=== PATIENT | female | born 1965 | race Caucasian/White ===

== ENCOUNTER 2020-04-03 22:55 | Emergency (ER) | payer MEDICAID, SELFPAY ==
[2020-04-03 23:05] VITALS: BP 130/83; PULSE 67; RESP 18; TEMP 36.4; O2SAT 96; BMI 37.0
--- NOTE | 2020-04-03 23:19 | ECG_ITS ---
Test Reason : ETOH Blood Pressure : / mmHG Vent. Rate : 060 BPM Atrial Rate : 060 BPM P-R Int : 192 ms QRS Dur : 098 ms QT Int : 408 ms P-R-T Axes : 054 036 014 degrees QTc Int : 408 ms Normal sinus rhythm Possible Left atrial enlargement Nonspecific T wave abnormality Anterior leads Abnormal ECG When compared with ECG of 30-JAN-2019 15:43, Nonspecific T wave abnormality now evident in Anterior leads Referred By: Venecia Carmen Electronically Signed By:MITUL BELCHER MD
--- NOTE | 2020-04-03 23:49 | ED_ITS ---
HPI - Alcohol General Chief Complaint: ETOH/Substance Use Stated Complaint: etoh Time Seen by Provider: 04/03/20 23:19 Source: patient and digital campaign specialist Mode of arrival: EMS Limitations: no limitations History of Present Illness HPI narrative: this is a 54-year-old female who is brought in by EMS after being found on the steps of her apartment significantly intoxicated and patient reports she has had a lot to drink . She otherwise complains some burning within her chest ( she has had multiple episodes of nausea and vomiting since her arrival in the emergency department). Otherwise, she denies any fevers, chi lls, chest pain /palpitations, abdominal pain /diarrhea, urinary pain /burning / frequency. Related Data Allergies Allergy/AdvReac Type Severity Reaction Status Date / Time No Known Allergies Allergy Unverified 02/19/20 17:48 [No Known Allergies*] Review of Systems Review of Systems: Pertinent positives and negatives as stated in the HPI and 10 point review of systems is otherwise negative. [facility] Past Medical History Source: nursing notes reviewed Medical History (Updated 04/04/20 @ 02:08 by Venecia Carmen MD) No known health problems Social History Social History Alcohol intake: never Smoked in Last 30 Days: No Use of substances other than those prescribed or required for medical reasons: No Advance Directives: No Advance Directives Information Provided: Yes Physical Exam Vital Signs: Vital Signs: Vital Signs Temp Pulse Resp BP Pulse Ox 04/04/20 06:04 66 16 105/60 98 04/04/20 04:00 94 16 151/72 H 97 04/04/20 02:48 88 16 117/87 98 04/04/20 01:40 ED T 66 16 101/55 L 100 04/03/20 23:05 97.6 F 67 18 130/83 96 Body Mass Index 37.0 VITAL SIGNS: Reviewed. GENERAL: Well developed, well nourished, in no acute distress. HEAD: Normocephalic/atraumatic, EYES: PERRLA, EOMI intact without pain, no nystagmus/pallor/icterus noted EARS: Ext canals without abnormality, TMs non-bulging and non-erythematous NOSE: Nares patent bilateral OROPHARYNX: no oral lesions noted, posterior pharynx clear and non-erythematous without noted tonsillar enlargement/erythema/exudates NECK: Supple, no adenopathy LUNGS: Normal breath sounds. No adventitious sounds or accessory muscle use. SpO2<96> CARDIOVASCULAR: Regular rate and rhythm without noted murmurs, no JVD or lower extremity edema. ABDOMEN: Soft, non-tender, non-distended with bowel sounds. No rigidity. No guarding. No palpable masses or hernias noted MUSCULOSKELETAL: No tenderness, deformities, or effusions noted on gross inspection. EXTREMITIES: No cyanosis, clubbing or edema. SKIN: Inspection of the skin reveals no rashes, ulcerations, jaundice, pallor, or petechiae. NEUROLOGIC: Alert and oriented x 4. Strength and sensation to light touch were grossly intact x 4. Course Course Course Narrative: This is a 54-year-old female with history and clinical presentation consistent with significant alcohol intoxication will obtain basic lab work and imaging to include urinalysis to ensure patient is otherwise medically cleared for discharge to her family for continued self detoxification. Review of all investigations is negative for any acute findings other than elevated BAL of 247. Patient will be observed until her gait is steady and then discharged home to family members. MDM - Alcohol Lab Data Result diagrams: 04/03/20 23:53 04/03/20 23:52 Labs: Lab Results 04/03/20 04/03/20 04/03/20 Range/Units 23:52 23:52 23:52 WBC (4.8-10.8) X10*3/uL RBC (4.20-5.50) X10*6/uL Hgb (12.0-16.0) g/dl Hct (37-47) % MCV (80-98) fL MCH (27.0-33.0) pg MCHC (31.0-35.0) g/dl RDW (11.0-16.0) % Plt Count (160-400) X10*3/uL MPV (9.4-12.3) fL Immature Gran % (Auto) (0.0-0.4) % Neut % (Auto) (45-73) % Lymph % (Auto) (20-40) % [place] % (Auto) (2-11) % Eos % (Auto) (0-4) % Baso % (Auto) (0-2) % Lymph # (Auto) (1.2-4.9) X10*3/uL [place] # (Auto) (0.1-1.2) X10*3/uL Eos # (Auto) (0.0-0.4) X10*3/uL Baso # (Auto) (0.0-0.2) X10*3/uL Abs Immat Gran (auto) (0.00-0.03) X10*3/uL Absolute Neuts (auto) (2.0-8.3) X10*3/uL Absolute Nucleated RBC (0.0-0.012) X10*3/uL Nucleated RBC % (auto) (0.0-0.2) /100WBC Sodium 141 (135-145) mmol/L Potassium 3.7 (3.3-5.1) mmol/l Chloride 106 (96-108) mmol/L Carbon Dioxide 23 (22-29) mmol/L Anion Gap 16 (12-20) BUN 8 L (9-16) mg/dL Creatinine 0.75 (0.5-1.4) mg/dL Estim Creat Clear Calc 81.5 Estimated GFR > 60 Random Glucose 127 H (60-115) mg/dL Calcium 8.0 L (8.4-10.2) mg/dL Magnesium 2.2 (1.6-2.6) mg/dL Total Bilirubin 0.2 (0.0-1.0) mg/dL AST 31 (5-31) U/L ALT 34 H (0-31) U/L Alkaline Phosphatase 85 (39-117) U/L Total Protein 7.2 (6.5-8.0) g/dL Albumin 4.1 (3.5-5.0) g/dL Lipase 19 (8-78) U/L Urine Color Urine Appearance Urine pH (5.0-8.0) Ur Specific [place] (1.005-1.025) Urine Protein (NEG-TRACE) MG/DL Urine Glucose (UA) (NEG) MG/DL Urine Ketones (NEG) MG/DL Urine Blood (NEG) Urine Nitrite (NEG) Ur Leukocyte Esterase (NEG) Urine Opiates Screen (Not Detect) Ur Barbiturates Screen (Not Detect) Ur Phencyclidine Scrn (Not Detect) Ur Amphetamines Screen (Not Detect) U Benzodiazepines Scrn (Not Detect) Urine Cocaine Screen (Not Detect) U Marijuana (THC) Screen (Not Detect) Ethyl Alcohol 247 mg/dL 10/31/20 11/01/20 11/01/20 Range/Units 23:53 01:53 EST 01:53 EST WBC 7.3 (4.8-10.8) X10*3/uL RBC 4.32 (4.20-5.50) X10*6/uL Hgb 12.8 (12.0-16.0) g/dl Hct 36.5 L (37-47) % MCV 84.5 (80-98) fL MCH 29.6 (27.0-33.0) pg MCHC 35.1 H (31.0-35.0) g/dl RDW 13.2 (11.0-16.0) % Plt Count 196 (160-400) X10*3/uL MPV 10.1 (9.4-12.3) fL Immature Gran % (Auto) 0.4 (0.0-0.4) % Neut % (Auto) 49.2 (45-73) % Lymph % (Auto) 44.3 H (20-40) % [place] % (Auto) 4.5 (2-11) % Eos % (Auto) 1.2 (0-4) % Baso % (Auto) 0.4 (0-2) % Lymph # (Auto) 3.2 (1.2-4.9) X10*3/uL [place] # (Auto) 0.3 (0.1-1.2) X10*3/uL Eos # (Auto) 0.1 (0.0-0.4) X10*3/uL Baso # (Auto) 0.0 (0.0-0.2) X10*3/uL Abs Immat Gran (auto) 0.03 (0.00-0.03) X10*3/uL Absolute Neuts (auto) 3.6 (2.0-8.3) X10*3/uL Absolute Nucleated RBC 0.000 (0.0-0.012) X10*3/uL Nucleated RBC % (auto) 0.0 (0.0-0.2) /100WBC Sodium (135-145) mmol/L Potassium (3.3-5.1) mmol/l Chloride (96-108) mmol/L Carbon Dioxide (22-29) mmol/L Anion Gap (12-20) BUN (9-16) mg/dL Creatinine (0.5-1.4) mg/dL Estim Creat Clear Calc Estimated GFR Random Glucose (60-115) mg/dL Calcium (8.4-10.2) mg/dL Magnesium (1.6-2.6) mg/dL Total Bilirubin (0.0-1.0) mg/dL AST (5-31) U/L ALT (0-31) U/L Alkaline Phosphatase (39-117) U/L Total Protein (6.5-8.0) g/dL Albumin (3.5-5.0) g/dL Lipase (8-78) U/L Urine Color YELLOW Urine Appearance CLEAR Urine pH 5.5 (5.0-8.0) Ur Specific [place] 1.020 (1.005-1.025) Urine Protein NEG (NEG-TRACE) MG/DL Urine Glucose (UA) NEG (NEG) MG/DL Urine Ketones NEG (NEG) MG/DL Urine Blood NEG (NEG) Urine Nitrite NEG (NEG) Ur Leukocyte Esterase NEG (NEG) Urine Opiates Screen Not Detected (Not Detect) Ur Barbiturates Screen Not Detected (Not Detect) Ur Phencyclidine Scrn Not Detected (Not Detect) Ur Amphetamines Screen Not Detected (Not Detect) U Benzodiazepines Scrn Not Detected (Not Detect) Urine Cocaine Screen Not Detected (Not Detect) U Marijuana (THC) Screen Not Detected (Not Detect) Ethyl Alcohol mg/dL ECG Data Attestation: I personally reviewed and interpreted this ECG as follows: Prior ECG tracings: available for review ( 01/30/2019 without active acute changes) Interpretation: normal sinus rhythm, HR -60, no evidence of acute ischemia,OK/QRS/ QTC are within normal limits Discharge Plan Discharge Clinical Impression: Alcoholic intoxication Qualifiers: Complication of substance-induced condition: uncomplicated Qualified Code(s): F10.920 - Alcohol use, unspecified with intoxication, uncomplicated Patient Disposition: Home, Self-Care Instructions: Alcohol Intoxication (ED) Additional Instructions: The patient and/or family acknowledge understanding of results (as applicable), diagnosis, treatment plan, need for follow up, and symptoms that should prompt a return to the emergency room. Referrals: Physician,Unknown [Primary Care Provider] - 2 days
[2020-04-03 23:59] LABS: Basophils Percent Auto 0.4 % (0-2); Eosinophils Absolute Auto 0.1 X10*3/uL (0.0-0.4); Eosinophils Percent Auto 1.2 % (0-4); Hematocrit 36.5 % (37-47); Hemoglobin 12.8 g/dl (12.0-16.0); Imm Gran Abs Auto 0.03 X10*3/uL (0.00-0.03); Imm Gran Pct Auto 0.4 % (0.0-0.4); Lymphocytes Absolute Auto 3.2 X10*3/uL (1.2-4.9); Lymphocytes Percent Auto 44.3 % (20-40); MANUAL DIFF FLAG NO; Mean Corpuscular HGB Conc 35.1 g/dl (31.0-35.0); Mean Corpuscular Hemoglobin 29.6 pg (27.0-33.0); Mean Corpuscular Volume 84.5 fL (80-98); Mean Platelet Volume 10.1 fL (9.4-12.3); Monocytes Absolute Auto 0.3 X10*3/uL (0.1-1.2); Monocytes Percent Auto 4.5 % (2-11); Neutrophils Absolute Auto 3.6 X10*3/uL (2.0-8.3); Neutrophils Percent Auto 49.2 % (45-73); Platelet Count 196 X10*3/uL (160-400); Red Blood Count 4.32 X10*6/uL (4.20-5.50); Red Cell Distribution Width 13.2 % (11.0-16.0); White Blood Count 7.3 X10*3/uL (4.8-10.8)
[2020-04-03] MEDS: 0.9 % Sodium Chloride 1,000 ML 1000 ML IV (23:59)
[2020-04-03] MEDS: ondansetron HCL 4 MG/2 ML VIAL IVPUSH (23:59)
[2020-04-04 00:21] LABS: Ethanol 247 mg/dL
[2020-04-04 00:30] LABS: Alanine Aminotransferase 34 U/L (0-31); Albumin Level 4.1 g/dL (3.5-5.0); Alkaline Phosphatase 85 U/L (39-117); Anion Gap 16 (12-20); Aspartate Amino Transferase 31 U/L (5-31); Bilirubin Total 0.2 mg/dL (0.0-1.0); Blood Urea Nitrogen 8 mg/dL (9-16); Carbon Dioxide 23 mmol/L (22-29); Chloride 106 mmol/L (96-108); Creatinine Clr Calc Pharmacy 81.5; Estimated Glomerular Filt Rate > 60; Glucose Random 127 mg/dL (60-115); Lipase 19 U/L (8-78); Magnesium 2.2 mg/dL (1.6-2.6); Potassium 3.7 mmol/l (3.3-5.1); Sodium 141 mmol/L (135-145); Total Protein 7.2 g/dL (6.5-8.0)
[2020-04-04 01:29] LABS: Glucose Urine UA NEG (NEG); Leukocyte Esterase Urine NEG (NEG); Nitrite Urine NEG (NEG); PH 5.5 (5.0-8.0); Urine Blood NEG (NEG); Urine Ketones NEG (NEG); Urine Protein NEG (NEG-TRACE)
[2020-04-04 01:35] LABS: Appearance Urine CLEAR; Color Urine YELLOW
[2020-04-04 01:40] VITALS: BP 101/55; PULSE 66; RESP 16; O2SAT 100
--- NOTE | 2020-04-04 01:54 | PC.NURSE ---
Attempted to ambulate pt, pt became lightheaded, unsteady, assisted back into bed. also incont of urine, changed into clean hospital attire.
[2020-04-04 01:59] LABS: Amphetamine Screen Urine Not Detected (Not Detect); Barbiturates, Urine Not Detected (Not Detect); Benzodiazepines Screen Urine Not Detected (Not Detect); Cannabinoid Screen Urine Not Detected (Not Detect); Cocaine Screen Urine Not Detected (Not Detect); Opiate Screen Urine Not Detected (Not Detect); Phencyclidine Screen Urine Not Detected (Not Detect)
[2020-04-04 02:48] VITALS: BP 117/87; PULSE 88; RESP 16; O2SAT 98
--- NOTE | 2020-04-04 02:50 | PC.NURSE ---
pt ambulating w/ steady gait, denies dizziness. Pt son, Stefan, called at [phone] for ride home/assistance to pay for taxi and no answer- will call back. pt unable to find another sober ride.
[2020-04-04 04:00] VITALS: BP 151/72; PULSE 94; RESP 16; O2SAT 97
[2020-04-04 06:04] VITALS: BP 105/60; PULSE 66; RESP 16; O2SAT 98
== END 2020-04-04 06:34 | disposition home or self-care (01) ==
PROVIDERS: Emergency Provider Student in an Organized Health Care Education/Training Program
DX: F10.129 Alcohol abuse with intoxication, unspecified (principal); Y90.8 Blood alcohol level of 240 mg/100 ml or more
CPT/HCPCS: 36415; 80053; 80307; 80320; 81003; 83690; 83735; 85025; 93005; 96361; 96374; 99284; 99285; J2405

== ENCOUNTER 2020-04-06 08:31 | Outpatient (REF) | payer MEDICAID, SELFPAY ==
--- NOTE | 2020-04-06 09:00 | ECG_ITS ---
Test Reason : Z01.810 Blood Pressure : / mmHG Vent. Rate : 052 BPM Atrial Rate : 052 BPM P-R Int : 172 ms QRS Dur : 086 ms QT Int : 416 ms P-R-T Axes : 056 027 005 degrees QTc Int : 386 ms Sinus bradycardia Possible Left atrial enlargement Nonspecific T wave abnormality Inferior leads Abnormal ECG When compared with ECG of 03-APR-2020 22:39, No significant change was found Referred By: Shruthi Martinez Electronically Signed By:MITUL BELCHER MD
[2020-04-06 09:35] LABS: Basophils Percent Auto 0.5 % (0-2); Eosinophils Absolute Auto 0.1 X10*3/uL (0.0-0.4); Eosinophils Percent Auto 1.9 % (0-4); Hematocrit 37.5 % (37-47); Hemoglobin 12.7 g/dl (12.0-16.0); Imm Gran Abs Auto 0.02 X10*3/uL (0.00-0.03); Imm Gran Pct Auto 0.3 % (0.0-0.4); Lymphocytes Absolute Auto 2.3 X10*3/uL (1.2-4.9); Lymphocytes Percent Auto 36.8 % (20-40); MANUAL DIFF FLAG NO; Mean Corpuscular HGB Conc 33.9 g/dl (31.0-35.0); Mean Corpuscular Volume 85.6 fL (80-98); Mean Platelet Volume 9.9 fL (9.4-12.3); Monocytes Absolute Auto 0.4 X10*3/uL (0.1-1.2); Monocytes Percent Auto 5.7 % (2-11); Neutrophils Absolute Auto 3.4 X10*3/uL (2.0-8.3); Neutrophils Percent Auto 54.8 % (45-73); Platelet Count 199 X10*3/uL (160-400); Red Blood Count 4.38 X10*6/uL (4.20-5.50); Red Cell Distribution Width 13.2 % (11.0-16.0); White Blood Count 6.3 X10*3/uL (4.8-10.8)
[2020-04-06 10:03] LABS: Anion Gap 12 (12-20); Blood Urea Nitrogen 7 mg/dL (9-16); Calcium 8.5 mg/dL (8.4-10.2); Carbon Dioxide 29 mmol/L (22-29); Chloride 104 mmol/L (96-108); Estimated Glomerular Filt Rate > 60; Glucose Random 98 mg/dL (60-115); Potassium 4.1 mmol/l (3.3-5.1); Sodium 141 mmol/L (135-145)
== END 2020-04-06 08:32 | disposition home or self-care (01) ==
LOC: HO.LAB 08:31
PROVIDERS: PCP Nurse Practitioner Family
DX: Z01.810 Encounter for preprocedural cardiovascular examination (principal); S83.242A Other tear of medial meniscus, current injury, left knee, initial encounter
CPT/HCPCS: 36415; 80048; 85025; 93005

== ENCOUNTER 2020-07-07 10:08 | Emergency (ER) | payer MEDICAID, SELFPAY ==
--- NOTE | 2020-07-07 10:14 | ECG_ITS ---
Test Reason : CP Blood Pressure : / mmHG Vent. Rate : 074 BPM Atrial Rate : 074 BPM P-R Int : 156 ms QRS Dur : 086 ms QT Int : 402 ms P-R-T Axes : 052 034 024 degrees QTc Int : 446 ms Normal sinus rhythm Biatrial enlargement Abnormal ECG When compared with ECG of 06-APR-2020 10:16, QT has lengthened Referred By: Generic ED Physician Electronically Signed By:JUAN MANUEL GRIER MD
[2020-07-07 11:43] VITALS: BP 146/81; PULSE 67; RESP 16; TEMP 36.8; O2SAT 98; BMI 29.2
--- NOTE | 2020-07-07 11:45 | ED_ITS ---
HPI - Chest Pain General Chief Complaint: Chest Pain Stated Complaint: chest pressure Time Seen by Provider: 07/07/20 11:45 Source: patient Mode of arrival: ambulatory Limitations: no limitations History of Present Illness HPI narrative: chest pain for 2 hours, patient states that she is depressed she lives alone and the virus is upsetting her. complaint: chest pain Onset (ago): hour(s) Timing of current episode: episodic Prior episodes: Yes Onset: during rest Pain location: substernal Severity: moderate Quality: tightness Relieving factors: nothing Exacerbating factors: nothing Related Data Allergies Allergy/AdvReac Type Severity Reaction Status Date / Time No Known Allergies Allergy Unverified 02/19/20 17:48 [No Known Allergies*] Review of Systems Constitutional: Constitutional: Reports no additional constitutional complaints Eyes: Eyes: Reports no additional eye complaints ENT: Denies dizziness Cardiovascular: Cardiovascular: Reports no additional cardiovascular complaints Respiratory: Respiratory: Reports as per HPI Gastrointestinal: Gastrointestinal: Reports no additional gastrointestinal co mplaints Genitourinary: Genitourinary: Reports no additional female genitourinary complaints Musculoskeletal: Musculoskeletal: Reports no additional musculoskeletal complaints Integumentary/Breasts: Skin/Breast: Denies rash Neurologic: Reports system reviewed and no additional complaints, except as documented, Denies dizziness and Denies Sensory deficit (Neuro) Psychiatric: Psychiatric: Reports anxiety and Reports depression [facility] Past Medical History Medical History High cholesterol Hypothyroid No known health problems Social History Social History Alcohol intake: never Smoking Status: Never smoker Use of substances other than those prescribed or required for medical reasons: No Advance Directives: No Advance Directives Information Provided: Yes Physical Exam Vital Signs: Vital Signs: Last Vital Signs Temp 98.3 F 07/07/20 11:48 Pulse 59 07/07/20 12:35 Resp 16 07/07/20 12:35 BP 126/70 07/07/20 12:35 Pulse Ox 98 07/07/20 12:35 Body Mass Index 29.2 Const: General: healthy appearing Nutritional Appearance: average body habitus Orientation/consciousness: oriented to person and patient oriented x3 Limitations: no limitations HENMT: Head: Yes normal to inspection Ears: external ears normal General nose exam: Normal external nose present Mouth: Normal oral and palatal mucosa present and oropharynx normal Throat: Yes posterior oropharynx normal Eyes: General: appearance normal, both eyes and all related structures Neck: Other: supple Neck: Yes normal visual inspection Chest: Chest palpation & inspection: normal inspection of the chest Resp: Auscultation: clear to auscultation bilaterally Cardio: Jugular venous distension: no JVD Rate: regular rate Rhythm: regular rhythm Heart sounds: S1 normal heart sound present and S2 normal heart sound present GI: Inspection: Yes normal to inspection Palpation (GI): Soft to palpation, nontender and No hepatosplenomegaly present Auscultation: normal bowel sounds : General: Yes no CVA tenderness Back/Spine/Pelvis: Back: no CVA tenderness Skin: General skin exam: no rashes or lesions noted Neuro: General: oriented to person and patient oriented x3 Cranial nerves: Yes CN's II-XII intact bilaterally Motor exam (neuro): 5/5 motor strength present throughout Sensory Exam: No Sensory deficit (Neuro) Extrem: General: Yes normal to inspection Psych: Appearance: grossly normal Course Course Course Narrative: patient resting comfortably, troponin negative will dc home MDM - Chest Pain MDM Narrative Medical decision making narrative: patients history sounds more like anxiety, negative EKG and troponin will dc home Differential Diagnosis Differential diagnosis: Likely atypical chest pain, st elevation myocardial infarction and chest pain Differential diagnosis: anxiety Lab Data Result diagrams: 07/07/20 12:41 07/07/20 12:41 Labs: Lab Results 07/07/20 07/07/20 07/07/20 Range/Units 12:41 12:41 12:41 WBC 8.3 (4.8-10.8) X10*3/uL RBC 4.52 (4.20-5.50) X10*6/uL Hgb 12.9 (12.0-16.0) g/dl Hct 37.2 (37-47) % MCV 82.3 (80-98) fL MCH 28.5 (27.0-33.0) pg MCHC 34.7 (31.0-35.0) g/dl RDW 13.8 (11.0-16.0) % Plt Count 206 (160-400) X10*3/uL MPV 10.0 (9.4-12.3) fL Immature Gran % (Auto) 0.2 (0.0-0.4) % Neut % (Auto) 64.5 (45-73) % Lymph % (Auto) 28.5 (20-40) % [place] % (Auto) 5.5 (2-11) % Eos % (Auto) 0.7 (0-4) % Baso % (Auto) 0.6 (0-2) % Lymph # (Auto) 2.4 (1.2-4.9) X10*3/uL [place] # (Auto) 0.5 (0.1-1.2) X10*3/uL Eos # (Auto) 0.1 (0.0-0.4) X10*3/uL Baso # (Auto) 0.1 (0.0-0.2) X10*3/uL Abs Immat Gran (auto) 0.02 (0.00-0.03) X10*3/uL Absolute Neuts (auto) 5.3 (2.0-8.3) X10*3/uL Absolute Nucleated RBC 0.000 (0.0-0.012) X10*3/uL Nucleated RBC % (auto) 0.0 (0.0-0.2) /100WBC Sodium 141 (135-145) mmol/L Potassium 4.7 (3.3-5.1) mmol/L Chloride 103 (96-108) mmol/L Carbon Dioxide 28 (22-29) mmol/L Anion Gap 15 (12-20) BUN 9 (9-16) mg/dL Creatinine 0.75 (0.5-1.4) mg/dL Estim Creat Clear Calc 72.1 Estimated GFR > 60 Random Glucose 93 (60-115) mg/dL Calcium 9.2 D (8.4-10.2) mg/dL Troponin I High Sens 14.7 (<3.5-17.0) ng/L ECG Data ECG #1: Attestation: I personally reviewed and interpreted this ECG as follows: Interpretation: normal sinus rate of 74, no st or twave changes Discharge Plan Discharge Clinical Impression: Anxiety Chest pain Qualifiers: Chest pain type: precordial pain Qualified Code(s): R07.2 - Precordial pain Patient Disposition: Home, Self-Care Instructions: Anxiety (ED), Chest Pain (ED) Referrals: [place],[facility] [Primary Care Provider] - 2 days
[2020-07-07 11:48] VITALS: BP 146/81; PULSE 67; RESP 16; TEMP 36.8; O2SAT 98
[2020-07-07 12:35] VITALS: BP 126/70; PULSE 59; RESP 16; O2SAT 98
[2020-07-07 12:44] LABS: MANUAL DIFF FLAG NO
[2020-07-07 12:49] LABS: Basophils Absolute Auto 0.1 X10*3/uL (0.0-0.2); Basophils Percent Auto 0.6 % (0-2); Eosinophils Absolute Auto 0.1 X10*3/uL (0.0-0.4); Eosinophils Percent Auto 0.7 % (0-4); Hematocrit 37.2 % (37-47); Hemoglobin 12.9 g/dl (12.0-16.0); Imm Gran Abs Auto 0.02 X10*3/uL (0.00-0.03); Imm Gran Pct Auto 0.2 % (0.0-0.4); Lymphocytes Absolute Auto 2.4 X10*3/uL (1.2-4.9); Lymphocytes Percent Auto 28.5 % (20-40); Mean Corpuscular HGB Conc 34.7 g/dl (31.0-35.0); Mean Corpuscular Hemoglobin 28.5 pg (27.0-33.0); Mean Corpuscular Volume 82.3 fL (80-98); Monocytes Absolute Auto 0.5 X10*3/uL (0.1-1.2); Monocytes Percent Auto 5.5 % (2-11); Neutrophils Absolute Auto 5.3 X10*3/uL (2.0-8.3); Neutrophils Percent Auto 64.5 % (45-73); Platelet Count 206 X10*3/uL (160-400); Red Blood Count 4.52 X10*6/uL (4.20-5.50); Red Cell Distribution Width 13.8 % (11.0-16.0); White Blood Count 8.3 X10*3/uL (4.8-10.8)
[2020-07-07 13:20] LABS: Anion Gap 15 (12-20); Blood Urea Nitrogen 9 mg/dL (9-16); Calcium 9.2 mg/dL (8.4-10.2); Carbon Dioxide 28 mmol/L (22-29); Chloride 103 mmol/L (96-108); Creatinine Clr Calc Pharmacy 72.1; Estimated Glomerular Filt Rate > 60; Glucose Random 93 mg/dL (60-115); Potassium 4.7 mmol/L (3.3-5.1); Sodium 141 mmol/L (135-145)
[2020-07-07 13:45] LABS: Troponin-I High Sensitivity 14.7 ng/L (<3.5-17.0)
[2020-07-07 14:06] VITALS: BP 126/70; PULSE 59; RESP 16; O2SAT 98
== END 2020-07-07 14:08 | disposition home or self-care (01) ==
PROVIDERS: Emergency Provider Emergency Medicine
DX: R07.2 Precordial pain (principal); F41.9 Anxiety disorder, unspecified
CPT/HCPCS: 36415; 80048; 84484; 85025; 93005; 99283; 99284

== ENCOUNTER → 2020-08-24 13:07 | Outpatient (BNVA) | payer MEDICAID, SELFPAY | PROVIDERS: Visit Provider Orthopaedic Surgery | DX: S83.232D Complex tear of medial meniscus, current injury, left knee, subsequent encounter (principal) | CPT/HCPCS: 99212 ==

== ENCOUNTER 2020-09-09 09:20 | Outpatient (REF) | payer MEDICAID, SELFPAY ==
--- NOTE | ~2020-09-09 | MM_ITS ---
EXAMINATION: MM SCREENING DIGITAL BREAST TOMOSYNTHESIS, BILATERAL CLINICAL INFORMATION: Screening. Asymptomatic. The lifetime risk of breast cancer based on the Tyrer-Cuzick Model is 4%. COMPARISON: Mammography: 05/30/2019, 05/24/2018, 05/07/2017 TECHNIQUE: Digital breast tomosynthesis is performed in both the craniocaudal and mediolateral oblique views along with computer-aided detection (CAD). Synthesized 2D images are generated from the tomosynthesis. FINDINGS: There are scattered areas of fibroglandular density (ACR BI-RADS breast composition Category b). There are no significant masses, abnormal calcifications, or other abnormalities. Parenchymal pattern is similar to prior studies. The axilla and skin contours are unremarkable. MM/MM tomosynthesis screening BI IMPRESSION: No mammographic evidence of malignancy. ASSESSMENT: BI-RADS 1: Negative RECOMMENDATION: Routine annual mammography screening. This patient's information was entered into a reminder system with a target due date for their next mammogram.
== END 2020-09-09 09:21 | disposition home or self-care (01) ==
LOC: HO.MAMMO 09:20
PROVIDERS: Visit Provider Nurse Practitioner Family
DX: Z12.31 Encounter for screening mammogram for malignant neoplasm of breast (principal)
CPT/HCPCS: 77063; 77067

== ENCOUNTER → 2020-10-05 09:22 | Outpatient (BNVA) | payer MEDICAID, SELFPAY | PROVIDERS: Visit Provider Orthopaedic Surgery | DX: S83.232D Complex tear of medial meniscus, current injury, left knee, subsequent encounter (principal) | CPT/HCPCS: 99212 ==

== ENCOUNTER 2020-10-14 05:59 | Day surgery (SDC) | payer MEDICAID, SELFPAY ==
[2020-10-14] VITALS (7 sets, daily range): BP systolic 114–151; BP diastolic 43–90; PULSE 53–72; RESP 16–20; TEMP 36.5–36.7; O2SAT 95–98; BMI 35.2
[2020-10-14] MEDS: Lactated Ringers 1,000 ML 20 ML IVCONT (07:25)
--- NOTE | 2020-10-14 07:35 | P.CONAN_ITS ---
PMFSH Active Problems Active Problems: All Active Problems (Updated 10/05/20 @ 09:28 by MILTON Ritter) Adhesive bursitis of right shoulder (Acute) Tear of medial meniscus of left knee (Acute) Past Medical History Medical History High cholesterol Hypothyroid Surgical History Surgical History Hx of colonoscopy Social History Social History Alcohol intake: never Smoking Status: Former smoker Smoking Quit Date: 2018 Use of substances other than those prescribed or required for medical reasons: No Are you DNR?: No Advance Directives: No Advance Directives Information Provided: Yes Current occupational status: unemployed Meds Allergies Allergy/AdvReac Type Severity Reaction Status Date / Time No Known Allergies Allergy Verified 10/14/20 07:02 [No Known Allergies*] Active Medications: Current Medications Generic Name Dose Route Start Last Admin Trade Name Angela PRN Reason Stop Dose Admin Lactated Ringer's 1,000 mls @ 20 mls/hr 10/14/20 07:45 Lr IVCONT .Q24H LENORA Home Medications Medication Instructions Recorded Confirmed Last Taken Type cholecalciferol (vitamin D3) 10 10 mcg PO DAILY 08/24/20 Unknown History mcg (400 unit) capsule levothyroxine 13 mcg capsule 13 mcg PO DAILY 08/24/20 Unknown History simvastatin 5 mg tablet 5 mg PO BEDTIME 08/24/20 Unknown History Exam Exam Date and Time: October 14, 2020 0735 Height,Weight and Vital Signs: Height 5 ft Weight 81.647 kg Last Vital Signs Temp 97.7 F 10/14/20 07:19 Pulse 53 10/14/20 07:19 Resp 16 10/14/20 07:19 BP 127/67 10/14/20 07:19 Pulse Ox 98 10/14/20 07:19 Airway Mallampati Class: III TM Dist: >3cm Neck ROM: Full Loose/Missing/Broken Teeth: Upper Heart: RRR Lungs: cTA
[2020-10-14] MEDS: Ketorolac Tromethamine 15 MG/ML VIAL IVPUSH (09:53)
[2020-10-14] MEDS: Acetaminophen 325 MG TABLET 650 MG PO (09:53)
[2020-10-14] MEDS: oxyCODONE HCl Immed Release 5 MG TABLET PO (09:54)
--- NOTE | 2020-10-14 12:43 | P.OP_ITS ---
Operative Note Operative Note Date of Service: 10/14/20 Narrative: ARTHROSCOPIC SURGERY NOTE SURGEON: Dr Malagon (Carline) [employer]: Lakeisha Peter PAC PREOP DIAGNOSIS: Medial meniscal tear left knee POSTOP DIAGNOSIS: Same OPERATIVE PROCEDURE: Arthroscopic partial medial meniscectomy left knee CLINICAL NOTE: This very pleasant lady has had ongoing problems with pain discomfort involving medial side of her knee. She has failed non operative management. Therefore after explaining the risks, benefits, and alternatives of the surgery, it was mutually agreed upon to carry the following procedure MOTION: Full range of motion STABILITY: Cruciate and collateral ligaments intact OPERATIVE DETAILS PREPARATION: GA, STANDARD TECHNIQUE, tourniquet E to 300 mm of mercury for 16 minutes SURGICAL TIME-OUT: Patient identified; procedure confirmed; site confirmed. Medical and allergy history reviewed. No preoperative antibiotics. No DVT prophylaxis. All other items discussed and agreed upon. INCISIONS: Superolateral, inferolateral, inferomedial stab incisions SYNOVIUM: Normal SYNOVIAL FLUID: Clear MEDIAL COMPARTMENT: There was a radial tear with a flap tucked underneath the peripheral portion of the meniscus in the junction of the posterior middle horn region. This was resected using a combination of handheld cutters and power Manuel to stable meniscus. The tibial and femoral articular surfaces were intact. INTERCONDYLAR NOTCH: ACL visualized palpated and intact. PCL palpated and intact. LATERAL COMPARTMENT: The lateral meniscus, tibial and femoral articular surfaces, and popliteus tendon Were all stable and intact. ANTERIOR COMPARTMENT: Medial and lateral gutters clear. Suprapatellar pouch clear. Patella and femoral sulcus articular surfaces are intact. CLOSURE: 30 cc of 0.25% Marcaine with epinephrine injected in the knee. Steri- Strips and sterile dressing then applied. RECOMMENDATIONS: 1)Restore motion strength 2)Resume activities as tolerated 3)Discharge today with prescription for analgesic 4)Follow up in the office in 10-14 days
== END 2020-10-14 11:37 | disposition home or self-care (01) ==
PROVIDERS: PCP Nurse Practitioner Family; Visit Provider Orthopaedic Surgery
PROC: (CPT 29870; principal; 2020-10-14 08:30)
DX: S83.232A Complex tear of medial meniscus, current injury, left knee, initial encounter (principal); X58.XXXA Exposure to other specified factors, initial encounter; Y93.9 Activity, unspecified; Y92.9 Unspecified place or not applicable; Y99.8 Other external cause status; Z87.891 Personal history of nicotine dependence
CPT/HCPCS: 29881; J0171; J1885; J2250; J3010

== ENCOUNTER → 2020-10-26 09:25 | Outpatient (BNVA) | payer MEDICAID, SELFPAY | PROVIDERS: PCP Nurse Practitioner Family; Visit Provider Physician Assistant | DX: S83.232D Complex tear of medial meniscus, current injury, left knee, subsequent encounter (principal) | CPT/HCPCS: 99212 ==

== ENCOUNTER 2020-11-10 09:24 | Emergency (ER) | payer MEDICAID, SELFPAY ==
--- NOTE | ~2020-11-10 | US_ITS ---
EXAMINATION: US VENOUS ULTRASOUND WITH DOPPLER LOWER EXTREMITY, LEFT CLINICAL INFORMATION: Pain left lower extremity. Assess for occult DVT. COMPARISON: MRI left knee 02/10/2020 TECHNIQUE: Ultrasound of the deep veins is performed from the hip to the calf with compression sonography and color and pulse Doppler assessment. Spectral analysis with color-flow imaging is performed. FINDINGS: There is normal venous compression and respiratory variation and augmented flow. The visualized common femoral vein, superficial femoral vein, profunda femoral vein, popliteal vein, and the trifurcation region shows no evidence of deep venous thrombosis. There is a knee effusion with suprapatellar bursa distended to 1.2 cm in thickness. No gross popliteal fossa cyst demonstrated. US/US venous duplex LE LT IMPRESSION: 1. No DVT demonstrated in the left lower extremity. 2. Left knee effusion.
[2020-11-10 09:37] VITALS: BP 137/78; PULSE 61; RESP 16; TEMP 36.6; O2SAT 97; BMI 35.2
--- NOTE | 2020-11-10 09:52 | ED_ITS ---
HPI - Extremity Injury (Lower) General Chief Complaint: Extremity Injury, Lower Stated Complaint: lt knee pain Time Seen by Provider: 11/10/20 09:50 Source: patient Mode of arrival: ambulatory History of Present Illness HPI Narrative: 55-year-old female of hyperlipidemia, hypothyroid, uterine CA, s/p left knee arthroscopy with partial medial meniscectomy on 10/14/[address] Zacarias, presenting to the ED complaining of increased pain and swelling to left knee/LLE since procedure. Admits to calf pain. Ambulating at baseline with walker. Denies known injury or trauma/falls, recent travel, history of blood clots, cigarette smoking, CP/SOB, numbness, tingling, weakness Related Data Home Medications Medication Instructions Recorded Confirmed cholecalciferol (vitamin D3) 10 10 mcg PO DAILY 08/24/20 mcg (400 unit) capsule levothyroxine 13 mcg capsule 13 mcg PO DAILY 08/24/20 simvastatin 5 mg tablet 5 mg PO BEDTIME 08/24/20 Previous Rx's Medication Instructions Recorded acetaminophen-codeine 1 tab PO Q6H PRN 7 Days #20 tab 10/14/20 Allergies Allergy/AdvReac Type Severity Reaction Status Date / Time No Known Allergies Allergy Verified 10/26/20 10:02 [No Known Allergies*] Review of Systems Review of Systems: Constitutional: No Fever, No Chills ENT/Mouth: No Ear Pain, No sore throat, No Rhinorrhea Cardiovascular: No Chest Pain, No SOB, +LLE edema Respiratory: No Cough Gastrointestinal: No Nausea, No Vomiting, No Abdominal pain Musculoskeletal: + joint pain, No Myalgias, + Joint Swelling Skin: No Skin Lesions, No rash Neuro: No Weakness, No Numbness, No Paresthesias Yes all other systems are reviewed and are negative [facility] Past Medical History Attestation statement: The following information was validated with the patient. Medical History (Updated 11/10/20 @ 12:46 by JANA Worthy) High cholesterol Hypothyroid Uterine cancer Surgical History Hx of colonoscopy Social History Social History Alcohol intake: never Advance Directives: No Advance Directives Information Provided: No Patient : No Current occupational status: unemployed Physical Exam Vital Signs: Vital Signs: Last Vital Signs Temp 97.9 F 11/10/20 12:21 Pulse 56 11/10/20 12:21 Resp 16 11/10/20 12:21 BP 126/70 11/10/20 12:21 Pulse Ox 98 11/10/20 12:21 Body Mass Index 35.2 Const: General: cooperative, healthy appearing and no acute distress Orientation/consciousness: patient oriented x3 Limitations: no limitations HENMT: Head: Yes normal to inspection Ears: hearing grossly normal bilaterally General nose exam: Normal external nose present Face and sinus: Yes normal facial exam Eyes: General: appearance normal, both eyes and all related structures EOM: EOMs intact bilaterally Neck: Neck: Yes normal visual inspection and Yes no meningeal signs Resp: Effort & Inspection: normal respiratory effort Cardio: Rate: regular rate Peripheral pulses: dorsalis pedis present GI: Inspection: Yes normal to inspection Skin: Rashes: no rashes Wounds: no wounds Neuro: General: patient oriented x3 and no meningeal signs Gait exam (Neuro): Normal gait present (at baseline) Extrem: Other: Left knee with notable swelling/effusion, incision sites healing appropriately without signs of infection, no drainage. No erythema or ecchymosis. +LLE pitting edema. NV intact. Limited flexion secondary to pain/stiffness. Calf is tender to palpation Course Course Course Narrative: US venous duplex LE LT IMPRESSION: 1. No DVT demonstrated in the left lower extremity. 2. Left knee effusion. >> case discussed with orthopedic JANA Lane, will place patient in Guillermo wrap, ice, elevate, will follow-up with orthopedics as scheduled MDM - Extremity Injury (Lower) MDM Narrative Medical decision making narrative: 55-year-old female of hyperlipidemia, hypothyroid, uterine CA, s/p left knee arthroscopy with partial medial meniscectomy on 10/14/[address] Zacarias, presenting to the ED complaining of increased pain and swelling to right knee/RLE since procedure. On exam vital signs stable, NAD, nontoxic appearing, physical exam as above. Concern for effusion/fluid buildup s/p procedure vs DVT. Low concern for septic joint/arthritis or cellulitis Plan: Venous duplex ultrasound Discharge Plan Discharge Clinical Impression: Effusion of knee joint, left Patient Disposition: Home, Self-Care Instructions: Swollen Knee Joint (ED) Additional Instructions: Your ultrasound does not show a blood clot, does show any effusion. Wear Guillermo wrap at home at all times, you may take off to shower and sleep You need to ice and elevate your leg Take Tylenol and Motrin for pain and swelling You need to follow-up with orthopedics as scheduled If swelling or pain persists or worsens, like becomes discolored, red, or pain becomes unbearable please return to the ED Paredes ecograf?a no muestra un co?gulo de capri, muestra jeny?n derrame. Use la envoltura Guillermo en casa en todo momento, puede quitarse la ducha y dormir Necesitas hielo y elevar tu pierna. [place] Tylenol y Motrin para el dolor y la hinchaz?n. Debe realizar un seguimiento con ortopedia seg?n lo programado Si la hinchaz?n o el dolor persiste o empeora, se decolora, se enrojece o el dolor se vuelve insoportable, regrese al servicio de urgencias. Prescriptions: No Action acetaminophen-codeine 300-30 mg tablet 1 tab PO Q6H PRN (Reason: pain) 7 Days Qty: 20 RF: 0 levothyroxine 13 mcg capsule 13 mcg PO DAILY RF: 0 simvastatin 5 mg tablet 5 mg PO BEDTIME RF: 0 cholecalciferol (vitamin D3) 10 mcg (400 unit) capsule 10 mcg PO DAILY RF: 0 Referrals: Manas Zacarias MD [Physician] - 10 days Print Language: Mongolian
[2020-11-10 12:21] VITALS: BP 126/70; PULSE 56; RESP 16; TEMP 36.6; O2SAT 98
== END 2020-11-10 13:15 | disposition home or self-care (01) ==
PROVIDERS: Emergency Provider Emergency Medicine; PCP Nurse Practitioner Family
DX: M25.562 Pain in left knee (principal); M25.462 Effusion, left knee; E78.5 Hyperlipidemia, unspecified; Z85.42 Personal history of malignant neoplasm of other parts of uterus; Z96.652 Presence of left artificial knee joint; Z79.02 Long term (current) use of antithrombotics/antiplatelets; Z79.899 Other long term (current) drug therapy
CPT/HCPCS: 93971; 99284

== ENCOUNTER → 2020-11-12 09:21 | Outpatient (BNVA) | payer MEDICAID, SELFPAY | PROVIDERS: Visit Provider Physician Assistant | DX: S83.232D Complex tear of medial meniscus, current injury, left knee, subsequent encounter (principal); M25.462 Effusion, left knee; Z98.890 Other specified postprocedural states | CPT/HCPCS: 99212 ==

== ENCOUNTER → 2020-12-14 08:33 | Outpatient (BNVA) | payer MEDICAID, SELFPAY | PROVIDERS: Visit Provider Physician Assistant | DX: Z98.890 Other specified postprocedural states (principal) | CPT/HCPCS: 99212 ==

== ENCOUNTER 2020-12-28 11:00 | Outpatient (RCR) | payer MEDICAID, SELFPAY ==
--- NOTE | 2020-11-15 16:08 | MHC.PT.EP ---
[facility] [place] Office [place] Office [place] Office [address] Emperatriz Dial [address] [phone] F: [phone] F: [phone] F: [phone] F: [phone] Physical Therapy Plan of Care Date of Evaluation: Date of Surgery: 10/14/2020 Diagnosis: Complex Tear of medial meniscus of L knee Assessment: 55 y.o female referred to PT s/p arthroscopic partial medial meniscectomy left knee 4.5 weeks ago. She presents with increased swelling, B decreased hip strength, B decreased knee strength, decreased R knee ROM, postural abnormalities, and gait deviations. She would benefit from skilled PT to address the aforementioned impairments so as to improve her tolerance for ADLs such as cooking, cleaning, and ambulation. Patient needs reinforcement to participate in PT and exercise. Frequency and Duration: The patient will be seen 2x week for 5 weeks Short Term Goals: 1. In 2 weeks patient will present with decreased swelling to improve her ability to dress herself and self care 2. In 3 weeks patient will present with improved R knee ROM to help her ability to cook and clean. 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 In 5 weeks patient will ambulate 200' with use of single point cane. 2. In 6 weeks patient will improve LE MMT by 1 grade to improve ability for walking and grocery shopping. Treatment Plan: Modalities to reduce pain, spasms and effusion. Manual therapy to restore motion and function. Therapeutic exercise to improve strength and flexibility. Neuromuscular re-education for posture and balance. Therapeutic activities to return to functional activities of daily living. Electronically signed by: Britt Trent PT DPT Please sign and return to therapist. Thank you for your referral.
--- NOTE | 2021-01-26 15:35 | MHC.PT.DC ---
[facility] [place] Office [place] Office [place] Office [address] Emperatriz Dial [address] [phone] F: [phone] F: [phone] F: [phone] F: [phone] Physical Therapy Discharge Report Diagnosis: Complex Tear of medial meniscus of L knee Date of Surgery: 10/14/2020 Date of Evaluation: 11/15/20 Date of Discharge: 01/12/21 Treatments to Date: 11 Cancellations to Date: 1 No Shows to Date: 0 Discharge Status: Improved Function Independent with HEP Discharge Summary: Pt continues to perform therex with good tolerance and no increase in pain. Her strength and ROM is improving as noted throughout LE therex. Continued amb with SPC and pt demonstrated good safety and sequencing up to 200'. Pt ambulated without AD short distances and was safe and steady. Continue to progress as pt tolerates. Electronically signed by: Britt Trent PT DPT Please sign and return to therapist. Thank you for your referral.
== END 2021-01-26 15:37 | disposition home or self-care (01) ==
LOC: HO.PT 11:00
PROVIDERS: PCP Nurse Practitioner Family; Visit Provider Physician Assistant
DX: S83.232D Complex tear of medial meniscus, current injury, left knee, subsequent encounter (principal)
CPT/HCPCS: 97110; 97112; 97116; 97140; 97150; 97161; 97530

== ENCOUNTER 2021-01-25 09:26 | Emergency (ER) | payer MEDICAID, SELFPAY ==
--- NOTE | ~2021-01-25 | XR_ITS ---
EXAMINATION: XR CHEST CLINICAL INFORMATION: Chest tightness. COMPARISON: None TECHNIQUE: 2 views of the chest were obtained. FINDINGS: No significant abnormality is noted involving the heart, lungs, mediastinum, bony thorax or soft tissues. XR/XR chest 2V IMPRESSION: No acute cardiopulmonary process.
--- NOTE | 2021-01-25 12:00 | ED.SOB ---
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 Mode of arrival: ambulatory Limitations: no limitations History of Present Illness HPI Narrative: 55 yo female with hx of no sig PMH here with upper back tightness and pain denies trauma at this time Onset (ago): week(s) (2) Context: other (patien denies trauma states her upper back is sore and painful) Timing: constant Severity: mild Exacerbating factors: other (palpation and movement) Relieving factors: nothing Associated symptoms: other (upper back pain) Treatment prior to arrival: none Related Data Home Medications Medication Instructions Recorded Confirmed cholecalciferol (vitamin D3) 10 10 mcg PO DAILY 08/24/20 mcg (400 unit) capsule levothyroxine 13 mcg capsule 13 mcg PO DAILY 08/24/20 simvastatin 5 mg tablet 5 mg PO BEDTIME 08/24/20 Previous Rx's Medication Instructions Recorded acetaminophen 300 mg-codeine 30 mg 1 tab PO Q6H PRN 7 Days #20 tab 10/14/20 tablet diclofenac sodium 75 mg 75 mg PO BID PRN 30 Days #60 tab 11/12/20 tablet,delayed release cyclobenzaprine 10 mg tablet 10 mg PO TID PRN #14 tab 01/25/21 Allergies Allergy/AdvReac Type Severity Reaction Status Date / Time No Known Allergies Allergy Verified 12/14/20 08:47 [No Known Allergies*] Review of Systems Review of Systems: Constitutional : No Weight loss, No Fever, No Chills, ENT/Mouth : No Hearing loss, No Ear Pain, No Nasal Congestion, No Sinus Pain, No Hoarseness, No sore throat, No Rhinorrhea, No Swallowing Difficulty Cardiovascular : No Chest Pain, No SOB Respiratory : No Cough, No Dyspnea Gastrointestinal : No Nausea, No Vomiting, No Diarrhea, No abdominal Pain, No Hematochezia, No Melena Genitourinary : No Dysuria, No Urinary Frequency, No Hematuria, No Urinary Incontinence, Musculoskeletal : positive back pain Skin : No Skin Lesions, No rash Neuro : No Weakness, No Numbness, No Paresthesias, no loss of bowel or bladder incontinence, no saddle anesthesia all other systems reviewed and are negative [facility] Past Medical History Attestation statement: The following information was validated with the patient. 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 Oriented X3. No acute distress. Eyes: Pupils equal, round and reactive to light. ENT: Pharynx normal. Neck: Normal inspection. Neck supple. CVS: Normal heart rate and rhythm. Pulses normal. Respiratory: No respiratory distress. Breath sounds normal. Abdomen: Soft and nontender. Back: upper paraspinal ttp no mass felt Skin: Skin warm and dry. Normal skin color. Normal skin turgor. Extremities: No lower extremity edema. No calf ttp Neuro: Oriented X 3. No motor deficit. No sensory deficit. MDM - SOB/Dyspnea MDM Narrative Medical decision making narrative: 55 yo female 2 weeks of upper back pain at this time atraumatic in nature reproduceable denies chest pain it is not pleuritic, she states that she has no problems breathing and her upper back hurts (this is reproduceable in nature) - at this time EKG and CXR ordered. ECG Data Attestation: I personally reviewed and interpreted this ECG as follows: ECG interpretation date: 01/25/21 ECG interpretation time: 12:35 Interpretation: Rate: 55 Rhythm: sinus bradycardia Garrett: normal Normal P waves. Normal DENTON. Normal QRS complex. ST T wave : normal no XOCHILT qTC: normal prior studies: no acute ischemia The study has been interpreted contemporaneously by me. . Discharge Plan Discharge Clinical Impression: Acute upper back pain Patient Disposition: Home, Self-Care Instructions: Back Pain (ED) Additional Instructions: return to ED for any worsening symptoms or concerns Prescriptions: New cyclobenzaprine 10 mg tablet 10 mg PO TID PRN (Reason: muscle spasm) Qty: 14 RF: 0 No Action acetaminophen-codeine 300-30 mg tablet 1 tab PO Q6H PRN (Reason: pain) 7 Days Qty: 20 RF: 0 diclofenac sodium 75 mg tablet,delayed release (DR/EC) 75 mg PO BID PRN (Reason: pain) 30 Days Qty: 60 RF: 0 levothyroxine 13 mcg capsule 13 mcg PO DAILY RF: 0 simvastatin 5 mg tablet 5 mg PO BEDTIME RF: 0 cholecalciferol (vitamin D3) 10 mcg (400 unit) capsule 10 mcg PO DAILY RF: 0 Referrals: Physician,Unknown [Primary Care Provider] - 2 days (if not better) Interventions: ED Discharge Assessment Last Done: 01/25/21 13:13 Discharge Date/Time: 01/25/21 13:13 Print Language: Kinyarwanda
[2021-01-25 12:02] VITALS: BMI 35.2
--- NOTE | 2021-01-25 12:04 | ECG_ITS ---
Test Reason : CHEST PAIN Blood Pressure : / mmHG Vent. Rate : 055 BPM Atrial Rate : 055 BPM P-R Int : 178 ms QRS Dur : 086 ms QT Int : 432 ms P-R-T Axes : 046 012 001 degrees QTc Int : 413 ms Sinus bradycardia Possible Left atrial enlargement Borderline ECG When compared with ECG of 07-JUL-2020 10:16, No significant change was found Referred By: Yadi Borden Electronically Signed By:ANTIONE MINER
[2021-01-25 12:09] VITALS: BP 138/78; PULSE 55; RESP 16; O2SAT 98
[2021-01-25] MEDS: Cyclobenzaprine HCl 10 MG TABLET PO (12:14)
== END 2021-01-25 13:13 | disposition home or self-care (01) ==
PROVIDERS: Emergency Provider Emergency Medicine
DX: M54.6 Pain in thoracic spine (principal); Z79.02 Long term (current) use of antithrombotics/antiplatelets; Z79.899 Other long term (current) drug therapy
CPT/HCPCS: 71046; 93005; 99283; 99284

== ENCOUNTER → 2021-06-07 09:48 | Outpatient (BNVA) | payer MEDICAID, SELFPAY | PROVIDERS: Visit Provider Obstetrics & Gynecology ==

== ENCOUNTER 2021-06-08 08:55 | Emergency (ER) | payer MEDICAID, SELFPAY ==
--- NOTE | ~2021-06-08 | XR_ITS ---
EXAMINATION: XR KNEE, LEFT CLINICAL INFORMATION: Fall. COMPARISON: None TECHNIQUE: Four views of the left knee. FINDINGS: There is mild loss of medial and patellofemoral compartment joint space. No visible acute fracture, dislocation or subluxation seen. There is mild suprapatellar joint effusion seen. Joint effusion XR/XR knee LT 4V IMPRESSION: Mild degenerative changes medial and patellofemoral compartments. No visible acute fracture or dislocation seen. Mild suprapatellar joint effusion.
[2021-06-08 09:08] VITALS: BP 130/70; PULSE 76; O2SAT 99
[2021-06-08 09:26] VITALS: BP 110/65; PULSE 71; RESP 18; TEMP 36.8; O2SAT 98; BMI 36.2
--- NOTE | 2021-06-08 13:06 | ED.FALL ---
HPI - Fall General Chief Complaint: Fall Stated Complaint: FALL ON ICE,L KNEE PAIN Time Seen by Provider: 06/08/21 12:57 Source: patient and EMS Mode of arrival: EMS Limitations: language barrier (Bulgarian Speaking ) History of Present Illness HPI Narrative: 55-year-old female presenting to the ED with complaints of left knee pain after she had a mechanical fall where she slipped on black ice outside of prior to arrival. She denies head injury loss of consciousness or neck injury or being on any blood thinners or any other injuries complaints or concerns at this time. 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) Fall from: standing Fall witnessed: no Place fall occurred: street (Outside of [facility]) Loss of consciousness: none Prolonged down time: no Symptoms prior to fall: none Context: tripped/slipped Location of injury - extremities: left: knee Severity: severe Severity scale (1-10): >10 Quality: sharp, aching and throbbing Associated symptoms (after fall): denies Related Data Home Medications Medication Instructions Recorded Confirmed cholecalciferol (vitamin D3) 10 10 mcg PO DAILY 08/24/20 mcg (400 unit) capsule levothyroxine 13 mcg capsule 13 mcg PO DAILY 08/24/20 simvastatin 5 mg tablet 5 mg PO BEDTIME 08/24/20 Previous Rx's Medication Instructions Recorded acetaminophen 300 mg-codeine 30 mg 1 tab PO Q6H PRN 7 Days #20 tab 10/14/20 tablet diclofenac sodium 75 mg 75 mg PO BID PRN 30 Days #60 tab 11/12/20 tablet,delayed release cyclobenzaprine 10 mg tablet 10 mg PO TID PRN #14 tab 01/25/21 hydrocodone 5 mg-acetaminophen 325 1 tab PO Q8H PRN #7 tab 06/08/21 mg tablet ibuprofen 800 mg tablet 800 mg PO Q8H PRN #14 tab 06/08/21 Allergies Allergy/AdvReac Type Severity Reaction Status Date / Time No Known Allergies Allergy Verified 06/08/21 09:26 [No Known Allergies*] Review of Systems Review of Systems: Constitutional : No Weight loss, No Fever, No Chills, No Night Sweats, No Fatigue, No Malaise ENT/Mouth : No Hearing loss, No Ear Pain, No Nasal Congestion, No Sinus Pain, No Hoarseness, No sore throat, No Rhinorrhea, No Swallowing Difficulty Eyes: No Eye Pain, No Swelling, No Redness, No Foreign Body, No Discharge, No Vision Changes Cardiovascular : No Chest Pain, No SOB, No Dyspnea on Exertion, No Orthopnea, No Edema, No Palpitations Respiratory : No Cough, No Sputum, No Wheezing, No Smoke Exposure, No Dyspnea Gastrointestinal : No Nausea, No Vomiting, No Diarrhea, No Constipation, No abdominal Pain, No Hematochezia, No Melena Genitourinary : no irregular bleeding, No Dysuria, No Urinary Frequency, No Hematuria, No Urinary Incontinence, No Urgency, No Flank Pain, No Urinary Flow Changes, No Hesitancy Musculoskeletal : + joint pain to left knee, No Myalgias, No Joint Swelling Skin : No Skin Lesions, No rash Neuro : No Weakness, No Numbness, No Paresthesias, No Loss of Consciousness, No Dizziness, No Headache Psych : No Anxiety/Panic, No Depression, No SI/HI/AH/VH, No Social Issues, Heme/Lymph: No Bruising, No Bleeding,No Lymphadenopathy Endocrine : No Polyuria, No Polydipsia, No Temperature Intolerance Yes all other systems are reviewed and are negative [facility] Past Medical History Attestation statement: The following information was validated with the patient. 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 Blood pressure normal. Heart rate normal. Respiration rate normal. Temperature normal. Oxygen saturation normal. Appearance: Alert. Oriented X3. No acute distress. Head: Normal external exam. Normocephalic. Atraumatic. Eyes: PERRLA. EOMI. Conjunctiva and sclera normal. Eyelids normal. ENT: No septal hematoma noted. No hemotympanum noted. Pharynx normal. Uvula midline. Moist mucous membranes. No trismus noted. No drooling noted. No muffled voice noted. Neck: Normal inspection. Neck supple. FROM. No adenopathy. Thyroid Normal. No meningeal signs. No neck mass noted. Nontender. CVS: Normal heart rate and rhythm. Heart sound normal. Pulses normal throughout. No murmurs/rales/gallops. Respiratory: No respiratory distress. Painless inspiration. Breath sounds normal. No wheezes/rales/rhonchi noted. Chest nontender. No accessory muscle usage noted or decreased air movement noted. Abdomen: Soft and nontender. Bowel sounds normal in all 4 quadrants. No distention noted. No organomegaly noted. No visible injury noted. Back: No CVA tenderness. Full range of motion noted. No rashes/lesion/induration/fluctuance or signs of infection noted. Nontender. Skin: Skin warm and dry. Normal skin color. Normal skin turgor. No rashes/lesions/lacerations noted. Extremities: Patient with tenderness palpation to the left knee at the patellar aspect with a superficial abrasion and soft tissue swelling. No obvious deformities or obvious ligamentous or tendon injury. Otherwise all other Extremities exhibit normal range of motion and nontender. Neuro: Oriented X 3. No motor deficit. No sensory deficit. Reflexes normal. Normal steady gait. No focal neuro deficits noted. Vascular: + radial pulses/+ 2 distal pedal pulses/+2 dorsalis pedis b/l. Normal cap refill. No cyanosis noted to upper extremity nails and lower extremity toes nails. Course Course Course Narrative: 55-year-old female presenting to the ED after she had a mechanical fall outside of [facility] where she slipped and fell on black ice injuring her right knee. Denies head injury loss of consciousness or neck injury or any other injuries complaints or concerns at this time. On exam she has mild tenderness and soft tissue swelling to the left patella otherwise no obvious deformities or obvious ligamentous or tendon injury. She has a normal steady gait. Therefore at this time x-ray revealed chronic changes no acute processes will place an Guillermo wrap and treat symptomatic Kelly instructed follow-up with PCP and to return if any new or worsening symptoms. Patient understands agrees with this plan. Procedures Orthopedic Splinting/Casting Injury #1: Side: left Lower Extremity Injury Location: knee Lower Extremity Immobilizer: Guillermo wrap Discharge Plan Discharge Clinical Impression: Fall, Effusion of knee joint, left, Left knee sprain, Abrasion of knee, left Patient Disposition: Home, Self-Care Instructions: Knee Sprain (ED), How to Use an Elastic Bandage (ED), Swollen Knee Joint (ED) Prescriptions: New ibuprofen 800 mg tablet 800 mg PO Q8H PRN (Reason: pain) Qty: 14 RF: 0 hydrocodone-acetaminophen 5-325 mg tablet 1 tab PO Q8H PRN (Reason: pain) Qty: 7 RF: 0 No Action acetaminophen-codeine 300-30 mg tablet 1 tab PO Q6H PRN (Reason: pain) 7 Days Qty: 20 RF: 0 cyclobenzaprine 10 mg tablet 10 mg PO TID PRN (Reason: muscle spasm) Qty: 14 RF: 0 diclofenac sodium 75 mg tablet,delayed release (DR/EC) 75 mg PO BID PRN (Reason: pain) 30 Days Qty: 60 RF: 0 levothyroxine 13 mcg capsule 13 mcg PO DAILY RF: 0 simvastatin 5 mg tablet 5 mg PO BEDTIME RF: 0 cholecalciferol (vitamin D3) 10 mcg (400 unit) capsule 10 mcg PO DAILY RF: 0 Referrals: Ion Dalton MD [Physician] - 2 weeks (Call to make a follow-up appointment in 2-3 weeks if symptoms persist for longer than 2-3 week) Print Language: Bulgarian
[2021-06-08] MEDS: oxyCODONE HCl Immed Release 5 MG TABLET PO (14:07)
[2021-06-08] MEDS: Ibuprofen 800 MG TABLET PO (14:07)
== END 2021-06-08 14:10 | disposition home or self-care (01) ==
LOC: HO.ED 13:23
PROVIDERS: Emergency Provider Emergency Medicine
DX: S83.92XA Sprain of unspecified site of left knee, initial encounter (principal); S80.212A Abrasion, left knee, initial encounter; M25.462 Effusion, left knee; W00.0XXA Fall on same level due to ice and snow, initial encounter; Y93.9 Activity, unspecified; Y92.238 Other place in hospital as the place of occurrence of the external cause; Y99.9 Unspecified external cause status
CPT/HCPCS: 73564; 99283

== ENCOUNTER 2021-07-16 23:44 | Inpatient (IN) | payer MEDICAID, SELFPAY ==
--- NOTE | ~2021-07-16 | FL_ITS ---
EXAMINATION: FL SMALL BOWEL SERIES CLINICAL INFORMATION: Small bowel obstruction. COMPARISON: Prior abdomen radiograph 07/20/2021, 07/18/2021, 07/17/2021 TECHNIQUE: Following a clinical systems educator image of the abdomen, contrast was administered orally, and interval abdominal radiographs were performed to assess for contrast progression through the small bowel. No spot fluoroscopic images performed for the study. FINDINGS: AP view of abdomen obtained immediately after administration of oral contrast, 30 minutes, 1 hour, 1 hour 30 minutes and 5 hours 30 minutes. Initial view obtained immediately after administration of oral contrast shows contrast in the stomach and dilated proximal small bowel loops. Subsequent images show slow progression of contrast through dilated small bowel loops. The small bowel loops are dilated through to the distal small bowel and terminal ileum. Contrast reaches nondilated large bowel on the 5 hour 30 minute radiograph. FL/FL small bowel follow through IMPRESSION: No evidence of a complete small bowel obstruction. Contrast flow is delayed reaching the large bowel till 5 hours and 30 minutes with dilatation of the small bowel through the terminal ileum.
--- NOTE | ~2021-07-16 | XR_ITS ---
EXAMINATION: XR ABDOMEN KUB CLINICAL INDICATION: Bowel obstruction COMPARISON: CT abdomen 07/17/2021 TECHNIQUE: 2 views of the abdomen. FINDINGS: There are dilated small bowel loops is seen, measuring up to approximately 4 cm. Findings correlate with the small bowel obstruction finding seen on the recent CT scan of 07/17/2021. There is some air in the large colon. There is contrast in the right collecting system and the urinary bladder. Surgical clips in the lower abdomen and pelvis. No gross free air is seen. XR/XR KUB IMPRESSION: Dilated small bowel loops from a small bowel obstruction correlating with the CT findings from earlier today.
--- NOTE | ~2021-07-16 | CT_ITS ---
EXAMINATION: CT ABDOMEN AND PELVIS WITH CONTRAST CLINICAL INFORMATION: Right upper and lower quadrant pain and tenderness COMPARISON: 06/24/2018 TECHNIQUE: Multidetector volumetric images were obtained from the superior aspect of the liver through the pubic symphysis following administration 85 mL of Omnipaque 350 intravenous contrast. Sagittal and coronal reformatted images were obtained on the technologist's workstation. Oral contrast: No This CT examination was performed using dose optimization techniques as appropriate, variously including the following: *Automated exposure control *Adjustment of mA and/or kV according to patient size (this includes techniques or standardized protocols for targeted exams where dose is matched to indication/reason for exam; i.e. extremities or head) *Use of iterative reconstruction technique DLP: 871 mGy-cm FINDINGS: LUNG BASES: The visualized lung bases are unremarkable. LIVER, GALLBLADDER, AND BILIARY TREE: The liver demonstrates mild hypoattenuation which could reflect steatosis. No intrahepatic biliary ductal dilatation. The gallbladder is unremarkable with no evidence of radiopaque gallstones, gallbladder wall thickening, or obvious pericholecystic inflammatory changes. PANCREAS: Unremarkable. SPLEEN: Unremarkable. ADRENAL GLANDS: Unremarkable. KIDNEYS AND URETERS: Bilateral nephrograms are symmetric. No hydronephrosis or obstructing calculus identified. BLADDER: Unremarkable. GASTROINTESTINAL TRACT: There are several fluid-filled, mildly dilated small bowel loops leading to a segment of fecalization the right lower quadrant. Short segment of transition from fecalized to nondilated bowel is identified in the anterior lower abdomen as seen on coronal image 20, in keeping with sequelae of bowel obstruction. Some of the small bowel loops in the region of transition have a somewhat thick-walled appearance. Mesenteric stranding and trace fluid noted in the right lower quadrant. Sigmoid colon diverticula are present. Large bowel otherwise appears unremarkable. Appendix is not identified. No free air is seen. ABDOMINAL WALL: No significant hernia is appreciated. LYMPH NODES: Normal. VASCULAR: Unremarkable. PELVIC VISCERA: Patient is status post hysterectomy. Multiple clips are noted in the pelvis, right greater than left. OSSEOUS STRUCTURES: There is degenerative disc disease at L5-S1. CT/CT abdomen pelvis w con IMPRESSION: Small bowel obstruction with transition site in the anterior lower abdomen. Somewhat thick-walled appearance of small bowel in this region may indicate enteritis. Fleischner guidelines were followed.
--- NOTE | ~2021-07-16 | XR_ITS ---
EXAMINATION: XR ABDOMEN KUB CLINICAL INDICATION: Follow-up small bowel obstruction COMPARISON: Previous x-rays most recent from yesterday TECHNIQUE: AP view of the abdomen. FINDINGS: There is a nasogastric tube in the stomach. There is still oral contrast seen in the stomach and small bowel. Small bowel loops still appear dilated suggestive of small bowel obstruction. There is a small amount of air seen in the colon. This appears unchanged. There is no evidence of free air. There are surgical clips in the lower abdomen and pelvis. There are degenerative changes at the hip joints and lower lumbar spine. XR/XR KUB IMPRESSION: Nasogastric tube in the stomach. Small bowel dilatation similar to previous exams.
--- NOTE | ~2021-07-16 | XR_ITS ---
EXAMINATION: XR ABDOMEN KUB CLINICAL INDICATION: Small bowel protocol COMPARISON: X-ray and CT scan earlier the same day TECHNIQUE: AP view of the abdomen. FINDINGS: Again seen are multiple dilated loops of small bowel consistent with a small bowel obstruction. There is oral contrast in the stomach. Surgical clips in the right pelvis. XR/XR KUB IMPRESSION: Persistent findings of a small bowel obstruction.
--- NOTE | ~2021-07-16 | XR_ITS ---
EXAMINATION: XR ABDOMEN KUB CLINICAL INDICATION: Follow up. Nothing by mouth. Small bowel dilatation. COMPARISON: July 18, [address] study of July 17, 2021 TECHNIQUE: AP view of the abdomen. FINDINGS: There are again noted to be numerous loops of small bowel which are gaseous filled and dilated up to 4.5 cm in diameter. No wall thickening is appreciated. No secondary signs of free air appreciated. Patient status post previous lower abdominal and pelvic surgery. Psoas margins are intact. The bowel distention appears similar to previous studies. XR/XR KUB IMPRESSION: No significant change of distended loops of small bowel consistent with small bowel obstruction.
--- NOTE | ~2021-07-16 | XR_ITS ---
EXAMINATION: XR CHEST CLINICAL INFORMATION: NG tube placement COMPARISON: Multiple priors, most recent KUB from 07/17/2021 TECHNIQUE: Frontal view of the chest was obtained. FINDINGS: Enteric tube tip lies in the region of the gastric fundus. Persistent contrast material in the stomach, some of which is now in the distal gastric body. Partially visualized gas filled bowel loops in the included upper abdomen. The lungs are hypoinflated. No focal consolidation is seen. No evidence of pneumothorax, pleural effusion, or pulmonary edema. Cardiac silhouette is prominent though likely accentuated by low lung volumes. No acute osseous findings are seen. XR/XR chest 1V IMPRESSION: Enteric tube tip in the fundus of the stomach.
--- NOTE | ~2021-07-16 | XR_ITS ---
EXAMINATION: XR ABDOMEN KUB CLINICAL INDICATION: Follow-up for small bowel obstruction COMPARISON: July 20, 2021 and studies dating back to CT scan of July 17, 2021 TECHNIQUE: AP view of the abdomen. FINDINGS: Patient status post surgery within the lower abdomen and pelvis with what appears be small amount of contrast within the region of the rectosigmoid but lack of gas and stool about the pelvis. The colon has faint contrast within it as well about its ascending and transverse portions and is decompressed. There again are noted to be multiple loops of small bowel which are gaseous distended with diameter measuring up to approximately 4 cm in diameter. XR/XR KUB IMPRESSION: Continued findings of distended loops of small bowel again seen consistent with small bowel obstruction.
[2021-07-17] VITALS (9 sets, daily range): BP systolic 112–161; BP diastolic 58–77; PULSE 64–82; RESP 14–24; TEMP 36.3–37.3; O2SAT 95–98; BMI 37.5
[2021-07-17 01:55] LABS: MANUAL DIFF FLAG NO
[2021-07-17 01:56] LABS: Basophils Percent Auto 0.3 % (0-2); Eosinophils Absolute Auto 0.1 X10*3/uL (0.0-0.4); Eosinophils Percent Auto 0.7 % (0-4); Hematocrit 39.1 % (37.0-47.0); Hemoglobin 13.5 g/dl (12.0-16.0); Imm Gran Abs Auto 0.06 X10*3/uL (0.00-0.03); Imm Gran Pct Auto 0.4 % (0.0-0.4); Lymphocytes Absolute Auto 3.2 X10*3/uL (1.2-4.9); Lymphocytes Percent Auto 20.9 % (20-40); Mean Corpuscular HGB Conc 34.5 g/dl (31.0-35.0); Mean Corpuscular Hemoglobin 27.4 pg (27.0-33.0); Mean Corpuscular Volume 79.5 fL (80.0-98.0); Mean Platelet Volume 10.3 fL (9.4-12.3); Monocytes Absolute Auto 0.5 X10*3/uL (0.1-1.2); Monocytes Percent Auto 3.6 % (2-11); Neutrophils Absolute Auto 11.3 x10*3/uL (2.0-8.3); Neutrophils Percent Auto 74.1 % (45-73); Platelet Count 261 X10*3/uL (160-400); Red Blood Count 4.92 X10*6/uL (4.20-5.50); Red Cell Distribution Width 14.2 % (11.0-16.0); White Blood Count 15.2 X10*3/uL (4.8-10.8)
[2021-07-17 02:11] LABS: Alanine Aminotransferase 20 U/L (0-31); Albumin Level 4.3 g/dL (3.5-5.0); Alkaline Phosphatase 105 U/L (39-117); Anion Gap 14 (12-20); Aspartate Amino Transferase 19 U/L (5-31); Bilirubin Total 0.4 mg/dL (0.0-1.0); Blood Urea Nitrogen 12 mg/dL (9-16); Calcium 9.8 mg/dL (8.4-10.2); Carbon Dioxide 27 mmol/L (22-29); Chloride 102 mmol/L (96-108); Creatinine Clr Calc Pharmacy 69.1; Estimated Glomerular Filt Rate > 60; Glucose Random 117 mg/dL (60-115); Lipase 18 U/L (8-78); Potassium 5.1 mmol/L (3.3-5.1); Sodium 138 mmol/L (135-145); Total Protein 7.6 g/dL (6.5-8.0)
[2021-07-17 02:24] LABS: Appearance Urine CLEAR; Color Urine YELLOW; Glucose Urine UA NEG (NEG); Leukocyte Esterase Urine NEG (NEG); Nitrite Urine NEG (NEG); PH 5.5 (5.0-8.0); Specific Gravity - Urine >= 1.030 (1.005-1.025); Urine Blood NEG (NEG); Urine Ketones NEG (NEG); Urine Protein NEG (NEG-TRACE)
--- NOTE | 2021-07-17 02:36 | ED_ITS ---
HPI - Abdominal Pain General Chief Complaint: Abdominal Pain Stated Complaint: stomach pain Time Seen by Provider: 07/17/21 02:13 Source: patient Mode of arrival: ambulatory Limitations: language barrier (Romanian speaking only, standard machine stitcher used) History of Present Illness HPI narrative: 55-year-old female who presents emergency department for evaluation of right- sided abdominal pain. Patient states the pain came on gradually at around 22:30 hours while she was sitting. She states that she ate dinner at around 16:30 hours. She ate spaghetti into slices a pepperoni pizza. The patient describes the pain as a constant, twisting pain, she points to her right upper quadrant right lower quadrant when asked to localize the pain. The pain does radiate to her back. The pain is 10/10. She has had associated nausea with no vomiting. This is the 1st episode of pain. She did not take any medications prior to coming to the emergency department. She denied fever but she did feel chills. She denied rhinorrhea, sore throat, cough, chest pain, shortness of breath, frequency, urgency or dysuria. She has had no change in bowel movements. The patient states that she has had 3 Moderna COVID-19 vaccinations. MD elicited complaint: abdominal pain Onset (ago): hour(s) (4) Pain Consistency: constant Location: RUQ and RLQ Severity: severe Pain scale (0-10): 10 Quality: other (Squeezing) Radiation: back Migration to: no migration Exacerbating factors: nothing Relieving factors: nothing Associated symptoms: nausea Related Data Home Medications Medication Instructions Recorded Confirmed cholecalciferol (vitamin D3) 10 10 mcg PO DAILY 08/24/20 mcg (400 unit) capsule levothyroxine 13 mcg capsule 13 mcg PO DAILY 08/24/20 simvastatin 5 mg tablet 5 mg PO BEDTIME 08/24/20 Previous Rx's Medication Instructions Recorded acetaminophen 300 mg-codeine 30 mg 1 tab PO Q6H PRN 7 Days #20 tab 10/14/20 tablet diclofenac sodium 75 mg 75 mg PO BID PRN 30 Days #60 tab 11/12/20 tablet,delayed release cyclobenzaprine 10 mg tablet 10 mg PO TID PRN #14 tab 01/25/21 hydrocodone 5 mg-acetaminophen 325 1 tab PO Q8H PRN #7 tab 06/08/21 mg tablet ibuprofen 800 mg tablet 800 mg PO Q8H PRN #14 tab 06/08/21 Allergies Allergy/AdvReac Type Severity Reaction Status Date / Time No Known Allergies Allergy Verified 07/17/21 00:13 [No Known Allergies*] Review of Systems Review of Systems Yes all other systems are reviewed and are negative Physical Exam Vital Signs: Vital Signs: Last Vital Signs Temp 97.7 F 07/17/21 02:12 Pulse 82 07/17/21 04:21 Resp 18 07/17/21 04:34 BP 161/77 H 07/17/21 04:21 Pulse Ox 98 07/17/21 04:21 BMI result Body Mass Index 37.5 Const: General: cooperative and no acute distress Anthony entation/consciousness: oriented to person and oriented to place Limitations: no limitations HENMT: Head: Yes normal to inspection, Yes normocephalic and Yes atraumatic Ears: external ears normal General nose exam: Normal external nose present Face and sinus: Yes normal facial exam Mouth: Normal oral and palatal mucosa present Throat: Yes posterior oropharynx normal Eyes: General: appearance normal, both eyes and all related structures Pupils: Equal, round and reactive pupils present Neck: Neck: Yes normal visual inspection, Yes no lymphadenopathy, Yes trachea midline and Yes supple Chest: Chest palpation & inspection: normal inspection of the chest and normal palpation of entire chest wall Resp: Effort & Inspection: normal respiratory effort and able to speak in complete sentences Auscultation: clear to auscultation bilaterally Cardio: Rate: regular rate Rhythm: regular rhythm Heart sounds: S1 normal heart sound present, S2 normal heart sound present and no murmurs GI: Inspection: Yes normal to inspection Palpation (GI): Soft to palpation, Tenderness to palpation present (GI) in the RLQ (Moderate) and in the RUQ (Moderate) and no guarding Auscultation: normal bowel sounds : General: Yes no CVA tenderness Back/Spine/Pelvis: Back: no CVA tenderness Skin: General skin exam: no rashes or lesions noted Neuro: General: oriented to person and oriented to place Cranial nerves: Yes CN's II-XII intact bilaterally and Yes Equal, round and reactive pupils present Cognition (Neuro): normal cognition Motor exam (neuro): 5/5 motor strength present throughout Extrem: General: Yes normal to inspection Psych: Appearance: grossly normal Speech and movement: Normal speech and movement present Affect: normal affect Attitude: cooperative Thought process: Normal thought process present Thought content: Normal thought content present Course Course Course Narrative: 55-year-old female who presents emergency department for evaluation of right u pper and right lower quadrant pain which came on gradually at around 23:30 hours, the pain is been constant for the past 4 hours and is 10/10 radiates to her back. She has had associated nausea and chills with no other symptoms. This is the 1st episode of this type pain. Examination did reveal right upper quadrant and right lower quadrant tenderness. Laboratory evaluation was ordered. Patient was also ordered to get Toradol 15 mg IV, Zofran 4 mg IV and normal saline x1 L. 0242: Laboratory evaluation: [place] [address] otherwise unremarkable. The differential diagnosis includes but is not limited to cholecystitis, appendicitis, gastritis, gastric ulcer. CT scan of the patient's abdomen pelvis with IV contrast will be obtained to further evaluate her abd ominal pain. 0352: CT scan of the abdomen pelvis with IV contrast was interpreted as follows by the radiologist: ?Small bowel obstruction with transition site in the anterior lower abdomen. Somewhat thick-walled appearance of small bowel in this region may indicate enteritis . I will treat the patient with Zosyn 4.5 g IV and discuss the patient's presentation with the covering surgeon. 0425: I did discuss the patient's presentation with the covering hospitalist, . She was not convinced based on the patient's presentation that this is a small-bowel obstruction and felt that it was more consistent with an enteritis. She recommended that the patient be treated with bowel rest, pain medications and IV fluids. She did not want an NG tube at this time. She requested that the patient be admitted to the hospital service with surgical consult. I will discuss the patient with the covering hospitalist. 0515: I did discuss the patient's presentation with the covering hospitalist, Dr. Carrillo and the patient will be admitted to the hospital service. MDM - Abdominal Pain Lab Data Result diagrams: 07/17/21 01:47 07/17/21 01:47 Labs: Lab Results 07/17/21 07/17/21 07/17/21 Range/Units 01:47 01:47 02:18 WBC 15.2 H (4.8-10.8) X10*3/uL RBC 4.92 (4.20-5.50) X10*6/uL Hgb 13.5 (12.0-16.0) g/dl Hct 39.1 (37.0-47.0) % MCV 79.5 L (80.0-98.0) fL MCH 27.4 (27.0-33.0) pg MCHC 34.5 (31.0-35.0) g/dl RDW 14.2 (11.0-16.0) % Plt Count 261 (160-400) X10*3/uL MPV 10.3 (9.4-12.3) fL Immature Gran % (Auto) 0.4 (0.0-0.4) % Neut % (Auto) 74.1 H (45-73) % Lymph % (Auto) 20.9 (20-40) % [place] % (Auto) 3.6 (2-11) % Eos % (Auto) 0.7 (0-4) % Baso % (Auto) 0.3 (0-2) % Lymph # (Auto) 3.2 (1.2-4.9) X10*3/uL [place] # (Auto) 0.5 (0.1-1.2) X10*3/uL Eos # (Auto) 0.1 (0.0-0.4) X10*3/uL Baso # (Auto) 0.0 (0.0-0.2) X10*3/uL Abs Immat Gran (auto) 0.06 H (0.00-0.03) X10*3/uL Absolute Neuts (auto) 11.3 H (2.0-8.3) x10*3/uL Absolute Nucleated RBC 0.000 (0.0-0.012) X10*3/uL Nucleated RBC % (auto) 0.0 (0.0-0.2) /100WBC Sodium 138 (135-145) mmol/L Potassium 5.1 (3.3-5.1) mmol/L Chloride 102 (96-108) mmol/L Carbon Dioxide 27 (22-29) mmol/L Anion Gap 14 (12-20) BUN 12 (9-16) mg/dL Creatinine 0.88 (0.5-1.4) mg/dL Estim Creat Clear Calc 69.1 Estimated GFR > 60 Random Glucose 117 H (60-115) mg/dL Calcium 9.8 D (8.4-10.2) mg/dL Total Bilirubin 0.4 (0.0-1.0) mg/dL AST 19 (5-31) U/L ALT 20 (0-31) U/L Alkaline Phosphatase 105 D (39-117) U/L Total Protein 7.6 (6.5-8.0) g/dL Albumin 4.3 (3.5-5.0) g/dL Lipase 18 (8-78) U/L Urine Color YELLOW Urine Appearance CLEAR Urine pH 5.5 (5.0-8.0) Ur Specific [place] >= 1.030 H (1.005-1.025) Urine Protein NEG (NEG-TRACE) MG/DL Urine Glucose (UA) NEG (NEG) MG/DL Urine Ketones NEG (NEG) MG/DL Urine Blood NEG (NEG) Urine Nitrite NEG (NEG) Ur Leukocyte Esterase NEG (NEG) COVID-19 (NUPUR) (Negative) COVID-19 Clin Com 07/17/21 Range/Units 04:18 WBC (4.8-10.8) X10*3/uL RBC (4.20-5.50) X10*6/uL Hgb (12.0-16.0) g/dl Hct (37.0-47.0) % MCV (80.0-98.0) fL MCH (27.0-33.0) pg MCHC (31.0-35.0) g/dl RDW (11.0-16.0) % Plt Count (160-400) X10*3/uL MPV (9.4-12.3) fL Immature Gran % (Auto) (0.0-0.4) % Neut % (Auto) (45-73) % Lymph % (Auto) (20-40) % [place] % (Auto) (2-11) % Eos % (Auto) (0-4) % Baso % (Auto) (0-2) % Lymph # (Auto) (1.2-4.9) X10*3/uL [place] # (Auto) (0.1-1.2) X10*3/uL Eos # (Auto) (0.0-0.4) X10*3/uL Baso # (Auto) (0.0-0.2) X10*3/uL Abs Immat Gran (auto) (0.00-0.03) X10*3/uL Absolute Neuts (auto) (2.0-8.3) x10*3/uL Absolute Nucleated RBC (0.0-0.012) X10*3/uL Nucleated RBC % (auto) (0.0-0.2) /100WBC Sodium (135-145) mmol/L Potassium (3.3-5.1) mmol/L Chloride (96-108) mmol/L Carbon Dioxide (22-29) mmol/L Anion Gap (12-20) BUN (9-16) mg/dL Creatinine (0.5-1.4) mg/dL Estim Creat Clear Calc Estimated GFR Random Glucose (60-115) mg/dL Calcium (8.4-10.2) mg/dL Total Bilirubin (0.0-1.0) mg/dL AST (5-31) U/L ALT (0-31) U/L Alkaline Phosphatase (39-117) U/L Total Protein (6.5-8.0) g/dL Albumin (3.5-5.0) g/dL Lipase (8-78) U/L Urine Color Urine Appearance Urine pH (5.0-8.0) Ur Specific [place] (1.005-1.025) Urine Protein (NEG-TRACE) MG/DL Urine Glucose (UA) (NEG) MG/DL Urine Ketones (NEG) MG/DL Urine Blood (NEG) Urine Nitrite (NEG) Ur Leukocyte Esterase (NEG) COVID-19 (NUPUR) Negative (Negative) COVID-19 Clin Com See Note Discharge Plan Discharge Clinical Impression: SBO (small bowel obstruction), Abdominal pain, Enteritis [facility] Past Medical History [facility] Narrative: Past medical history: High cholesterol, hypothyroidism, uterine cancer. Past surgical history: Abdominal hysterectomy, bilateral tubal ligation which was then reversed. Social history: She denies tobacco use. She drinks 5 beers per day, she denies drug use. 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
[2021-07-17] MEDS: 0.9 % Sodium Chloride 1,000 ML 999 ML IV (02:50)
[2021-07-17] MEDS: ondansetron HCL 4 MG/2 ML VIAL IVPUSH (02:53)
[2021-07-17] MEDS: Ketorolac Tromethamine 15 MG/ML VIAL IVPUSH (02:53)
[2021-07-17] MEDS: iohexoL 350 MG/ML 100 ML INFUS..BTL 85 ML IV (03:15)
[2021-07-17] MEDS: Piperacillin Sodium/Tazobactam 4.5 GM in 0.9 % Sodium Chloride 100 ML IV (04:34)
[2021-07-17] MEDS: Morphine Sulfate 4 MG/ML CARTRIDGE IVPUSH ×2 (04:34→09:58)
[2021-07-17 04:42] LABS: COVID-19 Test Negative (Negative)
--- NOTE | 2021-07-17 10:09 | P.HPHOSP_ITS ---
History of Present Illness Date of Service: 07/17/21 Chief Complaint: Abdominal pain 55 female with history of hypothyroidism, HLD, history of uterine cancer s/p hysterectomy, s/p tubal ligation with reveral in the past. She presents to ED right-sided abdominal pain of gradual onset around 22:30 hours while resting, her last meal was around 16:30 hours with spaghetti and a pepperoni pizza.? She has a constant, twisting pain, she points to her right upper quadrant right lower quadrant when asked to localize the pain and radiate to her back.? The pain is 10/10 and got no relief with Ibuprofen. Presently her pain is down to 8/10. CT of abdomen shows small bowel obstruction with transition point and pos sible enteritis, a KUB also shows a dilated small bowel loop coresponding to the CT finding. She has no fever, no nausea but no vomitting. She is covid vaccinated with moderna vaccine x 2 and a booster Review of Systems Review of Systems: Gen: no fever Resp: no sob, no cough CV: no chest, no LAGUNAS, no leg edema GI: Nausea, no vomitting, abdominal as deteailed above Neuro: No confusion [facility] Medical History High cholesterol Hypothyroid Uterine cancer Family History Sister Uterine cancer Surgical History H/O abdominal hysterectomy History of reversal of tubal ligation Hx of colonoscopy Tubal ligation status Social History Household Members: None Housing: Apartment Do you presently have visiting nurse or other home services: No Alcohol intake: never Patient Tobacco Use Status: Former Tobacco user Current occupational status: unemployed 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 Meds Allergies Allergy/AdvReac Type Severity Reaction Status Date / Time No Known Allergies Allergy Verified 07/17/21 00:13 [No Known Allergies*] Home Medications Medication Instructions Recorded Confirmed Last Taken Type cholecalciferol (vitamin D3) 50 1 tab PO DAILY 07/17/21 07/17/21 07/15/21 History mcg (2,000 unit) tablet levothyroxine 100 mcg tablet 1 tab PO MOTUWETHFR@06 07/17/21 07/17/21 07/15/21 History simvastatin 40 mg tablet 1 tab PO QPM 07/17/21 07/17/21 07/15/21 History Physical Exam Vital Signs and Narrative: Vital Signs: Last Vital Signs Temp 97.7 F 07/17/21 02:12 Pulse 67 07/17/21 06:19 Resp 14 07/17/21 09:58 BP 112/58 L 07/17/21 06:19 Pulse Ox 98 07/17/21 06:19 BMI result Body Mass Index 37.5 Const: Other: Constitutional: Alert, in no distress, overweight Mental Status: Oriented to person, place and time. Eyes: Pupils are equal, round and reactive to light. Ear, Nose and Throat: Oropharynx clear, mucous membranes moist. Ears and nose without eformities. Trachea midline. Respiratory: Clear to auscultation. No wheezing, rales or rhonchi. Cardiovascular: S1 S2 regular. No murmurs, rubs or gallops. Gastrointestinal:mild to mod distention, some lower abdominal tenderness, no bowel sounds.? Neurologic: Cranial nerves II-XII grossly intact. No focal neurological deficits. Moves all extremities spontaneously.? Skin: No rashes or lesions.? Musculoskeletal: No cyanosis or clubbing. Psychiatric: Normal mood and affect? Results Labs CBC and Chem 7: 07/18/21 05:32 07/18/21 05:32 Labs: Laboratory Results - last 24 hr 07/17/21 07/17/21 07/17/21 01:47 01:47 02:18 MCV 79.5 L MCH 27.4 MCHC 34.5 RDW 14.2 Plt Count 261 MPV 10.3 Immature Gran % (Auto) 0.4 Neut % (Auto) 74.1 H Lymph % (Auto) 20.9 [place] % (Auto) 3.6 Eos % (Auto) 0.7 Baso % (Auto) 0.3 Lymph # (Auto) 3.2 [place] # (Auto) 0.5 Eos # (Auto) 0.1 Baso # (Auto) 0.0 Abs Immat Gran (auto) 0.06 H Absolute Neuts (auto) 11.3 H Absolute Nucleated RBC 0.000 Nucleated RBC % (auto) 0.0 Anion Gap 14 Estim Creat Clear Calc 69.1 Estimated GFR > 60 Random Glucose 117 H Calcium 9.8 D Total Bilirubin 0.4 AST 19 ALT 20 Alkaline Phosphatase 105 D Total Protein 7.6 Albumin 4.3 Lipase 18 Urine Color YELLOW Urine Appearance CLEAR Urine pH 5.5 Ur Specific [place] >= 1.030 H Urine Protein NEG Urine Glucose (UA) NEG Urine Ketones NEG Urine Blood NEG Urine Nitrite NEG Ur Leukocyte Esterase NEG COVID-19 ([facility]) COVID-19 Clin Com 07/17/21 04:18 MCV MCH MCHC RDW Plt Count MPV Immature Gran % (Auto) Neut % (Auto) Lymph % (Auto) [place] % (Auto) Eos % (Auto) Baso % (Auto) Lymph # (Auto) [place] # (Auto) Eos # (Auto) Baso # (Auto) Abs Immat Gran (auto) Absolute Neuts (auto) Absolute Nucleated RBC Nucleated RBC % (auto) Anion Gap Estim Creat Clear Calc Estimated GFR Random Glucose Calcium Total Bilirubin AST ALT Alkaline Phosphatase Total Protein Albumin Lipase Urine Color Urine Appearance Urine pH Ur Specific [place] Urine Protein Urine Glucose (UA) Urine Ketones Urine Blood Urine Nitrite Ur Leukocyte Esterase COVID-19 ([facility]PUR) Negative COVID-19 Clin Com See Note Imaging Radiologist's Impressions: Impressions Abdomen/Pelvis CT 07/17/21 03:10 IMPRESSION: Small bowel obstruction with transition site in the anterior lower abdomen. Somewhat thick-walled appearance of small bowel in this region may indicate enteritis. Fleischner guidelines were followed. KUB X-Ray 07/17/21 08:01 IMPRESSION: Dilated small bowel loops from a small bowel obstruction correlating with the CT findings from earlier today. Assessment and Plan (1) Abdominal pain: Status: Acute (2) SBO (small bowel obstruction): Status: Acute (3) Enteritis: Status: Acute (4) High cholesterol: Status: Acute (5) Hypothyroid: Status: Acute Plan 55 female with history of hypothyroidism, HLD, history of uterine cancer s/p hysterectomy, s/p tubal ligation with reversal in the past. She presents to ED right-sided abdominal pain and found to have Small bowel obstruction on CT and xray, and possible enteritis.. 1/ Small bowel obstruction as evident on CT,-NPO, NGT if vomitting, pain c ontrol, Surgery consutl. 2/ Enteritis, increase WBC--Empiric Antibiotics 4/ HLD--Statin 5/Hypothyroidism--LT4 6/ Heparin for DVT prophylaxis Plan discuss with patient via handy man Quality Stroke Does the patient have a stroke diagnosis?: No VTE Prior VTE?: No VTE Risk Level:: Medical - moderate - high VTE Device Contraindication: N/A - Device Ordered VTE Drug Contraindication: N/A - Med Ordered
--- NOTE | 2021-07-17 10:16 | PHA.MEDREC ---
Addendum entered by Corin Sanders [facility] 07/17/21 10:16: ONLY TAKES LEVOTHYROXINE SUNDAY-SUNDAY Original Note: Pharmacy Consult ? Medication Reconciliation Pharmacy has completed the medication reconciliation. SPOKE WITH PT THROUGH AN SENIOR ANALYSIS SPECIALIST
[2021-07-17] MEDS: Dextrose 5 % and 0.9 % NaCl 1,000 ML 100 ML IVCONT ×3 (11:36→22:46)
[2021-07-17 11:47] LABS: Hematocrit 37.9 % (37.0-47.0); Hemoglobin 13.1 g/dl (12.0-16.0); Mean Corpuscular HGB Conc 34.6 g/dl (31.0-35.0); Mean Corpuscular Hemoglobin 27.6 pg (27.0-33.0); Platelet Count 222 X10*3/uL (160-400); Red Blood Count 4.74 X10*6/uL (4.20-5.50); Red Cell Distribution Width 14.4 % (11.0-16.0); White Blood Count 10.6 X10*3/uL (4.8-10.8)
[2021-07-17] MEDS: cefTRIAXone sodium 1 GM in 0.9 % Sodium Chloride 50 ML IV (11:56)
--- NOTE | 2021-07-17 11:58 | PC.NURSE ---
patient a&ox3, ivf started per order, pt medicated per order, vss, currently denying pain, call [place] within reach, pt npo, will continue to monitor.
[2021-07-17] MEDS: metroNIDAZOLE/NS 500 MG/100 ML PIGGYBACK 100 MG IV ×2 (12:50→21:00)
--- NOTE | 2021-07-17 12:53 | PM.CNGS ---
History of Present Illness Consult details Consult date: 07/17/21 Narrative: 55 year old female /sp DARREL 2003 in [place] -? uterine cancer and has done well since. yesterday was fine and ate dinner then at 11:00 pm had worsening abdo pain and nausea - no emesis and came to the ER- no fever or chills no disrrhea or constipation Here wbc was mildly elevated and ct scan showing mild small bowel loop dialatation with a transition srea of fecalized small bowel and some enteritis - thickend small bowel. Review of Systems Review of Systems: Yes all other systems are reviewed and are negative [facility] Past Medical History Medical History High cholesterol Hypothyroid Uterine cancer Family History Family History Sister Uterine cancer Surgical History Surgical History H/O abdominal hysterectomy History of reversal of tubal ligation Hx of colonoscopy Tubal ligation status Social History Social History Alcohol intake: never Patient Tobacco Use Status: Former Tobacco user Use of substances other than those prescribed or required for medical reasons: No Advance Directives: No Patient : No Current occupational status: unemployed 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 Meds Allergies Allergy/AdvReac Type Severity Reaction Status Date / Time No Known Allergies Allergy Verified 07/17/21 00:13 [No Known Allergies*] Active Medications: Current Medications Acetaminophen (Acetaminophen 325 Mg Tablet) 650 mg PO Q6H PRN PRN Reason: Pain, Mild (Pain Scale 1-3) Diatrizoate Meglum/Diatrizoate Sod (Diatrizoate Meglumine, Sodium 120 Ml Solution) 100 ml PO ONCE ONE Stop: 07/17/21 12:53 Dextrose/Sodium Chloride (D5ns) 1,000 mls @ 100 mls/hr IVCONT .Q10H [facility] Last Admin: 07/17/21 11:36 Dose: 100 mls/hr Documented by: Metronidazole (Flagyl) 500 mg in 100 mls @ 100 mls/hr IV Q8H [facility] Ceftriaxone Sodium 1 gm/ (Sodium Chloride) 50 mls @ 100 mls/hr IV Q24H [facility] Last Infusion: 07/17/21 12:30 Dose: Infused Documented by: Levothyroxine Sodium (Levothyroxine Sodium 100 Mcg Tablet) 100 mcg PO MOTUWETHFR@06 [facility] Sodium Chloride (0.9 % Sodium Chloride Flush 3 Ml Syringe) 3 ml IVFLUSH QSHIFT [facility] Home Medications Medication Instructions Recorded Confirmed Last Taken Type cholecalciferol (vitamin D3) 50 1 tab PO DAILY 07/17/21 07/17/21 07/15/21 History mcg (2,000 unit) tablet levothyroxine 100 mcg tablet 1 tab PO MOTUWETHFR@06 07/17/21 07/17/21 07/15/21 History simvastatin 40 mg tablet 1 tab PO QPM 07/17/21 07/17/21 07/15/21 History Physical Exam Vital Signs: Vital Signs: Last Vital Signs Temp 97.7 F 07/17/21 02:12 Pulse 64 07/17/21 11:34 Resp 16 07/17/21 11:34 BP 134/61 07/17/21 11:34 Pulse Ox 97 07/17/21 11:34 BMI result Body Mass Index 37.5 Const: General: cooperative, healthy appearing, comfortable and no acute distress Orientation/consciousness: oriented to person, oriented to place and oriented to time Resp: Effort & Inspection: normal respiratory effort Auscultation: clear to auscultation bilaterally Cardio: Rate: regular rate Rhythm: regular rhythm GI: Other: soft tender right lower quadrant with some guarding no peritoneal signs active bowel sounds Inspection: Yes normal to inspection Skin: General skin exam: no rashes or lesions noted Neuro: General: oriented to person, oriented to place and oriented to time Cranial nerves: Yes CN's II-XII intact bilaterally Extrem: General: Yes normal to inspection and Yes full ROM Psych: Appearance: grossly normal and well kempt Results Labs Result diagrams: 07/17/21 11:42 07/17/21 01:47 Labs: Abnormal lab results 07/17/21 07/17/21 07/17/21 Range/Units 01:47 01:47 02:18 WBC 15.2 H (4.8-10.8) X10*3/uL MCV 79.5 L (80.0-98.0) fL Neut % (Auto) 74.1 H (45-73) % Abs Immat Gran (auto) 0.06 H (0.00-0.03) X10*3/uL Absolute Neuts (auto) 11.3 H (2.0-8.3) x10*3/uL Random Glucose 117 H (60-115) mg/dL Ur Specific [place] >= 1.030 H (1.005-1.025) Short CBC 07/17/21 07/17/21 Range/Units 01:47 11:42 WBC 15.2 H 10.6 (4.8-10.8) X10*3/uL Hgb 13.5 13.1 (12.0-16.0) g/dl Hct 39.1 37.9 (37.0-47.0) % Plt Count 261 222 (160-400) X10*3/uL BMP 07/17/21 01:47 Sodium 138 Potassium 5.1 Chloride 102 Carbon Dioxide 27 BUN 12 Creatinine 0.88 Calcium 9.8 D Liver Function 07/17/21 Range/Units 01:47 Total Bilirubin 0.4 (0.0-1.0) mg/dL AST 19 (5-31) U/L ALT 20 (0-31) U/L Alkaline Phosphatase 105 D (39-117) U/L Albumin 4.3 (3.5-5.0) g/dL Urine 07/17/21 Range/Units 02:18 Urine Color YELLOW Urine Appearance CLEAR Urine pH 5.5 (5.0-8.0) Ur Specific [place] >= 1.030 H (1.005-1.025) Urine Protein NEG (NEG-TRACE) MG/DL Urine Glucose (UA) NEG (NEG) MG/DL All other labs normal. Imaging Abdominal x-ray: report reviewed and image reviewed Abdomen CT scan report/results: report reviewed and image reviewed CT scan - pelvis: report reviewed and image reviewed Assessment and Plan (1) SBO (small bowel obstruction): Status: Acute (2) Enteritis: Status: Acute Plan 55 year old female with abdo pain and nausea started acutely last night - ct scan showing some enteritis of small bowel and proximal mild dialtation - kub also showing this am dilated small bowel -? obstruction - pt wbc to normal today had a dose of zosyn and iv hydration and bowel rest feels better small bowel obstruction is a clinical diagnosis not purely radiological - i think she has some enteritis and the inflammation is causing a partial obstruction - clinical exam goes with that plan to do gastrograffin small bowel study and cont with christian antibx and see how she does - she drank the contrast slightly diluted and now plan for kub at 11:00 pm and then tomorrow am discussed with lobster man at bedside and pt understands and agrees with plan discussed with med team Procedures Date of Service Date of Service: 07/17/21
--- NOTE | 2021-07-17 15:00 | PC.NURSE ---
pt c/o 01/11 abd pain, jade texted Dr. Wilkinson to obtain IVP pain medications as the patient is npo and only has tylenol ordered.
--- NOTE | 2021-07-17 15:13 | PC.NURSE ---
pt c/o pain in right IV, IV infiltrated, removed right IV. waiting for pain meds.
[2021-07-17] MEDS: Morphine Sulfate 2 MG/ML CARTRIDGE IVPUSH (15:15)
--- NOTE | 2021-07-17 15:18 | PC.NURSE ---
patient medicated for pain per order
--- NOTE | 2021-07-17 16:23 | PC.NURSE ---
pt IV pump replaced, previous pump not working [id number] restarted
--- NOTE | 2021-07-17 20:42 | PC.NURSE ---
patient a&o, pt c/o abd pain, pt medicated for pain, vss, family at bedside, will continue to monitor.
--- NOTE | 2021-07-17 20:49 | PC.NURSE ---
floor to call back to get report
--- NOTE | 2021-07-17 21:15 | PC.NURSE ---
report given to floor, pt to be transported by tech
[2021-07-17] MEDS: Metoclopramide HCl 10 MG/2 ML VIAL IVPUSH (23:19)
[2021-07-18] VITALS (8 sets, daily range): BP systolic 128–168; BP diastolic 65–90; PULSE 66–80; RESP 15–18; TEMP 36.3–36.9; O2SAT 93–98
[2021-07-18] MEDS: Morphine Sulfate 4 MG/ML CARTRIDGE IVPUSH (00:17)
[2021-07-18] MEDS: metroNIDAZOLE/NS 500 MG/100 ML PIGGYBACK 100 MG IV ×3 (03:45→20:06)
[2021-07-18 05:41] LABS: MANUAL DIFF FLAG NO
[2021-07-18] MEDS: Levothyroxine Sodium 100 MCG TABLET PO (05:42)
[2021-07-18 05:46] LABS: Basophils Percent Auto 0.2 % (0-2); Eosinophils Percent Auto 0.4 % (0-4); Hematocrit 40.6 % (37.0-47.0); Hemoglobin 13.9 g/dl (12.0-16.0); Imm Gran Abs Auto 0.02 X10*3/uL (0.00-0.03); Imm Gran Pct Auto 0.2 % (0.0-0.4); Lymphocytes Absolute Auto 1.5 X10*3/uL (1.2-4.9); Lymphocytes Percent Auto 14.2 % (20-40); Mean Corpuscular HGB Conc 34.2 g/dl (31.0-35.0); Mean Corpuscular Hemoglobin 27.6 pg (27.0-33.0); Mean Corpuscular Volume 80.7 fL (80.0-98.0); Mean Platelet Volume 10.3 fL (9.4-12.3); Monocytes Absolute Auto 0.5 X10*3/uL (0.1-1.2); Monocytes Percent Auto 4.2 % (2-11); Neutrophils Absolute Auto 8.8 x10*3/uL (2.0-8.3); Neutrophils Percent Auto 80.8 % (45-73); Platelet Count 251 X10*3/uL (160-400); Red Blood Count 5.03 X10*6/uL (4.20-5.50); Red Cell Distribution Width 14.5 % (11.0-16.0); White Blood Count 10.9 X10*3/uL (4.8-10.8)
[2021-07-18 06:01] LABS: Lactic Acid 1.2 mmol/L (0.5-2.0)
[2021-07-18 06:07] LABS: Anion Gap 11 (12-20); Blood Urea Nitrogen 8 mg/dL (9-16); Calcium 8.8 mg/dL (8.4-10.2); Carbon Dioxide 26 mmol/L (22-29); Chloride 108 mmol/L (96-108); Creatinine Clr Calc Pharmacy 82.2; Estimated Glomerular Filt Rate > 60; Glucose Random 143 mg/dL (60-115); Potassium 4.4 mmol/L (3.3-5.1); Sodium 141 mmol/L (135-145)
--- NOTE | 2021-07-18 07:57 | P.PNGS_ITS ---
Subjective Subjective Date of Service: 07/18/21 Interval history: says she has some mild abdl pain denies flatus states NGT is bothering her Physical Exam Vital Signs: Vital Signs: Last Vital Signs Temp 98.2 F 07/18/21 04:00 Pulse 76 07/18/21 04:00 Resp 16 07/18/21 04:00 BP 140/65 H 07/18/21 04:00 Pulse Ox 95 07/18/21 04:00 BMI result Body Mass Index 37.5 Const: General: comfortable, no acute distress and awake Resp: Effort & Inspection: normal respiratory effort Cardio: Rate: regular rate GI: Inspection: Yes distended Palpation (GI): Soft to palpation, not firm and no guarding Objective Data Active Medications Acetaminophen (Acetaminophen 325 Mg Tablet) 650 mg PO Q6H PRN PRN Reason: Pain, Mild (Pain Scale 1-3) Dextrose/Sodium Chloride (D5ns) 1,000 mls @ 100 mls/hr IVCONT .Q10H [facility] Last Admin: 07/17/21 22:46 Dose: 100 mls/hr Documented by: LISBET Metronidazole (Flagyl) 500 mg in 100 mls @ 100 mls/hr IV Q8H [facility] Last Infusion: 07/18/21 05:24 Dose: 100 mls/hr Documented by: LISBET Ceftriaxone Sodium 1 gm/ (Sodium Chloride) 50 mls @ 100 mls/hr IV Q24H [facility] Last Infusion: 07/17/21 12:30 Dose: 0 mls/hr Documented by: VITALY Ketorolac Tromethamine (Ketorolac Tromethamine 15 Mg/Ml Vial) 15 mg IVPUSH Q6H [facility] Last Admin: 07/18/21 03:04 Dose: Not Given Documented by: LISBET Non-Admin Reason: pt sleeping Levothyroxine Sodium (Levothyroxine Sodium 100 Mcg Tablet) 100 mcg PO MOTUWETHFR@06 [facility] Last Admin: 07/18/21 05:42 Dose: 100 mcg Documented by: LISBET Morphine Sulfate (Morphine Sulfate 2 Mg/Ml Cartridge) 2 mg IVPUSH Q6H PRN; Pr otocol PRN Reason: Pain, Severe (Pain Scale 7-10) Last Admin: 07/17/21 15:15 Dose: 2 mg Documented by: VITALY Sodium Chloride (0.9 % Sodium Chloride Flush 3 Ml Syringe) 3 ml IVFLUSH QSHIFT [facility] Last Admin: 07/18/21 00:24 Dose: Not Given Documented by: LISBET Non-Admin Reason: IV Running Labs CBC & Chem 7: 07/18/21 05:32 07/18/21 05:32 Labs: Laboratory Results - last 24 hr 07/17/21 07/18/21 07/18/21 11:42 05:32 05:32 MCV 80.0 80.7 MCH 27.6 27.6 MCHC 34.6 34.2 RDW 14.4 14.5 Plt Count 222 251 MPV 10.0 10.3 Immature Gran % (Auto) 0.2 Neut % (Auto) 80.8 H Lymph % (Auto) 14.2 L [place] % (Auto) 4.2 Eos % (Auto) 0.4 Baso % (Auto) 0.2 Lymph # (Auto) 1.5 [place] # (Auto) 0.5 Eos # (Auto) 0.0 Baso # (Auto) 0.0 Abs Immat Gran (auto) 0.02 Absolute Neuts (auto) 8.8 H Absolute Nucleated RBC 0.000 0.000 Nucleated RBC % (auto) 0.0 0.0 Anion Gap 11 L Estim Creat Clear Calc 82.2 Estimated GFR > 60 Random Glucose 143 H Lactic Acid Calcium 8.8 D 07/18/21 05:32 MCV MCH MCHC RDW Plt Count MPV Immature Gran % (Auto) Neut % (Auto) Lymph % (Auto) [place] % (Auto) Eos % (Auto) Baso % (Auto) Lymph # (Auto) [place] # (Auto) Eos # (Auto) Baso # (Auto) Abs Immat Gran (auto) Absolute Neuts (auto) Absolute Nucleated RBC Nucleated RBC % (auto) Anion Gap Estim Creat Clear Calc Estimated GFR Random Glucose Lactic Acid 1.2 Calcium Microbiology Microbiology Results: Microbiology 07/17/21 04:18 Blood Culture - Preliminary Blood - Venous No growth after 24 hours. 07/17/21 04:18 Blood Culture - Preliminary Blood - Venous No growth after 24 hours. Procedures Date of Service Date of Service: 07/18/21 Progress Note: A&P Assessment and plan (1) SBO (small bowel obstruction): Status: Acute Assessment and Plan: CT reviewed - has air distally including colon likely enteritis with partial SBO still looks distended although exam benign abdl xray ordered continue IVF, NGT for now Fall Risk Details Current Medications: Current Medications Acetaminophen (Acetaminophen 325 Mg Tablet) 650 mg PO Q6H PRN PRN Reason: Pain, Mild (Pain Scale 1-3) Dextrose/Sodium Chloride (D5ns) 1,000 mls @ 100 mls/hr IVCONT .Q10H [facility] Last Admin: 07/17/21 22:46 Dose: 100 mls/hr Documented by: Metronidazole (Flagyl) 500 mg in 100 mls @ 100 mls/hr IV Q8H [facility] Last Infusion: 07/18/21 05:24 Dose: Infused Documented by: Ceftriaxone Sodium 1 gm/ (Sodium Chloride) 50 mls @ 100 mls/hr IV Q24H [facility] Last Infusion: 07/17/21 12:30 Dose: Infused Documented by: Ketorolac Tromethamine (Ketorolac Tromethamine 15 Mg/Ml Vial) 15 mg IVPUSH Q6H [facility] Last Admin: 07/18/21 03:04 Dose: Not Given Documented by: Levothyroxine Sodium (Levothyroxine Sodium 100 Mcg Tablet) 100 mcg PO MOTUWETHFR@06 [facility] Last Admin: 07/18/21 05:42 Dose: 100 mcg Documented by: Morphine Sulfate (Morphine Sulfate 2 Mg/Ml Cartridge) 2 mg IVPUSH Q6H PRN; Protocol PRN Reason: Pain, Severe (Pain Scale 7-10) Last Admin: 07/17/21 15:15 Dose: 2 mg Documented by: Sodium Chloride (0.9 % Sodium Chloride Flush 3 Ml Syringe) 3 ml IVFLUSH QSHIFT [facility] Last Admin: 07/18/21 00:24 Dose: Not Given Documented by: Time Spent With Patient Time: Total time spent is greater than 50% in coordination of care (as documented) at patient's floor/unit and/or counseling patient: Time with patient: 15 - 24 minutes Quality Stroke Does the patient have a stroke diagnosis?: No VTE Prior VTE?: No VTE Risk Level:: Medical - moderate - high VTE Device Contraindication: N/A - Device Ordered VTE Drug Contraindication: Treatment Not Indicated
--- NOTE | 2021-07-18 08:08 | P.PNIM_ITS ---
Subjective Subjective Date of Service: 07/18/21 Interval History: F/u on small bowel obstruction, persistent distention, nausea, NGT draining bilious fluid.. No BM, no flatus Review of Systems abd pain, nause, ditention, no fever Physical Exam Vital Signs: Vital Signs: Last Vital Signs Temp 98.2 F 07/18/21 08:00 Pulse 80 07/18/21 08:00 Resp 18 07/18/21 08:00 BP 168/90 H 07/18/21 08:00 Pulse Ox 93 07/18/21 08:00 BMI result Body Mass Index 37.5 Const: Other: General: AO X 3, no acute distress Resp: CTA bilateral CVS: S1,S2,RRR GI: -BS, mild tenderness, + distention Skin: No rash Neuro: motor grossly intact Psych: appropriate affect Objective Data Active Medications Acetaminophen (Acetaminophen 325 Mg Tablet) 650 mg PO Q6H PRN PRN Reason: Pain, Mild (Pain Scale 1-3) Dextrose/Sodium Chloride (D5ns) 1,000 mls @ 100 mls/hr IVCONT .Q10H [facility] Last Admin: 07/17/21 22:46 Dose: 100 mls/hr Documented by: LISBET Metronidazole (Flagyl) 500 mg in 100 mls @ 100 mls/hr IV Q8H [facility] Last Infusion: 07/18/21 05:24 Dose: 100 mls/hr Documented by: LISBET Ceftriaxone Sodium 1 gm/ (Sodium Chloride) 50 mls @ 100 mls/hr IV Q24H [facility] Last Infusion: 07/17/21 12:30 Dose: 0 mls/hr Documented by: VITALY Ketorolac Tromethamine (Ketorolac Tromethamine 15 Mg/Ml Vial) 15 mg IVPUSH Q6H [facility] Last Admin: 07/18/21 03:04 Dose: Not Given Documented by: LISBET Non-Admin Reason: pt sleeping Levothyroxine Sodium (Levothyroxine Sodium 100 Mcg Tablet) 100 mcg PO MOTUWETHFR@06 [facility] Last Admin: 07/18/21 05:42 Dose: 100 mcg Documented by: LISBET Morphine Sulfate (Morphine Sulfate 2 Mg/Ml Cartridge) 2 mg IVPUSH Q6H PRN; Protocol PRN Reason: Pain, Severe (Pain Scale 7-10) Last Admin: 07/17/21 15:15 Dose: 2 mg Documented by: VITALY Sodium Chloride (0.9 % Sodium Chloride Flush 3 Ml Syringe) 3 ml IVFLUSH [facility] Last Admin: 07/18/21 00:24 Dose: Not Given Documented by: LISBET Non-Admin Reason: IV Running Labs CBC & Chem 7: 07/18/21 05:32 07/18/21 05:32 Labs: Laboratory Results - last 24 hr 07/17/21 07/18/21 07/18/21 11:42 05:32 05:32 MCV 80.0 80.7 MCH 27.6 27.6 MCHC 34.6 34.2 RDW 14.4 14.5 Plt Count 222 251 MPV 10.0 10.3 Immature Gran % (Auto) 0.2 Neut % (Auto) 80.8 H Lymph % (Auto) 14.2 L [place] % (Auto) 4.2 Eos % (Auto) 0.4 Baso % (Auto) 0.2 Lymph # (Auto) 1.5 [place] # (Auto) 0.5 Eos # (Auto) 0.0 Baso # (Auto) 0.0 Abs Immat Gran (auto) 0.02 Absolute Neuts (auto) 8.8 H Absolute Nucleated RBC 0.000 0.000 Nucleated RBC % (auto) 0.0 0.0 Anion Gap 11 L Estim Creat Clear Calc 82.2 Estimated GFR > 60 Random Glucose 143 H Lactic Acid Calcium 8.8 D 07/18/21 05:32 MCV MCH MCHC RDW Plt Count MPV Immature Gran % (Auto) Neut % (Auto) Lymph % (Auto) [place] % (Auto) Eos % (Auto) Baso % (Auto) Lymph # (Auto) [place] # (Auto) Eos # (Auto) Baso # (Auto) Abs Immat Gran (auto) Absolute Neuts (auto) Absolute Nucleated RBC Nucleated RBC % (auto) Anion Gap Estim Creat Clear Calc Estimated GFR Random Glucose Lactic Acid 1.2 Calcium Microbiology Microbiology Results: Microbiology 07/17/21 04:18 Blood Culture - Preliminary Blood - Venous No growth after 24 hours. 07/17/21 04:18 Blood Culture - Preliminary Blood - Venous No growth after 24 hours. Assessment and Plan (1) SBO (small bowel obstruction): Status: Acute (2) Hypothyroid: Status: Acute (3) High cholesterol: Status: Acute (4) Enteritis: Status: Acute Plan 55 female with history of hypothyroidism, HLD, history of uterine cancer s/p hysterectomy, s/p tubal ligation with reversal in the past. She presents to ED right-sided abdominal pain and found to have Small bowel obstruction on CT and xray, and possible enteritis.. 1/ Small bowel obstruction as evident on CT,- Persistent obstruction. -contnie NPO, NGT in,, pain control with morphine, Surgery consutl. 2/? Enteritis, increase WBC--Empiric Antibiotics 4/ HLD--Statin 5/Hypothyroidism--LT4 6/ Heparin for DVT prophylaxis Plan discuss with patient via environmental services lead Will transfer care to surgery as primary issue remains surgical, discussed with Dr. Elena Quality Stroke Does the patient have a stroke diagnosis?: No VTE Prior VTE?: No VTE Risk Level:: Medical - moderate - high VTE Device Contraindication: N/A - Device Ordered VTE Drug Contraindication: N/A - Med Ordered
[2021-07-18] MEDS: Ketorolac Tromethamine 15 MG/ML VIAL IVPUSH ×3 (08:23→18:26)
[2021-07-18] MEDS: Dextrose 5 % and 0.9 % NaCl 1,000 ML 100 ML IVCONT ×2 (08:25→16:31)
[2021-07-18] MEDS: 0.9 % Sodium Chloride Flush 3 ML SYRINGE IVFLUSH (08:27)
--- NOTE | 2021-07-18 09:00 | MHC.CM.PN ---
THIS CM ATTEMPTED TO MEET W/PT VIA GROUP THERAPY COUNSELOR HOWEVER PT OFF UNIT, CM WILL REVISIT LATER TODAY. PT REMAINS ON IV FLUIDS, IV ABX AND NG TUBE IN PLACE, AWAITING SURGICAL INPUT FOR POSSIBLE SURGICAL INTERVENTION.
[2021-07-18] MEDS: cefTRIAXone sodium 1 GM in 0.9 % Sodium Chloride 50 ML IV (10:32)
[2021-07-18] MEDS: Morphine Sulfate 2 MG/ML CARTRIDGE IVPUSH (11:48)
--- NOTE | 2021-07-18 14:45 | PM.EVENT ---
Event Note Date of Service: 07/18/21 Event Note: Patient seen this afternoon Says she is passing flatus and had a bowel movement She says she does not have any abdominal pain Asking for the NG tube to be DCed KUB this morning seems to be unchanged from yesterday Will keep on NG tube night If she continues do well, possibly remove the NG tube tomorrow
[2021-07-19] MEDS: Ketorolac Tromethamine 15 MG/ML VIAL IVPUSH ×3 (02:22→18:23)
[2021-07-19] MEDS: Dextrose 5 % and 0.9 % NaCl 1,000 ML 100 ML IVCONT ×2 (02:24→16:56)
[2021-07-19] MEDS: metroNIDAZOLE/NS 500 MG/100 ML PIGGYBACK 100 MG IV ×3 (03:58→19:26)
[2021-07-19 04:00] VITALS: RESP 18
[2021-07-19] MEDS: Levothyroxine Sodium 100 MCG TABLET PO (06:07)
[2021-07-19 07:24] VITALS: BP 160/82; PULSE 66; RESP 18; TEMP 36.5; O2SAT 94
--- NOTE | 2021-07-19 09:53 | HO.PM.IMPN ---
Subjective Subjective Date of Service: 07/19/21 Interval History: F/u on small bowel obstruction, persistent distention, nausea, NGT clamped, reports bm and flatus yesterday Review of Systems abd pain, nause, ditention, no fever Physical Exam Vital Signs: Vital Signs: Last Vital Signs Temp 97.7 F 07/19/21 07:24 Pulse 66 07/19/21 07:24 Resp 18 07/19/21 07:24 BP 160/82 H 07/19/21 07:24 Pulse Ox 94 07/19/21 07:24 BMI result Body Mass Index 37.5 Const: Other: General: AO X 3, no acute distress Resp: CTA bilateral CVS: S1,S2,RRR GI: faint BS, mild tenderness, persistent distention Skin: No rash Neuro: motor grossly intact Psych: appropriate affect Objective Data Active Medications Acetaminophen (Acetaminophen 325 Mg Tablet) 650 mg PO Q6H PRN PRN Reason: Pain, Mild (Pain Scale 1-3) Dextrose/Sodium Chloride (D5ns) 1,000 mls @ 100 mls/hr IVCONT .Q10H [facility] Last Admin: 07/19/21 02:24 Dose: 100 mls/hr Documented by: LISBET Metronidazole (Flagyl) 500 mg in 100 mls @ 100 mls/hr IV Q8H [facility] Last Infusion: 07/19/21 05:06 Dose: 100 mls/hr Documented by: LISBET Ceftriaxone Sodium 1 gm/ (Sodium Chloride) 50 mls @ 100 mls/hr IV Q24H [facility] Last Infusion: 07/18/21 11:02 Dose: 0 mls/hr Documented by: AFSANEH Ketorolac Tromethamine (Ketorolac Tromethamine 15 Mg/Ml Vial) 15 mg IVPUSH Q6H [facility] Last Admin: 07/19/21 06:16 Dose: Not Given Documented by: LISBET Non-Admin Reason: HAS NO PAIN Levothyroxine Sodium (Levothyroxine Sodium 100 Mcg Tablet) 100 mcg PO MOTUWETHFR@06 [facility] Last Admin: 07/19/21 06:07 Dose: 100 mcg Documented by: LISBET Morphine Sulfate (Morphine Sulfate 2 Mg/Ml Cartridge) 2 mg IVPUSH Q6H PRN; Protocol PRN Reason: Pain, Severe (Pain Scale 7-10) Last Admin: 07/18/21 11:48 Dose: 2 mg Documented by: AFSANEH Sodium Chloride (0.9 % Sodium Chloride Flush 3 Ml Syringe) 3 ml IVFLUSH QSHIFT [facility] Last Admin: 07/19/21 01:24 Dose: Not Given Documented by: LISBET Non-Admin Reason: IV Running Labs CBC & Chem 7: 07/18/21 05:32 07/18/21 05:32 Microbiology Microbiology Results: Microbiology 07/17/21 04:18 Blood Culture - Preliminary Blood - Venous No growth after 48 hours. 07/17/21 04:18 Blood Culture - Preliminary Blood - Venous No growth after 48 hours. Assessment and Plan (1) SBO (small bowel obstruction): Status: Acute (2) Hypothyroid: Status: Acute (3) High cholesterol: Status: Acute (4) Enteritis: Status: Acute Plan 55 female with history of hypothyroidism, HLD, history of uterine cancer s/p hysterectomy, s/p tubal ligation with reversal in the past. She presents to ED right-sided abdominal pain and found to have Small bowel obstruction on CT and xray, and possible enteritis.. 1/ Small bowel obstruction as evident on CT, xray,- Persistent distentionn but report flatus and bm - NGT clamped,, pain control with morphine, Surgery following, NPO for now continue IVF 2/? Enteritis, increase WBC--Empiric Antibiotics--Ceftriaxone and Flagyl 4/ HLD--Statin 5/Hypothyroidism--LT4 6/ Heparin for DVT prophylaxis Plan discuss with patient via bilingual sales representative Will transfer care to surgery as primary issue remains surgical, discussed with Dr. Elena Quality Stroke Does the patient have a stroke diagnosis?: No VTE Prior VTE?: No VTE Risk Level:: Medical - moderate - high VTE Device Contraindication: N/A - Device Ordered VTE Drug Contraindication: N/A - Med Ordered
--- NOTE | 2021-07-19 10:34 | PM.PNGS ---
Subjective Subjective Date of Service: 07/19/21 Interval history: feels well denies abdl pain passing flatus has had BMs Physical Exam Vital Signs: Vital Signs: Last Vital Signs Temp 97.7 F 07/19/21 07:24 Pulse 66 07/19/21 07:24 Resp 18 07/19/21 07:24 BP 160/82 H 07/19/21 07:24 Pulse Ox 94 07/19/21 07:24 BMI result Body Mass Index 37.5 Const: General: comfortable and no acute distress Resp: Effort & Inspection: normal respiratory effort Cardio: Rate: regular rate GI: Palpation (GI): Soft to palpation, not firm, nontender and no guarding Objective Data Active Medications Acetaminophen (Acetaminophen 325 Mg Tablet) 650 mg PO Q6H PRN PRN Reason: Pain, Mild (Pain Scale 1-3) Dextrose/Sodium Chloride (D5ns) 1,000 mls @ 100 mls/hr IVCONT .Q10H [facility] Last Admin: 07/19/21 02:24 Dose: 100 mls/hr Documented by: LISBET Metronidazole (Flagyl) 500 mg in 100 mls @ 100 mls/hr IV Q8H [facility] Last Infusion: 07/19/21 05:06 Dose: 100 mls/hr Documented by: LISBET Ceftriaxone Sodium 1 gm/ (Sodium Chloride) 50 mls @ 100 mls/hr IV Q24H [facility] Last Infusion: 07/18/21 11:02 Dose: 0 mls/hr Documented by: AFSANEH Ketorolac Tromethamine (Ketorolac Tromethamine 15 Mg/Ml Vial) 15 mg IVPUSH Q6H [facility] Last Admin: 07/19/21 06:16 Dose: Not Given Documented by: LISBET Non-Admin Reason: HAS NO PAIN Levothyroxine Sodium (Levothyroxine Sodium 100 Mcg Tablet) 100 mcg PO MOTUWETHFR@06 [facility] Last Admin: 07/19/21 06:07 Dose: 100 mcg Documented by: LISBET Morphine Sulfate (Morphine Sulfate 2 Mg/Ml Cartridge) 2 mg IVPUSH Q6H PRN; Protocol PRN Reason: Pain, Severe (Pain Scale 7-10) Last Admin: 07/18/21 11:48 Dose: 2 mg Documented by: AFSANEH Sodium Chloride (0.9 % Sodium Chloride Flush 3 Ml Syringe) 3 ml IVFLUSH QSHIFT [facility] Last Admin: 07/19/21 10:08 Dose: Not Given Documented by: ARPITA Non-Admin Reason: IV Running Labs CBC & Chem 7: 07/18/21 05:32 07/18/21 05:32 Microbiology Microbiology Results: Microbiology 07/17/21 04:18 Blood Culture - Preliminary Blood - Venous No growth after 48 hours. 07/17/21 04:18 Blood Culture - Preliminary Blood - Venous No growth after 48 hours. Procedures Date of Service Date of Service: 07/19/21 Progress Note: A&P Assessment and plan (1) SBO (small bowel obstruction): Status: Acute Assessment and Plan: symptoms have resolved some thin NGT output still passing good flatus and has had BMs so will dc NGT keep on ice chips for today if she continues to do well advance diet slowly plan explained to her she understands Fall Risk Details Current Medications: Current Medications Acetaminophen (Acetaminophen 325 Mg Tablet) 650 mg PO Q6H PRN PRN Reason: Pain, Mild (Pain Scale 1-3) Dextrose/Sodium Chloride (D5ns) 1,000 mls @ 100 mls/hr IVCONT .Q10H [facility] Last Admin: 07/19/21 02:24 Dose: 100 mls/hr Documented by: Metronidazole (Flagyl) 500 mg in 100 mls @ 100 mls/hr IV Q8H [facility] Last Infusion: 07/19/21 05:06 Dose: Infused Documented by: Ceftriaxone Sodium 1 gm/ (Sodium Chloride) 50 mls @ 100 mls/hr IV Q24H [facility] Last Infusion: 07/18/21 11:02 Dose: Infused Documented by: Ketorolac Tromethamine (Ketorolac Tromethamine 15 Mg/Ml Vial) 15 mg IVPUSH Q6H [facility] Last Admin: 07/19/21 06:16 Dose: Not Given Documented by: Levothyroxine Sodium (Levothyroxine Sodium 100 Mcg Tablet) 100 mcg PO MOTUWETHFR@06 [facility] Last Admin: 07/19/21 06:07 Dose: 100 mcg Documented by: Morphine Sulfate (Morphine Sulfate 2 Mg/Ml Cartridge) 2 mg IVPUSH Q6H PRN; Protocol PRN Reason: Pain, Severe (Pain Scale 7-10) Last Admin: 07/18/21 11:48 Dose: 2 mg Documented by: Sodium Chloride (0.9 % Sodium Chloride Flush 3 Ml Syringe) 3 ml IVFLUSH QSHIFT [facility] Last Admin: 07/19/21 10:08 Dose: Not Given Documented by: Time Spent With Patient Time: Total time spent is greater than 50% in coordination of care (as documented) at patient's floor/unit and/or counseling patient: Time with patient: 15 - 24 minutes Quality Stroke Does the patient have a stroke diagnosis?: No VTE Prior VTE?: No VTE Risk Level:: Medical - moderate - high VTE Device Contraindication: N/A - Device Ordered VTE Drug Contraindication: N/A - Med Ordered
[2021-07-19 11:27] VITALS: BP 140/87; PULSE 72; RESP 18; TEMP 36.8; O2SAT 97
[2021-07-19] MEDS: cefTRIAXone sodium 1 GM in 0.9 % Sodium Chloride 50 ML IV (12:26)
--- NOTE | 2021-07-19 14:27 | MHC.CM.PN ---
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 DENIES USE OF DME AND NO HOME SERVICES, PT OPEN TO [facility] IF NEEDING SURGERY HOWEVER PER SURGICAL NOTE PT IMPROVING, JEREMÍAS RETURN OF BOWEL FX AND DIET WILL START TO BE ADVANCED. PT REPORTS HER PCP IS AT [facility] BUT IS UNSURE OF NAME, PT DENIES HAVING HCP, PT PROVIDED W/EDUCATIONAL INFORMATION AND PT COMPLETED HCP NAMING HER SON EBONI PENA [phone] HER [facility] AND HER SON RHIANNA HERNANDEZ [phone] HER ALTERNATE. COPY UPLOADED TO [employer] AND PLACED IN CHART, PT RECEIVED ORIGINAL AND 2 COPIES. D/C PLAN: HOME NO SERVICES, SON EBONI FOR TRANSPORT PT REPORTS [employer] X[employer] AND [employer]ER IN MAY 2021
--- NOTE | 2021-07-19 14:47 | PM.EVENT ---
Event Note Date of Service: 07/19/21 Event Note: Seen on afternoon rounds Says she is comfortable No nausea or vomiting Abdominal pain Abdomen soft, nontender Says she has been passing flatus Trial of clear liquids tonight
[2021-07-19 15:57] VITALS: BP 136/75; PULSE 68; RESP 16; TEMP 36.9; O2SAT 98
--- NOTE | 2021-07-19 19:13 | PC.NURSE ---
Nursing notification order put in by Dr. Talley to give pt 100 cc of gastrograffin drink. Called radiology and spoke with the supervisor cigar making hand, I was told that they are unable to bring me the gastrograffin drink unless there is an order for an x-ray. I told Dr. Talley this and she tiger texted me that she was not ordering an x-ray. I told Dr. Talley again that I was unable to get the gastrograffin via tiger text. Report given to MIREYA Dey.
[2021-07-19 19:16] VITALS: BP 150/73; PULSE 70; RESP 16; TEMP 37.1; O2SAT 96
[2021-07-19] MEDS: 0.9 % Sodium Chloride Flush 3 ML SYRINGE IVFLUSH (19:26)
--- NOTE | 2021-07-19 19:29 | P.PNGS_ITS ---
Subjective Subjective Date of Service: 07/19/21 Physical Exam Vital Signs: Vital Signs: Last Vital Signs Temp 98.7 F 07/19/21 19:16 Pulse 70 07/19/21 19:16 Resp 16 07/19/21 19:16 BP 150/73 H 07/19/21 19:16 Pulse Ox 96 07/19/21 19:16 BMI result Body Mass Index 37.5 Objective Data Active Medications Acetaminophen (Acetaminophen 325 Mg Tablet) 650 mg PO Q6H PRN PRN Reason: Pain, Mild (Pain Scale 1-3) Dextrose/Sodium Chloride (D5ns) 1,000 mls @ 100 mls/hr IVCONT .Q10H [facility] Last Admin: 07/19/21 16:56 Dose: 100 mls/hr Documented by: LONG Metronidazole (Flagyl) 500 mg in 100 mls @ 100 mls/hr IV Q8H [facility] Last Admin: 07/19/21 19:26 Dose: 100 mls/hr Documented by: GUY Ceftriaxone Sodium 1 gm/ (Sodium Chloride) 50 mls @ 100 mls/hr IV Q24H [facility] Last Infusion: 07/19/21 13:08 Dose: 0 mls/hr Documented by: ARPITA Ketorolac Tromethamine (Ketorolac Tromethamine 15 Mg/Ml Vial) 15 mg IVPUSH Q6H [facility] Last Admin: 07/19/21 18:23 Dose: 15 mg Documented by: LONG Levothyroxine Sodium (Levothyroxine Sodium 100 Mcg Tablet) 100 mcg PO MOTUWETHFR@06 [facility] Last Admin: 07/19/21 06:07 Dose: 100 mcg Documented by: LISBET Morphine Sulfate (Morphine Sulfate 2 Mg/Ml Cartridge) 2 mg IVPUSH Q6H PRN; Protocol PRN Reason: Pain, Severe (Pain Scale 7-10) Last Admin: 07/18/21 11:48 Dose: 2 mg Documented by: AFSANEH Sodium Chloride (0.9 % Sodium Chloride Flush 3 Ml Syringe) 3 ml IVFLUSH QSHIFT [facility] Last Admin: 07/19/21 19:26 Dose: 3 ml Documented by: GUY Labs CBC & Chem 7: 07/18/21 05:32 07/18/21 05:32 Microbiology Microbiology Results: Microbiology 07/17/21 04:18 Blood Culture - Preliminary Blood - Venous No growth after 48 hours. 07/17/21 04:18 Blood Culture - Preliminary Blood - Venous No growth after 48 hours. Procedures Date of Service Date of Service: 07/19/21 Progress Note: A&P Assessment and plan (1) Enteritis: Status: Acute Assessment and Plan: ? Shawna Ch ??Female : 1965? MedRec# [id number] 07/19/21 19:13 - Nurse Note by Astrid Hendricks RN Acct Num: [id number] : 1965? Patient Age: 55 Nursing notification order put in by Dr. Talley to give pt 100 cc of gastrograffin drink. Called radiology and spoke with the apple picking supervisor, I was told that they are unable to bring me the gastrograffin drink unless there is an order for an x-ray. I told Dr. Talley this and she tiger texted me that she was not ordering an x-ray. I told Dr. Talley again that I was unab le to get the gastrograffin via tiger text. Report given to MIREYA Dey. Initialized on 07/19/21 19:13 - END OF NOTE I received a text from above nurse to put in order for Gastrograffin drink this evening - Note the original order was placed 55 hrs ago!!!! on 07/17!!! The above nurse did not properly check the order and when told she was 48 hrs too late to fill this order entered the above. I personally on 07/17 discussed with ER nurse the plan, I personally discussed with medical technician assistant the plan and received the 120 cc of gastrograffin from them which i personally mixed with apple juice and personally gave to the patient and then personally entered and then reviewed the two subsequent kub xrays. Unsure why nurse Hendricks is entering this commentary at this time when the patients small bowel obstruction has resolved and the patient is not in need of a gastrograffin small bowel protocol, one which was already administered 55 hrs ago. (2) SBO (small bowel obstruction): Status: Acute Fall Risk Details Current Medications: Current Medications Acetaminophen (Acetaminophen 325 Mg Tablet) 650 mg PO Q6H PRN PRN Reason: Pain, Mild (Pain Scale 1-3) Dextrose/Sodium Chloride (D5ns) 1,000 mls @ 100 mls/hr IVCONT .Q10H [facility] Last Admin: 07/19/21 16:56 Dose: 100 mls/hr Documented by: Metronidazole (Flagyl) 500 mg in 100 mls @ 100 mls/hr IV Q8H [facility] Last Admin: 07/19/21 19:26 Dose: 100 mls/hr Documented by: Ceftriaxone Sodium 1 gm/ (Sodium Chloride) 50 mls @ 100 mls/hr IV Q24H [facility] Last Infusion: 07/19/21 13:08 Dose: Infused Documented by: Ketorolac Tromethamine (Ketorolac Tromethamine 15 Mg/Ml Vial) 15 mg IVPUSH Q6H [facility] Last Admin: 07/19/21 18:23 Dose: 15 mg Documented by: Levothyroxine Sodium (Levothyroxine Sodium 100 Mcg Tablet) 100 mcg PO MOTUWETHFR@06 [facility] Last Admin: 07/19/21 06:07 Dose: 100 mcg Documented by: Morphine Sulfate (Morphine Sulfate 2 Mg/Ml Cartridge) 2 mg IVPUSH Q6H PRN; Protocol PRN Reason: Pain, Severe (Pain Scale 7-10) Last Admin: 07/18/21 11:48 Dose: 2 mg Documented by: Sodium Chloride (0.9 % Sodium Chloride Flush 3 Ml Syringe) 3 ml IVFLUSH QSHIFT [facility] Last Admin: 07/19/21 19:26 Dose: 3 ml Documented by: Time Spent With Patient Time: Total time spent is greater than 50% in coordination of care (as documented) at patient's floor/unit and/or counseling patient: Time with patient: less than 15 minutes Quality Stroke Does the patient have a stroke diagnosis?: No VTE Prior VTE?: No VTE Risk Level:: Medical - moderate - high VTE Device Contraindication: N/A - Device Ordered VTE Drug Contraindication: N/A - Med Ordered
[2021-07-19 23:58] VITALS: BP 143/75; PULSE 73; RESP 16; TEMP 36.8; O2SAT 94
[2021-07-20] MEDS: Dextrose 5 % and 0.9 % NaCl 1,000 ML 100 ML IVCONT ×2 (02:00→19:42)
[2021-07-20 03:50] VITALS: BP 152/56; PULSE 61; RESP 20; TEMP 36.9; O2SAT 93
[2021-07-20] MEDS: metroNIDAZOLE/NS 500 MG/100 ML PIGGYBACK 100 MG IV ×2 (04:00→21:46)
[2021-07-20] MEDS: Levothyroxine Sodium 100 MCG TABLET PO (05:07)
[2021-07-20 07:09] VITALS: BP 136/65; PULSE 63; RESP 18; TEMP 36; O2SAT 95
--- NOTE | 2021-07-20 10:03 | HO.PM.IMPN ---
Subjective Subjective Date of Service: 07/20/21 Interval History: F/u on small bowel obstruction, persistent distention, nausea, NGT clamped, reports bm and flatus yesterday Review of Systems abd pain, nause, ditention, no fever Physical Exam Vital Signs: Vital Signs: Last Vital Signs Temp 96.8 F 07/20/21 07:09 Pulse 63 07/20/21 07:09 Resp 18 07/20/21 07:09 BP 136/65 07/20/21 07:09 Pulse Ox 95 07/20/21 07:09 BMI result Body Mass Index 37.5 Const: Other: General: AO X 3, no acute distress Resp: CTA bilateral CVS: S1,S2,RRR GI: faint BS, mild tenderness, persistent distention Skin: No rash Neuro: motor grossly intact Psych: appropriate affect Objective Data Active Medications Acetaminophen (Acetaminophen 325 Mg Tablet) 650 mg PO Q6H PRN PRN Reason: Pain, Mild (Pain Scale 1-3) Dextrose/Sodium Chloride (D5ns) 1,000 mls @ 100 mls/hr IVCONT .Q10H [facility] Last Admin: 07/20/21 02:00 Dose: 100 mls/hr Documented by: GUY Metronidazole (Flagyl) 500 mg in 100 mls @ 100 mls/hr IV Q8H [facility] Last Infusion: 07/20/21 05:06 Dose: 0 mls/hr Documented by: GUY Ceftriaxone Sodium 1 gm/ (Sodium Chloride) 50 mls @ 100 mls/hr IV Q24H [facility] Last Infusion: 07/19/21 13:08 Dose: 0 mls/hr Documented by: ARPITA Ketorolac Tromethamine (Ketorolac Tromethamine 15 Mg/Ml Vial) 15 mg IVPUSH Q6H [facility] Last Admin: 07/20/21 01:14 Dose: Not Given Documented by: GUY Non-Admin Reason: Patient Asleep Levothyroxine Sodium (Levothyroxine Sodium 100 Mcg Tablet) 100 mcg PO MOTUWETHFR@06 [facility] Last Admin: 07/20/21 05:07 Dose: 100 mcg Documented by: GUY Morphine Sulfate (Morphine Sulfate 2 Mg/Ml Cartridge) 2 mg IVPUSH Q6H PRN; Protocol PRN Reason: Pain, Severe (Pain Scale 7-10) Last Admin: 07/18/21 11:48 Dose: 2 mg Documented by: AFSANEH Sodium Chloride (0.9 % Sodium Chloride Flush 3 Ml [facility]ringe) [facility] Admin: 07/20/21 09:53 Dose: Not Given Documented by: ARPITA Non-Admin Reason: IV Running Labs CBC & Chem 7: 07/18/21 05:32 07/18/21 05:32 Microbiology Microbiology Results: Microbiology 07/17/21 04:18 Blood Culture - Preliminary Blood - Venous No growth after 48 hours. 07/17/21 04:18 Blood Culture - Preliminary Blood - Venous No growth after 48 hours. Assessment and Plan (1) SBO (small bowel obstruction): Status: Acute (2) Hypothyroid: Status: Acute (3) High cholesterol: Status: Acute (4) Enteritis: Status: Acute Plan 55 female with history of hypothyroidism, HLD, history of uterine cancer s/p hysterectomy, s/p tubal ligation with reversal in the past. She presents to ED right-sided abdominal pain and found to have Small bowel obstruction on CT and xray, and possible enteritis.. 1/ Small bowel obstruction as evident on CT, xray,- Persistent distentionn but report flatus and multiple bowel movement NGT removed, she claims to have had multiple bowel movement, xray today is still consistent with bowel obstruction surgery to decide on next step 2/? Enteritis, increase WBC--Empiric Antibiotics--Ceftriaxone and Flagyl, WBC is now normal 4/ HLD--Statin 5/Hypothyroidism--LT4 6/ Heparin for DVT prophylaxis Plan discuss with patient via tank worker Will transfer care to surgery as primary issue remains surgical, discussed with Dr. Elena Quality Stroke Does the patient have a stroke diagnosis?: No VTE Prior VTE?: No VTE Risk Level:: Medical - moderate - high VTE Device Contraindication: N/A - Device Ordered VTE Drug Contraindication: N/A - Med Ordered
[2021-07-20] MEDS: cefTRIAXone sodium 1 GM in 0.9 % Sodium Chloride 50 ML IV (10:17)
[2021-07-20 11:10] VITALS: BP 135/64; PULSE 58; RESP 18; TEMP 36.2; O2SAT 97
--- NOTE | 2021-07-20 11:22 | PM.PNGS ---
Subjective Subjective Date of Service: 07/20/21 Interval history: Denies abdominal pain Says she has been passing flatus However, she says she vomited last night She is comfortable otherwise Physical Exam Vital Signs: Vital Signs: Last Vital Signs Temp 97.2 F 07/20/21 11:10 Pulse 58 07/20/21 11:10 Resp 18 07/20/21 11:10 BP 135/64 07/20/21 11:10 Pulse Ox 97 07/20/21 11:10 BMI result Body Mass Index 37.5 Const: General: comfortable and no acute distress Resp: Effort & Inspection: normal respiratory effort Cardio: Rhythm: regular rhythm GI: Palpation (GI): Soft to palpation, not firm, nontender and no guarding Objective Data Active Medications Acetaminophen (Acetaminophen 325 Mg Tablet) 650 mg PO Q6H PRN PRN Reason: Pain, Mild (Pain Scale 1-3) Dextrose/Sodium Chloride (D5ns) 1,000 mls @ 100 mls/hr IVCONT .Q10H [facility] Last Admin: 07/20/21 02:00 Dose: 100 mls/hr Documented by: GUY Metronidazole (Flagyl) 500 mg in 100 mls @ 100 mls/hr IV Q8H [facility] Last Infusion: 07/20/21 05:06 Dose: 0 mls/hr Documented by: GUY Ceftriaxone Sodium 1 gm/ (Sodium Chloride) 50 mls @ 100 mls/hr IV Q24H [facility] Last Infusion: 07/20/21 10:51 Dose: 0 mls/hr Documented by: ARPITA Ketorolac Tromethamine (Ketorolac Tromethamine 15 Mg/Ml Vial) 15 mg IVPUSH Q6H [facility] Last Admin: 07/20/21 10:10 Dose: Not Given Documented by: ARPITA Non-Admin Reason: Patient Refused Levothyroxine Sodium (Levothyroxine Sodium 100 Mcg Tablet) 100 mcg PO MOTUWETHFR@06 [facility] Last Admin: 07/20/21 05:07 Dose: 100 mcg Documented by: GUY Morphine Sulfate (Morphine Sulfate 2 Mg/Ml Cartridge) 2 mg IVPUSH Q6H PRN; Protocol PRN Reason: Pain, Severe (Pain Scale 7-10) Last Admin: 07/18/21 11:48 Dose: 2 mg Documented by: AFSANEH Sodium Chloride (0.9 % Sodium Chloride Flush 3 Ml Syringe) 3 ml IVFLUSH QSHIFT [facility] Last Admin: 07/20/21 09:53 Dose: Not Given Documented by: ARPITA Non-Admin Reason: IV Running Labs CBC & Chem 7: 07/18/21 05:32 07/18/21 05:32 Microbiology Microbiology Results: Microbiology 07/17/21 04:18 Blood Culture - Preliminary Blood - Venous No growth after 48 hours. 07/17/21 04:18 Blood Culture - Preliminary Blood - Venous No growth after 48 hours. Procedures Date of Service Date of Service: 07/20/21 Progress Note: A&P Assessment and plan (1) SBO (small bowel obstruction): Status: Acute Assessment and Plan: Clinically looks well but vomited last night KUB shows reason dilatation of small-bowel loops Ordered for small-bowel series with Gastrografin Exam otherwise benign Keep NPO except ice chips and sips of liquids for now Fall Risk Details Current Medications: Current Medications Acetaminophen (Acetaminophen 325 Mg Tablet) 650 mg PO Q6H PRN PRN Reason: Pain, Mild (Pain Scale 1-3) Dextrose/Sodium Chloride (D5ns) 1,000 mls @ 100 mls/hr IVCONT .Q10H [facility] Last Admin: 07/20/21 02:00 Dose: 100 mls/hr Documented by: Metronidazole (Flagyl) 500 mg in 100 mls @ 100 mls/hr IV Q8H [facility] Last Infusion: 07/20/21 05:06 Dose: Infused Documented by: Ceftriaxone Sodium 1 gm/ (Sodium Chloride) 50 mls @ 100 mls/hr IV Q24H [facility] Last Infusion: 07/20/21 10:51 Dose: Infused Documented by: Ketorolac Tromethamine (Ketorolac Tromethamine 15 Mg/Ml Vial) 15 mg IVPUSH Q6H [facility] Last Admin: 07/20/21 10:10 Dose: Not Given Documented by: Levothyroxine Sodium (Levothyroxine Sodium 100 Mcg Tablet) 100 mcg PO MOTUWETHFR@06 [facility] Last Admin: 07/20/21 05:07 Dose: 100 mcg Documented by: Morphine Sulfate (Morphine Sulfate 2 Mg/Ml Cartridge) 2 mg IVPUSH Q6H PRN; Protocol PRN Reason: Pain, Severe (Pain Scale 7-10) Last Admin: 07/18/21 11:48 Dose: 2 mg Documented by: Sodium Chloride (0.9 % Sodium Chloride Flush 3 Ml Syringe) 3 ml IVFLUSH QSHIFT [facility] Last Admin: 07/20/21 09:53 Dose: Not Given Documented by: Time Spent With Patient Time: Total time spent is greater than 50% in coordination of care (as documented) at patient's floor/unit and/or counseling patient: Time with patient: 15 - 24 minutes Quality Stroke Does the patient have a stroke diagnosis?: No VTE Prior VTE?: No VTE Risk Level:: Medical - moderate - high VTE Device Contraindication: N/A - Device Ordered VTE Drug Contraindication: N/A - Med Ordered
[2021-07-20] MEDS: Diatrizoate Meglumine, Sodium 120 ML SOLUTION PO (13:46)
[2021-07-20 15:07] VITALS: BP 168/87; PULSE 69; RESP 18; TEMP 37.1; O2SAT 95
--- NOTE | 2021-07-20 15:33 | PM.EVENT ---
Event Note Date of Service: 07/20/21 Event Note: Had vomited during small bowel series Currently comfortable Denies abdominal pain Mild nausea Says she continues to pass flatus Had BMs Abdomen remained soft and benign Will repeat KUB tomorrow to see if we can follow swallowed contrast Keep NPO IV fluids
[2021-07-20] MEDS: Ketorolac Tromethamine 15 MG/ML VIAL IVPUSH (15:42)
--- NOTE | 2021-07-20 16:31 | MHC.CM.PN ---
EMR REVIEWED, PT REMAINS ON IV ABX, IVF AND NPO W/SIPS, ANTIC PT WILL D/C IN 1-2 DAYS, CM WILL CONT TO [facility] D/C NEEDS.
[2021-07-20 20:00] VITALS: BP 138/69; PULSE 57; RESP 18; TEMP 36.4; O2SAT 96
[2021-07-21] VITALS (7 sets, daily range): BP systolic 126–155; BP diastolic 64–78; PULSE 54–62; RESP 16–18; TEMP 36–37.1; O2SAT 94–98
[2021-07-21] MEDS: 0.9 % Sodium Chloride Flush 3 ML SYRINGE IVFLUSH (00:49)
[2021-07-21] MEDS: Ketorolac Tromethamine 15 MG/ML VIAL IVPUSH ×4 (00:50→18:43)
[2021-07-21] MEDS: metroNIDAZOLE/NS 500 MG/100 ML PIGGYBACK 100 MG IV ×3 (04:19→21:40)
[2021-07-21] MEDS: Dextrose 5 % and 0.9 % NaCl 1,000 ML 100 ML IVCONT ×3 (05:22→22:51)
[2021-07-21] MEDS: Levothyroxine Sodium 100 MCG TABLET PO (06:20)
--- NOTE | 2021-07-21 08:15 | PM.PNGS ---
Subjective Subjective Date of Service: 07/21/21 Interval history: She says she not have any abdominal pain Continues to pass good flatus Says she had bowel movements yesterday No vomiting or nausea overnight Physical Exam Vital Signs: Vital Signs: Last Vital Signs Temp 96.8 F 07/21/21 07:03 Pulse 54 07/21/21 07:03 Resp 18 07/21/21 07:03 BP 126/64 07/21/21 07:03 Pulse Ox 98 07/21/21 07:03 BMI result Body Mass Index 37.5 Const: Other: Looks well General: comfortable and no acute distress Resp: Effort & Inspection: normal respiratory effort Cardio: Rate: regular rate GI: Palpation (GI): Soft to palpation, not firm, nontender and no guarding Objective Data Active Medications Acetaminophen (Acetaminophen 325 Mg Tablet) 650 mg PO Q6H PRN PRN Reason: Pain, Mild (Pain Scale 1-3) Dextrose/Sodium Chloride (D5ns) 1,000 mls @ 100 mls/hr IVCONT .Q10H [facility] Last Admin: 07/21/21 05:22 Dose: 100 mls/hr Documented by: ANGEL Metronidazole (Flagyl) 500 mg in 100 mls @ 100 mls/hr IV Q8H [facility] Last Infusion: 07/21/21 05:21 Dose: 0 mls/hr Documented by: ANGEL Ceftriaxone Sodium 1 gm/ (Sodium Chloride) 50 mls @ 100 mls/hr IV Q24H [facility] Last Infusion: 07/20/21 10:51 Dose: 0 mls/hr Documented by: ARPITA Ketorolac Tromethamine (Ketorolac Tromethamine 15 Mg/Ml Vial) 15 mg IVPUSH Q6H [facility] Last Admin: 07/21/21 06:21 Dose: 15 mg Documented by: ANGEL Levothyroxine Sodium (Levothyroxine Sodium 100 Mcg Tablet) 100 mcg PO MOTUWETHFR@06 [facility] Last Admin: 07/21/21 06:20 Dose: 100 mcg Documented by: ANGEL Morphine Sulfate (Morphine Sulfate 2 Mg/Ml Cartridge) 2 mg IVPUSH Q6H PRN; Protocol PRN Reason: Pain, Severe (Pain Scale 7-10) Last Admin: 07/18/21 11:48 Dose: 2 mg Documented by: AFSANEH Sodium Chloride (0.9 % Sodium Chloride Flush 3 Ml Syringe) 3 ml IVFLUSH QSHIFT [facility] Last Admin: 07/21/21 00:49 Dose: 3 ml Documented by: ANGEL Labs CBC & Chem 7: 07/18/21 05:32 07/18/21 05:32 Procedures Date of Service Date of Service: 07/21/21 Progress Note: A&P Assessment and plan (1) SBO (small bowel obstruction): Status: Acute Assessment and Plan: Vomited oral contrast with small bowel series yesterday However, continues to pass flatus No abdominal pain or tenderness Exam benign Follow-up KUB to see if any of the swallowed contrast has advanced NPO, IV fluids Check labs today Fall Risk Details Current Medications: Current Medications Acetaminophen (Acetaminophen 325 Mg Tablet) 650 mg PO Q6H PRN PRN Reason: Pain, Mild (Pain Scale 1-3) Dextrose/Sodium Chloride (D5ns) 1,000 mls @ 100 mls/hr IVCONT .Q10H [facility] Last Admin: 07/21/21 05:22 Dose: 100 mls/hr Documented by: Metronidazole (Flagyl) 500 mg in 100 mls @ 100 mls/hr IV Q8H [facility] Last Infusion: 07/21/21 05:21 Dose: Infused Documented by: Ceftriaxone Sodium 1 gm/ (Sodium Chloride) 50 mls @ 100 mls/hr IV Q24H [facility] Last Infusion: 07/20/21 10:51 Dose: Infused Documented by: Ketorolac Tromethamine (Ketorolac Tromethamine 15 Mg/Ml Vial) 15 mg IVPUSH Q6H [facility] Last Admin: 07/21/21 06:21 Dose: 15 mg Documented by: Levothyroxine Sodium (Levothyroxine Sodium 100 Mcg Tablet) 100 mcg PO MOTUWETHFR@06 [facility] Last Admin: 07/21/21 06:20 Dose: 100 mcg Documented by: Morphine Sulfate (Morphine Sulfate 2 Mg/Ml Cartridge) 2 mg IVPUSH Q6H PRN; Protocol PRN Reason: Pain, Severe (Pain Scale 7-10) Last Admin: 07/18/21 11:48 Dose: 2 mg Documented by: Sodium Chloride (0.9 % Sodium Chloride Flush 3 Ml Syringe) 3 ml IVFLUSH [facility] Last Admin: 07/21/21 00:49 Dose: 3 ml Documented by: Time Spent With Patient Time: Total time spent is greater than 50% in coordination of care (as documented) at patient's floor/unit and/or counseling patient: Time with patient: 15 - 24 minutes Quality Stroke Does the patient have a stroke diagnosis?: No VTE Prior VTE?: No VTE Risk Level:: Medical - moderate - high VTE Device Contraindication: N/A - Device Ordered VTE Drug Contraindication: N/A - Med Ordered
[2021-07-21 08:46] LABS: Hemoglobin 11.4 g/dl (12.0-16.0); Mean Corpuscular HGB Conc 33.5 g/dl (31.0-35.0); Mean Corpuscular Hemoglobin 27.5 pg (27.0-33.0); Mean Corpuscular Volume 81.9 fL (80.0-98.0); Mean Platelet Volume 9.9 fL (9.4-12.3); Platelet Count 210 X10*3/uL (160-400); Red Blood Count 4.15 X10*6/uL (4.20-5.50); Red Cell Distribution Width 14.9 % (11.0-16.0); White Blood Count 8.2 X10*3/uL (4.8-10.8)
[2021-07-21 09:38] LABS: Anion Gap 9 (12-20); Blood Urea Nitrogen 8 mg/dL (9-16); Calcium 8.6 mg/dL (8.4-10.2); Carbon Dioxide 26 mmol/L (22-29); Chloride 116 mmol/L (96-108); Estimated Glomerular Filt Rate > 60; Glucose Random 91 mg/dL (60-115); Potassium 3.9 mmol/L (3.3-5.1); Sodium 147 mmol/L (135-145)
--- NOTE | 2021-07-21 10:48 | P.PNIM_ITS ---
Subjective Subjective Date of Service: 07/21/21 Interval History: F/u on small bowel obstruction, persistent distention, nausea, vomitted with trial of fluid diet.. GIS series shows contrast passing through Review of Systems abd pain, nause, ditention, no fever Physical Exam Vital Signs: Vital Signs: Last Vital Signs Temp 96.8 F 07/21/21 07:03 Pulse 54 07/21/21 07:03 Resp 18 07/21/21 07:03 BP 126/64 07/21/21 07:03 Pulse Ox 98 07/21/21 07:03 BMI result Body Mass Index 37.5 Const: Other: General: AO X 3, no acute distress Resp: CTA bilateral CVS: S1,S2,RRR GI: +/-BS, NT, mild distention Skin: No rash Neuro: motor grossly intact Psych: appropriate affect Objective Data Active Medications Acetaminophen (Acetaminophen 325 Mg Tablet) 650 mg PO Q6H PRN PRN Reason: Pain, Mild (Pain Scale 1-3) Dextrose/Sodium Chloride (D5ns) 1,000 mls @ 100 mls/hr IVCONT .Q10H [facility] Last Admin: 07/21/21 05:22 Dose: 100 mls/hr Documented by: ANGEL Metronidazole (Flagyl) 500 mg in 100 mls @ 100 mls/hr IV Q8H [facility] Last Infusion: 07/21/21 05:21 Dose: 0 mls/hr Documented by: ANGEL Ceftriaxone Sodium 1 gm/ (Sodium Chloride) 50 mls @ 100 mls/hr IV Q24H [facility] Last Infusion: 07/20/21 10:51 Dose: 0 mls/hr Documented by: ARPITA Ketorolac Tromethamine (Ketorolac Tromethamine 15 Mg/Ml Vial) 15 mg IVPUSH Q6H [facility] Last Admin: 07/21/21 06:21 Dose: 15 mg Documented by: ANGEL Levothyroxine Sodium (Levothyroxine Sodium 100 Mcg Tablet) 100 mcg PO MOTUWETHFR@06 [facility] Last Admin: 07/21/21 06:20 Dose: 100 mcg Documented by: ANGEL Morphine Sulfate (Morphine Sulfate 2 Mg/Ml Cartridge) 2 mg IVPUSH Q6H PRN; Protocol PRN Reason: Pain, Severe (Pain Scale 7-10) Last Admin: 07/18/21 11:48 Dose: 2 mg Documented by: AFSANEH Sodium Chloride (0.9 % Sodium Chloride Flush 3 Ml Syringe) 3 ml IVFLUSH QSHIFT [facility] Last Admin: 07/21/21 09:37 Dose: Not Given Documented by: DWAYNE Non-Admin Reason: IV Running Labs CBC & Chem 7: 07/21/21 08:31 07/21/21 08:31 Labs: Laboratory Results - last 24 hr 07/21/21 07/21/21 08:31 08:31 MCV 81.9 MCH 27.5 MCHC 33.5 RDW 14.9 Plt Count 210 MPV 9.9 Absolute Nucleated RBC 0.000 Nucleated RBC % (auto) 0.0 Anion Gap 9 L Estim Creat Clear Calc 87.0 Estimated GFR > 60 Random Glucose 91 Calcium 8.6 Assessment and Plan (1) SBO (small bowel obstruction): Status: Acute (2) Hypothyroid: Status: Acute (3) High cholesterol: Status: Acute (4) Enteritis: Status: Acute Plan 55 female with history of hypothyroidism, HLD, history of uterine cancer s/p hy sterectomy, s/p tubal ligation with reversal in the past. She presents to ED right-sided abdominal pain and found to have Small bowel obstruction on CT and xray, and possible enteritis.. 1/ Small bowel obstruction as evident on CT, xray,- Persistent distentionn but report flatus and multiple bowel movement and GiS series shows no complete obstruction, vomitted with trial of liquid diet. Repeat KUB, keep NPO for now 2/? Enteritis, increase WBC--Empiric Antibiotics--Ceftriaxone and Flagyl, WBC is now normal 4/ HLD--Statin 5/Hypothyroidism--LT4 6/ Heparin for DVT prophylaxis Plan discuss with patient via floating operator Quality Stroke Does the patient have a stroke diagnosis?: No VTE Prior VTE?: No VTE Risk Level:: Medical - moderate - high VTE Device Contraindication: N/A - Device Ordered VTE Drug Contraindication: N/A - Med Ordered
[2021-07-21] MEDS: cefTRIAXone sodium 1 GM in 0.9 % Sodium Chloride 50 ML IV (10:50)
--- NOTE | 2021-07-21 17:40 | PM.EVENT ---
Event Note Date of Service: 07/21/21 Event Note: Follow-up KUB shows persistent dilated small bowel loops oral contrast has advanced to colon she continues to deny any abdominal pain says she is hungry passing flatus had BMs today - watery abdomen remained soft nontender in view of persistent dilatation on KUB, will keep on Sips of clear liquids only especially as she had vomited oral contrast yesterday son Stefan was in the room and aware of plan patient looks comfortable and has a very benign exam keep on IVF
[2021-07-22] MEDS: Ketorolac Tromethamine 15 MG/ML VIAL IVPUSH ×4 (00:48→18:30)
[2021-07-22 04:00] VITALS: BP 154/57; PULSE 55; RESP 18; TEMP 36.4; O2SAT 96
[2021-07-22] MEDS: metroNIDAZOLE/NS 500 MG/100 ML PIGGYBACK 100 MG IV (04:51)
[2021-07-22] MEDS: Levothyroxine Sodium 100 MCG TABLET PO (06:09)
[2021-07-22 07:19] VITALS: BP 154/62; PULSE 54; RESP 18; TEMP 36.1; O2SAT 98
--- NOTE | 2021-07-22 08:30 | PM.PNGS ---
Subjective Subjective Date of Service: 07/22/21 Interval history: says cris feels well and denies abdominal pain says she has been comfortable in continues to pass flatus and had BMs consistently although watery denies any nausea or vomiting the past 2 days has been ambulating well Physical Exam Vital Signs: Vital Signs: Last Vital Signs Temp 97 F 07/22/21 07:19 Pulse 54 07/22/21 07:19 Resp 18 07/22/21 07:19 BP 154/62 H 07/22/21 07:19 Pulse Ox 98 07/22/21 07:19 BMI result Body Mass Index 37.5 Const: Other: looks very comfortable, seen ambulating down the hallway General: No no acute distress Resp: Effort & Inspection: normal respiratory effort Cardio: Rate: regular rate GI: Palpation (GI): Soft to palpation, not firm, nontender and no guarding Objective Data Active Medications Acetaminophen (Acetaminophen 325 Mg Tablet) 650 mg PO Q6H PRN PRN Reason: Pain, Mild (Pain Scale 1-3) Dextrose/Sodium Chloride (D5ns) 1,000 mls @ 100 mls/hr IVCONT .Q10H [facility] Last Infusion: 07/22/21 05:51 Dose: 100 mls/hr Documented by: MARIA RASY Metronidazole (Flagyl) 500 mg in 100 mls @ 100 mls/hr IV Q8H [facility] Last Infusion: 07/22/21 05:51 Dose: 0 mls/hr Documented by: MARIA RASY Ceftriaxone Sodium 1 gm/ (Sodium Chloride) 50 mls @ 100 mls/hr IV Q24H [facility] Last Infusion: 07/21/21 12:03 Dose: 0 mls/hr Documented by: DWAYNE Ketorolac Tromethamine (Ketorolac Tromethamine 15 Mg/Ml Vial) 15 mg IVPUSH Q6H [facility] Last Admin: 07/22/21 06:10 Dose: 15 mg Documented by: SAHARA Levothyroxine Sodium (Levothyroxine Sodium 100 Mcg Tablet) 100 mcg PO MOTUWETHFR@06 [facility] Last Admin: 07/22/21 06:09 Dose: 100 mcg Documented by: SAHARA Morphine Sulfate (Morphine Sulfate 2 Mg/Ml Cartridge) 2 mg IVPUSH Q6H PRN; Protocol PRN Reason: Pain, Severe (Pain Scale 7-10) Last Admin: 07/18/21 11:48 Dose: 2 mg Documented by: AFSANEH Sodium Chloride (0.9 % Sodium Chloride Flush 3 Ml Syringe) 3 ml IVFLUSH QSHIFT [facility] Last Admin: 07/21/21 22:50 Dose: Not Given Documented by: SAHARA Non-Admin Reason: IV Running Labs CBC & Chem 7: 07/21/21 08:31 07/21/21 08:31 Labs: Laboratory Results - last 24 hr 07/21/21 07/21/21 08:31 08:31 MCV 81.9 MCH 27.5 MCHC 33.5 RDW 14.9 Plt Count 210 MPV 9.9 Absolute Nucleated RBC 0.000 Nucleated RBC % (auto) 0.0 Anion Gap 9 L Estim Creat Clear Calc 87.0 Estimated GFR > 60 Random Glucose 91 Calcium 8.6 Microbiology Microbiology Results: Microbiology 07/17/21 04:18 Blood Culture - Final Blood - Venous No growth after 5 days. 07/17/21 04:18 Blood Culture - Final Blood - Venous No growth after 5 days. Procedures Date of Service Date of Service: 07/22/21 Progress Note: A&P Assessment and plan (1) SBO (small bowel obstruction): Status: Acute Assessment and Plan: continues to pass flatus and BMs no abdominal pain, exam remains very benign she looks well KUB however had continued to show persistent small bowel loops in view of good clinical picture, will hold off on any surgical intervention at this time - this was discussed with patient and she is in agreement will try clear liquids today Fall Risk Details Current Medications: Current Medications Acetaminophen (Acetaminophen 325 Mg Tablet) 650 mg PO Q6H PRN PRN Reason: Pain, Mild (Pain Scale 1-3) Dextrose/Sodium Chloride (D5ns) 1,000 mls @ 100 mls/hr IVCONT .Q10H [facility] Last Infusion: 07/22/21 05:51 Dose: 100 mls/hr Documented by: Metronidazole (Flagyl) 500 mg in 100 mls @ 100 mls/hr IV Q8H [facility] Last Infusion: 07/22/21 05:51 Dose: Infused Documented by: Ceftriaxone Sodium 1 gm/ (Sodium Chloride) 50 mls @ 100 mls/hr IV Q24H [facility] Last Infusion: 07/21/21 12:03 Dose: Infused Documented by: Ketorolac Tromethamine (Ketorolac Tromethamine 15 Mg/Ml Vial) 15 mg IVPUSH Q6H [facility] Last Admin: 07/22/21 06:10 Dose: 15 mg Documented by: Levothyroxine Sodium (Levothyroxine Sodium 100 Mcg Tablet) 100 mcg PO MOTUWETHFR@06 [facility] Last Admin: 07/22/21 06:09 Dose: 100 mcg Documented by: Morphine Sulfate (Morphine Sulfate 2 Mg/Ml Cartridge) 2 mg IVPUSH Q6H PRN; Protocol PRN Reason: Pain, Severe (Pain Scale 7-10) Last Admin: 07/18/21 11:48 Dose: 2 mg Documented by: Sodium Chloride (0.9 % Sodium Chloride Flush 3 Ml Syringe) 3 ml IVFLUSH QSHIFT [facility] Last Admin: 07/21/21 22:50 Dose: Not Given Documented by: Time Spent With Patient Time: Total time spent is greater than 50% in coordination of care (as documented) at patient's floor/unit and/or counseling patient: Time with patient: 15 - 24 minutes Quality Stroke Does the patient have a stroke diagnosis?: No VTE Prior VTE?: No VTE Risk Level:: Medical - moderate - high VTE Device Contraindication: N/A - Device Ordered VTE Drug Contraindication: N/A - Med Ordered
--- NOTE | 2021-07-22 09:18 | HO.PM.IMPN ---
Subjective Subjective Date of Service: 07/22/21 Interval History: F/u on small bowel obstruction, persistent distention, nausea..Feels better, less distention in abdomen, Review of Systems abd pain, nause, ditention, no fever Physical Exam Vital Signs: Vital Signs: Last Vital Signs Temp 97 F 07/22/21 07:19 Pulse 54 07/22/21 07:19 Resp 18 07/22/21 07:19 BP 154/62 H 07/22/21 07:19 Pulse Ox 98 07/22/21 07:19 BMI result Body Mass Index 37.5 Const: Other: General: AO X 3, no acute distress Resp: CTA bilateral CVS: S1,S2,RRR GI: +BS, NT, mild distention Skin: No rash Neuro: motor grossly intact Psych: appropriate affect Objective Data Active Medications Acetaminophen (Acetaminophen 325 Mg Tablet) 650 mg PO Q6H PRN PRN Reason: Pain, Mild (Pain Scale 1-3) Dextrose/Sodium Chloride (D5ns) 1,000 mls @ 100 mls/hr IVCONT .Q10H [facility] Last Infusion: 07/22/21 05:51 Dose: 100 mls/hr Documented by: MARIA RASY Metronidazole (Flagyl) 500 mg in 100 mls @ 100 mls/hr IV Q8H [facility] Last Infusion: 07/22/21 05:51 Dose: 0 mls/hr Documented by: SAHARA Ceftriaxone Sodium 1 gm/ (Sodium Chloride) 50 mls @ 100 mls/hr IV Q24H [facility] Last Infusion: 07/21/21 12:03 Dose: 0 mls/hr Documented by: DWAYNE Ketorolac Tromethamine (Ketorolac Tromethamine 15 Mg/Ml Vial) 15 mg IVPUSH Q6H [facility] Last Admin: 07/22/21 06:10 Dose: 15 mg Documented by: SAHARA Levothyroxine Sodium (Levothyroxine Sodium 100 Mcg Tablet) 100 mcg PO MOTUWETHFR@06 [facility] Last Admin: 07/22/21 06:09 Dose: 100 mcg Documented by: SAHARA Morphine Sulfate (Morphine Sulfate 2 Mg/Ml Cartridge) 2 mg IVPUSH Q6H PRN; Protocol PRN Reason: Pain, Severe (Pain Scale 7-10) Last Admin: 07/18/21 11:48 Dose: 2 mg Documented by: AFSANEH Sodium Chloride (0.9 % Sodium Chloride Flush 3 Ml Syringe) 3 ml IVFLUSH QSHIFT [facility] Last Admin: 07/21/21 22:50 Dose: Not Given Documented by: SAHARA Non-Admin Reason: IV Running Labs CBC & Chem 7: 07/21/21 08:31 07/21/21 08:31 Labs: Laboratory Results - last 24 hr 07/21/21 08:31 Anion Gap 9 L Estim Creat Clear Calc 87.0 Estimated GFR > 60 Random Glucose 91 Calcium 8.6 Microbiology Microbiology Results: Microbiology 07/17/21 04:18 Blood Culture - Final Blood - Venous No growth after 5 days. 07/17/21 04:18 Blood Culture - Final Blood - Venous No growth after 5 days. Assessment and Plan (1) SBO (small bowel obstruction): Status: Acute (2) Hypothyroid: Status: Acute (3) High cholesterol: Status: Acute (4) Enteritis: Status: Acute Plan 55 female with history of hypothyroidism, HLD, history of uterine cancer s/p hysterectomy, s/p tubal ligation with reversal in the past. She presents to ED right-sided abdominal pain and found to have Small bowel obstruction on CT and xray, and possible enteritis.. 1/ Small bowel obstruction as evident on CT, xray, less distentionn, reports flatus and multiple bowel movment last KUB still show dilated loops, but clinically is better, trial of liquid diet today 2/? Enteritis, increase WBC--Empiric Antibiotics--Ceftriaxone and Flagyl, WBC is now normal--DC antibitocs 4/ HLD--Statin 5/Hypothyroidism--LT4 6/ Heparin for DVT prophylaxis Plan discuss with patient via patternmaker helper Quality Stroke Does the patient have a stroke diagnosis?: No VTE Prior VTE?: No VTE Risk Level:: Medical - moderate - high VTE Device Contraindication: N/A - Device Ordered VTE Drug Contraindication: N/A - Med Ordered
[2021-07-22 11:20] VITALS: BP 157/77; PULSE 52; RESP 18; TEMP 37; O2SAT 100
[2021-07-22] MEDS: Dextrose 5 % and 0.9 % NaCl 1,000 ML 100 ML IVCONT (11:22)
[2021-07-22 15:10] VITALS: BP 168/77; PULSE 56; RESP 18; TEMP 37.7; O2SAT 96
[2021-07-22 19:30] VITALS: BP 159/77; PULSE 53; RESP 18; TEMP 37.1; O2SAT 98
[2021-07-22 23:44] VITALS: BP 146/88; PULSE 54; RESP 18; TEMP 36.6; O2SAT 98
[2021-07-23] VITALS (9 sets, daily range): BP systolic 130–180; BP diastolic 69–93; PULSE 46–68; RESP 16–18; TEMP 36.3–37.2; O2SAT 95–98
[2021-07-23] MEDS: 0.9 % Sodium Chloride Flush 3 ML SYRINGE IVFLUSH ×4 (01:32→23:27)
[2021-07-23] MEDS: Ketorolac Tromethamine 15 MG/ML VIAL IVPUSH ×4 (01:32→18:07)
--- NOTE | 2021-07-23 09:42 | PM.PNGS ---
Subjective Subjective Date of Service: 07/23/21 Interval history: Patient denies abdominal pain, nausea, or vomiting. She reports passing bowels. She is tolerating liquid diet. Physical Exam Vital Signs: Vital Signs: Last Vital Signs Temp 97.3 F 07/23/21 07:21 Pulse 52 07/23/21 07:43 Resp 18 07/23/21 07:21 BP 157/82 H 07/23/21 07:21 Pulse Ox 98 07/23/21 07:21 BMI result Body Mass Index 37.5 Const: General: no acute distress Nutritional Appearance: well nourished Orientation/consciousness: patient oriented x3 Limitations: no limitations Resp: Effort & Inspection: normal respiratory effort GI: Inspection: Yes distended Palpation (GI): Soft to palpation, nontender, no guarding and not rigid Neuro: General: patient oriented x3 Extrem: General: Yes normal to inspection Objective Data Active Medications Acetaminophen (Acetaminophen 325 Mg Tablet) 650 mg PO Q6H PRN PRN Reason: Pain, Mild (Pain Scale 1-3) Ketorolac Tromethamine (Ketorolac Tromethamine 15 Mg/Ml Vial) 15 mg IVPUSH Q6H [facility] Last Admin: 07/23/21 06:15 Dose: 15 mg Documented by: DALIA Levothyroxine Sodium (Levothyroxine Sodium 100 Mcg Tablet) 100 mcg PO MOTUWETHFR@06 [facility] Last Admin: 07/22/21 06:09 Dose: 100 mcg Documented by: TUMASY Sodium Chloride (0.9 % Sodium Chloride Flush 3 Ml Syringe) 3 ml IVFLUSH QSHIFT [facility] Last Admin: 07/23/21 07:04 Dose: 3 ml Documented by: AFSANEH Labs CBC & Chem 7: 07/21/21 08:31 07/21/21 08:31 Microbiology Microbiology Results: Microbiology 07/17/21 04:18 Blood Culture - Final Blood - Venous No growth after 5 days. 07/17/21 04:18 Blood Culture - Final Blood - Venous No growth after 5 days. Procedures Date of Service Date of Service: 07/23/21 Progress Note: A&P Assessment and plan (1) SBO (small bowel obstruction): Status: Acute Assessment and Plan: Patient appears very comfortable this tolerating liquid diet. Her abdominal exam is benign with no apparent tenderness. Surgical intervention is not anticipated. Fall Risk Details Current Medications: Current Medications Acetaminophen (Acetaminophen 325 Mg Tablet) 650 mg PO Q6H PRN PRN Reason: Pain, Mild (Pain Scale 1-3) Ketorolac Tromethamine (Ketorolac Tromethamine 15 Mg/Ml Vial) 15 mg IVPUSH Q6H [facility] Last Admin: 07/23/21 06:15 Dose: 15 mg Documented by: Levothyroxine Sodium (Levothyroxine Sodium 100 Mcg Tablet) 100 mcg PO MOTUWETHFR@06 [facility] Last Admin: 07/22/21 06:09 Dose: 100 mcg Documented by: Sodium Chloride (0.9 % Sodium Chloride Flush 3 Ml Syringe) 3 ml IVFLUSH QSHIFT [facility] Last Admin: 07/23/21 07:04 Dose: 3 ml Documented by: Time Spent With Patient Time: Total time spent is greater than 50% in coordination of care (as documented) at patient's floor/unit and/or counseling patient: Time with patient: 15 - 24 minutes Quality Stroke Does the patient have a stroke diagnosis?: No VTE Prior VTE?: No VTE Risk Level:: Medical - moderate - high VTE Device Contraindication: N/A - Device Ordered VTE Drug Contraindication: N/A - Med Ordered
--- NOTE | 2021-07-23 10:49 | P.PNIM_ITS ---
Subjective Subjective Date of Service: 07/23/21 Interval History: F/u on small bowel obstruction. No pain, n/v, had BM this morning. Review of Systems abd pain, nause, ditention, no fever Physical Exam Vital Signs: Vital Signs: Last Vital Signs Temp 97.3 F 07/23/21 07:21 Pulse 52 07/23/21 07:43 Resp 18 07/23/21 07:21 BP 157/82 H 07/23/21 07:21 Pulse Ox 98 07/23/21 07:21 BMI result Body Mass Index 37.5 Const: Other: General: AO X 3, no acute distress Resp: CTA bilateral CVS: S1,S2,RRR GI: +BS, NT, nd Skin: No rash Neuro: motor grossly intact Psych: appropriate affect Objective Data Active Medications Acetaminophen (Acetaminophen 325 Mg Tablet) 650 mg PO Q6H PRN PRN Reason: Pain, Mild (Pain Scale 1-3) Ketorolac Tromethamine (Ketorolac Tromethamine 15 Mg/Ml Vial) 15 mg IVPUSH Q6H [facility] Last Admin: 07/23/21 06:15 Dose: 15 mg Documented by: DALIA Levothyroxine Sodium (Levothyroxine Sodium 100 Mcg Tablet) 100 mcg PO MOTUWETHFR@06 [facility] Last Admin: 07/22/21 06:09 Dose: 100 mcg Documented by: TUMASY Sodium Chloride (0.9 % Sodium Chloride Flush 3 Ml Syringe) 3 ml IVFLUSH QSHIFT [facility] Last Admin: 07/23/21 07:04 Dose: 3 ml Documented by: AFSANEH Labs CBC & Chem 7: 07/21/21 08:31 07/21/21 08:31 Microbiology Microbiology Results: Microbiology 07/17/21 04:18 Blood Culture - Final Blood - Venous No growth after 5 days. 07/17/21 04:18 Blood Culture - Final Blood - Venous No growth after 5 days. Assessment and Plan (1) SBO (small bowel obstruction): Status: Acute (2) Hypothyroid: Status: Acute (3) High cholesterol: Status: Acute (4) Enteritis: Status: Acute Plan 55 female with history of hypothyroidism, HLD, history of uterine cancer s/p hysterectomy, s/p tubal ligation with reversal in the past. She presents to ED right-sided abdominal pain and found to have Small bowel obstruction on CT and xray, and possible enteritis.. 1/ Small bowel obstruction as evident on CT, xray, less distentionn, reports flatus and multiple bowel movment--clincally seems to have resolved tolerating clears, advanced to soft diet 2/? Enteritis, increase WBC--Empiric Antibiotics--Ceftriaxone and Flagyl, WBC is now normal--DC'd antibitocs 4/ HLD--Statin 5/Hypothyroidism--LT4 6/ Heparin for DVT prophylaxis Plan discuss with patient via spanish teacher Quality Stroke Does the patient have a stroke diagnosis?: No VTE Prior VTE?: No VTE Risk Level:: Medical - moderate - high VTE Device Contraindication: N/A - Device Ordered VTE Drug Contraindication: N/A - Med Ordered
[2021-07-23] MEDS: amLODIPine Besylate 5 MG TABLET PO (18:07)
[2021-07-23] MEDS: Atorvastatin Calcium 20 MG TABLET PO (20:51)
[2021-07-24] MEDS: Ketorolac Tromethamine 15 MG/ML VIAL IVPUSH ×3 (01:42→12:22)
[2021-07-24 03:53] VITALS: BP 129/63; PULSE 61; RESP 16; TEMP 36.8; O2SAT 96
[2021-07-24] MEDS: 0.9 % Sodium Chloride Flush 3 ML SYRINGE IVFLUSH ×2 (06:54→17:09)
[2021-07-24 07:53] VITALS: BP 141/73; PULSE 52; RESP 18; TEMP 36.5; O2SAT 98
[2021-07-24] MEDS: Cholecalciferol (Vitamin D3) 25 MCG TABLET 50 MCG PO (08:36)
[2021-07-24] MEDS: amLODIPine Besylate 5 MG TABLET PO (08:37)
--- NOTE | 2021-07-24 08:53 | HO.PM.IMPN ---
Subjective Subjective Date of Service: 07/24/21 Interval History: F/u on small bowel obstruction. No pain, n/v. tolerated bland diet Review of Systems abd pain, nause, ditention, no fever Physical Exam Vital Signs: Vital Signs: Last Vital Signs Temp 97.7 F 07/24/21 07:53 Pulse 52 07/24/21 07:53 Resp 18 07/24/21 07:53 BP 141/73 H 07/24/21 07:53 Pulse Ox 98 07/24/21 07:53 BMI result Body Mass Index 37.5 Const: Other: General: AO X 3, no acute distress Resp: CTA bilateral CVS: S1,S2,RRR GI: +BS, NT, nd Skin: No rash Neuro: motor grossly intact Psych: appropriate affect Objective Data Active Medications Acetaminophen (Acetaminophen 325 Mg Tablet) 650 mg PO Q6H PRN PRN Reason: Pain, Mild (Pain Scale 1-3) Amlodipine Besylate (Amlodipine Besylate 5 Mg Tablet) 5 mg PO DAILY [facility]; Protocol Last Admin: 07/24/21 08:37 Dose: 5 mg Documented by: AFSANEH Atorvastatin Calcium (Atorvastatin Calcium 20 Mg Tablet) 20 mg PO BEDTIME [facility] Last Admin: 07/23/21 20:51 Dose: 20 mg Documented by: DALIA Ketorolac Tromethamine (Ketorolac Tromethamine 15 Mg/Ml Vial) 15 mg IVPUSH Q6H [facility] Last Admin: 07/24/21 06:50 Dose: 15 mg Documented by: AFSANEH Levothyroxine Sodium (Levothyroxine Sodium 100 Mcg Tablet) 100 mcg PO MOTUWETHFR@06 [facility] Last Admin: 07/22/21 06:09 Dose: 100 mcg Documented by: SAHARA Sodium Chloride (0.9 % Sodium Chloride Flush 3 Ml Syringe) 3 ml IVFLUSH QSHIFT [facility] Last Admin: 07/24/21 06:54 Dose: 3 ml Documented by: AFSANEH Vitamin D (Cholecalciferol (Vitamin D3) 25 Mcg Tablet) 50 mcg PO DAILY [facility] Last Admin: 07/24/21 08:36 Dose: 50 mcg Documented by: AFSANEH Labs CBC & Chem 7: 07/21/21 08:31 07/21/21 08:31 Assessment and Plan (1) SBO (small bowel obstruction): Status: Acute (2) Hypothyroid: Status: Acute (3) High cholesterol: Status: Acute (4) Enteritis: Status: Acute Plan 55 female with history of hypothyroidism, HLD, history of uterine cancer s/p hysterectomy, s/p tubal ligation with reversal in the past. She presents to ED right-sided abdominal pain and found to have Small bowel obstruction on CT and xray, and possible enteritis.. 1/ Small bowel obstruction as evident on CT, xray, less distentionn, reports flatus and multiple bowel movment--clincally seems to have resolved tolerating clears, advanced to regular diet and if tolerated to go home 2/? Enteritis, increase WBC--Empiric Antibiotics--Ceftriaxone and Flagyl, WBC is now normal--DC'd antibitocs 4/ HLD--Statin 5/Hypothyroidism--LT4 6/ Heparin for DVT prophylaxis Plan discuss with patient via diplomatic interpreter Quality Stroke Does the patient have a stroke diagnosis?: No VTE Prior VTE?: No VTE Risk Level:: Medical - moderate - high VTE Device Contraindication: N/A - Device Ordered VTE Drug Contraindication: N/A - Med Ordered
--- NOTE | 2021-07-24 08:57 | PM.DS ---
DS: Providers Provider Date of Service: 07/24/21 Date of admission: 07/17/21 10:22 Primary care physician: LIZ Melgar DS: Diagnosis Discharge Diagnosis (1) SBO (small bowel obstruction): Status: Acute (2) Hypothyroid: Status: Acute (3) High cholesterol: Status: Acute (4) Enteritis: Status: Acute DS: Summary Hospital Course Hospital Course: Chief Complaint: Abdominal pain 55 female with history of hypothyroidism, HLD, history of uterine cancer s/p hysterectomy, s/p tubal ligation with reveral in the past. She presents? to ED right-sided abdominal pain of? gradual? onset around 22:30 hours while resting, her last meal was around 16:30 hours with? spaghetti and? a pepperoni pizza.? She has a constant, twisting pain, she points to her right upper quadrant right lower quadrant when asked to localize the pain and? radiate to her back.? The pain is 10/10 and got no relief with Ibuprofen. Presently her pain is down to 8/10. CT of abdomen shows small bowel obstruction with transition point and possible enteritis, a KUB also shows a dilated small bowel loop coresponding to the CT finding. She has no fever, no nausea but no vomitting.? She is covid vaccinated with moderna vaccine x 2 and a booster. Hospital course: patient was admitted because of small-bowel obstruction and that initial CT fine and also pointed to enteritis associated with elevated WBC but no fever. Enteritis was managed with IV antibiotics specifically ceftriaxone and Flagyl with ultimate resolution of leukocytosis. Small-bowel obstruction which was thought to be partial obstruction related to the enteritis was set conservatively manage and started with NG tube which was ultimately removed at a later time and the patient has serial abdominal x-rays and also had small bowel studies which showed no complete obstruction with time she improved and had had multiple bowel movement and flatus. Diet was introduced with a liquid diet which has been slowly advanced to regular diet which she is tolerating at this point. She was followed along by surgery ( Dr. Piña is a Dr. Mccoy ) and there is no plan for surgical intervention at this time. Given that the patient is doing well she will be discharged home to follow-up with Dr. Piña is in her primary care physician in about a week. Time Spent with Patient Time attestation: Total time spent providing and/or coordinating discharge services: Discharge coordination time: Greater than 30 minutes Quality: Stroke Does the patient have a stroke diagnosis?: No Physical Exam Vital Signs: Vital Signs: Last Vital Signs Temp 97.7 F 07/24/21 07:53 Pulse 52 07/24/21 07:53 Resp 18 07/24/21 07:53 BP 141/73 H 07/24/21 07:53 Pulse Ox 98 07/24/21 07:53 BMI result Body Mass Index 37.5 Const: Other: General: AO X 3, no acute distress Resp:? CTA bilateral CVS: S1,S2,RRR GI: +BS, NT, nd Skin: No rash Neuro:? motor grossly intact Psych: appropriate affect Discharge Plan Discharge Anticipated Discharge Date/Time: 07/24/21 08:54 Patient Disposition: Home, Self-Care Discharge Diagnosis: small-bowel obstruction, enteritis Referrals: Belgica Allen FNP-C [Primary Care Provider] - 1 Week Discharge Medications: Continued hydrocodone-acetaminophen 5-325 mg tablet 1 tab PO Q8H PRN (Reason: pain) Qty: 7 0RF Rx Instructions: Can partially fill upon patient request simvastatin 40 mg tablet 1 tab PO QPM 0RF levothyroxine 100 mcg tablet 1 tab PO MOTUWETHFR@06 0RF cholecalciferol (vitamin D3) 50 mcg (2,000 unit) tablet 1 tab PO DAILY 0RF Diet: advance to usual diet Activity on Discharge: As tolerated Stand Alone Forms: Patient Portal Discharge page Care Plan Goals: full recovery from small-bowel obstruction and enteritis Health Concerns: recovery from small-bowel obstruction Plan of Treatment: resume prior home medications, follow-up with Dr. Elena, follow-up with your primary care doctor within a week. Call for appointment Assessment: as above
[2021-07-24] MEDS: Acetaminophen 325 MG TABLET 650 MG PO (10:29)
[2021-07-24 11:54] VITALS: BP 136/73; PULSE 54; RESP 18; TEMP 36.1; O2SAT 98
[2021-07-24 16:00] VITALS: BP 136/74; PULSE 58; RESP 19; TEMP 36.2; O2SAT 97
== END 2021-07-24 18:45 | disposition home or self-care (01) | DRG 249 ==
LOC: HO.ED 07-17 04:33 → HO.EDOVER 07-17 11:12 → HO.S3 07-17 20:32
PROVIDERS: Surgery; Admitting Provider Internal Medicine; Emergency Provider Emergency Medicine Emergency Medical Services; PCP Nurse Practitioner Family; Visit Provider Internal Medicine
DX: K52.9 Noninfective gastroenteritis and colitis, unspecified (principal); K56.690 Other partial intestinal obstruction; E03.9 Hypothyroidism, unspecified; E78.5 Hyperlipidemia, unspecified; Z20.822 Contact with and (suspected) exposure to COVID-19; Z23 Encounter for immunization; Z85.42 Personal history of malignant neoplasm of other parts of uterus; Z87.891 Personal history of nicotine dependence; Z79.890 Hormone replacement therapy; Z79.899 Other long term (current) drug therapy
CPT/HCPCS: 36415; 71045; 74018; 74177; 74250; 80048; 80053; 81003; 83605; 83690; 85025; 85027; 87040; 87635; 90686; 96361; 96365; 96375; 96376; 99284; 99285; J0696; J1885; J2270; J2405; J2543; J2765; Q9967

== ENCOUNTER 2021-09-15 10:51 | Outpatient (REF) | payer MEDICAID, SELFPAY ==
--- NOTE | ~2021-09-15 | XR_ITS ---
EXAMINATION: XR LUMBOSACRAL SPINE CLINICAL INFORMATION: Low back pain COMPARISON: Previous x-ray most recent January 2016 TECHNIQUE: Three views of the lumbosacral spine. FINDINGS: There is mild curvature of the lower lumbar spine to the left. Bone alignment is otherwise normal. No fracture or dislocation is seen. There is degenerative disc disease at L5-S1. There is lower lumbar spine facet arthritis. XR/XR lumbar spine 2-3V IMPRESSION: Mild scoliosis and degenerative changes.
== END 2021-09-15 10:52 | disposition home or self-care (01) ==
LOC: HO.XRAY 10:51
PROVIDERS: PCP Nurse Practitioner Family; Visit Provider Nurse Practitioner Family
DX: M54.50 Low back pain, unspecified (principal)
CPT/HCPCS: 72100

== ENCOUNTER 2021-09-16 10:44 | Outpatient (REF) | payer MEDICAID, SELFPAY ==
--- NOTE | ~2021-09-16 | MM_ITS ---
EXAMINATION: MM SCREENING DIGITAL BREAST TOMOSYNTHESIS, BILATERAL CLINICAL INFORMATION: Screening. Asymptomatic. The lifetime risk of breast cancer based on the Tyrer-Cuzick Model is 4%. COMPARISON: Mammography: 09/09/2020, 05/30/2019, 05/24/2018 TECHNIQUE: Digital breast tomosynthesis is performed in both the craniocaudal and mediolateral oblique views along with computer-aided detection (CAD). Synthesized 2D images are generated from the tomosynthesis. FINDINGS: There are scattered areas of fibroglandular density (ACR BI-RADS breast composition Category b). There are no significant masses, abnormal calcifications, or other abnormalities. There is no developing density or architectural abnormality. No significant changes. MM/MM tomosynthesis screening BI IMPRESSION: No mammographic evidence of malignancy. ASSESSMENT: BI-RADS 1: Negative RECOMMENDATION: Routine annual mammography screening. This patient's information was entered into a reminder system with a target due date for their next mammogram.
== END 2021-09-16 10:45 | disposition home or self-care (01) ==
LOC: HO.MAMMO 10:44
PROVIDERS: Visit Provider Nurse Practitioner Family
DX: Z12.31 Encounter for screening mammogram for malignant neoplasm of breast (principal)
CPT/HCPCS: 77063; 77067

== ENCOUNTER 2021-10-03 13:39 | Outpatient (REF) | payer MEDICAID, SELFPAY ==
--- NOTE | 2021-10-05 12:49 | MHC.AU.MED ---
Medical Clearance for Hearing Instrumentation Date: 10/05/21 Patient Name: Shawna Betancourt Date of : 1965 Referring Provider: BENJAMIN Dunn We have seen your patient on 10/05/21 and have determined that they are a candidate for amplification (See accompanying report). Specifically, they would benefit from: Hearing aid use in both ears There is a statute that addresses Medical Evaluation Requirements prior to fitting a patient with a hearing aid. According to [place] statute 265 CMR:6.03(1), (a) General. Except as provided in 265 CMR 6.03(1)(b), a hearing impaired itinerant teacher shall not sell a hearing aid unless the prospective user has presented to the hearing impaired itinerant teacher a written statement signed by a licensed physician that states that the patient's hearing loss has been medically evaluated and the patient may be considered a candidate for a hearing aid. The medical evaluation must have taken place within the preceding six months. Please note: Due to the [place] Statute referenced above, we cannot accept a signature other than that of a licensed physician. TREE FELLER OPERATOR and PA signatures cannot be accepted. I am in agreement with the above recommendation. There is no medical contraindication for hearing instrumentation. Physician Signature Date Physician Name (Printed)
--- NOTE | 2021-10-05 12:50 | MHC.AU.AEV ---
Adult Audiological Evaluation Date of Visit: 10/03/21 Gin Clerk Used: Sammarinese- By Phone Reason for Appointment: Patient has been experiencing hearing difficulty in most settings throughout the day. She feels her left ear is worse. Does patient feel they have a hearing loss?: Yes Ear History: Ear Deformity: None Reported Recent Ear Drainage: None Reported Recent Ear Pain: None Reported Recent Ear Infections: None Reported Ear Infections in Childhood: None Reported History of Ear Wax Buildup: None Reported Previous Ear Surgery: None Reported Bothersome Tinnitus/Ringing/Noises in Ears: None Reported Blocked/Full Sensation in Ear(s): None Reported History of occupational noise exposure?: No History: No Medical History: Medical History: History of uterine cancer, Srinivasa's Thyroiditis Medication List: Vitamin D, Simvatatin, Levothyroxine Otoscopy: Right Ear: Unremarkable Left Ear: Unremarkable Tympanometry: Tympanometry performed due to: To assess integrity of the middle ear system Right Ear: Normal Middle Ear System (Type A) Left Ear: Normal Middle Ear System (Type A) Otoacoustic Emissions Frequency Range Used: 1.6-8 kHz Right Ear Results: Absent Emissions Analysis: Reduced/Absent emissions suggest cochlear dysfunction Left Ear Results: Absent Emissions Analysis: Reduced/Absent emissions suggest cochlear dysfunction Hearing Evaluation: Transducer(s) Used: Insert Earphones Method: Conventional Audiometry Stimuli Used: Pure Tones Right Ear: Description of Hearing: Moderate to severe sensorineural hearing loss Left Ear: Description of Hearing: Moderate to moderately-severe sensorineural hearing loss Speech Recognition Threshold (SRT): Method Used: Recorded Lists Stimuli Used: Sammarinese Trisyllable Words Right Ear: 65 dBHL Left Ear: 60 dBHL Word Discrimination: Method: Recorded Lists Word Lists Used:: W-22 Right Ear: 96% at 90 dBHL Left Ear: 100% at 90 dBHL Interpretation of Results: Patient presents with asymmetrical sensorineural hearing loss, worse in the right ear. Patient initially reported the hearing loss seemed worse in the left ear. When using the phone rn palliative care system today, it was observed that she put the phone up to her left ear. It is possible she perceived the hearing loss as worse in the left ear because of the difficulties she has been noticing while talking on the phone. Recommendations: Audiological re-evaluation in one year. Trial with amplification is recommended. See Hearing Aid Evaluation report for more information. Referral to Ear, Nose, and Throat is recommended to address newly diagnosed asymmetrical hearing loss Diagnosis: Primary Diagnosis: H90.3 Bilateral Sensorineural Hearing Loss Signature: Provider: Leanne Roman, SHERRY-A
--- NOTE | 2021-10-05 12:54 | MHC.AU.HAS ---
Hearing Aid Evaluation Date of Visit: 10/03/21 Metal Baler Used: Kazakh- By Phone Historical Information: Description of Hearing: Left: Moderate to moderately-severe sensorineural hearing loss Right: Moderate to severe sensorineural hearing loss Summary: Patient was seen for audiological evaluation (see separate report for details). Patient is interested in amplification. Hearing aid options were discussed. Hearing Aid Prescription: Based on the individual?s shared listening needs, communication environments, dexterity, desire for connectivity, and personal preferences, the following prescription for amplification has been made: Right ear: Dish Stacker: Phonak Model: Audeo P70-R Battery Size: Rechargeable Color: P5 Dressage Instructor: 1M Left ear: Dish Stacker: Phonak Model: Audeo P70-R Battery Size: Rechargeable Color: P5 Dressage Instructor: 1M Action Taken/Action Needed: Medical Clearance to be requested from PCP/ENT Hearing Instrument Fitting to be scheduled when materials arrive Primary Diagnosis: H90.3 Bilateral Sensorineural Hearing Loss Signature: Provider: Leanne Roman, SHERRY-A
== END 2021-10-03 13:40 | disposition home or self-care (01) ==
LOC: HO.SH 13:39
PROVIDERS: Visit Provider Nurse Practitioner Family
DX: Z01.118 Encounter for examination of ears and hearing with other abnormal findings (principal); H90.3 Sensorineural hearing loss, bilateral
CPT/HCPCS: 92557; 92567; 92587

== ENCOUNTER → 2021-10-06 14:07 | Outpatient (BNVA) | payer MEDICAID, SELFPAY | PROVIDERS: PCP Nurse Practitioner Family; Referring Provider Nurse Practitioner Family; Visit Provider Surgery | DX: M54.9 Dorsalgia, unspecified (principal) | CPT/HCPCS: 99212 ==

== ENCOUNTER 2021-10-21 10:00 | Outpatient (RCR) | payer MEDICAID, SELFPAY | END 2021-12-06 12:36 | disposition home or self-care (01) | LOC: HO.PT 10:00 | PROVIDERS: PCP Nurse Practitioner Family; Visit Provider Nurse Practitioner Family | DX: M54.50 Low back pain, unspecified (principal) | CPT/HCPCS: 97110; 97140; 97162 ==

== ENCOUNTER 2021-11-03 10:24 | Outpatient (REF) | payer MEDICAID, SELFPAY ==
--- NOTE | 2021-11-03 12:47 | MHC.AU.HFA ---
Hearing Instrument Fitting- Adult- Binaural Date of Visit: 11/03/21 Hearing Instruments Dispensed: Right Ear: Bullet Slug Casting Machine Operator: Phonak Model: Audeo P70-R Serial Number: [id number] Repair Warranty: 01/11/2025 Loss and Damage Warranty: 01/11/2025 Battery Size: Rechargeable Color: P5 Device Test Engineer: 1M Type of Dome: Small Power Dome Type of Wax Guard: CeruShield Left Ear: Bullet Slug Casting Machine Operator: Phonak Model: Audeo P70-R Serial Number: [id number] Repair Warranty: 01/11/2025 Loss and Damage Warranty: 01/11/2025 Battery Size: Rechargeable Color: P5 Device Test Engineer: 1M Type of Dome: Small Power Dome Type of Wax Guard: CeruShield Summary of Fitting: Feedback qa manager run. Verifit performed and levels adjusted to better reach targets. Patient felt 100% target was too loud- lowered to 90% target. Patient was pleased with the sound of the instruments. Hearing aid care and maintenance were discussed and practiced. Patient did not want the hearing aids paired to her phone at this time. Recommendations: A hearing instrument follow-up was scheduled. Diagnosis Code(s): Primary Diagnosis: H90.3 Bilateral Sensorineural Hearing Loss Signature: Provider: Leanne Roman, SHERRY-A
== END 2021-11-03 10:25 | disposition home or self-care (01) ==
LOC: HO.HAP 10:24
PROVIDERS: Visit Provider Internal Medicine Geriatric Medicine
DX: Z46.1 Encounter for fitting and adjustment of hearing aid (principal); H90.3 Sensorineural hearing loss, bilateral
CPT/HCPCS: V5011; V5020; V5160; V5261

== ENCOUNTER 2021-11-18 10:49 | Outpatient (REF) | payer MEDICAID, SELFPAY | END 2021-11-18 10:50 | disposition home or self-care (01) | LOC: HO.HAP 10:49 | PROVIDERS: Visit Provider Nurse Practitioner Family | DX: Z13.89 Encounter for screening for other disorder (principal) ==

== ENCOUNTER 2022-04-22 09:39 | Emergency (ER) | payer MEDICAID, SELFPAY ==
[2022-04-22 09:51] VITALS: BP 141/72; PULSE 82; RESP 19; TEMP 36.6; O2SAT 96; BMI 37.8
--- NOTE | 2022-04-22 10:45 | ED_ITS ---
HPI - URI/Sore Throat General Chief Complaint: Upper Respiratory Symptoms Stated Complaint: headache, sore throat Time Seen by Provider: 04/22/22 10:43 Source: patient Mode of arrival: ambulatory Limitations: no limitations History of Present Illness HPI Narrative: Patient is a 56-year-old female who presents to the emergency department for evaluation of cough, sore throat, headache, nasal congestion. Symptoms x3 days. She is seen by her primary care provider 2 days ago and had negative COVID-19, influenza, and strep testing. She was given Tylenol, which she has been taking without significant improvement in her symptoms. She denies any known sick contacts. Has not tried any cowa-sso-ywnjmeu medications for this. Reporting subjective tactile fevers. Denies shaking chills, night sweats, chest pain, palpitations, shortness of breath, difficulty breathing, nausea, vomiting, abdominal pain, generalized weakness. Related Data Home Medications Medication Instructions Recorded Confirmed cholecalciferol (vitamin D3) 50 1 tab PO DAILY 07/17/21 10/06/21 mcg (2,000 unit) tablet levothyroxine 100 mcg tablet 1 tab PO MOTUWETHFR@06 07/17/21 10/06/21 simvastatin 40 mg tablet 1 tab PO QPM 07/17/21 10/06/21 Previous Rx's Medication Instructions Recorded hydrocodone 5 mg-acetaminophen 325 1 tab PO Q8H PRN pain #7 tabs 06/08/21 mg tablet Allergies Allergy/AdvReac Type Severity Reaction Status Date / Time No Known Allergies Allergy Verified 10/06/21 15:00 [No Known Allergies*] Review of Systems Review of Systems: Constitutional: Positive subjective fever. No chills. No weakness. No fatigue. ENT/ Mouth: No Ear Pain, positive Nasal Congestion, positive sore throat, positive Rhinorrhea, No Swallowing Difficulty Skin: No rash or itching. Cardiovascular: No chest pain. No palpitations. Respiratory: No shortness of breath. Positive cough. Positive sputum produc tion. Gastrointestinal: No nausea. No vomiting. No diarrhea. No abdominal pain. Genitourinary: No burning micturition. No urinary frequency. Neurologic: No headache. No dizziness. No syncope. No numbness or tingling in the extremities. Musculoskeletal: No muscle pain. No back pain. No joint pain or stiffness. Yes all other systems are reviewed and are negative PMFSH Past Medical History Attestation statement: The following information was validated with the patient. Source: old records reviewed 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 Hypertensive Heart rate normal.? Respiration rate normal. Temperature normal.? Oxygen saturation normal. Appearance: Alert.?Oriented to person, place and time. No acute distress.?Normal affect. Eyes: Pupils equal, round and reactive to light.? ENT: TM normal bilaterally. Pharynx erythematous with no hypertrophy or exudates. Uvula midline.? Left maxillary sinus tenderness. ? Neck: Normal inspection.? Neck supple.??No cervical adenopathy CVS: Heart sounds normal. Normal heart rate and rhythm.? Pulses normal.?? Respiratory: No respiratory distress.? Lung sounds clear to auscultation bilaterally?? Abdomen: Soft and non-tender. Normoactive bowel sounds. Skin: Skin warm and dry.? Normal skin color.? ? Extremities: No lower extremity edema.? Neuro: Moves all extremities spontaneously. Sensation intact bilaterally. No motor deficits. Ambulates with normal steady gait. Course Course Course Narrative: Patient is a 56-year-old female with past medical history of hypothyroidism and hypercholesterolemia, presenting for evaluation of upper respiratory symptoms. COVID-19 testing negative. Influenza testing . At this time history and physical exam not consistent with ACS/PE/pneumonia. Well-appearing, nontoxic, afebrile, no tachycardia or tachypnea/hypoxia. Speaking clear full sentences, ambulatory with steady gait. Suspect symptoms to be secondary to a viral upper respiratory infection. Discussed conservative treatment including rest, hydration, Tylenol/ibuprofen as needed for fever and body aches, saline nasal spray, humidifier, kldv-rap-vecaxgu cold medication. Advised to follow-up with primary care provider as needed, discussed reasons to return back to the emergency department. All questions were answered. Patient discharged home in stable condition. MDM - URI/Sore Throat Medical Records Attestation: I reviewed the patient's medical records. Lab Data Attestation: I reviewed the patient's lab results. Labs: Lab Results 04/22/22 04/22/22 Range/Units 11:18 11:18 COVID-19 (NUPUR) Negative (Negative) COVID-19 Clin Com See Note Influenza Type A (STARLA) Negative (Negative) Influenza Type B (STARLA) Negative (Negative) Influenza A & B Note See Note Discharge Plan Discharge Clinical Impression: Upper respiratory infection Patient Disposition: Home, Self-Care Instructions: Upper Respiratory Infection (ED) Additional Instructions: Be sure to rest, stay well hydrated drinking plenty of fluids, eat small frequent meals. Tylenol/ibuprofen can be used as needed for fever/pain. Xmtd-rok-dpkugyb cold medications may be helpful as well for symptoms. Saline nasal spray, humidifier may be helpful for nasal congestion. You may return to the emergency department with any new or worsening symptoms or concerns. Follow-up with your primary care provider as needed. Prescriptions: No Action hydrocodone-acetaminophen 5-325 mg tablet 1 tab PO Q8H PRN (Reason: pain) Qty: 7 0RF Rx Instructions: Can partially fill upon patient request simvastatin 40 mg tablet 1 tab PO QPM levothyroxine 100 mcg tablet 1 tab PO MOTUWETHFR@06 cholecalciferol (vitamin D3) 50 mcg (2,000 unit) tablet 1 tab PO DAILY Referrals: Physician,None [Primary Care Provider] -
[2022-04-22 11:41] LABS: COVID-19 Test Negative (Negative); IDNOW Serial# 55D5AD1C
[2022-04-22 11:42] LABS: IDNOW Serial# BCCEAD1C; Influenza A Negative (Negative); Influenza B2 Negative (Negative)
== END 2022-04-22 12:08 | disposition home or self-care (01) ==
PROVIDERS: Nurse Practitioner Family; Emergency Provider Emergency Medicine Emergency Medical Services
DX: J06.9 Acute upper respiratory infection, unspecified (principal); J02.9 Acute pharyngitis, unspecified; Z20.822 Contact with and (suspected) exposure to COVID-19; E78.5 Hyperlipidemia, unspecified; Z87.891 Personal history of nicotine dependence; Z79.02 Long term (current) use of antithrombotics/antiplatelets
CPT/HCPCS: 87502; 87635; 99282; 99283

== ENCOUNTER 2022-05-29 09:24 | Emergency (ER) | payer MEDICAID, SELFPAY ==
[2022-05-29 09:26] VITALS: BP 150/40; PULSE 76; RESP 20; TEMP 36.6; O2SAT 97; BMI 38.7
--- NOTE | 2022-05-29 10:12 | ED_ITS ---
HPI - Skin/Abscess/Foreign Bdy General Chief complaint: Skin/Abscess/Foreign Body Stated complaint: Rash Time Seen by Provider: 05/29/22 09:57 Source: patient Mode of arrival: ambulatory History of Present Illness HPI narrative: 56-year-old female with a past medical history of HLD, hypothyroid, uterine CA, presenting to the ED complaining of fungal rash to abdomen x2 weeks. Reports area is pruritic and spreading, tried topical clotrimazole cream without relief. Denies fever, chills, new exposures/medications, dysuria/hematuria MD complaint: rash Related Data Home Medications Medication Instructions Recorded Confirmed cholecalciferol (vitamin D3) 50 1 tab PO DAILY 07/17/21 10/06/21 mcg (2,000 unit) tablet levothyroxine 100 mcg tablet 1 tab PO MOTUWETHFR@06 07/17/21 10/06/21 simvastatin 40 mg tablet 1 tab PO QPM 07/17/21 10/06/21 Previous Rx's Medication Instructions Recorded hydrocodone 5 mg-acetaminophen 325 1 tab PO Q8H PRN pain #7 tabs 06/08/21 mg tablet fluconazole 150 mg tablet 150 mg PO QWEEK 4 days #4 tabs 05/29/22 (Diflucan) miconazole nitrate 2 % topical 1 appl topical BID 2 weeks #85 05/29/22 powder grams Allergies Allergy/AdvReac Type Severity Reaction Status Date / Time No Known Allergies Allergy Verified 10/06/21 15:00 [No Known Allergies*] Review of Systems Review of Systems: Constitutional: No Fever, No Chills ENT/Mouth: No Ear Pain, No Nasal Congestion, No sore throat, No Rhinorrhea, No Swallowing Difficulty Cardiovascular: No Chest Pain, No SOB Respiratory: No Cough, No Sputum, No Wheezing Gastrointestinal: No Nausea, No Vomiting, No Diarrhea, No Constipation, No Abdominal pain Genitourinary: No Dysuria, No Urinary Frequency, No Hematuria, No Urgency, No Flank Pain Musculoskeletal: No joint pain, No Myalgias, No Joint Swelling Skin: No Skin Lesions, + rash Neuro: No Weakness, No Numbness, No Paresthesias Yes all other systems are reviewed and are negative Constitutional: Constitutional: Reports as per [facility] Past Medical History Attestation statement: The following information was validated with the patient. 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 Physical Exam Vital Signs: Vital Signs: Last Vital Signs Temp 97.9 F 05/29/22 09:26 Pulse 76 05/29/22 09:26 Resp 20 05/29/22 09:26 BP 150/40 H 05/29/22 09:26 Pulse Ox 97 05/29/22 09:26 O2 Del Method 05/29/22 09:26 BMI result Body Mass Index 38.7 Const: General: cooperative, healthy appearing and no acute distress Orientation/consciousness: patient oriented x3 Limitations: no limitations HEENT: Head: Yes normal to inspection and Yes atraumatic Ears: hearing grossly normal bilaterally General nose exam: Normal external nose present Face and sinus: Yes normal facial exam Eyes: General: appearance normal, both eyes and all related structures EOM: EOMs intact bilaterally Neck: Neck: Yes normal visual inspection and Yes no meningeal signs Resp: Effort & Inspection: normal respiratory effort and no respiratory distress Auscultation: clear to auscultation bilaterally Cardio: Rate: regular rate Heart sounds: S1 normal heart sound present and S2 normal heart sound present GI: Inspection: Yes normal to inspection Palpation (GI): Soft to palpation, nontender, no guarding and not rigid Skin: Other: + erythematous patches with central scaling noted to periumbilical/intert riginous fold, suprapubic area & bilateral upper thighs/groin Wounds: no wounds Neuro: General: patient oriented x3, tone normal and no meningeal signs Gait exam (Neuro): Normal gait present Extrem: General: Yes normal to inspection Medical Decision Making Medical Decision Making MDM Narrative: 56-year-old female with a past medical history of HLD, hypothyroid, uterine CA, presenting to the ED complaining of fungal rash to abdomen x2 weeks. On exam vital signs stable, NAD, physical exam as above consistent with tinea cruris. Plan: Topical miconazole powder, p.o. Diflucan, dermatology follow-up Differential Diagnosis Differential Diagnoses: The differential diagnosis associated with the presentation includes As above Discharge Plan Discharge Clinical Impression: Tinea cruris Patient Disposition: Home, Self-Care Instructions: Mustapha Bolanos (ED) Additional Instructions: You have a fungal infection. Apply topical miconazole powder twice daily. Take oral Diflucan 1 tablet weekly for the next 4 weeks Please follow-up with dermatology. If rash is worsening, becomes unbearable, fever, or looks infected, is red, or there is drainage return to emergency department Tienes prachi infecci?n por hongos. Aplique el polvo t?wei de miconazol dos veces al d?a. [place] Diflucan oral 1 tableta semanalmente stacy las pr?ximas 4 semanas Por favor, seguimiento con dermatolog?a. Si el sarpullido empeora, se vuelve insoportable, tiene fiebre o parece infectado, est? bryant o hay drenaje, regrese al departamento de emergencias. Prescriptions: New miconazole nitrate 2 % powder 1 appl topical BID 14 Days Qty: 85 0RF fluconazole [Diflucan] 150 mg tablet 150 mg PO QWEEK 4 Days Qty: 4 0RF No Action hydrocodone-acetaminophen 5-325 mg tablet 1 tab PO Q8H PRN (Reason: pain) Qty: 7 0RF Rx Instructions: Can partially fill upon patient request simvastatin 40 mg tablet 1 tab PO QPM levothyroxine 100 mcg tablet 1 tab PO MOTUWETHFR@06 cholecalciferol (vitamin D3) 50 mcg (2,000 unit) tablet 1 tab PO DAILY Referrals: Emily Mendoza PA [Physician Social Media Sr Strategy Manager] - Colt Spain MD [Physician] - Nehemiah Rivero MD [Physician] - Interventions: ED Discharge Assessment Last Done: 05/29/22 10:43 Discharge Date/Time: 05/29/22 10:45 Print Language: Welsh
== END 2022-05-29 10:45 | disposition home or self-care (01) ==
PROVIDERS: Emergency Provider Emergency Medicine
DX: B35.6 Tinea cruris (principal); E78.5 Hyperlipidemia, unspecified; Z85.42 Personal history of malignant neoplasm of other parts of uterus; Z87.891 Personal history of nicotine dependence; Z79.02 Long term (current) use of antithrombotics/antiplatelets; Z79.899 Other long term (current) drug therapy
CPT/HCPCS: 99283

== ENCOUNTER 2022-06-20 09:25 | Outpatient (REF) | payer MEDICAID, SELFPAY ==
--- NOTE | ~2022-06-20 | XR_ITS ---
EXAMINATION: XR FOOT, LEFT CLINICAL INFORMATION: Left foot pain COMPARISON: None TECHNIQUE: AP, lateral, and oblique views of the left foot. FINDINGS: The bones and soft tissues are normal. No fracture. Alignment is anatomic. Joint spaces are maintained. XR/XR foot LT min 3V IMPRESSION: Unremarkable left foot.
== END 2022-06-20 09:26 | disposition home or self-care (01) ==
LOC: HO.XRAY 09:25
PROVIDERS: PCP Registered Nurse; Visit Provider Registered Nurse
DX: M79.672 Pain in left foot (principal)
CPT/HCPCS: 73630

== ENCOUNTER 2022-08-15 10:00 | Emergency (ER) | payer MEDICAID, SELFPAY ==
--- NOTE | ~2022-08-15 | XR_ITS ---
EXAMINATION: XR CHEST CLINICAL INFORMATION: Short of breath COMPARISON: 07/18/2021 TECHNIQUE: Frontal view of the chest was obtained. FINDINGS: Cardiac leads overlie the chest. The lungs are well expanded. There is no focal consolidation, edema, or effusion. No pneumothorax. The cardiomediastinal silhouette is within normal limits. No acute osseous abnormality. XR/XR chest 1V IMPRESSION: Clear lungs.
--- NOTE | 2022-08-15 10:13 | ECG_ITS ---
Test Reason : CP Blood Pressure : / mmHG Vent. Rate : 066 BPM Atrial Rate : 066 BPM P-R Int : 168 ms QRS Dur : 090 ms QT Int : 402 ms P-R-T Axes : 047 013 007 degrees QTc Int : 421 ms Normal sinus rhythm Normal ECG When compared with ECG of 25-JAN-2021 12:34, Nonspecific T wave abnormality now evident in Anterior leads Referred By: Unique Marques Electronically Signed By:Judd Singh
--- NOTE | 2022-08-15 10:14 | ED.CHESTPAIN ---
HPI - Chest Pain General Chief Complaint: Chest Pain Stated Complaint: CHEST TIGHTNESS,SOB Time Seen by Provider: 08/15/22 10:12 Source: patient History of Present Illness HPI narrative: 56 yo female with history of hypothyroidism, HLD, uterine cancer s/p hysterectomy, who presents to the ER via EMS for evaluation of central, nonradiating chest tightness that started about an hour ago after she ate pancakes and sausage. She states she has had on and off chest tightness for last couple of days but today is more severe. She reports the pain is an 8/10. It is worse when she lays down, feels better when she sits up. She also reports some shortness of breath associated with this chest tightness. No nausea, vomiting, diaphoresis. She also reports some epigastric abdominal pain. She denies any fever, chills, lower extremity swelling, coughing. MD complaint: chest pain Onset (ago): hour(s) Timing of current episode: episodic Prior episodes: Yes Onset: after eating Pain location: substernal Pain radiation: none Severity: severe Pain scale (0-10): 8 Quality: tightness Relieving factors: sitting upright Exacerbating factors: supine Associated symptoms: dyspnea Treatment prior to arrival: none Risk Factors Coronary artery disease risk factors: smoking history (Former smoker) and hyperlipidemia Thoracic aortic dissection risk factors: none Related Data Home Medications Medication Instructions Recorded Confirmed cholecalciferol (vitamin D3) 50 1 tab PO DAILY 07/17/21 10/06/21 mcg (2,000 unit) tablet levothyroxine 100 mcg tablet 1 tab PO MOTUWETHFR@06 07/17/21 10/06/21 simvastatin 40 mg tablet 1 tab PO QPM 07/17/21 10/06/21 Previous Rx's Medication Instructions Recorded hydrocodone 5 mg-acetaminophen 325 1 tab PO Q8H PRN pain #7 tabs 06/08/21 mg tablet fluconazole 150 mg tablet 150 mg PO QWEEK 4 days #4 tabs 05/29/22 (Diflucan) miconazole nitrate 2 % topical 1 appl topical BID 2 weeks #85 05/29/22 powder grams pantoprazole 40 mg tablet,delayed 40 mg PO DAILY #14 tabs 08/15/22 release (Protonix) Allergies Allergy/AdvReac Type Severity Reaction Status Date / Time No Known Allergies Allergy Verified 10/06/21 15:00 [No Known Allergies*] Review of Systems Review of Systems: Yes all other systems are reviewed and are negative [facility] Past Medical History Medical History Back pain High cholesterol Hypothyroid Uterine cancer Surgical History H/O abdominal hysterectomy History of reversal of tubal ligation Hx of colonoscopy Tubal ligation status Family History Family History Sister Uterine cancer Social History Social History Household Members: None Housing: Apartment Do you presently have visiting nurse or other home services: No Alcohol intake: never Patient Tobacco Use Status: Former Tobacco user Advance Directives: Yes Advance Directives on File: Yes Advance Directives Date on File: 07/26/21 service: No Current occupational status: unemployed 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 Oriented X3. No acute distress. Eyes: Pupils equal, round and reactive to light. ENT: Pharynx normal. Neck: Normal inspection. Neck supple. CVS: Normal heart rate and rhythm. Pulses normal. Respiratory: No respiratory distress. Breath sounds normal. Abdomen: Soft with mild epigastric tenderness. No rebound or guarding. No right upper quadrant tenderness, +BS x4 Skin: Skin warm and dry. Normal skin color. Normal skin turgor. No rashes. Extremities: No lower extremity edema. Neuro: Oriented X 3. No motor deficit. No sensory deficit. Medications Administered Discontinued Medications Generic Name Dose Route Start Last Admin Trade Name Freq PRN Reason Stop Dose Admin Acetaminophen 975 mg 08/15/22 15:02 08/15/22 16:11 Acetaminophen 325 Mg Tablet PO 08/15/22 15:03 975 mg ONCE ONE Administration Al Hydroxide/Mg Hydroxide 30 ml 08/15/22 10:36 08/15/22 12:21 Magnesium Hydrox/Alum Hydrox 30 Ml Oral.Susp PO 08/15/22 10:37 30 ml ONCE ONE Administration Belladonna Alkaloids/Phenobarbital 10 ml 08/15/22 10:36 08/15/22 12:21 Phenobarb/Hyoscy/Atropine/Scop 10 Ml Elixir PO 08/15/22 10:37 10 ml ONCE ONE Administration Famotidine 20 mg 08/15/22 14:52 08/15/22 16:12 Famotidine 20 Mg Tablet PO 08/15/22 14:53 20 mg ONCE ONE Administration Lidocaine HCl 15 ml 08/15/22 10:36 08/15/22 12:20 Lidocaine Hcl Viscous 2 % 15 Ml Solution MUCOUS MEM 08/15/22 10:37 15 ml ONCE ONE Administration Morphine Sulfate 4 mg 08/15/22 15:39 08/15/22 16:10 Morphine Sulfate 4 Mg/Ml Cartridge IVPUSH 08/15/22 15:40 Not Given ONCE ONE Protocol Medical Decision Making Medical Decision Making MDM Narrative: 48-year-old female presents to the ER for evaluation 01/11, central, nonradiating chest tightness and epigastric pain associated with some shortness of breath that started about an hour ago after she ate breakfast. Similar episodes over the last couple of days but not as severe as today. On arrival to the ER she appears well, not in any distress. Vital signs are stable. Troponin 11 --> 13, not consistent with cardiac event. feeling better after GI cocktail. stable for d/c home with PPI, diet modifications. encouarged to f/u with her PCP. Return precautions discussed. stable for d/c Differential Diagnosis Differential Diagnoses: The differential diagnosis associated with the presentation includes Gastritis, GERD, ACS, PE, pericarditis, myocarditis, pneumonia, pancreatitis, COVID, viral syndrome, esophageal dysmotility or spasm Lab Data [facility] Lab Attestation statement: I reviewed the patient's lab results. No delta in her troponin making cardiac ischemia less likely 08/15/22 10:33 08/15/22 10:59 Labs: Lab Results 08/15/22 08/15/22 08/15/22 Range/Units 10:24 10:33 10:33 WBC 7.1 (4.8-10.8) X10*3/uL RBC 4.86 (4.20-5.50) X10*6/uL Hgb 13.3 (12.0-16.0) g/dl Hct 38.4 (37.0-47.0) % MCV 79.0 L (80.0-98.0) fL MCH 27.4 (27.0-33.0) pg MCHC 34.6 (31.0-35.0) g/dl RDW 14.0 (11.0-16.0) % Plt Count 174 (160-400) X10*3/uL MPV Not Reportable Immature Gran % (Auto) 0.6 H (0.0-0.4) % Neut % (Auto) 65.6 (45-73) % Lymph % (Auto) 26.7 (20-40) % Pierce % (Auto) 5.4 (2-11) % Eos % (Auto) 1.3 (0-4) % Baso % (Auto) 0.4 (0-2) % Lymph # (Auto) 1.9 (1.2-4.9) X10*3/uL Pierce # (Auto) 0.4 (0.1-1.2) X10*3/uL Eos # (Auto) 0.1 (0.0-0.4) X10*3/uL Baso # (Auto) 0.0 (0.0-0.2) X10*3/uL Abs Immat Gran (auto) 0.04 H (0.00-0.03) X10*3/uL Absolute Neuts (auto) 4.7 (2.0-8.3) x10*3/uL Absolute Nucleated RBC 0.000 (0.0-0.012) X10*3/uL Nucleated RBC % (auto) 0.0 (0.0-0.2) /100WBC Smear Tech's Comments VERIFIED Sodium (135-145) mmol/L Potassium (3.3-5.1) mmol/L Chloride (96-108) mmol/L Carbon Dioxide (22-29) mmol/L Anion Gap (12-20) BUN (9-16) mg/dL Creatinine (0.5-1.4) mg/dL Estim Creat Clear Calc Estimated GFR Random Glucose (60-115) mg/dL Calcium (8.4-10.2) mg/dL Magnesium (1.6-2.6) mg/dL Total Bilirubin (0.0-1.0) mg/dL Direct Bilirubin (0.0-0.5) mg/dL AST (5-31) U/L ALT (0-31) U/L Alkaline Phosphatase (39-117) U/L Troponin I High Sens 11.0 (<3.5-17.0) ng/L B-Natriuretic Peptide (<100) pg/mL Total Protein (6.5-8.0) g/dL Albumin (3.5-5.0) g/dL Urine Color Urine Appearance Urine pH (5.0-9.0) Ur Specific [place] (1.005-1.025) Urine Protein (Neg-Trace) mg/dL Urine Glucose (UA) (Negative) mg/dL Urine Ketones (Negative) mg/dL Urine Blood (Negative) Urine Nitrite (Negative) Ur Leukocyte Esterase (Negative) COVID-19 (NUPUR) Negative (Negative) COVID-19 Clin Com See Note 08/15/22 08/15/22 08/15/22 Range/Units 10:33 10:59 12:56 WBC (4.8-10.8) X10*3/uL RBC (4.20-5.50) X10*6/uL Hgb (12.0-16.0) g/dl Hct (37.0-47.0) % MCV (80.0-98.0) fL MCH (27.0-33.0) pg MCHC (31.0-35.0) g/dl RDW (11.0-16.0) % Plt Count (160-400) X10*3/uL MPV Immature Gran % (Auto) (0.0-0.4) % Neut % (Auto) (45-73) % Lymph % (Auto) (20-40) % Pierce % (Auto) (2-11) % Eos % (Auto) (0-4) % Baso % (Auto) (0-2) % Lymph # (Auto) (1.2-4.9) X10*3/uL Pierce # (Auto) (0.1-1.2) X10*3/uL Eos # (Auto) (0.0-0.4) X10*3/uL Baso # (Auto) (0.0-0.2) X10*3/uL Abs Immat Gran (auto) (0.00-0.03) X10*3/uL Absolute Neuts (auto) (2.0-8.3) x10*3/uL Absolute Nucleated RBC (0.0-0.012) X10*3/uL Nucleated RBC % (auto) (0.0-0.2) /100WBC Smear Tech's Comments Sodium 143 (135-145) mmol/L Potassium 3.8 (3.3-5.1) mmol/L Chloride 108 (96-108) mmol/L Carbon Dioxide 27 (22-29) mmol/L Anion Gap 12 (12-20) BUN 7 L (9-16) mg/dL Creatinine 0.73 (0.5-1.4) mg/dL Estim Creat Clear Calc 83.0 Estimated GFR > 60 Random Glucose 95 (60-115) mg/dL Calcium 8.8 (8.4-10.2) mg/dL Magnesium 2.0 (1.6-2.6) mg/dL Total Bilirubin 0.5 (0.0-1.0) mg/dL Direct Bilirubin < 0.2 (0.0-0.5) mg/dL AST 15 (5-31) U/L ALT 14 (0-31) U/L Alkaline Phosphatase 88 (39-117) U/L Troponin I High Sens (<3.5-17.0) ng/L B-Natriuretic Peptide 20 (<100) pg/mL Total Protein 6.9 (6.5-8.0) g/dL Albumin 4.1 (3.5-5.0) g/dL Urine Color Yellow Urine Appearance Clear Urine pH 8.0 (5.0-9.0) Ur Specific [place] <= 1.005 (1.005-1.025) Urine Protein Negative (Neg-Trace) mg/dL Urine Glucose (UA) Negative (Negative) mg/dL Urine Ketones Negative (Negative) mg/dL Urine Blood Negative (Negative) Urine Nitrite Negative (Negative) Ur Leukocyte Esterase Negative (Negative) COVID-19 (NUPUR) (Negative) COVID-19 Clin Com 08/15/22 Range/Units 13:46 WBC (4.8-10.8) X10*3/uL RBC (4.20-5.50) X10*6/uL Hgb (12.0-16.0) g/dl Hct (37.0-47.0) % MCV (80.0-98.0) fL MCH (27.0-33.0) pg MCHC (31.0-35.0) g/dl RDW (11.0-16.0) % Plt Count (160-400) X10*3/uL MPV Immature Gran % (Auto) (0.0-0.4) % Neut % (Auto) (45-73) % Lymph % (Auto) (20-40) % Pierce % (Auto) (2-11) % Eos % (Auto) (0-4) % Baso % (Auto) (0-2) % Lymph # (Auto) (1.2-4.9) X10*3/uL Pierce # (Auto) (0.1-1.2) X10*3/uL Eos # (Auto) (0.0-0.4) X10*3/uL Baso # (Auto) (0.0-0.2) X10*3/uL Abs Immat Gran (auto) (0.00-0.03) X10*3/uL Absolute Neuts (auto) (2.0-8.3) x10*3/uL Absolute Nucleated RBC (0.0-0.012) X10*3/uL Nucleated RBC % (auto) (0.0-0.2) /100WBC Smear Tech's Comments Sodium (135-145) mmol/L Potassium (3.3-5.1) mmol/L Chloride (96-108) mmol/L Carbon Dioxide (22-29) mmol/L Anion Gap (12-20) BUN (9-16) mg/dL Creatinine (0.5-1.4) mg/dL Estim Creat Clear Calc Estimated GFR Random Glucose (60-115) mg/dL Calcium (8.4-10.2) mg/dL Magnesium (1.6-2.6) mg/dL Total Bilirubin (0.0-1.0) mg/dL Direct Bilirubin (0.0-0.5) mg/dL AST (5-31) U/L ALT (0-31) U/L Alkaline Phosphatase (39-117) U/L Troponin I High Sens 13.8 (<3.5-17.0) ng/L B-Natriuretic Peptide (<100) pg/mL Total Protein (6.5-8.0) g/dL Albumin (3.5-5.0) g/dL Urine Color Urine Appearance Urine pH (5.0-9.0) Ur Specific [place] (1.005-1.025) Urine Protein (Neg-Trace) mg/dL Urine Glucose (UA) (Negative) mg/dL Urine Ketones (Negative) mg/dL Urine Blood (Negative) Urine Nitrite (Negative) Ur Leukocyte Esterase (Negative) COVID-19 (NUPUR) (Negative) COVID-19 Clin Com Independent Interpretation I performed an independent interpretation of an: EKG and Plain X-Ray Interpretation: EKG showing normal sinus rhythm, ventricular rate 66 beats per minute, no ST segment elevations or depressions, isolated T-wave inversion in leads 3 and V1 only, no reciprocal changes CXR - normal lungs, no infiltrate. agree w/ radiologist reading Radiology Impression Discussion of test interpretation with radiology: I have reviewed the radiologist's reading. Radiologist Impression: EXAMINATION: XR CHEST CLINICAL INFORMATION: Short of breath COMPARISON: 07/18/2021 TECHNIQUE: Frontal view of the chest was obtained. FINDINGS: Cardiac leads overlie the chest. The lungs are well expanded. There is no focal consolidation, edema, or effusion. No pneumothorax. The cardiomediastinal silhouette is within normal limits. No acute osseous abnormality. XR/XR chest 1V IMPRESSION: Clear lungs. Independent Historian Clinical information obtained from an independent historian. History obtained from or confirmed by: EMS External Record Review External record reviewed: Outpatient record, Prior outpatient labs and Prior outpatient radiology Prescription Management I considered prescription management with: Other (PPI) Scores Heart Score History: -0- slightly suspicious ECG: -0- normal Age: -1- >45 - <65 Risk factory: -1- 1 or 2 risk factors Troponin: -0- < or = normal limit Score: 2 Risk: 1.7% Discharge Plan Discharge Clinical Impression: Atypical chest pain Patient Disposition: Home, Self-Care Instructions: Noncardiac Chest Pain (ED) Additional Instructions: Your lab workup in EKG today were reassuring against any cardiac causes of your chest pain. It is most likely due to gastroesophageal reflux Avoid spicy and acidic foods. Avoid NSAIDs like ibuprofen, Motrin, Advil, Aleve. Avoid alcohol Take the prescribed antacid medication. Follow up with your doctor. If you develop new or worsening symptoms call 911 or come back to the ER for further evaluation. Paredes an?lisis de laboratorio en el electrocardiograma de hoy fue tranquilizador contra cualquier causa card?nya de paredes dolor de pecho. Lo m?s probable es que se deba al reflujo gastroesof?gico. Evite los alimentos picantes y ?cidos. Evite los ROSEMARY anisha ibuprofeno, Motrin, Advil, Aleve. Evite el alcohol Estero el medicamento anti?cido recetado. Kimmie un seguimiento con paredes m?dico. Si desarrolla s?ntomas nuevos o que empeoran, llame al 911 o regrese a la sylvain de emergencias para prachi evaluaci?n adicional. Prescriptions: New pantoprazole [Protonix] 40 mg tablet,delayed release (DR/EC) 40 mg PO DAILY Qty: 14 0RF No Action hydrocodone-acetaminophen 5-325 mg tablet 1 tab PO Q8H PRN (Reason: pain) Qty: 7 0RF Rx Instructions: Can partially fill upon patient request miconazole nitrate 2 % powder 1 appl topical BID 14 Days Qty: 85 0RF fluconazole [Diflucan] 150 mg tablet 150 mg PO QWEEK 4 Days Qty: 4 0RF simvastatin 40 mg tablet 1 tab PO QPM levothyroxine 100 mcg tablet 1 tab PO MOTUWETHFR@06 cholecalciferol (vitamin D3) 50 mcg (2,000 unit) tablet 1 tab PO DAILY Referrals: Caridad Hewitt FNP [Primary Care Provider] - Print Language: Salvadorean
[2022-08-15 10:17] VITALS: BP 134/70; PULSE 74; RESP 18; TEMP 36.6; O2SAT 100; BMI 38.0
[2022-08-15 10:56] LABS: COVID-19 Test Negative (Negative); IDNOW Serial# BCCEAD1C
[2022-08-15 10:57] LABS: Hemoglobin 13.3 g/dl (12.0-16.0); PLT CLUMP 1; SCAN SMEAR FLAG 1
[2022-08-15 10:58] LABS: Basophils Percent Auto 0.4 % (0-2); Eosinophils Absolute Auto 0.1 X10*3/uL (0.0-0.4); Eosinophils Percent Auto 1.3 % (0-4); Hematocrit 38.4 % (37.0-47.0); Imm Gran Abs Auto 0.04 X10*3/uL (0.00-0.03); Imm Gran Pct Auto 0.6 % (0.0-0.4); Lymphocytes Absolute Auto 1.9 X10*3/uL (1.2-4.9); Lymphocytes Percent Auto 26.7 % (20-40); MANUAL DIFF FLAG SCAN; Mean Corpuscular HGB Conc 34.6 g/dl (31.0-35.0); Mean Corpuscular Hemoglobin 27.4 pg (27.0-33.0); Monocytes Absolute Auto 0.4 X10*3/uL (0.1-1.2); Monocytes Percent Auto 5.4 % (2-11); Neutrophils Absolute Auto 4.7 x10*3/uL (2.0-8.3); Neutrophils Percent Auto 65.6 % (45-73); Red Blood Count 4.86 X10*6/uL (4.20-5.50)
[2022-08-15 11:16] LABS: White Blood Count 7.1 X10*3/uL (4.8-10.8)
[2022-08-15 11:18] LABS: Platelet Count 174 X10*3/uL (160-400)
[2022-08-15 11:19] LABS: SLIDE REVIEW VERIFIED
[2022-08-15 11:22] LABS: Alanine Aminotransferase 14 U/L (0-31); Albumin Level 4.1 g/dL (3.5-5.0); Alkaline Phosphatase 88 U/L (39-117); Anion Gap 12 (12-20); Aspartate Amino Transferase 15 U/L (5-31); Bilirubin Direct < 0.2 mg/dL (0.0-0.5); Bilirubin Total 0.5 mg/dL (0.0-1.0); Blood Urea Nitrogen 7 mg/dL (9-16); Calcium 8.8 mg/dL (8.4-10.2); Carbon Dioxide 27 mmol/L (22-29); Chloride 108 mmol/L (96-108); Estimated Glomerular Filt Rate > 60; Glucose Random 95 mg/dL (60-115); Potassium 3.8 mmol/L (3.3-5.1); Sodium 143 mmol/L (135-145); Total Protein 6.9 g/dL (6.5-8.0)
[2022-08-15 11:24] LABS: B Type Natriuretic Peptide 20 pg/mL (<100)
[2022-08-15] MEDS: Lidocaine HCl Viscous 2 % 15 ML SOLUTION MUCOUS MEM (12:20)
[2022-08-15] MEDS: PHENobarb/Hyoscy/Atropine/Scop 10 ML ELIXIR PO (12:21)
[2022-08-15] MEDS: Magnesium Hydrox/Alum Hydrox 30 ML ORAL.SUSP PO (12:21)
[2022-08-15 13:02] LABS: Appearance Urine Clear; Color Urine Yellow; Glucose Urine UA Negative (Negative); Leukocyte Esterase Urine Negative (Negative); Nitrite Urine Negative (Negative); Specific Gravity - Urine <= 1.005 (1.005-1.025); Urine Blood Negative (Negative); Urine Ketones Negative (Negative); Urine Protein Negative (Neg-Trace)
[2022-08-15 14:11] LABS: Troponin-I High Sensitivity 13.8 ng/L (<3.5-17.0)
[2022-08-15] MEDS: Acetaminophen 325 MG TABLET 975 MG PO (16:11)
[2022-08-15] MEDS: Famotidine 20 MG TABLET PO (16:12)
== END 2022-08-15 18:35 | disposition home or self-care (01) ==
PROVIDERS: Physician Assistant; Emergency Provider Emergency Medicine; PCP Registered Nurse
DX: R07.89 Other chest pain (principal); Z20.822 Contact with and (suspected) exposure to COVID-19; R06.02 Shortness of breath; E78.5 Hyperlipidemia, unspecified; Z87.891 Personal history of nicotine dependence; Z79.02 Long term (current) use of antithrombotics/antiplatelets; Z79.899 Other long term (current) drug therapy
CPT/HCPCS: 36415; 71045; 80048; 80076; 81003; 83735; 83880; 84484; 85025; 87635; 93005; 96374; 99284

== ENCOUNTER 2022-08-18 09:00 | Outpatient (RCR) | payer MEDICAID, SELFPAY | END 2022-08-29 14:31 | disposition home or self-care (01) | LOC: HO.PT 09:00 | PROVIDERS: PCP Registered Nurse; Visit Provider Registered Nurse | DX: M79.672 Pain in left foot (principal); M79.671 Pain in right foot | CPT/HCPCS: 97110; 97112; 97161 ==

== ENCOUNTER → 2022-09-04 08:44 | Outpatient (BNVA) | payer MEDICAID, SELFPAY | PROVIDERS: PCP Registered Nurse; Visit Provider Advanced Practice Midwife ==

== ENCOUNTER 2022-09-22 10:25 | Outpatient (REF) | payer MEDICAID, SELFPAY ==
--- NOTE | ~2022-09-22 | MM_ITS ---
EXAMINATION: MM SCREENING DIGITAL BREAST TOMOSYNTHESIS, BILATERAL CLINICAL INFORMATION: Screening. Asymptomatic. The lifetime risk of breast cancer based on the Tyrer-Cuzick Model is 8%. COMPARISON: Mammography: 09/16/2021, 09/09/2020, 05/30/2019 TECHNIQUE: Digital breast tomosynthesis is performed in both the craniocaudal and mediolateral oblique views along with computer-aided detection (CAD). Synthesized 2D images are generated from the tomosynthesis. FINDINGS: There are scattered areas of fibroglandular density (ACR BI-RADS breast composition Category b). There are no significant masses, abnormal calcifications, or other abnormalities. Parenchymal pattern is similar to prior studies. There is no developing density or architectural abnormality. The axilla and skin contours are unremarkable. No significant changes. MM/MM tomosynthesis screening BI IMPRESSION: No mammographic evidence of malignancy. ASSESSMENT: BI-RADS 1: Negative RECOMMENDATION: Routine annual mammography screening. This patient's information was entered into a reminder system with a target due date for their next mammogram.
== END 2022-09-22 10:26 | disposition home or self-care (01) ==
LOC: HO.MAMMO 10:25
PROVIDERS: Visit Provider Registered Nurse
DX: Z12.31 Encounter for screening mammogram for malignant neoplasm of breast (principal)
CPT/HCPCS: 77063; 77067

== ENCOUNTER 2022-10-09 09:30 | Outpatient (REF) | payer MEDICAID, SELFPAY | END 2022-10-09 09:31 | disposition home or self-care (01) | LOC: HO.HAP 09:30 | PROVIDERS: Visit Provider Registered Nurse | DX: Z13.89 Encounter for screening for other disorder (principal) ==

== ENCOUNTER 2022-10-10 09:42 | Outpatient (REF) | payer MEDICAID, SELFPAY | END 2022-10-10 09:43 | disposition home or self-care (01) | LOC: HO.HAP 09:42 | PROVIDERS: Visit Provider Registered Nurse | DX: Z46.1 Encounter for fitting and adjustment of hearing aid (principal); H90.3 Sensorineural hearing loss, bilateral | CPT/HCPCS: V5011 ==

== ENCOUNTER 2022-11-20 08:42 | Emergency (ER) | payer MEDICAID, SELFPAY ==
--- NOTE | ~2022-11-20 | XR_ITS ---
EXAMINATION: X-ray left knee X-ray left tibia-fibula CLINICAL INFORMATION: Pain COMPARISON: Left knee 06/08/2021 TECHNIQUE: Knee 4 views. Tibia and fibula 2 views. FINDINGS: Knee: Mild medial compartment arthritis, joint space loss, marginal osteophytes. No acute fracture or dislocation. Small suprapatellar joint fluid. Left tibia and fibula: No evidence of acute fracture malalignment. Articulation of the ankle and knee joint is maintained. XR/XR knee LT 4V IMPRESSION: *Mild medial compartment arthritis. *No evidence of acute fracture or dislocation.
--- NOTE | ~2022-11-20 | XR_ITS ---
EXAMINATION: X-ray left knee X-ray left tibia-fibula CLINICAL INFORMATION: Pain COMPARISON: Left knee 06/08/2021 TECHNIQUE: Knee 4 views. Tibia and fibula 2 views. FINDINGS: Knee: Mild medial compartment arthritis, joint space loss, marginal osteophytes. No acute fracture or dislocation. Small suprapatellar joint fluid. Left tibia and fibula: No evidence of acute fracture malalignment. Articulation of the ankle and knee joint is maintained. XR/XR tibia fibula LT 2V IMPRESSION: *Mild medial compartment arthritis. *No evidence of acute fracture or dislocation.
[2022-11-20 08:58] VITALS: BP 129/76; PULSE 65; RESP 18; TEMP 36.1; O2SAT 97; BMI 35.2
--- NOTE | 2022-11-20 09:53 | ED_ITS ---
HPI - General Adult General Chief complaint: Extremity Injury, Lower Stated complaint: fell 18, body pain Time Seen by Provider: 11/20/22 09:45 Source: patient Mode of arrival: ambulatory Limitations: no limitations History of Present Illness HPI narrative: Patient is a 57 year old female with history of back pain, left medial meniscus tear, hyperlipidemia presenting with pain in her left knee and bosch after tr ipping and falling over a tree root yesterday and landing on her butt. She denies headstrike and loss of consciousness when she fell. She denies additional symptoms at this time including chest pain, palpitations, abdominal pain, nausea, vomiting, dizziness, lightheadedness, numbness. tingling. Not on blood thinenrs. Related Data Home Medications Medication Instructions Recorded Confirmed cholecalciferol (vitamin D3) 50 1 tab PO DAILY 07/17/21 10/06/21 mcg (2,000 unit) tablet levothyroxine 100 mcg tablet 1 tab PO MOTUWETHFR@06 07/17/21 10/06/21 simvastatin 40 mg tablet 1 tab PO QPM 07/17/21 10/06/21 Previous Rx's Medication Instructions Recorded miconazole nitrate 2 % topical 1 appl topical BID 2 weeks #85 05/29/22 powder grams pantoprazole 40 mg tablet,delayed 40 mg PO DAILY #14 tabs 08/15/22 release (Protonix) ketorolac 10 mg tablet 10 mg PO TID PRN pain 5 days #15 11/20/22 tabs Allergies Allergy/AdvReac Type Severity Reaction Status Date / Time No Known Allergies Allergy Verified 11/20/22 09:06 [No Known Allergies*] Review of Systems Review of Systems: Constitutional : No Weight loss, No Fever, No Chills, No Fatigue, No Malaise Cardiovascular : No Chest Pain, No SOB, No Dyspnea on Exertion, No Orthopnea, No Edema, No Palpitations Respiratory : No Cough, No Sputum, No Wheezing Gastrointestinal : No Nausea, No Vomiting, No Diarrhea, No Constipation, No abdominal Pain, No Hematochezia, No Melena Genitourinary : No Dysuria, No Urinary Frequency, No Hematuria, Musculoskeletal : + joint pain, + Myalgias, No Joint Swelling Skin : No Skin Lesions, No rash Neuro : No Weakness, No Numbness, No Dizziness, No Headache Psych : No Anxiety/Panic, No Depression All other systems reviewed and are negative Yes all other systems are reviewed and are negative [facility] Past Medical History Attestation statement: The following information was validated with the patient. Source: old records reviewed and nursing notes reviewed Medical History (Updated 11/20/22 @ 10:37 by JANA Roth) Back pain High cholesterol Hypothyroid Uterine cancer Surgical History H/O abdominal hysterectomy History of reversal of tubal ligation Hx of colonoscopy Tubal ligation status Family History Family History Sister Uterine cancer Social History Social History (Updated 09/04/22 @ 08:57 by Nayeli Mcdaniel CMA) Household Members: None Housing: Apartment Do you presently have visiting nurse or other home services: No Alcohol intake: current Alcohol intake frequency: a few times a month Patient Tobacco Use Status: Former Tobacco user Advance Directives: Yes Advance Directives on File: Yes Advance Directives Date on File: 07/26/21 service: No Current occupational status: unemployed 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 Oriented X3.? No acute distress.? Head: Normocephalic, atraumatic, no step-offs or deformities Eyes: Pupils equal, round and reactive to light.? CVS: Normal heart rate and rhythm.? Pulses normal.? Respiratory: No respiratory distress.? Breath sounds normal.? Abdomen: Soft and nontender.? Skin: Skin warm and dry.? Normal skin color.? Normal skin turgor.? Extremities: No lower extremity edema, negative jose alberto b/l.? + left knee ttp. + left proximal bosch pain ttp. 5/5 strength to bilateral upper and lower extremities Neuro: Oriented X 3.? No motor deficit.? No sensory deficit. CN 2-12 intact Course Reevaluation(s) Reevaluation #1: XR demonstrating Medications Administered Discontinued Medications Generic Name Dose Route Start Last Admin Trade Name Freq PRN Reason Stop Dose Admin Ketorolac Tromethamine 30 mg 11/20/22 09:57 11/20/22 11:01 Ketorolac Tromethamine 15 Mg/Ml Vial IM 11/20/22 09:58 30 mg ONCE ONE Administration Medical Decision Making Medical Decision Making [facility] Narrative: 1000 Patient is a 57 year old female presenting with pain in her left knee and bosch after tripping and falling over a tree root yesterday. Physical exam significant for tenderness to palpation over anterior knee and bosch with radiation of pain to posterior aspects of knee and calf. Differential diagnosis includes most likely sprain or strain, traumatic ecchymosis vs fracture. Unlikely cellulitis, osteomyelitis. Neurovascular exam intact, no evidence of acute threat to limb. Plan imaging. Differential Diagnosis Differential Diagnoses: The differential diagnosis associated with the presentation includes Differential diagnosis includes most likely sprain or strain, traumatic ecchymosis vs fracture. Unlikely cellulitis, osteomyelitis. Neurovascular exam intact, no evidence of acute threat to limb. Admission/Observation Consideration of admission/observation: Escalation of care including admission/observation considered unlikely Independent Interpretation I performed an independent interpretation of an: Plain X-Ray Radiology Impression Discussion of test interpretation with radiology: I have reviewed the radiologist's reading. External Record Review External record reviewed: Inpatient record, Office record, Outpatient record, Prior outpatient labs, Prior outpatient radiology, Primary care record and Outside ED record Core Measures AMI core measures followed: Yes Measure exclusions: not indicated Discharge Plan Discharge Clinical Impression: Knee pain, left, Pain in left bosch Patient Disposition: Home, Self-Care Instructions: Knee Pain (ED), Arthralgia (ED) Additional Instructions: Take your medications as prescribed. If you were prescribed antibiotics today, it is important that you take your medication to their entirety, do not skip any doses, do not finish them early. Follow-up with your primary care provider this week. Follow-up with the orthopedic team. Return to the emergency department with new or worsening symptoms. In case of emergency call 911 Your x-rays are pending, I will call you if there was something abnormal on them. [place] tamiko medicamentos seg?n lo prescrito. Si le recetaron antibi?ticos hoy, es importante que tome love medicamento en love totalidad, no se salte ninguna dosis, no los termine antes de tiempo. Seguimiento con love proveedor de atenci?n primaria esta semana. Seguimiento con el equipo de ortopedia. Regrese al departamento de emergencias con s?ntomas nuevos o que empeoran. En stacey de emergencia llama al 911 Tus radiograf?as est?n pendientes, te llamar? si hubiera algo anormal en ellas. Prescriptions: New ketorolac 10 mg tablet 10 mg PO TID PRN (Reason: pain) 5 Days Qty: 15 0RF No Action miconazole nitrate 2 % powder 1 appl topical BID 14 Days Qty: 85 0RF simvastatin 40 mg tablet 1 tab PO QPM levothyroxine 100 mcg tablet 1 tab PO MOTUWETHFR@06 cholecalciferol (vitamin D3) 50 mcg (2,000 unit) tablet 1 tab PO DAILY pantoprazole [Protonix] 40 mg tablet,delayed release (DR/EC) 40 mg PO DAILY Qty: 14 0RF Referrals: [facility] – [place] [facility] [Provider Group] - 1 week Kash,BENJAMIN Denton [Primary Care Provider] - 2 days Stand Alone Forms: Work/School Release
[2022-11-20] MEDS: Ketorolac Tromethamine 15 MG/ML VIAL 30 MG IM (11:01)
== END 2022-11-20 12:12 | disposition home or self-care (01) ==
PROVIDERS: Emergency Provider Student in an Organized Health Care Education/Training Program; PCP Registered Nurse
DX: M25.562 Pain in left knee (principal); M79.10 Myalgia, unspecified site; Z79.899 Other long term (current) drug therapy
CPT/HCPCS: 73564; 73590; 96372; 99284; J1885

== ENCOUNTER 2022-12-19 08:09 | Outpatient (REF) | payer MEDICAID, SELFPAY ==
[2022-12-19 12:03] LABS: Alanine Aminotransferase 13 U/L (0-31); Albumin Level 3.9 g/dL (3.5-5.0); Alkaline Phosphatase 82 U/L (39-117); Aspartate Amino Transferase 14 U/L (5-31); Bilirubin Direct 0.2 mg/dL (0.0-0.5); Bilirubin Total 0.5 mg/dL (0.0-1.0); Total Protein 6.9 g/dL (6.5-8.0)
== END 2022-12-19 08:10 | disposition home or self-care (01) ==
LOC: HO.HHCL 08:09
PROVIDERS: Visit Provider Registered Nurse
DX: Z00.00 Encounter for general adult medical examination without abnormal findings (principal)
CPT/HCPCS: 36415; 80076

== ENCOUNTER 2022-12-22 11:38 | Outpatient (REF) | payer MEDICAID, SELFPAY ==
[2022-12-25 09:10] LABS: HBS Num1 0.36 mIU/mL (0-7.99); HBc Num1 0.07 S/CO (0.00-0.79); HBsAGNum1 0.36 S/CO (0.00-0.99); Hepatitis A Antibody IgM 0.17 Index (0-0.79); Hepatitis B Core Antibody Nonreactive (Nonreactive); Hepatitis B Surface Antigen Negative (Negative); ~HepC Num1 0.06 S/CO (0.00-0.79); ~Hepatitis A Antibody IgM Nonreactive (Nonreactive); ~Hepatitis B Surface Antibody NONREACTIVE (Nonreactive); ~Hepatitis C Antibody Nonreactive (Nonreactive)
== END 2022-12-22 11:39 | disposition home or self-care (01) ==
LOC: HO.HHCL 11:38
PROVIDERS: Visit Provider Registered Nurse
DX: Z00.00 Encounter for general adult medical examination without abnormal findings (principal)
CPT/HCPCS: 36415; 86704; 86706; 86709; 86803; 87340

== ENCOUNTER 2023-01-30 07:22 | Outpatient (REF) | payer MEDICAID, SELFPAY ==
--- NOTE | ~2023-01-30 | XR_ITS ---
EXAMINATION: X-RAY KNEE AP STANDING X-RAY LEFT KNEE CLINICAL INFORMATION: Pain. COMPARISON: Radiograph left knee 11/20/2022. TECHNIQUE: AP bilateral standing view of the knees was obtained. Single sunrise view of the left knee was obtained. FINDINGS: Mild joint space narrowing and subcortical sclerosis of the medial compartment in both knees. No significant osteophytes. No osseous erosions. No chondrocalcinosis. Normal patella positioning on the sunrise view. XR/XR knee standing BI IMPRESSION: Mild degenerative osteoarthritis of the medial compartment of both knees.
--- NOTE | ~2023-01-30 | XR_ITS ---
EXAMINATION: X-RAY KNEE AP STANDING X-RAY LEFT KNEE CLINICAL INFORMATION: Pain. COMPARISON: Radiograph left knee 11/20/2022. TECHNIQUE: AP bilateral standing view of the knees was obtained. Single sunrise view of the left knee was obtained. FINDINGS: Mild joint space narrowing and subcortical sclerosis of the medial compartment in both knees. No significant osteophytes. No osseous erosions. No chondrocalcinosis. Normal patella positioning on the sunrise view. XR/XR knee LT 1V IMPRESSION: Mild degenerative osteoarthritis of the medial compartment of both knees.
== END 2023-01-30 07:23 | disposition home or self-care (01) ==
LOC: HO.HOSX 07:22
PROVIDERS: Visit Provider Physician Assistant
DX: M17.12 Unilateral primary osteoarthritis, left knee (principal)
CPT/HCPCS: 73560; 73565; 99213

== ENCOUNTER 2023-01-30 07:50 | Outpatient (AMB) | payer MEDICAID, SELFPAY ==
--- NOTE | 2023-01-30 08:14 | A.OFFVIS_ITS ---
Intake Intake Visit Reasons: ov- left knee pain Intake Note: Shawna is a 57 year old female who presents today for her left knee pain, Hx of right knee , 10/14/20 KI. No hx of injections to the left knee. No hx of PT. Patient reports noticing liquid in her knee and she fell about 3 months, landing on her knee. She states she is not having pain at the moment. Patient states she would like to see if she can get her knee drained at the hospital due to having heard from someone that she was going to get and infection if she did it in the office. Allergies No Known Allergies [No Known Allergies*] Allergy (Verified 01/30/23 08:21) HPI ov- left knee pain HPI Details 57-year-old female, who is Swazi speaking, presents in the office today for an evaluation of left knee pain. The patient reports noticing liquid in the knee status post falling on her left knee 3 months ago (10/2022, on Father?s Day). She claims she is not having pain while in the office today. The patient is requesting she gets the knee drained at the hospital due to being told by someone the knee would get infected if it was drained in the office. She states she was seen by her PCP who told her the knee should be drained. She follow up and was told if it was drained it would cause an infections. She states she has no complaints with the knee while in the office today. Patient has a surgical history of a right knee arthroscopy on 10/14/[address] Zacarias. Patient denies a history of cortisone injections in the left knee. [facility] Medical History Back pain Depression GERD (gastroesophageal reflux disease) High cholesterol History of small bowel obstruction History of uterine cancer (~2003) Hypothyroid Obesity Personal history of nicotine dependence Tubular adenoma of colon (~2018) Surgical History History of cardiac cath History of colonoscopy History of left knee surgery History of reversal of tubal ligation History of total abdominal hysterectomy and bilateral salpingo-oophorectomy Family History Sister Uterine cancer Social History Household Members: None Housing: Apartment Do you presently have visiting nurse or other home services: No Alcohol intake: current Alcohol intake frequency: a few times a month Patient Tobacco Use Status: Former Tobacco user Advance Directives Date on File: 07/26/21 service: No Current occupational status: unemployed 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 Sexual orientation: Straight/Heterosexual Gender identity: Female Female Reproductive History Menstrual Age of Menarche: 8 Review of Systems Const All systems reviewed & are unremarkable except as noted in HPI and below Physical Exam Const General: cooperative and no acute distress Orientation/consciousness: patient oriented x3 Resp Effort & Inspection: normal respiratory effort and able to speak in complete sentences Cardio Peripheral pulses: Peripheral pulses 2+ throughout Skin General skin exam: no rashes or lesions noted Neuro General: patient oriented x3 Extrem Other: Left knee: Normal to inspection. No ecchymosis, erythema, or joint effusion. No tenderness to palpation to the medial or lateral joint lines. Full knee extension and flexion. Negative Siddharth's. Negative anterior draw. NVI. Assessment & Plan Assessment & Plan (1) Osteoarthritis of left knee: Code(s): M17.12 - Unilateral primary osteoarthritis, left knee Plan Ms. Mickey Betancourt is a 57-year-old female, who is Swazi speaking, presents in the office today for an evaluation of left knee pain. The patient reports noticing liquid in the knee status post falling on her left knee 3 months ago (10/2022, on Father?s Day). She claims she is not having pain while in the office today. The patient is requesting she gets the knee drained at the hospital due to being told by someone the knee would get infected if it was drained in the office. She states she was seen by her PCP who told her the knee should be drained. She follow up and was told if it was drained it would cause an infections. She states she has no complaints with the knee while in the office today. Patient has a surgical history of a right knee arthroscopy on 10/14/[address] Zacarias. Patient denies a history of cortisone injections in the left knee. I discussed with the patient that since she is not having limited ROM I would not recommend draining the fluid from the knee. The patient agrees with the plan. Follow up will be PRN, or sooner if needed. X-rays of the left knee which were obtained while in the office today and were reviewed by me, Lakeisha Peter PA-C, revealed no evidence of acute fracture or dislocation. Mild osteoarthritis. Orders: Orders XR knee LT 1V Today M25.569 - Pain in unspecified knee XR knee standing BI Today M25.569 - Pain in unspecified knee Patient Instructions: Scribed for Lakeisha Peter PA-C by [facility] medical field representative, on 01/30/2023 at 7:54 am, EST. Coding Level of Care Code New Pt Level 3 (76110) Diagnoses Osteoarthritis of left knee M17.12
== END 2023-01-30 08:33 | disposition home or self-care (01) ==
PROVIDERS: PCP Registered Nurse; Visit Provider Physician Assistant
DX: M17.12 Unilateral primary osteoarthritis, left knee (principal)
CPT/HCPCS: 99213

== ENCOUNTER 2023-03-02 12:30 | Outpatient (AMB) | payer MEDICAID, SELFPAY ==
--- NOTE | 2023-03-02 10:25 | MHC.OFFVIS ---
Intake Intake Visit Reasons: LDCT SD Allergies No Known Allergies [No Known Allergies*] Allergy (Verified 01/30/23 08:21) HPI LDCT SD HPI Details Initial visit for this 57yo former smoker with a 40PYH. Patient started smoking since age 10 for 42 years at 1ppd. She quit in 2018 . Denies marijuana use. Denies second hand smoke exposure. Denies exposure to chemicals or substances like asbestos. . Denies known family history of lung cancer. Reports personal history of uterine cancer - s/p hysterectomy in 2004. Denies chest CT in last year. . Denies recent travel outside the [place]. Denies recent respiratory illness or recent hospitalization for respiratory issues. Denies testing positive for COVID. Admits receiving COVID Vaccine. x 4. . Denies fever, chills, new/worsening cough, hemoptysis, hoarseness or dysphagia. Denies significant chest pain, significant dyspnea or unintentional weight loss. Patient Lung Cancer Screening Questionnaire reviewed with patient by provider. . Shared Decision Making Completed. Patient meets criteria. Discussed in detail with patient, the risk vs benefit of LDCT screening. Patient consents to proceed with scan. Discussed and encouraged continued smoking cessation. [facility] Medical History (Updated 02/20/23 @ 09:48 by Regina Hernandez PA-C) History of uterine cancer (~2003) History of [place] (myocardial infarction) Hypothyroid High cholesterol History of small bowel obstruction GERD (gastroesophageal reflux disease) Tubular adenoma of colon (~2017) Personal history of nicotine dependence Depression Back pain Obesity Surgical History History of cardiac cath History of colonoscopy History of left knee surgery History of total abdominal hysterectomy and bilateral salpingo-oophorectomy History of reversal of tubal ligation Family History Sister Uterine cancer Social History (Updated 03/02/23 @ 12:46 by Regina Hernandez PA-C) Household Members: None Housing: Apartment Do you presently have visiting nurse or other home services: No Alcohol intake: current Alcohol intake frequency: a few times a month Patient Tobacco Use Status: Former Tobacco user Years Smoked: onset 10yo, 1ppd x 42yrs, 40pyh - quit 2018 Advance Directives Date on File: 07/26/21 service: No Current occupational status: unemployed 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 Sexual orientation: Straight/Heterosexual Gender identity: Female Female Reproductive History Menstrual Age of Menarche: 8 Assessment & Plan Assessment & Plan (1) Personal history of nicotine dependence: Comment: (former smoker - onset 10yo, 1ppd x 42yrs, 40pyh - quit 2018) Code(s): Z87.891 - Personal history of nicotine dependence Plan: - SDM visit completed today in office. - Patient meets criteria for LDCT for lung cancer screening purposes and is asymptomatic. - Smoking cessation counseling offered. Patients can always call [phone]. - Will arrange for a LDCT scan of the chest for screening purposes at [facility]. - Risks, benefits, and alternatives were discussed in detail and the patient agrees to proceed. - Risks discussed include but are not limited to: radiation exposure, anxiety during testing and while awaiting results, false negatives, false positives and possibility of additional intervention such as further imaging or surgical procedures for benign disease. - Benefits are obviously detection of lung cancer at an early stage which can lead to improved outcomes. - Discussed the importance of screening program compliance with adherence to yearly LDCT scan as scheduled - or sooner interval scans for personalized screening regimen. - Discussed follow up plan. Our office will send a letter discussing results and if needed set up phone call and office visit based on CT findings. - Patient educated on results categorization and the management decisions for suspicious findings potentially found on the screening LDCT scan. Any patient with a Lung RADS score of 3 or 4 will be reviewed by a multidisciplinary team at [facility] to form a plan of action in regards to scan findings. - If further work up is warranted for a suspicious lung finding this will be followed by the Lung Cancer Screening program in conjunction with the Thoracic Surgery Department at [facility]. - A copy of the office note and LDCT will be sent to the patient's PCP - as well as documentation on any associated further plans of care. - Incidental findings on LDCT are the PCP's responsibility. These findings are indicated with an S finding on the LDCT Assessment. A note discussing the findings will be sent to the PCP who is then responsible for further management. - All questions answered.? Coding Level of Care Code Lung Cancer Screening G0296 Diagnoses Personal history of nicotine dependence Z87.891
== END 2023-03-02 15:00 | disposition home or self-care (01) ==
PROVIDERS: PCP Registered Nurse; Visit Provider Physician Assistant Medical
DX: Z87.891 Personal history of nicotine dependence (principal)
CPT/HCPCS: G0296

== ENCOUNTER 2023-03-02 12:54 | Outpatient (REF) | payer MEDICAID, SELFPAY ==
--- NOTE | ~2023-03-02 | CT_ITS ---
EXAMINATION: CT CHEST SCREENING CLINICAL INFORMATION: Baseline study in patient with 42 pack year smoking history, quit 5 years ago. COMPARISON: 08/15/2022 chest radiograph TECHNIQUE: Multidetector volumetric CT imaging of the chest is performed without contrast using low dose technique. Additional 2D coronal and sagittal reformatted images and axial 3D maximum intensity projection (MIP) images are generated on the CT workstation. This CT examination was performed using dose optimization techniques as appropriate, variously including the following: *Automated exposure control *Adjustment of mA and/or kV according to patient size (this includes techniques or standardized protocols for targeted exams where dose is matched to indication/reason for exam; i.e. extremities or head) *Use of iterative reconstruction technique DLP: 48 mGy-cm FINDINGS: PRECISION LATHE OPERATOR: No acute cardiopulmonary disease. LUNGS: Trachea and bronchi are patent. Mild lingular atelectasis. 4 mm left lower lobe pulmonary nodule, 6:305 MEDIASTINUM: No thyroid nodules. No pathologic lymphadenopathy. Nonenlarged heart. No pericardial effusion. Mild atherosclerotic calcifications nonaneurysmal aorta. Nonenlarged pulmonary arteries. CORONARY ARTERY CALCIFICATION: None visualized on this study. PLEURA: There is no pleural effusion. No pleural mass or thickening. AXILLA: No pathologic lymphadenopathy. UPPER ABDOMEN: Distended debris-filled stomach. OSSEOUS STRUCTURES: Mild degenerative changes. No suspicious osseous lesions. CT/CT lung screening IMPRESSION: 4 mm left lower lobe pulmonary nodule. ASSESSMENT: Lung-RADS category 2: Benign RECOMMENDATION: Routine annual low-dose CT screening in 12 months.
== END 2023-03-02 12:55 | disposition home or self-care (01) ==
LOC: HO.CT 12:54
PROVIDERS: PCP Registered Nurse; Visit Provider Physician Assistant Medical
DX: Z12.2 Encounter for screening for malignant neoplasm of respiratory organs (principal); Z87.891 Personal history of nicotine dependence
CPT/HCPCS: 71271; G0296

== ENCOUNTER 2023-05-05 09:27 | Emergency (ER) | payer MEDICAID, SELFPAY ==
--- NOTE | ~2023-05-05 | XR_ITS ---
EXAMINATION: XR CHEST CLINICAL INFORMATION: Chest pain COMPARISON: Chest radiograph 08/15/2022 TECHNIQUE: 2 views of the chest were obtained. FINDINGS: Clear lungs. Minimal right apical pleural-parenchymal scarring. No pleural effusion or pneumothorax. Cardiomediastinal silhouette is unchanged. XR/XR chest 2V IMPRESSION: No acute cardiopulmonary abnormality.
--- NOTE | ~2023-05-05 | XR_ITS ---
EXAMINATION: XR ABDOMEN KUB CLINICAL INDICATION: Epigastric pain, history of bowel obstruction COMPARISON: None available. TECHNIQUE: AP upright view of the abdomen. FINDINGS: The bowel gas pattern is normal with no evidence of ileus or obstruction. Suggestion of hepatomegaly. No pneumoperitoneum identified. No unusual soft tissue calcifications are noted. XR/XR KUB IMPRESSION: Nonobstructing bowel gas pattern.
--- NOTE | 2023-05-05 09:29 | ECG_ITS ---
Test Reason : EPIGASTRIC PAIN Blood Pressure : / mmHG Vent. Rate : 073 BPM Atrial Rate : 073 BPM P-R Int : 158 ms QRS Dur : 092 ms QT Int : 392 ms P-R-T Axes : 050 026 019 degrees QTc Int : 431 ms Normal sinus rhythm Possible Left atrial enlargement Borderline ECG When compared with ECG of 15-AUG-2022 10:40, Nonspecific T wave abnormality no longer evident in Anterior leads Referred By: Generic ED Physician Electronically Signed By:JUAN MANUEL GRIER MD
[2023-05-05 09:31] VITALS: BP 146/78; PULSE 72; O2SAT 99
[2023-05-05 09:33] VITALS: BP 147/67; PULSE 68; RESP 18; TEMP 37.1; O2SAT 98; BMI 35.2
[2023-05-05 09:57] LABS: MANUAL DIFF FLAG NO
[2023-05-05 09:58] LABS: Basophils Percent Auto 0.4 % (0-2); Eosinophils Absolute Auto 0.1 X10*3/uL (0.0-0.4); Eosinophils Percent Auto 0.5 % (0-4); Hematocrit 39.5 % (37.0-47.0); Hemoglobin 13.5 g/dl (12.0-16.0); Imm Gran Abs Auto 0.03 X10*3/uL (0.00-0.03); Imm Gran Pct Auto 0.3 % (0.0-0.4); Lymphocytes Absolute Auto 1.7 X10*3/uL (1.2-4.9); Lymphocytes Percent Auto 15.6 % (20-40); Mean Corpuscular HGB Conc 34.2 g/dl (31.0-35.0); Mean Corpuscular Hemoglobin 27.6 pg (27.0-33.0); Mean Corpuscular Volume 80.8 fL (80.0-98.0); Mean Platelet Volume 10.3 fL (9.4-12.3); Monocytes Absolute Auto 0.5 X10*3/uL (0.1-1.2); Monocytes Percent Auto 4.9 % (2-11); Neutrophils Absolute Auto 8.6 x10*3/uL (2.0-8.3); Neutrophils Percent Auto 78.3 % (45-73); Platelet Count 241 X10*3/uL (160-400); Red Blood Count 4.89 X10*6/uL (4.20-5.50)
[2023-05-05 10:31] LABS: Alanine Aminotransferase 15 U/L (0-31); Albumin Level 4.3 g/dL (3.5-5.0); Alkaline Phosphatase 82 U/L (39-117); Anion Gap 15 (12-20); Aspartate Amino Transferase 17 U/L (5-31); Bilirubin Direct 0.1 mg/dL (0.0-0.5); Bilirubin Total 0.5 mg/dL (0.0-1.0); Blood Urea Nitrogen 9 mg/dL (9-16); Calcium 9.6 mg/dL (8.4-10.2); Carbon Dioxide 25 mmol/L (22-29); Chloride 106 mmol/L (96-108); Creatinine Clr Calc Pharmacy 67.5; Estimated Glomerular Filt Rate > 60; Glucose Random 106 mg/dL (60-115); Lipase 17 U/L (8-78); Potassium 4.6 mmol/L (3.3-5.1); Sodium 141 mmol/L (135-145); Total Protein 7.9 g/dL (6.5-8.0)
[2023-05-05 11:33] VITALS: BP 141/69; PULSE 65; RESP 16; TEMP 37.2; O2SAT 98
[2023-05-05 11:39] LABS: Appearance Urine Clear; Color Urine Yellow; Glucose Urine UA Negative (Negative); Leukocyte Esterase Urine Negative (Negative); Nitrite Urine Negative (Negative); PH 5.5 (5.0-9.0); Specific Gravity - Urine <= 1.005 (1.005-1.025); Urine Blood Negative (Negative); Urine Ketones Negative (Negative); Urine Protein Negative (Neg-Trace)
--- NOTE | 2023-05-05 11:57 | ED_ITS ---
HPI - General Adult General Chief complaint: Abdominal Pain Stated complaint: EPIGASTRIC PAIN Time Seen by Provider: 05/05/23 11:15 Source: patient and interpreter for the deaf Mode of arrival: EMS Limitations: language barrier History of Present Illness HPI narrative: Patient is a 57-year-old Kyrgyz-speaking female with history of FL, uterine cancer, hypothyroid, high cholesterol, partial SBO, GERD presenting to the emergency department with complaint epigastric pain which woke her around midnight. Denies nausea or vomiting. Denies diarrhea or constipation. States pain is now beginning to radiate into her chest. Reports associated shortness of breath. Denies cough or fever. Did not take any [id number] medications for her symptoms at home. Reports she recently had dose of levothyroxine changed. MD complaint: epigastric/chest pain Onset (ago): hour(s) Location: chest and abdomen Radiation: other (from epigastric area to chest) Severity scale (1-10): 5 Quality: burning Pain Consistency: constant Relieving factors: none Exacerbating factors: none Associated symptoms: shortness of breath Treatments prior to arrival: none Related Data Home Medications Medication Instructions Recorded Confirmed cholecalciferol (vitamin D3) 50 1 tab PO DAILY 07/17/21 10/06/21 mcg (2,000 unit) tablet levothyroxine 100 mcg tablet 1 tab PO MOTUWETHFR@06 07/17/21 10/06/21 simvastatin 40 mg tablet 1 tab PO QPM 07/17/21 10/06/21 Previous Rx's Medication Instructions Recorded miconazole nitrate 2 % topical 1 appl topical BID 2 weeks #85 05/29/22 powder grams pantoprazole 40 mg tablet,delayed 40 mg PO DAILY #14 tabs 08/15/22 release (Protonix) ketorolac 10 mg tablet 10 mg PO TID PRN pain 5 days #15 11/20/22 tabs Allergies Allergy/AdvReac Type Severity Reaction Status Date / Time No Known Allergies Allergy Verified 05/05/23 09:35 [No Known Allergies*] Review of Systems 2 Review of Systems: As per HPI. Yes all other systems are reviewed and are negative Constitutional: Constitutional: Reports as per HPI [facility] Past Medical History Medical History (Updated 05/05/23 @ 16:05 by Norma Diallo NP) History of uterine cancer (~2003) History of [place] (myocardial infarction) Hypothyroid High cholesterol History of small bowel obstruction GERD (gastroesophageal reflux disease) Tubular adenoma of colon (~2018) Personal history of nicotine dependence Depression Back pain Obesity Surgical History History of cardiac cath History of colonoscopy History of left knee surgery History of total abdominal hysterectomy and bilateral salpingo-oophorectomy History of reversal of tubal ligation Family History Family History Sister Uterine cancer Social History Social History (Updated 03/02/23 @ 12:46 by Regina Hernandez PA-C) Household Members: None Housing: Apartment Do you presently have visiting nurse or other home services: No Alcohol intake: current Alcohol intake frequency: a few times a month Comment: medicated, see MAR Patient Tobacco Use Status: Former Tobacco user Years Smoked: onset 10yo, 1ppd x 42yrs, 40pyh - quit 2017 Advance Directives: Yes Advance Directives on File: Yes Advance Directives Date on File: 07/26/21 service: No Current occupational status: unemployed 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 Blood pressure elevated. Heart rate normal. Respiratory rate normal. Temperature normal. Oxygen saturation normal. Const General: cooperative, healthy appearing and no acute distress Orientation/consciousness: oriented to person, oriented to place, oriented to time and patient oriented x3 Limitations: no limitations HENMT Head: Yes normocephalic and Yes atraumatic Ears: external ears normal General nose exam: Normal external nose present Face and sinus: Yes face symmetric Mouth: oropharynx normal and moist mucous membranes Throat: Yes uvula midline Eyes Pupils: Equal, round and reactive pupils present Neck Neck: Yes normal visual inspection and Yes supple Resp Effort & Inspection: normal respiratory effort and able to speak in complete sentences Auscultation: clear to auscultation bilaterally Cardio Rate: regular rate Rhythm: regular rhythm Heart sounds: S1 normal heart sound present and S2 normal heart sound present GI Palpation (GI): Soft to palpation and nontender Auscultation: normoactive bowel sounds General: Yes no CVA tenderness Back/Spine/Pelvis Back: no CVA tenderness Skin General skin exam: elasticity normal and turgor normal Neuro General: oriented to person, oriented to place, oriented to time, patient oriented x3, moves all extremities, no focal motor deficits and CN's II-XI intact bilaterally Cranial nerves: Yes Equal, round and reactive pupils present Cognition (Neuro): normal cognition Extrem General: Yes full ROM, Yes no pedal edema and Yes no calf tenderness Psych Mental Status: mental status grossly normal Affect: normal affect Thought process: Normal thought process present Medications Administered Discontinued Medications Generic Name Dose Route Start Last Admin Trade Name Danisq PRN Reason Stop Dose Admin Al Hydroxide/Mg Hydroxide 30 ml 05/05/23 12:22 05/05/23 12:35 Magnesium Hydrox/Alum Hydrox 30 Ml Oral.Susp PO 05/05/23 12:23 30 ml ONCE ONE Administration Aspirin 324 mg 05/05/23 12:22 05/05/23 12:35 Aspirin 81 Mg Tab.Chew PO 05/05/23 12:23 324 mg ONCE ONE Administration Lidocaine HCl 5 ml 05/05/23 12:22 05/05/23 12:36 Lidocaine Hcl Viscous 2 % 15 Ml Solution MUCOUS MEM 05/05/23 12:23 5 ml ONCE ONE Administration Medical Decision Making Medical Decision Making [facility] Narrative: Patient is a 57-year-old Kyrgyz-speaking female with history of FL, uterine cancer, hypothyroid, high cholesterol, partial SBO, GERD presenting to the emergency department with complaint epigastric pain which woke her around midnight. On exam patient is awake, A+Ox3, BP elevated, VS otherwise WNL, afebrile, normal neurological exam without focal deficits, physical exam findings as above. Given reported symptoms and physical exam findings, initial differential includes ACS, GERD, PUD, less likely SBO but given history will get KUB. Labs notable for initial troponin negative, will obtain repeat in 3 hours, slight leukocytosis, no anemia, no significant electrolyte abnormalities or elevation of LFTs, no ALICE. Repeat troponin stable. HEART score of 3. EKG shows normal sinus rhythm. X-ray chest notable for no acute abnormality, no evidence of obstruction on KUB. My interpretation is in agreement with the radiologist's interpretation. Patient reports full resolution of discomfort with medications administered in the emergency department. Feel patient is stable for discharge home. Instructed patient to follow up with PCP. Return precautions discussed. Patient verbalized understanding of and agreement with plan. Differential Diagnosis Differential Diagnoses: The differential diagnosis associated with the presentation includes As per [facility]. Admission/Observation Consideration of admission/observation: Escalation of care including admission/observation considered Lab Data [facility] Lab Attestation statement: I reviewed the patient's lab results. As per [facility] 05/05/23 09:53 05/05/23 09:53 Labs: Lab Results 05/05/23 05/05/23 05/05/23 Range/Units 09:52 09:53 11:30 WBC 11.0 H (4.8-10.8) X10*3/uL RBC 4.89 (4.20-5.50) X10*6/uL Hgb 13.5 (12.0-16.0) g/dl Hct 39.5 (37.0-47.0) % MCV 80.8 (80.0-98.0) fL MCH 27.6 (27.0-33.0) pg MCHC 34.2 (31.0-35.0) g/dl RDW 14.0 (11.0-16.0) % Plt Count 241 D (160-400) X10*3/uL MPV 10.3 (9.4-12.3) fL Immature Gran % (Auto) 0.3 (0.0-0.4) % Neut % (Auto) 78.3 H (45-73) % Lymph % (Auto) 15.6 L (20-40) % Pike % (Auto) 4.9 (2-11) % Eos % (Auto) 0.5 (0-4) % Baso % (Auto) 0.4 (0-2) % Lymph # (Auto) 1.7 (1.2-4.9) X10*3/uL Pike # (Auto) 0.5 (0.1-1.2) X10*3/uL Eos # (Auto) 0.1 (0.0-0.4) X10*3/uL Baso # (Auto) 0.0 (0.0-0.2) X10*3/uL Abs Immat Gran (auto) 0.03 (0.00-0.03) X10*3/uL Absolute Neuts (auto) 8.6 H (2.0-8.3) x10*3/uL Absolute Nucleated RBC 0.000 (0.0-0.012) X10*3/uL Nucleated RBC % (auto) 0.0 (0.0-0.2) /100WBC Sodium 141 (135-145) mmol/L Potassium 4.6 D (3.3-5.1) mmol/L Chloride 106 (96-108) mmol/L Carbon Dioxide 25 (22-29) mmol/L Anion Gap 15 (12-20) BUN 9 (9-16) mg/dL Creatinine 0.85 (0.5-1.4) mg/dL Estim Creat Clear Calc 67.5 Estimated GFR > 60 Random Glucose 106 (60-115) mg/dL Calcium 9.6 D (8.4-10.2) mg/dL Total Bilirubin 0.5 (0.0-1.0) mg/dL Direct Bilirubin 0.1 (0.0-0.5) mg/dL AST 17 (5-31) U/L ALT 15 (0-31) U/L Alkaline Phosphatase 82 (39-117) U/L Troponin I High Sens 11.5 (<3.5-17.0) ng/L Total Protein 7.9 (6.5-8.0) g/dL Albumin 4.3 (3.5-5.0) g/dL Lipase 17 (8-78) U/L Urine Color Yellow Urine Appearance Clear Urine pH 5.5 (5.0-9.0) Ur Specific [place] <= 1.005 (1.005-1.025) Urine Protein Negative (Neg-Trace) mg/dL Urine Glucose (UA) Negative (Negative) mg/dL Urine Ketones Negative (Negative) mg/dL Urine Blood Negative (Negative) Urine Nitrite Negative (Negative) Ur Leukocyte Esterase Negative (Negative) 05/05/23 Range/Units 14:56 WBC (4.8-10.8) X10*3/uL RBC (4.20-5.50) X10*6/uL Hgb (12.0-16.0) g/dl Hct (37.0-47.0) % MCV (80.0-98.0) fL MCH (27.0-33.0) pg MCHC (31.0-35.0) g/dl RDW (11.0-16.0) % Plt Count (160-400) X10*3/uL MPV (9.4-12.3) fL Immature Gran % (Auto) (0.0-0.4) % Neut % (Auto) (45-73) % Lymph % (Auto) (20-40) % Pike % (Auto) (2-11) % Eos % (Auto) (0-4) % Baso % (Auto) (0-2) % Lymph # (Auto) (1.2-4.9) X10*3/uL Pike # (Auto) (0.1-1.2) X10*3/uL Eos # (Auto) (0.0-0.4) X10*3/uL Baso # (Auto) (0.0-0.2) X10*3/uL Abs Immat Gran (auto) (0.00-0.03) X10*3/uL Absolute Neuts (auto) (2.0-8.3) x10*3/uL Absolute Nucleated RBC (0.0-0.012) X10*3/uL Nucleated RBC % (auto) (0.0-0.2) /100WBC Sodium (135-145) mmol/L Potassium (3.3-5.1) mmol/L Chloride (96-108) mmol/L Carbon Dioxide (22-29) mmol/L Anion Gap (12-20) BUN (9-16) mg/dL Creatinine (0.5-1.4) mg/dL Estim Creat Clear Calc Estimated GFR Random Glucose (60-115) mg/dL Calcium (8.4-10.2) mg/dL Total Bilirubin (0.0-1.0) mg/dL Direct Bilirubin (0.0-0.5) mg/dL AST (5-31) U/L ALT (0-31) U/L Alkaline Phosphatase (39-117) U/L Troponin I High Sens 11.3 (<3.5-17.0) ng/L Total Protein (6.5-8.0) g/dL Albumin (3.5-5.0) g/dL Lipase (8-78) U/L Urine Color Urine Appearance Urine pH (5.0-9.0) Ur Specific [place] (1.005-1.025) Urine Protein (Neg-Trace) mg/dL Urine Glucose (UA) (Negative) mg/dL Urine Ketones (Negative) mg/dL Urine Blood (Negative) Urine Nitrite (Negative) Ur Leukocyte Esterase (Negative) Independent Interpretation I performed an independent interpretation of an: EKG (Normal sinus rhythm, 73 beats per minute, normal HI and QT intervals.) and Plain X-Ray Interpretation: No acute abnormality on chest x-ray No evidence of obstruction on KUB Radiology Impression Discussion of test interpretation with radiology: I have reviewed the radiologist's reading. Radiologist Impression: XR/XR KUB IMPRESSION: Nonobstructing bowel gas pattern. XR/XR chest 2V IMPRESSION: No acute cardiopulmonary abnormality. External Record Review External record reviewed: Inpatient record, Office record and Outpatient record Scores Heart Score History: -0- slightly suspicious ECG: -1- non specific repolarization disturbance Age: -1- >45 - <65 Risk factory: -1- 1 or 2 risk factors Troponin: -0- < or = normal limit Score: 3 Risk: 1.7% Discharge Plan Discharge Clinical Impression: Acute epigastric pain, Atypical chest pain Patient Disposition: Home, Self-Care Instructions: Epigastric Pain (ED), Chest Pain (DC) Additional Instructions: You were evaluated in the emergency department today for epigastric and chest pain. Your evaluation has shown no signs of medical conditions requiring emergent intervention at this time, however we recommend that you follow-up with your primary care physician or your living manager as soon as possible for further testing as an outpatient. Please schedule an appointment for follow-up with your primary care physician as soon as possible. Return to the emergency department if you experience worsening or uncontrolled chest pain, shortness of breath, lightheadedness, feeling faint, loss of consciousness, nausea, vomiting, or any other concerning symptoms. Prescriptions: No Action miconazole nitrate 2 % powder 1 appl topical BID 14 Days Qty: 85 0RF simvastatin 40 mg tablet 1 tab PO QPM levothyroxine 100 mcg tablet 1 tab PO MOTUWETHFR@06 cholecalciferol (vitamin D3) 50 mcg (2,000 unit) tablet 1 tab PO DAILY pantoprazole [Protonix] 40 mg tablet,delayed release (DR/EC) 40 mg PO DAILY Qty: 14 0RF ketorolac 10 mg tablet 10 mg PO TID PRN (Reason: pain) 5 Days Qty: 15 0RF
[2023-05-05] MEDS: Magnesium Hydrox/Alum Hydrox 30 ML ORAL.SUSP PO (12:35)
[2023-05-05] MEDS: Aspirin 81 MG TAB.CHEW 324 MG PO (12:35)
[2023-05-05] MEDS: Lidocaine HCl Viscous 2 % 15 ML SOLUTION 5 ML MUCOUS MEM (12:36)
[2023-05-05 12:40] VITALS: BP 136/78; PULSE 68; RESP 19; O2SAT 98
[2023-05-05 12:42] LABS: Troponin-I High Sensitivity 11.5 ng/L (<3.5-17.0)
[2023-05-05 13:51] VITALS: BP 134/73; PULSE 65; RESP 12; TEMP 36.9; O2SAT 98
[2023-05-05 15:24] LABS: Troponin-I High Sensitivity 11.3 ng/L (<3.5-17.0)
--- NOTE | 2023-05-05 15:26 | PC.NURSE ---
this nurse obtained report from romulo and took over care of patient at 3pm, patient a&ox3, c/o mild epigastric pain, pt awaiting results of 2nd troponin and of imaging, vitals previously stable, call [place] within reach, will continue to monitor
== END 2023-05-05 16:53 | disposition home or self-care (01) ==
PROVIDERS: Registered Nurse Emergency; Emergency Provider Emergency Medicine
DX: R10.13 Epigastric pain (principal); R07.89 Other chest pain; R06.02 Shortness of breath; E78.5 Hyperlipidemia, unspecified; K21.9 Gastro-esophageal reflux disease without esophagitis; Z87.891 Personal history of nicotine dependence; Z85.42 Personal history of malignant neoplasm of other parts of uterus; Z79.02 Long term (current) use of antithrombotics/antiplatelets; Z79.899 Other long term (current) drug therapy
CPT/HCPCS: 36415; 71046; 74018; 80048; 80076; 81003; 83690; 84484; 85025; 93005; 99283; 99284

== ENCOUNTER → 2023-05-05 09:29 | Outpatient (BNV) | payer MEDICAID, SELFPAY | PROVIDERS: Emergency Provider Emergency Medicine; Visit Provider Internal Medicine Cardiovascular Disease | DX: R10.13 Epigastric pain (principal) | CPT/HCPCS: 93010 ==

== ENCOUNTER 2023-07-24 09:30 | Outpatient (REF) | payer MEDICAID, SELFPAY | END 2023-07-24 09:31 | disposition home or self-care (01) | LOC: HO.HAP 09:30 | PROVIDERS: Visit Provider Internal Medicine Geriatric Medicine | DX: Z13.89 Encounter for screening for other disorder (principal) ==

== ENCOUNTER 2023-07-25 08:50 | Outpatient (REF) | payer MEDICAID, SELFPAY | END 2023-07-25 08:51 | disposition home or self-care (01) | LOC: HO.HAP 08:50 | PROVIDERS: Visit Provider Nurse Practitioner Family | DX: Z46.1 Encounter for fitting and adjustment of hearing aid (principal) | CPT/HCPCS: 92593; 99499 ==

== ENCOUNTER 2023-08-07 10:25 | Outpatient (AMB) | payer MEDICAID, SELFPAY ==
--- NOTE | 2023-08-07 10:32 | A.OFFVIS_ITS ---
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 She states that has had a myocardial infarction several years ago, possibly decade but not clear. Apparently at that time she was in [place]. She describes a diagnostic catheterization but unknown findings. Recently, she was in the ER for epigastric pain and at that time she also had some chest pain apparently. She still gets some episodes of chest discomfort off and on. According to her, this happens when she is agitated. 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 With activity, she states she gets tired. She is here for further evaluation. [facility] Medical History (Updated 08/07/23 @ 10:42 by Toan Lucero MD) History of uterine cancer (~2003) History of [place] (myocardial infarction) Hypothyroid High cholesterol History of small bowel obstruction GERD (gastroesophageal reflux disease) Tubular adenoma of colon (~2017) Personal history of nicotine dependence Depression Back pain Obesity Surgical History History of cardiac cath History of colonoscopy History of left knee surgery History of total abdominal hysterectomy and bilateral salpingo-oophorectomy History of reversal of tubal ligation Family History Sister Uterine cancer Social History Household Members: None Housing: Apartment Do you presently have visiting nurse or other home services: No Alcohol intake: current Alcohol intake frequency: a few times a month Comment: medicated, see MAR Patient Tobacco Use Status: Former Tobacco user Years Smoked: onset 10yo, 1ppd x 42yrs, 40pyh - quit 2017 Advance Directives Date on File: 07/26/21 service: No Current occupational status: unemployed 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 Sexual orientation: Straight/Heterosexual Gender identity: Female Female Reproductive History Menstrual Age of Menarche: 8 Review of Systems Const Denies chills, Denies daytime sleepiness, Denies fatigue, Denies fever(s), Denies frequent falls, Denies night sweats, Denies snoring, Denies weakness, Denies weight gain and Denies weight loss Eyes Denies loss of vision ENT Denies dizziness and Denies hearing loss Card Denies chest pain, Denies chest pain with activity, Denies syncope, Denies rapid heart rate, Denies edema, Denies claudication, Denies leg edema, Denies lightheadedness, Denies palpitations, Denies dyspnea, Denies dyspnea on exertion and Denies orthopnea Resp Denies cough, Denies excessive phlegm production, Denies dyspnea, Denies dyspnea on exertion, Denies snoring and Denies wheezing GI Denies abdominal pain, Denies hematochezia, Denies change in bowel habits, Denies change in stool character, Denies heartburn, Denies nausea and Denies vomiting Denies hematuria, Denies urinary frequency and Denies dysuria Musc Denies arthralgias, Denies muscle weakness, Denies numbness and Denies tingling Skin/Breast Denies nail changes and Denies rash Neuro Denies Abnormal speech present, Denies dizziness, Denies syncope, Denies frequent falls, Denies loss of vision, Denies memory loss, Denies numbness, Denies tingling and Denies weakness Psych Denies depression and Denies memory loss Endo Denies fatigue and Denies palpitations Aller/Immun Denies wheezing Physical Exam Vital Signs: Last Vital Signs Pulse 64 08/07/23 10:33 BP 118/60 08/07/23 10:33 BMI result Body Mass Index 38.3 Const General: comfortable and no acute distress Orientation/consciousness: patient oriented x3 HEENT Other: Unremarkable Head: Yes normal to inspection Neck Neck: Yes normal visual inspection Chest Chest palpation & inspection: normal inspection of the chest Resp Auscultation: clear to auscultation bilaterally Cardio Palpation: normal PMI Heart sounds: S1 normal heart sound present, S2 normal heart sound present, no gallops, Murmur heart sound present systolic II/ and at the right sternal border and no rubs GI Palpation (GI): Soft to palpation Back/Spine/Pelvis Other: unremarkable Skin General skin exam: no rashes or lesions noted Neuro General: patient oriented x3 Speech: No Abnormal speech present Extrem General: Yes normal to inspection Psych Mental Status: mental status grossly normal Assessment & Plan Assessment & Plan (1) Precordial chest pain: Code(s): R07.2 - Precordial pain Plan In the recent EKG, underlying rhythm is sinus at 73/Min; possible left atrial enlargement; no significant ST-T changes and otherwise unremarkable. Normal IN and corrected QT. Several high sensitivity troponins in our system are within normal limits. Overall, atypical symptoms but patient describes history of prior myocardial infarction/cardiac catheterization with unknown findings. Will get further workup with echocardiogram and stress perfusion imaging study. Discussed with patient using customer experience specialist in person. Orders: Orders CA stress test Today R07.2 - Precordial pain CA echo transthoracic complete Today I25.10 - Atherosclerotic heart disease of [place] coronary artery without angina pectoris, R07.2 - Precordial pain NM cardiolite stress test Today R07.2 - Precordial pain Coding Level of Care Code New Pt Level 4 (40523) Diagnoses Precordial chest pain R07.2
[2023-08-07 10:33] VITALS: BP 118/60; PULSE 64; BMI 38.3
== END 2023-08-07 11:27 | disposition home or self-care (01) ==
PROVIDERS: Visit Provider Internal Medicine
DX: R07.2 Precordial pain (principal)
CPT/HCPCS: 99204

== ENCOUNTER → 2023-08-07 10:25 | Outpatient (BNVA) | payer MEDICAID, SELFPAY | PROVIDERS: Visit Provider Internal Medicine | DX: R07.2 Precordial pain (principal) | CPT/HCPCS: 99202 ==

== ENCOUNTER → 2023-08-30 13:43 | Outpatient (REF) | payer MEDICAID, SELFPAY ==
--- NOTE | 2023-08-30 13:46 | CA_ITS ---
Transthoracic Echocardiogram Patient (Last, First, Middle): Shawna Ch, Gender: Female Date of : 1965 Age: 57 Procedure Date: 08/30/2023 Procedure Type: Transthoracic Echocardiogram Location: OP Height: 152.4 cm Weight: 80.29 kg BSA: 1.77 m2 Heart Rate: bpm BP: 126 / 80 mmHg Tool Sharpener: TO Referring MD: Toan Lucero MD [facility] Nurse: Davion Larose MD Symptoms: I25.10 - Atherosclerotic heart disease of [place] coronary artery without... Study Quality: Fair/Contrast ECG Rhythm: Sinus Conclusions: - Essentially normal study Findings Procedure Information Contrast agent, definity, is being given per protocol without apparent complications. Left Ventricle Normal left ventricular size, thickness, and systolic function. The visually estimated ejection fraction is between 65-70%. There is no evidence of regional wall motion abnormalities. Spectral Doppler is indicative of a normal filling pattern. Right Ventricle Normal right ventricular cavity size and systolic function. Atria The left atrium is likely dilated. Interatrial shunt cannot be excluded. The right atrium is normal in size. Aortic Valve Normal aortic valve structure and function. There is no aortic valve stenosis. There is no aortic valve regurgitation. Mitral Valve Normal mitral valve structure and function. There is trace mitral valve regurgitation. There is no mitral valve stenosis. Pulmonic Valve The pulmonic valve is likely normal. Tricuspid Valve Normal tricuspid valve structure. There is mild tricuspid valve regurgitation. The right ventricular systolic pressure is normal. The right ventricular systolic pressure is 27 mmHg. Normal right atrial pressure. There is no evidence of pulmonary hypertension. Great Vessels All visible segments of the aorta are normal in size. The pulmonary artery was not well visualized. There is no dilatation of the ascending aorta measuring 3.10 cm. Venous The inferior vena cava is normal in size and collapses greater than 50% with inspiration. Pericardium/Pleural There is no evidence of pericardial effusion. Prior Study Comparison No prior study available for comparison. Measurements 2D Linear Measurements IVSd: 0.95 0.6-0.9/0.6-1.0 cm LVIDd: 4.59 3.9-5.3/4.2-5.9 cm LVIDd Index: 2.59 2.4-3.2/2.2-3.1 cm/m2 LVIDs: 2.59 2.0-3.6 cm LVPWd: 0.99 0.7-1.1 cm LA Diam: 3.80 2.7-3.8/3.0-4.0 cm LAIDs Index: 2.15 1.5-2.3 cm/m2 LV Mass: 187.95 67-162/88-224 g LV Mass Index: 106.19 43-95/49-115 g/m2 LVOT Diam: 2.20 3.0+(-)1.3 cm 2D Systolic Function EF 4C: 66.60 >55% Mitral Valve MV Pk E: 0.71 MV PK A: 0.57 MV Decel Time: 176.00 E/A: 1.20 E'Lateral: 9.68 E'Medial: 5.77 E/E' Med: 12.30 E/E' Lat: 7.30 PHT: 51.00 MVA PHT: 4.31 Decel Gilchrist: 4.02 Aortic Valve AoV Pk Jose Carlos: 1.39 AoV Mn Jose Carlos: 0.97 AoV VTI: 0.29 AoV Pk Grad: 8.00 Aov Mn Grad: 4.00 STEVE Cont.VTI: 3.38 LVOT LVOT Pk Jose Carlos: 1.04 LVOT Mn Jose Carlos: 0.66 LVOT VTI: 0.26 LVOT Pk Grad: 4.00 LVOT Mn Grad: 2.00 LVOT Diam: 2.20 LVOT Area: 3.80 Diastolic Function MV Pk E: 0.71 MV Pk A: 0.57 E/A: 1.20 E'Medial: 5.77 E/E' Med: 12.30 E' Laterial: 9.68 E/E' Lat: 7.30 Right Ventricle TAPSE (mm): 25.20 TVS' Jose Carlos: 10.10 Tricuspid Valve TR Pk Jose Carlos: 2.47 TR Pk Grad: 24.00 RA Press: 3.00 RVSP: 27.00 Great Vessels Aorta Sinus of Valsalva: 3.14 2.0-3.5 cm Ao Asc: 3.10 2.1-3.4 cm Ao Arch: 3.00 Updated in Other Vendor System with Status of Final Davion Larose MD electronically signed on 08/31/2023 1:13:41 PM with status of Final
== END ==
LOC: HO.CARD 13:43
PROVIDERS: Visit Provider Internal Medicine
DX: R07.2 Precordial pain (principal); I25.10 Atherosclerotic heart disease of native coronary artery without angina pectoris
CPT/HCPCS: 93306; Q9957

== ENCOUNTER → 2023-08-30 13:46 | Outpatient (BNV) | payer MEDICAID, SELFPAY | PROVIDERS: Visit Provider Internal Medicine Cardiovascular Disease | DX: I25.10 Atherosclerotic heart disease of native coronary artery without angina pectoris (principal) | CPT/HCPCS: 93306 ==

== ENCOUNTER → 2023-09-13 08:42 | Outpatient (REF) | payer MEDICAID, SELFPAY ==
--- NOTE | ~2023-09-13 | NM_ITS ---
Exercise Myocardial perfusion study Indication: Precordial pain to evaluate for myocardial ischemia Technique: The patient was brought in for an exercise perfusion study on 09/13/2023. Patient performed exercise as per Shyam protocol and was injected 30 mCi of sestamibi was given intravenously one target HR was achieved. Images were obtained using the SPECT gamma camera interlaced with the gating device. Images were obtained in supine position. Resting perfusion study was performed on 09/19/2023. Patient was administered 30 mCi of sestamibi intravenously at rest. Images were then obtained in supine position. Images obtained with and without CT attenuation. Total DLP 101 mGy-cm. Images were processed with the software and compared side to side in short axis, horizontal long axis and vertical long axis views. Findings: The stress perfusion study showed both attenuated as well as non attenuated corrected images show normal uptake of radiotracer in all segments of LV myocardium. The gated study shows normal LV systolic function with calculated LVEF of 66%. LV cavity is normal in size. The gated study shows normal systolic wall thickening and contraction of all segments. There is no transient ischemic dilation. Resting study shows no change in perfusion pattern compared to stress perfusion study. Gating at rest reveals normal systolic wall motion with ejection fraction at 59%. The findings are consistent with normal myocardial perfusion. NM/NM cardiolite stress test Impression: 1. Normal myocardial perfusion 2. Gated LVEF is 66% 3. Transient ischemic dilatation not present Stress EKG is negative for ischemia
--- NOTE | 2023-09-13 08:45 | CA_ITS ---
Acquisition Time: 2023-09-13 09:13:45 Total Exercise Time: 00:07:00 Test Indications: CP Medications: SEE H Protocol: JESÚS Max HR: 148 BPM 91% of Pred: 161 BPM Max BP: 150/090 mmHG Max Work Load: 8.5 METS Exercise stress test exercise 7 min of Jesús protocol achieving 91% MPHR, with mild to moderate SOB, no chest discomfort, with isolated PAC and PVC, with resting HTN and normotensive response to exercise, without EKG changes. Nuclear images pending. Test reviewed with Dr. Singh. Referred By: Toan Lucero Overread By: Melia Santana
== END ==
LOC: HO.CARD 08:42
PROVIDERS: Visit Provider Internal Medicine
DX: R07.2 Precordial pain (principal)
CPT/HCPCS: 78452; 93017; A9500

== ENCOUNTER → 2023-09-13 08:45 | Outpatient (BNV) | payer MEDICAID, SELFPAY | PROVIDERS: Visit Provider Nurse Practitioner | DX: R07.9 Chest pain, unspecified (principal) | CPT/HCPCS: 78452; 93016; 93018 ==

== ENCOUNTER 2023-09-18 09:50 | Outpatient (AMB) | payer MEDICAID, SELFPAY ==
--- NOTE | 2023-09-18 10:18 | MHC.OFFVIS ---
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 She is doing well with no concerns. Attempting to eat a healthy diet with calcium and vitamin D and stays active with exercise. Currently not sexually active, last year. Denies any vaginal dryness or irritation. Last mammogram; 2022. Colonoscopy is UTD. Denies any family history of breast, ovarian or colon cancer. [facility] Medical History (Updated 09/18/23 @ 10:42 by Noemy Tinajero CNM) History of uterine cancer (~2003) History of [place] (myocardial infarction) Hypothyroid High cholesterol History of small bowel obstruction GERD (gastroesophageal reflux disease) Tubular adenoma of colon (~2017) Personal history of nicotine dependence Depression Back pain Obesity Surgical History History of cardiac cath History of colonoscopy History of left knee surgery History of total abdominal hysterectomy and bilateral salpingo-oophorectomy History of reversal of tubal ligation Family History Sister Uterine cancer Social History Household Members: None Housing: Apartment Do you presently have visiting nurse or other home services: No Alcohol intake: current Alcohol intake frequency: a few times a month Comment: medicated, see MAR Patient Tobacco Use Status: Former Tobacco user Years Smoked: onset 10yo, 1ppd x 42yrs, 40pyh - quit 2018 Advance Directives Date on File: 07/26/21 service: No Current occupational status: unemployed 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 Sexual orientation: Straight/Heterosexual Gender identity: Female Female Reproductive History Menstrual Age of Menarche: 8 Menopause type: surgical Total pregnancies: 7 Full term: 4 Number of Living Children: 4 Date of Mammogram: 09/22/22 (Birad 1) Review of Systems Const All systems reviewed & are unremarkable except as noted in HPI and below Reports as per HPI Eyes Reports no additional complaints ENT Reports no additional complaints Card Reports no additional complaints Resp Reports no additional complaints GI Reports as per HPI and Reports no additional complaints Reports as per HPI Musc Reports no additional complaints Skin/Breast Reports as per HPI Neuro Reports no additional complaints Psych Reports no additional complaints Endo Reports no additional complaints Farooq/Lymph Reports no additional complaints Aller/Immun Reports no additional complaints Physical Exam Vital Signs: BMI result Body Mass Index 34.2 Const General: cooperative, healthy appearing, no acute distress, well developed and alert Orientation/consciousness: patient oriented x3 HEENT Head: Yes normal to inspection Eyes General: appearance normal, both eyes and all related structures Neck Neck: Yes normal visual inspection Thyroid: Thyroid normal Chest Chest palpation & inspection: normal inspection of the chest and other (no puckering, dimpling, peau de orange, retraction, discharge, masses) Breast/axilla inspection: normal inspection of the breasts Breast/axilla palpation: normal palpation of the breasts Resp Effort & Inspection: normal respiratory effort GI Inspection: Yes normal to inspection Palpation (GI): Soft to palpation Rectal Exam - Female: deferred General: Yes bladder normal to palpation External Female Exam: normal external appearance and normal appearance of the urethra Speculum Exam - Vagina: normal appearance of the vagina, normal palpation, normal vaginal discharge and vagina atrophic Speculum Exam - Cervix: Cervix absent (Vaginal cuff no lesions or nodules) Bimanual exam- vagina & uterus: normal bimanual exam, normal palpation, bladder normal to palpation and uterus absent Bimanual Exam- Adnexa, other: no masses Skin General skin exam: no rashes or lesions noted Rashes: no rashes Neuro General: patient oriented x3 Cognition (Neuro): normal cognition Extrem General: Yes normal to inspection Psych Attitude: cooperative Thought process: Normal thought process present Assessment & Plan Assessment & Plan (1) Encounter for well woman exam with routine gynecological exam: Code(s): Z01.419 - Encounter for gynecological examination (general) (routine) without abnormal findings Plan Discussed: Current recommendations for pap smears per ASCCP guidelines. Breast awareness, periodic self breast exams and yearly mammogram. Maintain a healthy lifestyle, well balanced diet including Calcium 1,200 mg and Vitamin D 600 IU daily, and routine exercise. Use of condoms for STI if indicated. Contact the office with any postmenopausal bleeding. Patient verbalizes understanding and agrees to the plan of care. She was given opportunity to ask questions and all questions were answered to the best of my ability. RTO in 1 year for annual ob/gyn physician exam. This note is constructed using voice recognition software. While every effort has been made to ensure accuracy, inside account executive errors may have been included. Coding Level of Care Code Est Pt Prev Care 40-64y(40378) Diagnoses Encounter for well woman exam with routine gynecological exam Z01.419
[2023-09-18 10:21] VITALS: BMI 34.2
== END 2023-09-18 10:50 | disposition home or self-care (01) ==
LOC: HO.HWS 09:50
PROVIDERS: Visit Provider Advanced Practice Midwife
DX: Z01.419 Encounter for gynecological examination (general) (routine) without abnormal findings (principal)
CPT/HCPCS: 99396

== ENCOUNTER → 2023-09-18 09:50 | Outpatient (BNVA) | payer MEDICAID, SELFPAY | PROVIDERS: Visit Provider Advanced Practice Midwife | DX: Z01.419 Encounter for gynecological examination (general) (routine) without abnormal findings (principal) | CPT/HCPCS: 99396 ==

== ENCOUNTER 2023-10-01 09:33 | Outpatient (REF) | payer MEDICAID, SELFPAY ==
--- NOTE | ~2023-10-01 | XR_ITS ---
EXAMINATION: XR KNEE, LEFT CLINICAL INFORMATION: Chronic pain of left knee. COMPARISON: 01/30/2023 TECHNIQUE: Four views of the left knee. FINDINGS: Bones have normal alignment at patellofemoral and tibiofemoral compartments. No fracture or subluxation. Again noted is tricompartmental osteophyte formation. There is chronic mild narrowing of the medial tibiofemoral joint space. Npybe-sf-fafqnvth knee joint effusion is present. XR/XR knee LT 4V IMPRESSION: * Mild tricompartmental osteoarthritis of left knee. * Small-to moderate knee joint effusion is present.
== END 2023-10-01 09:34 | disposition home or self-care (01) ==
LOC: HO.HHCX 09:33
PROVIDERS: Visit Provider Internal Medicine Geriatric Medicine
DX: M25.562 Pain in left knee (principal); G89.29 Other chronic pain; Z98.890 Other specified postprocedural states
CPT/HCPCS: 73564

== ENCOUNTER 2023-10-25 08:43 | Outpatient (REF) | payer MEDICAID, SELFPAY | END 2023-10-25 08:44 | disposition home or self-care (01) | LOC: HO.MAMMO 08:43 | PROVIDERS: PCP Internal Medicine Geriatric Medicine; Visit Provider Internal Medicine Geriatric Medicine | DX: Z12.31 Encounter for screening mammogram for malignant neoplasm of breast (principal) | CPT/HCPCS: 77063; 77067 ==

== ENCOUNTER → 2023-10-25 08:45 | Outpatient (BNV) | payer MEDICAID, SELFPAY | PROVIDERS: PCP Internal Medicine Geriatric Medicine; Visit Provider Radiology Diagnostic Radiology | DX: Z12.31 Encounter for screening mammogram for malignant neoplasm of breast (principal) | CPT/HCPCS: 77063; 77067 ==

== ENCOUNTER 2023-11-13 13:08 | Outpatient (AMB) | payer MEDICAID, SELFPAY ==
--- NOTE | 2023-11-13 13:12 | A.OFFVIS_ITS ---
Vital Signs 11/13/23 13:13 Height 5 ft Weight 178 lb 9.191 oz BMI 34.9 BP 122/68 Blood Pressure Location Lt brachial Position Sitting Pulse 68 Pulse Source Pulse Oximeter Intake Visit Reasons: f/up testing/ HS Dining Room Supervisor Required: Yes Dining Room Supervisor Name: JOSE MARTIN [id number] / JOSE MARTIN [id number] Accompanied by: Self / Same As Patient Allergies No Known Allergies [No Known Allergies*] Allergy (Verified 09/18/23 10:21) Medication List - Last Reconciled 11/13/23 by Melia Santana NP cholecalciferol (vitamin D3) 1 tab PO DAILY ketorolac 10 mg PO TID PRN 5 days levothyroxine 100 mcg PO MOTUWETHFR@06 miconazole nitrate 2% 1 appl topical BID 2 weeks pantoprazole (Protonix) 40 mg PO DAILY simvastatin 40 mg PO QPM HPI Comments Details: 58-year-old female presents today for a follow-up after testing. She reports she is doing well. She no longer has chest pains. It has been about 2 months since the last pain. She reports going for walks daily without any difficulty. [facility] Medical History History of uterine cancer (~2003) History of [place] (myocardial infarction) Hypothyroid High cholesterol History of small bowel obstruction GERD (gastroesophageal reflux disease) Tubular adenoma of colon (~2017) Personal history of nicotine dependence Depression Back pain Obesity Surgical History History of cardiac cath History of colonoscopy History of left knee surgery History of total abdominal hysterectomy and bilateral salpingo-oophorectomy History of reversal of tubal ligation Family History Sister Uterine cancer Social History Household Members: None Housing: Apartment Do you presently have visiting nurse or other home services: No Alcohol intake: current Alcohol intake frequency: a few times a month Comment: medicated, see MAR Patient Tobacco Use Status: Former Tobacco user Years Smoked: onset 10yo, 1ppd x 42yrs, 40pyh - quit 2018 Advance Directives Date on File: 07/26/21 service: No Current occupational status: unemployed 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 Sexual orientation: Straight/Heterosexual Gender identity: Female Female Reproductive History Menstrual Age of Menarche: 8 Review of Systems Const Denies weakness ENT Denies dizziness Card Denies chest pain, Denies chest pain with activity, Denies syncope, Denies rapid heart rate, Denies pedal edema, Denies edema, Denies leg edema, Denies lightheadedness, Denies palpitations, Denies dyspnea, Denies dyspnea on exertion and Denies orthopnea Resp Denies cough, Denies dyspnea and Denies dyspnea on exertion GI Denies hematochezia and Denies change in stool character Musc Denies abnormal gait, Denies muscle cramps, Denies muscle weakness, Denies numbness, Denies radiating pain into limb and Denies tingling Neuro Denies abnormal gait, Denies dizziness, Denies syncope, Denies numbness, Denies tingling and Denies weakness Endo Denies palpitations Physical Exam Vital Signs: Last Vital Signs Pulse 68 11/13/23 13:13 BP 122/68 11/13/23 13:13 BMI result Body Mass Index 34.9 Const General: healthy appearing and no acute distress Orientation/consciousness: patient oriented x3 HEENT Head: Yes normal to inspection Eyes General: appearance normal, both eyes and all related structures Neck Neck: Yes normal visual inspection Chest Chest palpation & inspection: normal inspection of the chest Resp Effort & Inspection: normal respiratory effort Auscultation: clear to auscultation bilaterally Cardio Jugular venous distension: no JVD Palpation: normal PMI Rate: regular rate Rhythm: regular rhythm Heart sounds: S1 normal heart sound present, S2 normal heart sound present, no click, no gallops, no murmurs and no rubs GI Inspection: Yes normal to inspection Palpation (GI): Soft to palpation Skin General skin exam: no rashes or lesions noted Neuro General: patient oriented x3 Extrem General: Yes normal to inspection Psych Appearance: grossly normal Results Reviewed Results Reviewed: NM/NM cardiolite stress test Impression: 1. Normal myocardial perfusion 2. Gated LVEF is 66% 3. Transient ischemic dilatation not present Conclusions: - Essentially normal study Assessment & Plan Assessment & Plan (1) Precordial chest pain: Code(s): R07.2 - Precordial pain Category: Medical Plan Discussed with patient heart healthy lifestyle. Will do lipid panel due to history of cardiac catheterization with unknown findings. Testing without significant findings. Orders: Orders Lipid Panel Today R07.2 - Precordial pain Basic Metabolic Panel Today R07.2 - Precordial pain Coding Level of Care Code Est Pt Level 3 (52502) Diagnoses Precordial chest pain R07.2
[2023-11-13 13:13] VITALS: BP 122/68; PULSE 68; BMI 34.9
== END 2023-11-13 13:41 | disposition home or self-care (01) ==
PROVIDERS: Visit Provider Nurse Practitioner
DX: R07.2 Precordial pain (principal)
CPT/HCPCS: 99213

== ENCOUNTER → 2023-11-13 13:08 | Outpatient (BNVA) | payer MEDICAID, SELFPAY | PROVIDERS: Visit Provider Nurse Practitioner | DX: R07.2 Precordial pain (principal) | CPT/HCPCS: 99212 ==

== ENCOUNTER 2023-11-14 08:31 | Outpatient (REF) | payer MEDICAID, SELFPAY ==
[2023-11-14 09:19] LABS: Anion Gap 11 (12-20); Blood Urea Nitrogen 11 mg/dL (9-16); Calcium 9.4 mg/dL (8.4-10.2); Carbon Dioxide 27 mmol/L (22-29); Chloride 107 mmol/L (96-108); Cholesterol 169 mg/dL (<200); Estimated Glomerular Filt Rate > 60; Glucose Random 102 mg/dL (60-115); HDL Cholesterol 70 mg/dL (>40); LDL Cholesterol Calculated 83 mg/dL (<100); Potassium 4.4 mmol/L (3.3-5.1); Sodium 141 mmol/L (135-145); Triglycerides 83 mg/dL (<150)
== END 2023-11-14 08:32 | disposition home or self-care (01) ==
LOC: HO.LAB 08:31
PROVIDERS: PCP Internal Medicine Geriatric Medicine; Visit Provider Nurse Practitioner
DX: R07.2 Precordial pain (principal)
CPT/HCPCS: 36415; 80048; 80061

== ENCOUNTER 2023-12-13 10:07 | Outpatient (AMB) | payer MEDICAID, SELFPAY ==
--- NOTE | 2023-12-13 10:11 | A.OFFVIS_ITS ---
Intake Visit Reasons: OV-Chronic pain of left knee Intake Note: Shawna is a 58 year old female who presents today for her left knee pain, Hx of right knee , 10/14/20 KI. Patient is not having any pain or discomfort. Allergies No Known Allergies [No Known Allergies*] Allergy (Verified 12/13/23 10:15) HPI HPI OV-Chronic pain of left knee: Details: 58-year-old right hand dominant female, who is Jordanian speaking, presents in the office today for a follow-up of left knee osteoarthritis. I last saw the patient in the office on 01/30/2023 when the patient had good ROM, and no other treatments were needed. ? ? While in the office today, the patient reports she is not having any pain or discomfort. ? ? Patient has a history of right knee arthroscopy, which was performed on 10/[address] Zacarias. [facility] Medical History History of uterine cancer (~2003) History of [place] (myocardial infarction) Hypothyroid High cholesterol History of small bowel obstruction GERD (gastroesophageal reflux disease) Tubular adenoma of colon (~2017) Personal history of nicotine dependence Depression Back pain Obesity Surgical History History of cardiac cath History of colonoscopy History of left knee surgery History of total abdominal hysterectomy and bilateral salpingo-oophorectomy History of reversal of tubal ligation Family History Sister Uterine cancer Social History (Updated 12/13/23 @ 10:15 by Andrea Chavez) Household Members: None Housing: Apartment Do you presently have visiting nurse or other home services: No Alcohol intake: current Alcohol intake frequency: a few times a month Comment: medicated, see MAR Patient Tobacco Use Status: Former Tobacco user Years Smoked: onset 10yo, 1ppd x 42yrs, 40pyh - quit 2018 Advance Directives Date on File: 07/26/21 service: No Current occupational status: disabled 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 No ecchymosis, erythema, or joint effusion. No tenderness to palpation along the medial or lateral joint lines. Full knee extension and flexion. Crepitus felt with ROM. NVI.?? ? Assessment & Plan Assessment & Plan (1) Osteoarthritis of left knee: Code(s): M17.12 - Unilateral primary osteoarthritis, left knee Category: Medical Plan Ms. Mickey Betancourt is a 58-year-old right hand dominant female, who is Jordanian speaking, presents in the office today for a follow-up of left knee osteoarthritis. I last saw the patient in the office on 01/30/2023 when the patient had good ROM, and no other treatments were needed. ? ? While in the office today, the patient reports she is not having any pain or discomfort. ? ? Patient has a history of right knee arthroscopy, which was performed on 10/14/[address] Zacarias.? ? During today?s visit, the patient is not showing any signs of pain or discomfort, so we deferred any treatment or cortisone injections. Follow-up will be PRN, or sooner if needed. ? Patient Instructions: Scribed by [facility] medical management specialist, for Lakeisha Peter PA-C on 12/13/2023 at 10:29 am, EST.? Coding Level of Care Code Est Pt Level 3 (07054) Diagnoses Osteoarthritis of left knee M17.12
== END 2023-12-13 10:21 | disposition home or self-care (01) ==
LOC: HO.HOS 10:07
PROVIDERS: PCP Internal Medicine Geriatric Medicine; Visit Provider Physician Assistant
DX: M17.12 Unilateral primary osteoarthritis, left knee (principal)
CPT/HCPCS: 99212

== ENCOUNTER → 2023-12-13 10:07 | Outpatient (BNVA) | payer MEDICAID, SELFPAY | PROVIDERS: PCP Internal Medicine Geriatric Medicine; Visit Provider Physician Assistant | DX: M17.12 Unilateral primary osteoarthritis, left knee (principal) | CPT/HCPCS: 99212 ==

== ENCOUNTER 2024-01-11 10:21 | Emergency (ER) | payer MEDICAID, SELFPAY ==
--- NOTE | ~2024-01-11 | XR_ITS ---
EXAMINATION: XR CHEST CLINICAL INFORMATION: Chest pain. COMPARISON: Chest radiograph 05/05/2023. TECHNIQUE: Frontal view of the chest was obtained. FINDINGS: No significant abnormality is noted involving the heart, lungs, mediastinum, bony thorax or soft tissues. XR/XR chest 1V IMPRESSION: Unremarkable examination.
--- NOTE | 2024-01-11 10:23 | ECG_ITS ---
Test Reason : chest pain Blood Pressure : / mmHG Vent. Rate : 075 BPM Atrial Rate : 075 BPM P-R Int : 158 ms QRS Dur : 086 ms QT Int : 394 ms P-R-T Axes : 049 028 015 degrees QTc Int : 439 ms Normal sinus rhythm Biatrial enlargement Abnormal ECG When compared with ECG of 05-MAY-2023 09:31, No significant change was found Referred By: Generic ED Physician Electronically Signed By:JUAN MANUEL GRIER MD
[2024-01-11 10:31] VITALS: BP 165/84; PULSE 74; RESP 16; TEMP 36.6; O2SAT 98; BMI 34.3
[2024-01-11 11:07] LABS: MANUAL DIFF FLAG NO
[2024-01-11 11:12] LABS: Basophils Percent Auto 0.5 % (0-2); Eosinophils Absolute Auto 0.1 X10*3/uL (0.0-0.4); Eosinophils Percent Auto 1.4 % (0-4); Hematocrit 39.8 % (37.0-47.0); Imm Gran Abs Auto 0.03 X10*3/uL (0.00-0.03); Imm Gran Pct Auto 0.4 % (0.0-0.4); Lymphocytes Absolute Auto 2.2 X10*3/uL (1.2-4.9); Lymphocytes Percent Auto 29.3 % (20-40); Mean Corpuscular HGB Conc 35.2 g/dl (31.0-35.0); Mean Corpuscular Hemoglobin 29.1 pg (27.0-33.0); Mean Corpuscular Volume 82.7 fL (80.0-98.0); Mean Platelet Volume 10.3 fL (9.4-12.3); Monocytes Absolute Auto 0.4 X10*3/uL (0.1-1.2); Neutrophils Absolute Auto 4.8 x10*3/uL (2.0-8.3); Neutrophils Percent Auto 63.4 % (45-73); Platelet Count 184 X10*3/uL (160-400); Red Blood Count 4.81 X10*6/uL (4.20-5.50); Red Cell Distribution Width 13.8 % (11.0-16.0); White Blood Count 7.6 X10*3/uL (4.8-10.8)
[2024-01-11 11:30] LABS: Alanine Aminotransferase 15 U/L (0-31); Albumin Level 4.2 g/dL (3.5-5.0); Alkaline Phosphatase 73 U/L (39-117); Anion Gap 12 (12-20); Aspartate Amino Transferase 16 U/L (5-31); Bilirubin Total 0.4 mg/dL (0.0-1.0); Blood Urea Nitrogen 10 mg/dL (9-16); Calcium 9.7 mg/dL (8.4-10.2); Carbon Dioxide 28 mmol/L (22-29); Chloride 105 mmol/L (96-108); Creatinine Clr Calc Pharmacy 66.5; Estimated Glomerular Filt Rate > 60; Glucose Random 136 mg/dL (60-115); Sodium 141 mmol/L (135-145); Total Protein 7.4 g/dL (6.5-8.0)
--- NOTE | 2024-01-11 11:58 | ED_ITS ---
HPI - Chest Pain General Chief Complaint: Chest Pain Stated Complaint: CP Time Seen by Provider: 01/11/24 11:57 Source: patient Mode of arrival: ambulatory Limitations: no limitations History of Present Illness HPI narrative: 58 year old female PMH: AR, uterine cancer, hypothyroid, high cholesterol, partial SBO, GERD who presents to the ER with 2 days of chest pain starting last night. Patient has 2 weeks of symptoms has been seeing her doctor over 6 months and has been worried about her blood pressure. She denies any pain at this time denies cough or fever. She is a smoker and sometimes has troubel breathing. Related Data Home Medications ?Medication ?Instructions ?Recorded ?Confirmed cholecalciferol (vitamin D3) 50 1 tab PO DAILY 07/17/21 08/07/23 mcg (2,000 unit) tablet levothyroxine 100 mcg tablet 100 mcg PO MOTUWETHFR@06 08/07/23 08/07/23 simvastatin 40 mg tablet 40 mg PO QPM 08/07/23 08/07/23 Previous Rx's ?Medication ?Instructions ?Recorded miconazole nitrate 2 % topical 1 appl topical BID 2 weeks #85 05/29/22 powder grams pantoprazole 40 mg tablet,delayed 40 mg PO DAILY #14 tabs 08/15/22 release (Protonix) ketorolac 10 mg tablet 10 mg PO TID PRN pain 5 days #15 11/20/22 tabs Allergies Allergy/AdvReac Type Severity Reaction Status Date / Time No Known Allergies Allergy Verified 01/11/24 10:34 [No Known Allergies*] Review of Systems 2 Review of Systems: Review of systems: General: Patient denies any fever chills recent illness or falls Musculoskeletal: Denies back pain or body aches or other injuries HEENT: denies headache, runny nose, ear pain Respiratory: denies shortness of breath, cough Cardiovascular: no chest pain or palpitations : denies dysuria, frequency Abdomen: no nausea vomiting denies abdominal pain Extremities: no swelling, no pain Skin: no diaphoresis Yes all other systems are reviewed and are negative [facility] Past Medical History Medical History History of uterine cancer (~2004) History of [place] (myocardial infarction) Hypothyroid High cholesterol History of small bowel obstruction GERD (gastroesophageal reflux disease) Tubular adenoma of colon (~2017) Personal history of nicotine dependence Depression Back pain Obesity Surgical History History of cardiac cath History of colonoscopy History of left knee surgery History of total abdominal hysterectomy and bilateral salpingo-oophorectomy History of reversal of tubal ligation Family History Family History Sister Uterine cancer Social History Social History (Updated 12/13/23 @ 10:15 by Andrea Chavez) Household Members: None Housing: Apartment Do you presently have visiting nurse or other home services: No Alcohol intake: current Alcohol intake frequency: a few times a month Comment: medicated, see MAR Patient Tobacco Use Status: Former Tobacco user Years Smoked: onset 10yo, 1ppd x 42yrs, 40pyh - quit 2018 Advance Directives Date on File: 07/26/21 service: No Current occupational status: disabled 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 Sexual orientation: Straight/Heterosexual Gender identity: Female Physical Exam 2 Vital Signs: Vital Signs: Last Vital Signs Temp 98 F 01/11/24 10:31 Pulse 74 01/11/24 10:31 Resp 16 01/11/24 10:31 BP 165/84 H 01/11/24 10:31 Pulse Ox 98 01/11/24 10:31 O2 Del Method Room Air 01/11/24 10:31 BMI result Body Mass Index 34.3 General: Well-appearing well-nourished in no signs of distress HEENT: Normocephalic atraumatic Neck: No signs of JVD, no masses no tenderness or lymphadenopathy Cardiovascular: Regular rate and rhythm Respiratory: Clear to auscultation bilaterally Abdomen: Soft nontender no masses rectal exam performed guia negative 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 Extremities: Normal pedal pulses no signs of edema Skin: Dry warm no rashes Back: No tenderness full ROM Course Course Course Narrative: 1216 labs are all unremarkable x-rays okay she has had symptoms for 6 months I do not think this is pneumonia or anything concerning today I do think she is safe to go home and follow up with her doctor I will discharge with close outpatient follow up. Medical Decision Making Medical Decision Making [facility] Narrative: I will check labs XR and reassess. Differential Diagnosis Differential Diagnoses: The differential diagnosis associated with the presentation includes ACS, chest wall pain, GERD anemia, weakness dehydration Lab Data [facility] Lab Attestation statement: I reviewed the patient's lab results. 01/11/24 11:04 01/11/24 11:04 Labs: Lab Results 01/11/24 Range/Units 11:04 WBC 7.6 (4.8-10.8) X10*3/uL RBC 4.81 (4.20-5.50) X10*6/uL Hgb 14.0 (12.0-16.0) g/dl Hct 39.8 (37.0-47.0) % MCV 82.7 (80.0-98.0) fL MCH 29.1 (27.0-33.0) pg MCHC 35.2 H (31.0-35.0) g/dl RDW 13.8 (11.0-16.0) % Plt Count 184 (160-400) X10*3/uL MPV 10.3 (9.4-12.3) fL Immature Gran % (Auto) 0.4 (0.0-0.4) % Neut % (Auto) 63.4 (45-73) % Lymph % (Auto) 29.3 (20-40) % [place] % (Auto) 5.0 (2-11) % Eos % (Auto) 1.4 (0-4) % Baso % (Auto) 0.5 (0-2) % Lymph # (Auto) 2.2 (1.2-4.9) X10*3/uL [place] # (Auto) 0.4 (0.1-1.2) X10*3/uL Eos # (Auto) 0.1 (0.0-0.4) X10*3/uL Baso # (Auto) 0.0 (0.0-0.2) X10*3/uL Abs Immat Gran (auto) 0.03 (0.00-0.03) X10*3/uL Absolute Neuts (auto) 4.8 (2.0-8.3) x10*3/uL Absolute Nucleated RBC 0.000 (0.0-0.012) X10*3/uL Nucleated RBC % (auto) 0.0 (0.0-0.2) /100WBC Sodium 141 (135-145) mmol/L Potassium 4.0 (3.3-5.1) mmol/L Chloride 105 (96-108) mmol/L Carbon Dioxide 28 (22-29) mmol/L Anion Gap 12 (12-20) BUN 10 (9-16) mg/dL Creatinine 0.84 (0.5-1.4) mg/dL Estim Creat Clear Calc 66.5 Estimated GFR > 60 Random Glucose 136 H (60-115) mg/dL Calcium 9.7 (8.4-10.2) mg/dL Total Bilirubin 0.4 (0.0-1.0) mg/dL AST 16 (5-31) U/L ALT 15 (0-31) U/L Alkaline Phosphatase 73 (39-117) U/L Troponin I High Sens 14.0 (<3.5-17.0) ng/L Total Protein 7.4 (6.5-8.0) g/dL Albumin 4.2 (3.5-5.0) g/dL Independent Interpretation I performed an independent interpretation of an: EKG, Rhythm Strip and Plain X- Ray Radiology Impression Discussion of test interpretation with radiology: I have reviewed the radiologist's reading. External Record Review External record reviewed: Inpatient record, Office record and Outpatient record Discharge Plan Discharge Clinical Impression: Chest pain, Hypertension Patient Disposition: Home, Self-Care Instructions: Chest Pain (DC), Hypertension (ED), Low-Sodium Diet (ED) Additional Instructions: You were seen today for chest pain. You had x-ray and labs which were all unremarkable. Please call follow up with your doctor if you have any other concerns please do not hesitate to come back to emergency department Prescriptions: No Action miconazole nitrate 2 % powder 1 appl topical BID 14 Days Qty: 85 0RF cholecalciferol (vitamin D3) 50 mcg (2,000 unit) tablet 1 tab PO DAILY levothyroxine 100 mcg tablet 100 mcg PO MOTUWETHFR@06 simvastatin 40 mg tablet 40 mg PO QPM pantoprazole [Protonix] 40 mg tablet,delayed release (DR/EC) 40 mg PO DAILY Qty: 14 0RF ketorolac 10 mg tablet 10 mg PO TID PRN (Reason: pain) 5 Days Qty: 15 0RF Print Language: Gabonese
--- NOTE | 2024-01-11 12:45 | PC.NURSE ---
Police Worker services unavailable for pt. discharge until after 13:00
[2024-01-11 13:05] VITALS: BP 165/84; PULSE 74; RESP 16; TEMP 36.6; O2SAT 98
== END 2024-01-11 13:05 | disposition home or self-care (01) ==
PROVIDERS: Emergency Provider Student in an Organized Health Care Education/Training Program; PCP Internal Medicine Geriatric Medicine
DX: R07.9 Chest pain, unspecified (principal); I10 Essential (primary) hypertension; E78.5 Hyperlipidemia, unspecified; E03.9 Hypothyroidism, unspecified; I25.2 Old myocardial infarction; F17.210 Nicotine dependence, cigarettes, uncomplicated; Z85.42 Personal history of malignant neoplasm of other parts of uterus; Z79.899 Other long term (current) drug therapy; Z79.02 Long term (current) use of antithrombotics/antiplatelets
CPT/HCPCS: 36415; 71045; 80053; 84484; 85025; 93005; 99283

== ENCOUNTER → 2024-01-11 10:23 | Outpatient (BNV) | payer MEDICAID, SELFPAY | PROVIDERS: Emergency Provider Student in an Organized Health Care Education/Training Program; PCP Internal Medicine Geriatric Medicine; Visit Provider Internal Medicine Cardiovascular Disease | DX: R94.31 Abnormal electrocardiogram [ECG] [EKG] (principal) | CPT/HCPCS: 93010 ==

== ENCOUNTER 2024-03-06 08:24 | Outpatient (REF) | payer MEDICAID, SELFPAY ==
--- NOTE | ~2024-03-06 | CT_ITS ---
EXAMINATION: CT LOW-DOSE SCREENING CHEST WITHOUT CONTRAST CLINICAL INFORMATION: Personal history of nicotine dependence. The patient has a 42 pack-year history of smoking, having quit 6 years ago. COMPARISON: CT chest 03/02/2023. TECHNIQUE: Multidetector volumetric CT imaging of the chest is performed on a Siemens SOMATOM Definition scanner without contrast using low dose technique. Additional 2D coronal and sagittal reformatted images and axial 3D maximum intensity projection (MIP) images are generated on the CT workstation. This CT examination was performed using dose optimization techniques as appropriate, variously including the following: *Automated exposure control. *Adjustment of mA and/or kV according to patient size (this includes techniques or standardized protocols for targeted exams where dose is matched to indication/reason for exam; i.e. extremities or head). *Use of iterative reconstruction technique. TOTAL EXAM DLP: 41 mGy-cm. CTDIvol: 1.37 mGy. FINDINGS: PULMONARY NODULES: No suspicious pulmonary nodules. Previously seen 4 mm left lower lobe pulmonary nodule now measures 3 mm (5:288 compare prior 6:305). LUNGS: Lungs bilaterally symmetrically expanded. There is minimal emphysematous change with some mild bronchial thickening without bronchiectasis. No effusion or pneumothorax. Central airways patent. MEDIASTINUM: No mediastinal, hilar or axillary adenopathy or free fluid collection. CORONARY ARTERY CALCIFICATION: None visualized on this study. THYROID GLAND: Unremarkable to the extent seen. CARDIOVASCULAR STRUCTURES: Aortic and heart size normal. No pericardial effusion. CHEST WALL/AXILLA: Unremarkable. UPPER ABDOMEN: Included portions of the solid organs in the upper abdomen unremarkable on noncontrast imaging. OSSEOUS STRUCTURES: No suspicious focal findings. CT/CT lung screening IMPRESSION: No findings seen suspicious for malignancy. ASSESSMENT: 1. Lung-RADS Category 2: Benign appearance or behavior of nodules. N/A. 2. Lung-RADS Category S: Negative. There are no clinically significant or potentially clinically significant findings not related to the lungs requiring urgent additional evaluation. RECOMMENDATION: Continued routine annual low-dose CT lung screening in 1 year is recommended. An order for CT CHEST LOW DOSE CANCER SCREENING ([id number]) can be placed. Electronically signed by: Ronny Nguyen MD 04/21/2024 10:39 PM [facility]
== END 2024-03-06 08:25 | disposition home or self-care (01) ==
LOC: HO.CT 08:24
PROVIDERS: PCP Student in an Organized Health Care Education/Training Program; Visit Provider Physician Assistant Medical
DX: Z87.891 Personal history of nicotine dependence (principal)
CPT/HCPCS: 71271

== ENCOUNTER 2024-04-18 08:06 | Outpatient (REF) | payer MEDICAID, SELFPAY ==
[2024-04-18 11:23] LABS: Hematocrit 38.4 % (37.0-47.0); Hemoglobin 13.2 g/dl (12.0-16.0); Mean Corpuscular HGB Conc 34.4 g/dl (31.0-35.0); Mean Corpuscular Hemoglobin 28.1 pg (27.0-33.0); Mean Corpuscular Volume 81.7 fL (80.0-98.0); Mean Platelet Volume 10.6 fL (9.4-12.3); Platelet Count 212 X10*3/uL (160-400); Red Cell Distribution Width 14.4 % (11.0-16.0); White Blood Count 7.5 X10*3/uL (4.8-10.8)
[2024-04-18 11:57] LABS: Estimated Average Glucose 108 mg/dL; Hemoglobin A1C 188.0581 umol/L; Hemoglobin A1c % 5.4 % (<6.0)
[2024-04-18 12:45] LABS: HBS Num1 3.18 mIU/mL (0-7.99); HBc Num1 0.09 S/CO (0.00-0.79); HBsAGNum1 0.52 S/CO (0.00-0.99); HIV AB/AG Nonreactive (Nonreactive); HIV Num 1 0.06 S/CO (0.00-0.99); Hepatitis B Core Antibody Nonreactive (Nonreactive); Hepatitis B Surface Antigen Negative (Negative); ~HepC Num1 0.07 S/CO (0.00-0.79); ~Hepatitis B Surface Antibody NONREACTIVE (Nonreactive); ~Hepatitis C Antibody Nonreactive (Nonreactive)
[2024-04-18 12:46] LABS: Syphilis Screen Nonreactive (Nonreactive)
[2024-04-18 16:54] LABS: CT PCR NOT DETECTED (Not Detect.); NG PCR NOT DETECTED (Not Detect.)
== END 2024-04-18 08:07 | disposition home or self-care (01) ==
LOC: HO.HHCL 08:06
PROVIDERS: Visit Provider Student in an Organized Health Care Education/Training Program
DX: Z00.00 Encounter for general adult medical examination without abnormal findings (principal)
CPT/HCPCS: 36415; 83036; 85027; 86704; 86706; 86780; 86803; 87340; 87389; 87491; 87591

== ENCOUNTER 2024-04-21 07:59 | Outpatient (REF) | payer MEDICAID, SELFPAY ==
--- NOTE | ~2024-04-21 | XR_ITS ---
EXAMINATION: XR THORACIC SPINE CLINICAL INFORMATION: Chronic thoracic back pain. COMPARISON: Chest x-ray 05/05/2023. TECHNIQUE: 2 views of the thoracic spine. FINDINGS: Moderate multilevel degenerative changes in the thoracic spine. Bones are diffusely demineralized. Cardiac silhouette not fully included in [id number], possibly enlarged, although evaluation limited due to low lung volumes. Dedicated views of the chest with good inspiratory effort recommended. XR/XR thoracic spine 2V IMPRESSION: 1. Moderate multilevel degenerative changes in the thoracic spine. 2. Cardiac silhouette not fully included in [id number], possibly enlarged, although evaluation limited due to low lung volumes. Dedicated views of the chest with good inspiratory effort recommended. This study was presented today, April 21 2024, for interpretation. Stat results provided at this time as requested by referring provider. Electronically signed by: Kendal Araya MD 04/21/2024 12:23 PM [facility]
[2024-04-21 12:33] LABS: Alanine Aminotransferase 17 U/L (0-31); Albumin Level 4.1 g/dL (3.5-5.0); Alkaline Phosphatase 72 U/L (39-117); Anion Gap 12 (12-20); Aspartate Amino Transferase 23 U/L (5-31); Bilirubin Total 0.6 mg/dL (0.0-1.0); Blood Urea Nitrogen 13 mg/dL (9-16); Calcium 8.9 mg/dL (8.4-10.2); Carbon Dioxide 28 mmol/L (22-29); Chloride 107 mmol/L (96-108); Cholesterol 166 mg/dL (<200); Estimated Glomerular Filt Rate > 60; Glucose Random 90 mg/dL (60-115); HDL Cholesterol 67 mg/dL (>40); LDL Cholesterol Calculated 85 mg/dL (<100); Potassium 4.6 mmol/L (3.3-5.1); Sodium 142 mmol/L (135-145); Total Protein 7.2 g/dL (6.5-8.0); Triglycerides 70 mg/dL (<150)
[2024-04-21 12:35] LABS: Thyroid Stimulating Hormone 0.83 uIU/mL (0.32-4.0); Vitamin D 25-OH Total 62.7 ng/mL (>30)
== END 2024-04-21 08:00 | disposition home or self-care (01) ==
LOC: HO.HHCL 07:59
PROVIDERS: Visit Provider Student in an Organized Health Care Education/Training Program
DX: Z00.00 Encounter for general adult medical examination without abnormal findings (principal); M51.34 Other intervertebral disc degeneration, thoracic region
CPT/HCPCS: 36415; 72070; 80053; 80061; 82306; 84439; 84443

== ENCOUNTER 2024-05-05 13:44 | Outpatient (AMB) | payer MEDICAID, SELFPAY ==
--- NOTE | 2024-05-05 13:51 | MHC.OFFVIS ---
Vital Signs 05/05/24 14:56 Height 5 ft Weight 181 lb BMI 35.3 BP 141/63 H Blood Pressure Location Rt brachial Position Sitting Pulse 66 Intake Visit Reasons: repeat colonoscopy screening Intake Note: This patient presents for 5 year recall colonoscopy. Pt c/o; reports no complaints. 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 Services: [employer] [facility] Present [facility] [employer] [facility] Name: Shiela Information Interpreted: non-clinical & clinical Accompanied by: Self / Same As Patient Allergies No Known Allergies [No Known Allergies*] Allergy (Verified 05/05/24 14:57) Medication List - Last Reconciled 05/05/24 by Portillo Elena MD albuterol sulfate 90 mcg/actuation (Ventolin HFA) 2 puffs inhalation Q6H PRN cholecalciferol (vitamin D3) 1 tab PO DAILY hydroxyzine HCl 25 mg PO TID PRN ketorolac 10 mg PO TID PRN 5 days levothyroxine 100 mcg PO MOTUWETHFR@06 miconazole nitrate 2% 1 appl topical BID 2 weeks pantoprazole (Protonix) 40 mg PO DAILY simvastatin 40 mg PO QPM HPI HPI repeat colonoscopy screening: Details: 58-year-old female referred for screening colonoscopy. She denies any significant GI complaints. She feels well overall. She denies any family history of colon cancer. Review of her records show that she actually had a colonoscopy in 2018. I removed 1 small tubular adenoma at that time. [facility] Medical History (Updated 05/05/24 @ 15:10 by Portillo Elena MD) Colon cancer screening History of uterine cancer (~2003) History of [place] (myocardial infarction) Hypothyroid High cholesterol History of small bowel obstruction GERD (gastroesophageal reflux disease) Tubular adenoma of colon (~2017) Personal history of nicotine dependence Depression Back pain Obesity Surgical History History of cardiac cath History of colonoscopy History of left knee surgery History of total abdominal hysterectomy and bilateral salpingo-oophorectomy History of reversal of tubal ligation Family History Sister Uterine cancer Social History Household Members: None Housing: Apartment Do you presently have visiting nurse or other home services: No Alcohol intake: current Alcohol intake frequency: a few times a month Comment: medicated, see MAR Patient Tobacco Use Status: Former Tobacco user Years Smoked: onset 10yo, 1ppd x 42yrs, 40pyh - quit 2018 Advance Directives Date on File: 07/26/21 service: No Current occupational status: disabled 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 Sexual orientation: Straight/Heterosexual Gender identity: Female Female Reproductive History Menstrual Age of Menarche: 8 Review of Systems Const Denies chills and Denies fever(s) Card Denies chest pain, Denies dyspnea and Denies dyspnea on exertion Resp Denies cough, Denies dyspnea and Denies dyspnea on exertion GI Denies hematochezia and Denies change in bowel habits Denies hematuria Musc Denies back pain and Denies limited range of motion Neuro Denies focal weakness and Denies convulsions Psych Denies depression and Denies mood swings Physical Exam Vital Signs: Last Vital Signs Pulse 66 05/05/24 14:56 BP 141/63 H 05/05/24 14:56 BMI result Body Mass Index 35.3 Const General: comfortable and no acute distress Orientation/consciousness: patient oriented x3 Neck Neck: Yes no lymphadenopathy Resp Auscultation: clear to auscultation bilaterally Cardio Rhythm: regular rhythm GI Palpation (GI): Soft to palpation, nontender and no guarding Neuro General: patient oriented x3 Assessment & Plan Assessment & Plan (1) Colon cancer screening: Code(s): Z12.11 - Encounter for screening for malignant neoplasm of colon Category: Medical Plan: She was referred for screening colonoscopy. However, review of her records show that her last colonoscopy was in 2018 and 1 small polyp, 2-3 mm was removed which was a tubular adenoma. The other polyp removed was a hyperplastic polyp In view of the above, she is a average risk for colon cancer and she can wait for a 10 year interval from her last colonoscopy. This will be in 2027. I discussed this with her. She does not have any family history of colon cancer. She denies any GI complaints. I did tell her that if she has new GI complaints, or any concerns, she is welcome to come back to the office before 2027 Coding Level of Care Code New Pt Level 3 (18172) Diagnoses Colon cancer screening Z12.11
[2024-05-05 14:56] VITALS: BP 141/63; PULSE 66; BMI 35.3
== END 2024-05-05 15:26 | disposition home or self-care (01) ==
PROVIDERS: PCP Student in an Organized Health Care Education/Training Program; Visit Provider Surgery
DX: Z01.818 Encounter for other preprocedural examination (principal); Z12.11 Encounter for screening for malignant neoplasm of colon
CPT/HCPCS: 99213

== ENCOUNTER → 2024-05-05 13:44 | Outpatient (BNVA) | payer MEDICAID, SELFPAY | PROVIDERS: PCP Student in an Organized Health Care Education/Training Program; Visit Provider Surgery | DX: Z86.0101 Personal history of adenomatous and serrated colon polyps (principal) | CPT/HCPCS: 99212 ==

== ENCOUNTER 2024-05-20 12:29 | Outpatient (AMB) | payer MEDICAID, SELFPAY ==
[2024-05-20 12:54] VITALS: BP 118/64; PULSE 70; BMI 35.0
--- NOTE | 2024-05-20 12:54 | A.OFFVIS_ITS ---
Vital Signs 05/20/24 12:54 Height 5 ft Weight 179 lb 0.246 oz BMI 35.0 BP 118/64 Blood Pressure Location Lt brachial Position Sitting Pulse 70 Pulse Source Pulse Oximeter Intake Visit Reasons: 6 mth f/up Central Services Tech Required: Yes Central Services Tech Services: Central Services Tech Present Central Services Tech Name: James [id number] Accompanied by: Self / Same As Patient Allergies No Known Allergies [No Known Allergies*] Allergy (Verified 05/05/24 14:57) Medication List - Last Reconciled 05/20/24 by Toan Lucero MD albuterol sulfate 90 mcg/actuation (Ventolin HFA) 2 puffs inhalation Q6H PRN cholecalciferol (vitamin D3) 1 tab PO DAILY levothyroxine 100 mcg PO MOTUWETHFR@06 levothyroxine 88 mcg PO DAILY simvastatin 40 mg PO QPM HPI Comments Details: Shawna returns for follow-up. In the past, she was seen regarding chest pains and underwent an echocardiogram and stress test. These were essentially unremarkable. Currently, she states she feels fine. No new concerns. [facility] Medical History (Updated 05/05/24 @ 15:10 by Portillo Elena MD) Colon cancer screening History of uterine cancer (~2003) History of [place] (myocardial infarction) Hypothyroid High cholesterol History of small bowel obstruction GERD (gastroesophageal reflux disease) Tubular adenoma of colon (~2017) Personal history of nicotine dependence Depression Back pain Obesity Surgical History History of cardiac cath History of colonoscopy History of left knee surgery History of total abdominal hysterectomy and bilateral salpingo-oophorectomy History of reversal of tubal ligation Family History Sister Uterine cancer Social History Household Members: None Housing: Apartment Do you presently have visiting nurse or other home services: No Alcohol intake: current Alcohol intake frequency: a few times a month Comment: medicated, see MAR Patient Tobacco Use Status: Former Tobacco user Years Smoked: onset 10yo, 1ppd x 42yrs, 40pyh - quit 2018 Advance Directives Date on File: 07/26/21 service: No Current occupational status: disabled 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 Sexual orientation: Straight/Heterosexual Gender identity: Female Female Reproductive History Menstrual Age of Menarche: 8 Review of Systems Const Denies chills, Denies fatigue, Denies fever(s), Denies weight gain and Denies weight loss ENT Denies dizziness Card Denies chest pain, Denies leg edema, Denies lightheadedness, Denies palpitations, Denies dyspnea on exertion, Denies orthopnea and Denies other Resp Denies cough and Denies dyspnea on exertion GI Denies hematochezia and Denies change in stool character Musc Denies abnormal gait, Denies muscle weakness, Denies numbness, Denies radiating pain into limb and Denies tingling Neuro Denies abnormal gait, Denies dizziness, Denies numbness and Denies tingling Endo Denies fatigue and Denies palpitations Physical Exam Vital Signs: Last Vital Signs Pulse 70 05/20/24 12:54 BP 118/64 05/20/24 12:54 BMI result Body Mass Index 35.0 Const General: comfortable and no acute distress Orientation/consciousness: patient oriented x3 HEENT Other: Unremarkable Head: Yes normal to inspection Neck Neck: Yes normal visual inspection Chest Chest palpation & inspection: normal inspection of the chest Resp Auscultation: clear to auscultation bilaterally Cardio Palpation: normal PMI Heart sounds: S1 normal heart sound present, S2 normal heart sound present, no gallops, no murmurs and no rubs GI Palpation (GI): Soft to palpation Back/Spine/Pelvis Other: unremarkable Skin General skin exam: no rashes or lesions noted Neuro General: patient oriented x3 Extrem General: Yes normal to inspection Psych Mental Status: mental status grossly normal Assessment & Plan Assessment & Plan (1) Precordial chest pain: Code(s): R07.2 - Precordial pain Category: Medical Plan Cardiac studies reviewed. EKG-sinus rhythm at 73/Min; possible left atrial enlargement; no significant ST- T changes and otherwise unremarkable. Normal TX and corrected QT. Several high sensitivity troponins in our system are within normal limits. Echocardiogram-LVEF 65-70%. No wall motion abnormalities. Otherwise unremarkable. In the exercise stress test, she was able to reach 8.5 METS on Shyam protocol; had shortness of breath but no angina. No EKG evidence of ischemia. Perfusion component was unremarkable. Overall, chest pain history but negative cardiac testing. The symptoms are also completely resolved at this time. Reassurance only. If any concerning issues, advised her to contact us immediately. She understands. Discussed using lunchroom food service supervisor. Coding Level of Care Code Est Pt Level 3 (57913) Diagnoses Precordial chest pain R07.2
== END 2024-05-20 13:10 | disposition home or self-care (01) ==
PROVIDERS: Visit Provider Internal Medicine
DX: R07.2 Precordial pain (principal)
CPT/HCPCS: 99213

== ENCOUNTER → 2024-05-20 12:29 | Outpatient (BNVA) | payer MEDICAID, SELFPAY | PROVIDERS: Visit Provider Internal Medicine | DX: R07.2 Precordial pain (principal) | CPT/HCPCS: 99212 ==

== ENCOUNTER 2024-05-22 08:45 | Outpatient (REF) | payer MEDICAID, SELFPAY ==
--- NOTE | ~2024-05-22 | MM_ITS ---
EXAMINATION: BONE DENSITOMETRY CLINICAL INDICATION: Screening for osteoporosis. COMPARISON: This is the patient's baseline examination. TECHNIQUE: Using a [employer] DXA System (software version: 13.1) manufactured by [employer], dual-energy x-ray absorptiometry was performed of the lumbar spine and left hip. The images are of good technical quality. Summary results are attached. FINDINGS: LEFT FEMUR, NECK: BMD 1.032 g/cm2, Z-score 0.9, T-score 0.0, normal. LEFT FEMUR, TOTAL: BMD 1.045 g/cm2, Z-score 0.9, T-score 0.3, normal. AP SPINE L1-L4: BMD 1.208 g/cm2, Z-score 1.0, T-score 0.2, normal. IDENTIFIED RISK FACTORS: Early menopause, hysterectomy, alcohol (3 or more units per day), bilateral oophorectomy, secondary osteoporosis. HISTORY OF FRACTURE: None listed. MEDICATIONS: Vitamin D. MM/XR DEXA axial skeleton IMPRESSION: 1. DIAGNOSIS: Normal bone density based on the lowest T-score value of 0.0 in the femoral neck applying World Health Organization criteria. 2. 10-YEAR FRACTURE RISK PREDICTION, FRAX: According to the guidelines, FRAX calculation should only be performed on patients in the osteopenia bone density category. Therefore, FRAX was not performed on this patient. 3. Treatment Recommendations: NOF guidelines recommend consideration for treatment in postmenopausal women and men age 50 and older presenting with the following: -A hip or vertebral (clinical or morphometric) fracture. -T-score less than or equal to -2.5 at the femoral neck or spine after appropriate evaluation to exclude secondary causes. -Low bone mass at the hip or spine and a 10-year fracture probability by FRAX of greater than or equal to 3% for hip fracture or greater than or equal to 20% for major osteoporotic fracture based on the [place] adapted WHO algorithm. 4. Other Recommendations: All treatment decisions require clinical judgment and consideration of individual patient factors, including patient preferences, comorbidities, previous drug use, risk factors not captured in the FRAX model (e.g. frailty, falls, vitamin D deficiency, increased bone turnover, interval significant decline in bone density) and possible under or overestimation of fracture risk by FRAX. FUTURE SCAN RECOMMENDATION: People with diagnosed cases of osteoporosis or at high risk for fracture should have regular bone mineral density tests. For patients eligible for Medicare, routine testing is allowed once every 2 years. The testing frequency can be increased to one year for patients who have rapidly progressing disease, those who are receiving or discontinuing medical therapy to restore bone mass, or have additional risk factors. Electronically signed by: Atilio Aguilar MD 05/22/2024 10:03 AM [facility]
== END 2024-05-22 08:46 | disposition home or self-care (01) ==
LOC: HO.MAMMO 08:45
PROVIDERS: PCP Student in an Organized Health Care Education/Training Program; Visit Provider Student in an Organized Health Care Education/Training Program
DX: Z13.820 Encounter for screening for osteoporosis (principal); Z90.721 Acquired absence of ovaries, unilateral
CPT/HCPCS: 77080

== ENCOUNTER 2024-06-06 08:20 | Outpatient (RCR) | payer MEDICAID, SELFPAY | END 2024-06-19 10:00 | disposition home or self-care (01) | LOC: HO.PT 08:20 | PROVIDERS: PCP Student in an Organized Health Care Education/Training Program; Visit Provider Student in an Organized Health Care Education/Training Program | DX: M54.6 Pain in thoracic spine (principal) | CPT/HCPCS: 97110; 97161 ==

== ENCOUNTER 2024-06-07 19:50 | Emergency (ER) | payer MEDICAID, SELFPAY ==
--- NOTE | ~2024-06-07 | XR_ITS ---
CLINICAL HISTORY: cough Two views of the chest. COMPARISON: XR chest dated 01/11/24 at 10:50 EDT FINDINGS: Normal heart and mediastinal contours. No consolidation. No pleural effusion or pneumothorax. Mild spondylosis. No fracture identified. IMPRESSION: 1. No acute cardiopulmonary abnormality. This document has been electronically signed by: Vipin Harrison MD on 06/07/2024 20:18:03
[2024-06-07 19:55] VITALS: BP 156/74; PULSE 90; O2SAT 97
--- NOTE | 2024-06-07 19:58 | ED.URI ---
HPI - URI/Sore Throat General Chief Complaint: Upper Respiratory Symptoms Stated Complaint: Cough,runny nose x few days Time Seen by Provider: 06/07/24 23:52 Related Data Home Medications ?Medication ?Instructions ?Recorded ?Confirmed cholecalciferol (vitamin D3) 50 1 tab PO DAILY 07/17/21 05/20/24 mcg (2,000 unit) tablet levothyroxine 100 mcg tablet 100 mcg PO MOTUWETHFR@06 08/07/23 05/20/24 simvastatin 40 mg tablet 40 mg PO QPM 08/07/23 05/20/24 albuterol sulfate 90 mcg/actuation 2 puff inhalation Q6H PRN wheezing 05/05/24 05/20/24 aerosol inhaler (Ventolin HFA) levothyroxine 88 mcg tablet 88 mcg PO DAILY 05/20/24 05/20/24 Allergies Allergy/AdvReac Type Severity Reaction Status Date / Time No Known Allergies Allergy Verified 06/07/24 20:01 [No Known Allergies*] PMFSH Past Medical History Medical History Colon cancer screening History of uterine cancer (~2003) History of NC (myocardial infarction) Hypothyroid High cholesterol History of small bowel obstruction GERD (gastroesophageal reflux disease) Tubular adenoma of colon (~2017) Personal history of nicotine dependence Depression Back pain Obesity Surgical History History of cardiac cath History of colonoscopy History of left knee surgery History of total abdominal hysterectomy and bilateral salpingo-oophorectomy History of reversal of tubal ligation Family History Family History Sister Uterine cancer Social History Social History Household Members: None Housing: Apartment Do you presently have visiting nurse or other home services: No Alcohol intake: current Alcohol intake frequency: a few times a month Comment: medicated, see MAR Patient Tobacco Use Status: Former Tobacco user Years Smoked: onset 10yo, 1ppd x 42yrs, 40pyh - quit 2017 Advance Directives: Yes Advance Directives on File: Yes Advance Directives Date on File: 07/26/21 service: No Current occupational status: disabled 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 Full HPI, ROS and PE to be performed by primary ED provider. 58yo F w/PMHx depression, GERD, Hypothyroid, HLD, obesity, NC presenting to the ED c/o cough, congestion, fever x yesterday. Denies sick contacts, CP/SOB, sore throat PE: talking in complete sentences, lungs CTA, mild posterior oropharyngeal erythema, uvula midline Plan: viral testing, CXR Medical Decision Making Lab Data Labs: Lab Results 06/07/24 Range/Units 20:41 Influenza Type A (PCR) NEGATIVE (Negative) Influenza Type B (PCR) NEGATIVE (Negative) RSV RNA Qual (PCR) NEGATIVE (Negative) SARS-CoV-2 RNA (RT-PCR) NEGATIVE (Negative) Discharge Plan Discharge Clinical Impression: Acute upper respiratory infection Patient Disposition: Home, Self-Care Instructions: Upper Respiratory Infection (ED) Prescriptions: No Action cholecalciferol (vitamin D3) 50 mcg (2,000 unit) tablet 1 tab PO DAILY levothyroxine 100 mcg tablet 100 mcg PO MOTUWETHFR@06 simvastatin 40 mg tablet 40 mg PO QPM levothyroxine 88 mcg tablet 88 mcg PO DAILY albuterol sulfate [Ventolin HFA] 90 mcg/actuation HFA aerosol inhaler 2 puff inhalation Q6H PRN (Reason: wheezing) Referrals: [facility] [Primary Care Provider] - 06/09/24 Print Language: Bulgarian
[2024-06-07 20:00] VITALS: BP 152/76; PULSE 80; RESP 18; TEMP 36.9; O2SAT 98; BMI 35.3
[2024-06-07 21:24] LABS: Influenza A PCR NEGATIVE (Negative); Influenza B PCR NEGATIVE (Negative); Resp Syncy Virus RNA Qual PCR NEGATIVE (Negative); SARS COV2 PCR INHOUSE NEGATIVE (Negative)
--- NOTE | 2024-06-08 00:45 | ED_ITS ---
HPI - URI/Sore Throat General Chief Complaint: Upper Respiratory Symptoms Stated Complaint: Cough,runny nose x few days Time Seen by Provider: 06/07/24 23:52 History of Present Illness HPI Narrative: Patient is 58-year-old female presents today with coughing congestion upper respiratory symptoms that is been ongoing for 2 days. Vaccinated for COVID. Not sure she is vaccinated to flu. Presents today with generalized malaise. Sneezing. No history of smoking. No history of recreational drug use. No history congestive heart failure. Related Data Home Medications ?Medication ?Instructions ?Recorded ?Confirmed cholecalciferol (vitamin D3) 50 1 tab PO DAILY 07/17/21 05/20/24 mcg (2,000 unit) tablet levothyroxine 100 mcg tablet 100 mcg PO MOTUWETHFR@06 08/07/23 05/20/24 simvastatin 40 mg tablet 40 mg PO QPM 08/07/23 05/20/24 albuterol sulfate 90 mcg/actuation 2 puff inhalation Q6H PRN wheezing 05/05/24 05/20/24 aerosol inhaler (Ventolin HFA) levothyroxine 88 mcg tablet 88 mcg PO DAILY 05/20/24 05/20/24 Allergies Allergy/AdvReac Type Severity Reaction Status Date / Time No Known Allergies Allergy Verified 06/07/24 20:01 [No Known Allergies*] Review of Systems Review of Systems: Positive cough upper respiratory symptoms Yes all other systems are reviewed and are negative [facility] Past Medical History Attestation statement: The following information was validated with the patient. Medical History Colon cancer screening History of uterine cancer (~2003) History of SC (myocardial infarction) Hypothyroid High cholesterol History of small bowel obstruction GERD (gastroesophageal reflux disease) Tubular adenoma of colon (~2017) Personal history of nicotine dependence Depression Back pain Obesity Surgical History History of cardiac cath History of colonoscopy History of left knee surgery History of total abdominal hysterectomy and bilateral salpingo-oophorectomy History of reversal of tubal ligation Family History Family History Sister Uterine cancer Social History Social History Household Members: None Housing: Apartment Do you presently have visiting nurse or other home services: No Alcohol intake: current Alcohol intake frequency: a few times a month Comment: medicated, see MAR Patient Tobacco Use Status: Former Tobacco user Years Smoked: onset 10yo, 1ppd x 42yrs, 40pyh - quit 2018 Advance Directives: Yes Advance Directives on File: Yes Advance Directives Date on File: 07/26/21 service: No Current occupational status: disabled 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 Oriented X3. No acute distress. Eyes: Pupils equal, round and reactive to light. ENT: Pharynx normal. Neck: Normal inspection. Neck supple. No lymph nodes noted. No crepitus CVS: Normal heart rate and rhythm. Pulses normal. Normal S1 and S2 Respiratory: No respiratory distress. Breath sounds normal. No Wheezing. No rales Abdomen: Soft and nontender. No rigidity. No distention. good BS x4 Skin: Skin warm and dry. Normal skin color. Normal skin turgor. Extremities: No lower extremity edema. Neurovascular intact to all extremities. No Lacerations. No Rash Neuro: Oriented X 3. No motor deficit. No sensory deficit. Moving all extermities. No slurred speech Medical Decision Making Medical Decision Making MDM Narrative: Patient's O2 sat 98% on room air. COVID flu RSV were all negative. No acute distress. Will discharge patient home. My interpretation patient's chest x-ray was grossly negative for pneumonia no pneumothorax. In stable condition. Differential Diagnosis Differential Diagnoses: The differential diagnosis associated with the presentation includes Pneumonia, flu, RSV Admission/Observation Consideration of admission/observation: Escalation of care including admission/observation considered Lab Data MDM Lab Attestation statement: I reviewed the patient's lab results. Labs: Lab Results 06/07/24 Range/Units 20:41 Influenza Type A (PCR) NEGATIVE (Negative) Influenza Type B (PCR) NEGATIVE (Negative) RSV RNA Qual (PCR) NEGATIVE (Negative) SARS-CoV-2 RNA (RT-PCR) NEGATIVE (Negative) Independent Interpretation I performed an independent interpretation of an: Plain X-Ray (My interpretation patient's chest x-ray is grossly negative for pneumonia no pneumothorax) Discharge Plan Discharge Clinical Impression: Acute upper respiratory infection Patient Disposition: Home, Self-Care Instructions: Upper Respiratory Infection (ED) Prescriptions: No Action cholecalciferol (vitamin D3) 50 mcg (2,000 unit) tablet 1 tab PO DAILY levothyroxine 100 mcg tablet 100 mcg PO MOTUWETHFR@06 simvastatin 40 mg tablet 40 mg PO QPM levothyroxine 88 mcg tablet 88 mcg PO DAILY albuterol sulfate [Ventolin HFA] 90 mcg/actuation HFA aerosol inhaler 2 puff inhalation Q6H PRN (Reason: wheezing) Referrals: [facility] [Primary Care Provider] - 06/09/24 Print Language: Indian
[2024-06-08 01:00] VITALS: BP 152/76; PULSE 80; RESP 18; TEMP 36.9; O2SAT 98
== END 2024-06-08 01:01 | disposition home or self-care (01) ==
PROVIDERS: Physician Assistant; Emergency Provider Emergency Medicine Emergency Medical Services
DX: J06.9 Acute upper respiratory infection, unspecified (principal); R05.9 Cough, unspecified; Z03.818 Encounter for observation for suspected exposure to other biological agents ruled out
CPT/HCPCS: 0241U; 71046; 99283; 99284

== ENCOUNTER → 2024-06-07 20:01 | Outpatient (BNV) | payer MEDICAID, SELFPAY | PROVIDERS: Visit Provider Radiology Diagnostic Radiology | DX: R05.9 Cough, unspecified (principal) | CPT/HCPCS: 71046 ==

== ENCOUNTER 2024-10-30 07:47 | Outpatient (REF) | payer MEDICAID, SELFPAY ==
--- NOTE | ~2024-10-30 | MM_ITS ---
EXAMINATION: MM SCREENING DIGITAL BREAST TOMOSYNTHESIS, BILATERAL CLINICAL INFORMATION: Screening. Asymptomatic. COMPARISON: Mammography: Comparison is made with available priors TECHNIQUE: Digital breast mammography with tomosynthesis is performed in both the craniocaudal and mediolateral oblique views along with computer-aided detection (CAD). FINDINGS: There are scattered areas of fibroglandular density (ACR BI-RADS breast composition Category b). There are no significant masses, abnormal calcifications, or other abnormalities. MM/MM tomosynthesis screening BI IMPRESSION: No mammographic evidence of malignancy. ASSESSMENT: BI-RADS BI-RADS 1 - Negative RECOMMENDATION: Routine annual mammography screening. 1 year F/U This examination should not preclude the clinical evaluation of a suspicious palpable abnormality. This patient's information was entered into a reminder system with a target due date for their next mammogram. Electronically signed by: Felipa Tejeda DO 11/04/2024 05:57 PM EDT
--- OUTSIDE RECORDS SUMMARY | 2024-10-30 07:48 | XMS_ITS | Encounter Summary ---
Author Organization [employer] Address [address] [place] [address] Care Team Providers Care Financial Services Consultant Name Role Phone Rylee Dangelo MD Primary Care Pro vider Encounter Details Date Type Department Care Team (Late st Contact Info) Description 05/22/2024 Orders Only [facility] [address] [place] [address] Provider, MD Neisha Social History Tobacco Use Types Packs/Day Years Used Date Smoking Tobacco: Former Cigarettes 1 41 1 977 - 2017 Passive Smoke Exposure: Never Smokeless Tobacco: Never Comments:Started smoking 10 y of age until 53 y of age , smoked for 43 y -used to smoke 10 cig a day ,stopped 5 y ago . PQT a year 21.5 Alcohol Use Standard Drinks/Week Comments Yes 0 (1 standard drink = 0.6 oz pur e alcohol) drinks 6 beers a day Alcohol Answer Date Recorded How often do you have a drink containing alcohol ? 4 04/17/2024 How many drinks containing a lcohol do you have on a typical day when you are drinking? 4 04/17/2024 How often do you have six or more drinks on one occasion? 0 04/17/2024 Depression Answer Date Recorded Patient Health Questionnaire-9 Score 0 04/17/2024 Patient Health Questionnaire-9 Score 0 04/17/2024 Last PHQ-9: Questionnaire Data Not on file 1 06/17/2023 Housing Stability Answer Date Recorded What is your housing situation today? I have jean-claude watkins 04/10/[address] you li ve. Do you have problems with any of the following? None of the above 04/10/2024 Food Insecurity Answer Date Recorded Within the past 12 months, y ou worried that your food would run out before you got money to buy more: Never True 04/10/2024 Within the past 12 months,th e food you bought just didn't last and you didn't have enough money to get more: Never True 12/2023 Transportation Answer Date Recorded In the past 12 months, has l ack of transportation kept you from medical appts, meetings, work or from getting things needed for daily living? No 04/10/2024 Utilities Answer Date Recorded In the past 12 months, has t he electric, gas, oil or water company threatened to shut off services in your home? No 04/10/2024 Depression Answer Date Recorded Patient Health Questionnaire-2 Score 0 04/17/2024 Internet Access Answer Date Recorded Internet Access Q1 Yes 04/10/2024 Internet Access Q2 Not on file 04/10/2024 Comments Unknown Sex and Gender Information Value Date Recorded Sex Assigned at Female 04/03/2022 10:20 AM EDT Legal Sex Female 10:20 AM EDT Gender Identity Female 04/03/2022 10:20 AM EDT Sexual Orientation Straight 04/17/2024 10 :18 AM EST documented as of this encounter Plan of Treatment Upcoming Encounters Date Type Department Care Team (Late st Contact Info) Description 10/31/2024 10:30 AM EDT Clinical Support [address] [address] 12/10/2024 9:00 AM EDT Office Visit [address] [address] Rylee Dangelo MD [address] [place] [phone] documented as of this encounter Procedures Procedure Name Priority Date/Time Associated Diagnosis Comments HM COLONOSCOPY Routine 09/28/2017 2:22 PM EDT documented in this encounter Results * Hm Colonoscopy (09/28/2017 2:22 PM EDT) us Historical Provider HEALTH MAINTENANCE Final Result documented in this encounter Visit Diagnoses Not on filedocumented in this encounter Additional Health Concerns Assessment Noted Time PHQ-9 Depression Total Score: 0 11/14/20 24 10:04 AM EST documented as of this encounter Care Teams Financial Services Consultant Relationship Specialty Start Date End Date Rylee Dangelo MD [address] [place] [id number] PCP - General Internal Medicine 03/13/23 documented as of this encounter
== END 2024-10-30 07:48 | disposition home or self-care (01) ==
LOC: HO.MAMMO 07:47
PROVIDERS: PCP Student in an Organized Health Care Education/Training Program; Visit Provider Student in an Organized Health Care Education/Training Program
DX: Z12.31 Encounter for screening mammogram for malignant neoplasm of breast (principal)
CPT/HCPCS: 77063; 77067

== ENCOUNTER → 2024-10-30 08:30 | Outpatient (BNV) | payer MEDICAID, SELFPAY | PROVIDERS: PCP Student in an Organized Health Care Education/Training Program; Visit Provider Internal Medicine | DX: Z12.31 Encounter for screening mammogram for malignant neoplasm of breast (principal) | CPT/HCPCS: 77063; 77067 ==

== ENCOUNTER 2024-11-20 12:25 | Outpatient (REF) | payer MEDICAID, SELFPAY ==
--- OUTSIDE RECORDS SUMMARY | 2024-11-20 13:32 | XMS_ITS | Encounter Summary ---
Author Organization [employer] Address [address] [facility] [address] [place] [address] Care Team Providers Care Gaming Cage Worker Name Role Phone Rylee Dangelo MD Primary Care Pro vider Reason for Visit * Reason Comments Med Refill Encounter Details Date Type Department Care Team ([facility] st Contact Info) Description 11/03/2024 Refill [facility] [address] [place], [place] [phone] Rylee Dangelo MD [address] [place] [address] Social History Tobacco Use Types Packs/Day Years [...] housing situation today? I have jean-claude watkins 10/08/[address] you li ve. Do you have problems with any of the following? Pests such as bugs, ants, or mice 10/08/2024 Food Insecurity Answer Date Recorded Within the [...] Care Team (Late st Contact Info) Description 12/10/2024 9:00 AM EDT Office Visit [facility] [address] [place] [address] Rylee Dangelo MD [address] [place] [phone] documented as of this encounter Visit Diagnoses Not on filedocumented in this encounter Additional Health Concerns Assessment Noted Time PHQ-9 Depression Total Score: 0 04/17/20 24 10:04 AM EST documented as of this encounter Care Teams Gaming Cage Worker Relationship Specialty Start Date End Date Rylee Dangelo MD [address] [place] [id number] PCP - General Internal Medicine 03/13/23 documented as of this encounter
== END 2024-11-20 12:26 | disposition home or self-care (01) ==
LOC: HO.RESP 12:25
PROVIDERS: PCP Student in an Organized Health Care Education/Training Program; Visit Provider Student in an Organized Health Care Education/Training Program
DX: Z13.89 Encounter for screening for other disorder (principal)

== ENCOUNTER 2024-12-08 08:02 | Outpatient (REF) | payer MEDICAID, SELFPAY ==
--- OUTSIDE RECORDS SUMMARY | 2024-12-08 08:05 | XMS_ITS | Encounter Summary ---
Author Organization [employer] Address [address] [facility] [address] [place] [address] Care Team Providers Care Lab Head Name Role Phone Rylee Dangelo MD Primary Care Pro vider Reason for Visit * Reason Comments Med Refill Encounter Details Date Type Department Care Team ([facility] st Contact Info) Description 11/03/2024 Refill [facility] [address] [place], [place] [phone] Rylee Dangelo MD [address] [place] [address] Social History Tobacco Use Types Packs/Day Years [...] Description 12/10/2024 9:00 AM EDT Office Visit [facility] [address] [place] [address] Rylee Dangelo MD [address] [place] [phone] documented as of this encounter Visit Diagnoses Not on filedocumented in this encounter Additional Health Concerns Assessment Noted Time PHQ-9 Depression Total Score: 0 04/17/20 24 10:04 AM EST documented as of this encounter Care Teams Lab Head Relationship Specialty Start Date End Date Rylee Daneglo MD [address] [place] [id number] PCP - General Internal Medicine 03/13/23 documented as of this encounter
[2024-12-08 13:39] LABS: Free T4 (Free Thyroxine) 1.00 ng/dL (0.71-1.85); Thyroid Stimulating Hormone 3.68 uIU/mL (0.32-4.0)
[2024-12-08 14:04] LABS: Anion Gap 11 (12-20)
[2024-12-08 14:08] LABS: Alanine Aminotransferase 20 U/L (0-31); Albumin Level 4.2 g/dL (3.5-5.0); Alkaline Phosphatase 63 U/L (39-117); Aspartate Amino Transferase 23 U/L (5-31); Blood Urea Nitrogen 10 mg/dL (9-16); Calcium 9.0 mg/dL (8.4-10.2); Carbon Dioxide 28 mmol/L (22-29); Chloride 106 mmol/L (96-108); Estimated Glomerular Filt Rate > 60; Potassium 4.2 mmol/L (3.3-5.1); Sodium 141 mmol/L (135-145); Total Protein 6.9 g/dL (6.5-8.0)
== END 2024-12-08 08:03 | disposition home or self-care (01) ==
LOC: HO.HHCL 08:02
PROVIDERS: PCP Student in an Organized Health Care Education/Training Program; Visit Provider Student in an Organized Health Care Education/Training Program
DX: I10 Essential (primary) hypertension (principal); E06.3 Autoimmune thyroiditis
CPT/HCPCS: 36415; 80053; 82043; 82570; 84439; 84443

== ENCOUNTER 2025-01-01 07:40 | Outpatient (REF) | payer MEDICAID, SELFPAY ==
--- NOTE | ~2025-01-01 | US_ITS ---
EXAMINATION: US LOWER EXTREMITY VENOUS (REFLUX EXAM), BILATERAL CLINICAL INFORMATION: Lower extremity edema, chronic. COMPARISON: None. TECHNIQUE: Color flow triplex imaging and compression Doppler was performed to evaluate both the deep and the superficial systems bilaterally. To evaluate the superficial system, the examination was performed in the upright position. Color-flow Doppler ultrasound and compression ultrasound were utilized. In addition, maneuvers were utilized to demonstrate reflux. FINDINGS: 1. DEEP VENOUS ULTRASOUND OF THE RIGHT LOWER EXTREMITY: Common Femoral Vein: Compressible, normal respiratory variation and augmented flow. Femoral Vein: Compressible, normal color flow and augmentation. Popliteal Vein: Compressible, normal augmentation. Deep Reflux: There is no evidence of reflux in the deep system in either the common femoral vein, superficial femoral or the popliteal vein. There is no evidence of a Waters's cyst. 2. SUPERFICIAL ULTRASOUND WITH DOPPLER OF RIGHT LOWER EXTREMITY: GREAT SAPHENOUS VEIN: Saphenofemoral Junction: 0.5 cm; Reflux: 0 ms Proximal Thigh: 0.3 cm; Reflux: 0 ms Mid Thigh: 0.3 cm; Reflux: 0 ms Distal Thigh: Not seen. At Knee: Not seen. Proximal Calf: Not seen. Mid Calf: 0.1 cm; Reflux: 0 ms Distal Calf: 0.2 cm; Reflux: 0 ms DUPLICATED MEDIAL GREAT SAPHENOUS VEIN: Diameter: 0.3 cm. Reflux: NA DUPLICATED LATERAL GREAT SAPHENOUS VEIN: Diameter: None imaged Reflux: NA SMALL SAPHENOUS VEIN: Saphenopopliteal Junction: 0.5 cm; Reflux: 0 ms Proximal: 0.1 cm; Reflux: 0 ms Distal: 0.1 cm; Reflux: 0 ms VEIN OF GIACOMINI: Size: NA Reflux: NA PERFORATORS: Location: Mid thigh and calf. Size: 0.2-0.3 cm. Reflux: NA VARICOSITIES: Location: None imaged. Size: NA Reflux: NA 3. DEEP VENOUS ULTRASOUND OF THE LEFT LOWER EXTREMITY: Common Femoral Vein: Compressible, normal respiratory variation and augmented flow. Femoral Vein: Compressible, normal color flow and augmentation. Popliteal Vein: Compressible, normal augmentation. Deep Reflux: There is no evidence of reflux in the deep system in either the common femoral vein, superficial femoral or the popliteal vein. There is no evidence of a Waters's cyst. 4. SUPERFICIAL ULTRASOUND WITH DOPPLER OF LEFT LOWER EXTREMITY: GREAT SAPHENOUS VEIN: Saphenofemoral Junction: 0.6 cm; Reflux: 0 ms Proximal Thigh: 0.4 cm; Reflux: 0 ms Mid Thigh: 0.2 cm; Reflux: 0 ms Distal Thigh: 0.2 cm; Reflux: 0 ms At Knee: Not seen. Proximal Calf: 0.2 cm; Reflux: 0 ms Mid Calf: 0.2 cm; Reflux: 0 ms Distal Calf: 0.2 cm; Reflux: 0 ms DUPLICATED MEDIAL GREAT SAPHENOUS VEIN: Diameter: None imaged Reflux: NA DUPLICATED LATERAL GREAT SAPHENOUS VEIN: Diameter: None imaged. Reflux: NA SMALL SAPHENOUS VEIN: Saphenopopliteal Junction: 0.4 cm; Reflux: 0 ms Proximal: 0.3 cm; Reflux: 0 ms Distal: 0.2 cm; Reflux: 0 ms VEIN OF GIACOMINI: Size: NA Reflux: NA PERFORATORS: Location: Small saphenous vein, mid segment. Mid thigh. Proximal and mid calf. Size: 0.1-0.2 cm. Reflux: NA VARICOSITIES: Location: None Imaged Size: NA Reflux: NA US/US venous insuf bilat IMPRESSION: Right: No venous insufficiency. Perforators without reflux, mid thigh and midcalf. Left: No venous insufficiency. Perforators without reflux, proximal to mid calf and mid thigh. Electronically signed by: Castro Whelan MD 01/01/2025 09:32 AM EDT
--- OUTSIDE RECORDS SUMMARY | 2025-01-01 07:42 | XMS_ITS | Encounter Summary ---
Author Organization [employer] Address [address] [facility] [address] [place] [address] Care Team Providers Care Music Theory Professor Name Role Phone Rylee Dangelo MD Primary Care Pro vider Reason for Visit * Reason Comments Med Refill Encounter Details Date Type Department Care Team ([facility] st Contact Info) Description 11/03/2024 Refill [facility] [address] [place], [place] [phone] Rylee Dangelo MD [address] [place] [address] Social History Tobacco Use Types Packs/Day Years [...] Care Team (Late st Contact Info) Description 03/24/2025 1:45 PM EDT Office Visit [facility] [address] [place] [address] Ina Flores, OD [address] [place] [address] documented as of this encounter Visit Diagnoses Not on filedocumented in this encounter Additional Health Concerns Assessment Noted Time PHQ-9 Depression Total Score: 0 04/17/20 24 10:04 AM EST documented as of this encounter Care Teams Music Theory Professor Relationship Specialty Start Date End Date Rylee Dangelo MD [address] [place] [address] PCP - General Internal Medicine 03/13/23 documented as of this encounter
== END 2025-01-01 07:41 | disposition home or self-care (01) ==
LOC: HO.US 07:40
PROVIDERS: PCP Student in an Organized Health Care Education/Training Program; Visit Provider Student in an Organized Health Care Education/Training Program
DX: R60.0 Localized edema (principal)
CPT/HCPCS: 93970

== ENCOUNTER → 2025-01-01 07:42 | Outpatient (BNV) | payer MEDICAID, SELFPAY | PROVIDERS: PCP Student in an Organized Health Care Education/Training Program; Visit Provider Radiology Diagnostic Radiology | DX: R22.43 Localized swelling, mass and lump, lower limb, bilateral (principal) | CPT/HCPCS: 93970 ==

== ENCOUNTER 2025-01-29 07:42 | Outpatient (REF) | payer MEDICAID, SELFPAY ==
--- NOTE | ~2025-01-29 | US_ITS ---
EXAMINATION: US COMPLETE ABDOMEN WITH LIVER ELASTOGRAPHY CLINICAL INFORMATION: Evaluate liver, EtOH use. COMPARISON: 05/06/2018. No prior elastography. TECHNIQUE: Real-time imaging of the abdominal viscera. Noninvasive ultrasound liver fibrosis assessment is performed using Siemens point quantification shear wave elastography (pSWE) with a C5-2 MHz transducer. Multiple elastography samples are obtained. FINDINGS: PANCREAS: The visualized pancreatic head and body are normal in appearance. The remainder of the pancreas is obscured from visualization by the overlying bowel gas. ABDOMINAL AORTA: No aortic aneurysm is seen. INFERIOR VENA CAVA: Visualized portions are normal. LIVER: The liver demonstrates mildly increased size and diffusely increased cortical echogenicity with foci of focal fatty sparing present. No suspicious focal lesion present. No intrahepatic biliary dilatation. The right lobe measures 17.8 cm in length. The left lobe measures 11.4 cm in length. Portal flow is towards the liver (hepatopetal). Shear wave liver elastography median stiffness is 0.83 m/s (reference: normal median stiffness is 1.3 m/s or less). IQR/median stiffness to assess sampling precision is 0.24 (reference: good quality data set is IQR/median stiffness of 0.30 or less). GALLBLADDER: The gallbladder is physiologically distended without evidence of stones, sludge, polyps, wall thickening or pericholecystic fluid. COMMON BILE DUCT: Normal in caliber measuring 0.3 cm in diameter. RIGHT KIDNEY: No hydronephrosis. No renal calculi or focal parenchymal lesions. The kidney measures 10.5 cm in maximum dimension. LEFT KIDNEY: No hydronephrosis. No renal calculi or focal parenchymal lesions. The kidney measures 10.0 cm in maximum dimension. SPLEEN: Unremarkable. The spleen measures 8.7 cm in maximum dimension. FREE FLUID: None seen. US/US abdomen comp w elastography IMPRESSION: 1. Mild hepatomegaly and mild diffusely increased hepatic echogenicity. Findings are most consistent with fatty infiltration. No suspicious hepatic lesion. 2. Liver elastography: Measurements are consistent with a high probability of normal liver stiffness. 3. No intra or extrahepatic biliary dilatation. Normal gallbladder. 4. Remainder of the examination is normal. REFERENCE: Society of Radiologists in Ultrasound Liver Stiffness Thresholds (2020): LIVER STIFFNESS THRESHOLDS: *Liver Stiffness equal or less than 1.3 m/s: High probability of being normal. *Liver Stiffness less than 1.7 m/s: In the absence of other known clinical signs, rules out compensated advanced chronic liver disease. *Liver Stiffness 1.7-2.1 m/s: Suggestive of compensated advanced chronic liver disease but need further test for confirmation. *Liver Stiffness over 2.1 m/s: Rules in compensated advanced chronic liver disease. *Liver Stiffness over 2.4 m/s: Suggestive of clinically significant portal hypertension. QUALITY OF DATA SET: *IQR/Median value equal or less than 0.3 implies a quality data set. *IQR/Median value over 0.3 implies a poor quality data set. SIGNIFICANT CHANGE FROM PRIOR EXAM: Significant change if liver stiffness measurement is 10% or greater from prior exam. OTHER CONSIDERATIONS: The stage of liver fibrosis may be overestimated in the setting of acute hepatitis, liver inflammation, elevated liver function tests, hepatic vascular congestion, obstructive cholestasis, non-fasting state, and infiltrative diseases such as amyloidosis and lymphoma. In some patients with NAFLD, the liver stiffness thresholds for compensated advanced chronic liver disease may be lower. In causes other than viral hepatitis and NAFLD, liver stiffness thresholds are not well established. Electronically signed by: Ryan Santana MD 01/29/2025 09:00 AM EDT
--- OUTSIDE RECORDS SUMMARY | 2025-01-29 07:46 | XMS_ITS | Encounter Summary ---
Author Organization [employer] Address [address] [place] [address] Care Team Providers Care Slackline Operator Name Role Phone Rylee Dangelo MD Primary Care Pro vider Encounter Details Date Type Department Care Team (Late st Contact Info) Description 05/22/2024 Orders Only [facility] [address] [place] [address] Provider, MD Neisha Social History Tobacco Use [...] Description 03/24/2025 1:45 PM EDT Office Visit [facility] [address] [place] [address] Charissamaggie Ina, OD [address] [place] [address] documented as of this encounter Procedures Procedure [...] documented as of this encounter Care Teams Slackline Operator Relationship Specialty Start Date End Date Rylee Dangelo MD [address] [place] [address] [place] [address] PCP - General Internal Medicine 03/13/23 documented as of this encounter
--- OUTSIDE RECORDS SUMMARY | 2025-01-29 07:46 | XMS_ITS | Encounter Summary ---
Author Organization [employer] Address [address] [facility] [address] [place] [address] Care Team Providers Care Industrial Recruiter Name Role Phone Rylee Dangelo MD Primary Care Pro vider Reason for Visit * Reason Comments Med Refill Encounter Details Date Type Department Care Team ([facility] st Contact Info) Description 11/03/2024 Refill [facility] [address] [place], [place] [phone] Rylee Dangelo MD [address] [place] [address] Social History Tobacco Use Types Packs/Day Years [...] Description 03/24/2025 1:45 PM EDT Office Visit [facility] [address] [place] [address] Ina Flores, OD [address] [place] [address] documented as of this encounter Visit Diagnoses Not on filedocumented in this encounter Additional Health Concerns Assessment Noted Time PHQ-9 Depression Total Score: 0 04/17/20 24 10:04 AM EST documented as of this encounter Care Teams Industrial Recruiter Relationship Specialty Start Date End Date Rylee Dangelo MD [address] [place] [address] PCP - General Internal Medicine 03/13/23 documented as of this encounter
--- OUTSIDE RECORDS SUMMARY | 2025-01-29 07:46 | XMS_ITS | Encounter Summary ---
Author Organization [employer] Address [address] [facility] [address] [place] [address] Care Team Providers Care Gravity Meter Observer Name Role Phone Rylee Dangelo MD Primary Care Pro vider Encounter Details Date Type Department Care Team (Late st Contact Info) Description 05/22/2023 Abstract [facility] [address] [place] [address] Rylee Dangelo MD [address] [place] [address] Social History Tobacco Use Types Packs/Day Years Used Date Smoking Tobacco: Former Cigarettes 1 41 1 977 - 2018 Passive Smoke Exposure: Never Smokeless Tobacco: Never Alcohol Use Standard Drinks/Week Comments Never 0 (1 standard drink = 0.6 oz pur e alcohol) Housing Stability Answer Date Recorded What is your housing situation today? I have jean-claude watkins 04/14/[address] you li ve. Do you have problems with any of the following? None of the above 04/14/2023 Food Insecurity Answer Date Recorded Within the past 12 months, y ou worried that your food would run out before you got money to buy more: Sometimes True 2022 Within the past 12 months,th e food you bought just didn't last and you didn't have enough money to get more: Sometimes True 04/14/2023 Transportation Answer Date Recorded In the past 12 months, has l ack of transportation kept you from medical appts, meetings, work or from getting things needed for daily living? Yes, it has kept me from non-medical meetings, work, or getting things that I need 03/13/2023 Utilities Answer Date Recorded In the past 12 months, has t he electric, gas, oil or water company threatened to shut off services in your home? Yes 03/13/2023 Comments Unknown Sex and Gender Information Value [...] Description 03/24/2025 1:45 PM EDT Office Visit [facility] [address] [place], [place] [id number] Ina Flores, OD [address] [place] [address] documented as of this encounter Visit Diagnoses Not on filedocumented in this encounter Care Teams Gravity Meter Observer Relationship Specialty Start Date End Date Rylee Dangelo MD [address] [place] [address] [phone] PCP - General Internal Medicine 03/13/23 documented as of this encounter
--- OUTSIDE RECORDS SUMMARY | 2025-01-29 07:47 | XMS_ITS | Encounter Summary ---
Author Organization [employer] Address [address] [facility] 7[address] [place] [address] Care Team Providers Care Pattern Room Attendant Name Role Phone Rylee Dangelo MD Primary Care Pro vider Encounter Details Date Type Department Care Team (Latest Contact Info) Description 01/01/2025 Results Follow-Up [facility] MEDICINE [address] [place] [address] Rylee Dangelo MD [address] [place] [address] Vascular US lower extremity venous insufficiency bilateral Social History Tobacco Use Types Packs/Day Years [...] AM EST documented as of this encounter Miscellaneous Notes * Result Encounter Note - Rylee Decker MD - 01/01/2025 3:16 PM EDT Please inform pt of normal legs US with no evidence of venous insufficiency . Please encourage to complete workup with abdominal US w elastography referred at last apt Thanks documented in this encounter Plan of Treatment Upcoming Encounters Date Type Department Care Team (Late st Contact Info) Description 03/24/2025 1:45 PM EDT Office Visit [facility] OPTOMETRY [address] [place] [address] Ina Flores, OD [address] [place] [address] documented as of this encounter Visit Diagnoses Not on filedocumented in this encounter Additional Health Concerns Assessment Noted Time PHQ-9 Depression Total Score: 0 04/17/20 24 10:04 AM EST documented as of this encounter Care Teams Pattern Room Attendant Relationship Specialty Start Date End Date Rylee Dangelo MD [address] [place] [phone] PCP - General Internal Medicine 03/13/23 documented as of this encounter
--- OUTSIDE RECORDS SUMMARY | 2025-01-29 07:47 | XMS_ITS | Encounter Summary ---
Author Organization [employer] Address [address] [facility] [address] [place] [address] Care Team Providers Care Professor Of Visual Arts Name Role Phone Caridad Hewitt CANOE INSPECTOR Primary Care Provider Rylee Mota MD Primary Care Pro vider Encounter Details Date Type Department Care Team ([facility] Contact Info) Description 12/20/2022 Orders Only [facility] MEDICINE [address] [place] [address] Caridad Hewitt FNP Social History Tobacco Use Types Packs/Day Years Used Date Smoking Tobacco: Former Cigarettes 1 41 1 977 - 2018 Passive Smoke Exposure: Never Smokeless Tobacco: Never Alcohol Use Standard Drinks/Week Comments Never 0 (1 standard drink = 0.6 oz pur e alcohol) Comments Unknown Sex and Gender Information Value Date Recorded Sex Assigned at Female 04/03/2022 10:20 AM EDT Legal Sex Female 10:20 AM EDT Gender Identity Female 04/03/2022 10:20 AM EDT Sexual Orientation Straight 04/17/2024 10 :18 AM EST documented as of this encounter Plan of Treatment Upcoming Encounters Date Type Department Care Team (Late Contact Info) Description 03/24/2025 1:45 PM EDT Office Visit [facility] OPTOMETRY [address] [place], [place] [phone] Ina Flores, OD [address] [place] [address] documented as of this encounter Visit Diagnoses Not on filedocumented in this encounter Care Teams Professor Of Visual Arts Relationship Specialty Start Date End Date Caridad Hewitt FNP PCP - General Family Medicine 01/30/22 03/12/23 Rylee Dangelo MD [address] [place] [phone] PCP - General Internal Medicine 03/13/23 documented as of this encounter
--- OUTSIDE RECORDS SUMMARY | 2025-01-29 07:47 | XMS_ITS | Clinical Summary ---
Author Organization [employer] Address [address] [facility] [address] [place] [address] Care Team Providers Care Stitchdown Thread Laster Name Role Phone Rylee Dangelo MD Primary Care Pro vider Allergies No known active allergies Medications Spacer/Aero-Hol ding Chambers deviceIndicatio ns:Precordial pain 1 each every 4 (four) hours if needed (with inhaler). 1 each 09/15/19 23 Active Acetaminophen Extra Strength 500 MG tablet TAKE 2 TABLETS BY MOUTH EVERY 6 HOURS NEEDED 60 tablet 05/22/20 23 Active Ventolin HFA 108 (90 Base) MCG/ACT inhalerIndicati ons:Chest tightness INHALE 2 PUFFS BY MOUTH EVERY 6 HOURS NEEDED FOR WHEEZING 18 g 2 07/22/19 25 Active lidocaine (Lidoderm) 5 % patchIndication s:Thoracic back pain, unspecified back pain laterality, unspecified chronicity APPLY 1 PATCH TOPICALLY TO SKIN, LEAVE ON FOR 12 HOURS AND OFF FOR 12 HOURS DIRECTED 30 patch 2 09/27/19 25 Active levothyroxine (Synthroid, Levoxyl) 88 MCG tablet TAKE 1 TABLET BY MOUTH ON SUNDAY AND SUNDAY ONLY 24 tablet 3 11/05/19 25 Active levothyroxine (Synthroid, Levoxyl) 100 MCG tablet TAKE 1 TABLET BY MOUTH EVERY DAY SUNDAY TO SUNDAY 65 tablet 3 11/25/19 25 Active simvastatin (Zocor) 40 MG tablet TAKE 1 TABLET BY MOUTH EVERY DAY AT BEDTIME 90 tablet 12/04/19 25 Active cholecalciferol VITAMIN D (Vitamin D-3) 50 MCG (1999 UT) tabletIndicatio ns:Vitamin D deficiency TAKE 1 TABLET BY MOUTH EVERY MORNING 90 tablet 12/04/19 25 Active losartan (Cozaar) 25 MG tabletIndicatio ns:Hypertension , unspecified type TAKE 1 TABLET BY MOUTH ONCE DAILY 90 tablet 1 01/28/20 25 Active losartan (Cozaar) 25 MG tabletIndicatio ns:Hypertension , unspecified type Take 1 tablet (25 mg) by mouth Once per day. 30 tablet 2 10/16/19 25 025 Discontinued Active Problems Problem Noted Date Diagnosed Date HTN (hypertension) 10/15/2024 Obesity (BMI 30-39.9) 04/17/2024 Family history of cancer 04/17/2024 History of tobacco use 04/17/2024 Alcohol use disorder 04/17/2024 Thoracic back pain 04/17/2024 Mass on back 04/17/2024 Lower extremity edema 04/17/2024 Cigarette nicotine dependence in remission 12/15 Overview (12/15/2022): Lung cancer: Quit 5 years ago. 31 year smoke hx. Symptoms of chest tightness at times. Qualifies for screening. Assessment & Plan (12/15/2022 9:58 AM EDT): Order Low dose CT Filled out form today w/ pt signature Task [place] [facility] F/u 3 months or sooner PRN Health care maintenance 06/21/2022 Overview (03/07/2023): Routine Health Maintenance: Immunizations: Declines shingles vaccine. Tdap up to date 06/04/2018. HIV: 07/05/22 Nonreactive Hep C: 07/05/22 Nonreactive Hepatitis B: Ordered 12/15/22 Pap Smear: Total hysterectomy and oophorectomy in 2003 Mammogram: 09/22/22, normal per pt BMD: >age 65, not due yet Colonoscopy: 09/28/17; 2 small polyps. Every 5 years d/t personal cancer hx. Recommend pt call for appt Lung cancer: Quit 5 years ago. 31 year smoke hx. Symptoms of chest tightness at times. Low dose CT results 03/02/23 IMPRESSION: 4 mm left lower lobe pulmonary nodule. ASSESSMENT: Lung-RADS category 2: Benign RECOMMENDATION: Routine annual low-dose CT screening in 12 months. Eye: 3 years ago. No concerns. 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 Assessment & Plan (01/10/2023 10:38 PM EDT): Rx Walker to assist knee healing, update walker order Educated pt on risk of atrophy of muscles if not used and rely on walker F/u 3 months or sooner PRN Malignant neoplasm of overla pping sites of body of uterus 12/15/2022 10/15/2024 Overview (12/15/2022): Total hysterectomy and oophorectomy 05/2004 Removed in [place] Assessment & Plan (12/15/2022 9:58 AM EDT): F/u PRN Plantar fasciitis 08/13/2022 04/17/2024 Mixed anxiety and depressive disorder 05/16/2022 04/17/2024 Normal mammography 04/05/2021 3 Encounters Date Type Department Care Team Description 01/26/2025 Refill [facility] [address] [place] [address] Rylee Dangelo MD Hypertension, unspecified type 01/06/2025 Telephone [facility] [address] [place] [address] Rylee Dangelo MD US venous results 01/01/2025 Results Follow-Up [facility] [address] [place] [address] Rylee Dangelo MD Vascular US lower extremity venous insufficiency bilateral 12/10/2024 9:00 AM EDT Office Visit [facility] [address] [place] [address] Rylee Dangelo MD Resistant hypertension (Primary Dx); Hypertension, unspecified type; Lower extremity edema; Alcohol use disorder; Health care maintenance; Mass on back; Cigarette nicotine dependence in remission 12/10/2024 Travel 12/09/2024 Telephone [facility] [address] [place] [address] Rylee Dangelo MD CHART PREP 12/02/2024 Refill [facility] [address] [place] [address] Rylee Dangelo MD Vitamin D deficiency 11/24/2024 Refill [facility] [address] [place] [address] Rylee Dangelo MD 11/06/2024 Telephone [facility] [address] [place] [address] Rylee Dangelo MD Results Mammo 11/04/2024 Results Follow-Up [facility] [address] [place] [address] Rylee Dangelo MD BI Mammogram Screening Tomosynthesis Bilateral 11/04/2024 Refill [facility] [address] [facility] [place] [address] Rylee Dangelo MD 11/03/2024 Refill [facility] [address] [place] [address] Rylee Dangelo MD 10/31/2024 10:30 AM EDT Clinical Support [facility] [address] [facility] [place] [address] Bhargavi Baird RN Resistant hypertension 10/31/2024 Travel 10/30/2024 Orders Only [facility] [address] [facility] [place] [address] Rylee Dangelo MD from Last 3 Months Immunizations Immunization Administration Dates Next Due Hep B, adult 04/23/2024,02/01/2023,01/04/2023 Influenza Injectable Quadriv alant Preservative Free IIV4 MDCK 04/11/2022 Influenza injectable quadriv alent IIV4 with preservative 02/25/2018,05/30/2016 Influenza injectable quadriv alent preservative free 04/23/2023,07/17/2021,05/25/2020,2019,04/09/2017 Moderna Covid-19 Vaccine 12+ 05/19/2021,08/04/19 21 Pfizer Covid-19 Vaccine 12+ 04/23/2023 Pfizer Covid-19 Vaccine 12+ Bivalent 05/02/2022 Tdap 06/04/2018 Family History Medical History Relation Name Comments Parkinsonism Father Prostate cancer Maternal Grandfather DM2 Mother Prostate cancer Paternal Grandfather Breast cancer Sister Uterine cancer Sister Relation Name Status Comments Father Maternal Grandfather Mother Paternal Grandfather Sister Social History Tobacco Use Types Packs/Day Years Used Date Smoking Tobacco: Former Cigarettes 1 41 1 977 - 2018 Passive Smoke Exposure: Never Smokeless Tobacco: Never Tobacco Cessation:Counseling Given: Not Answered Comments:Started smoking 10 y of age until [...] Orientation Straight 04/17/2024 10 :18 AM EST Last Filed Vital Signs Vital Sign Reading Time Taken Comments Blood Pressure 138/68 12/10/2024 8:57 AM EDT Pulse 65 12/10/2024 8:57 AM EDT Temperature 36.1 C (96.9 F) 12/10/2024 8:57 AM EDT Respiratory Rate 20 12/10/2024 8:57 AM EDT Oxygen Saturation 99% 12/10/2024 8:57 AM EDT Inhaled Oxygen Concentration - - Weight 81.2 kg (179 lb) 12/10/2024 8:57 AM EDT Height 152.4 cm (5') 12/10/2024 8:57 AM EDT Body Mass Index 34.96 12/10/2024 8:57 AM EDT Plan of Treatment Upcoming Encounters Date Type Department Care Team (Late st Contact Info) Description 03/24/2025 1:45 PM EDT Office Visit [facility] [address] [place] [address] Charissamaggie Ina, OD [address] [place] [address] Health Maintenance Due Date Last Done Comments CT Colonography 1965 Dental Prophylaxis 1965 FIT DNA/Cologuard 1965 FIT 1965 FOBT 1965 Sigmoidoscopy 1965 Pap Smear 09/24/1984 Cervical Cancer Screening 09/24/1993 HPV/Cotest 09/24/1993 Pneumococcal Vaccine: 50+ Years (1 of 1 - PCV) 09/24/2013 Zoster Vaccines (1 of 2) 09/24/2013 Dental Oral Exam 07/20/2023 01/16/2023 Dental X-Ray: Bitewings 01/18/2024 01/16/2023 COVID-19 Vaccine ( season) 2024 04/23/2023, 05/02/2022, 05/19/2021, Additional history exists Influenza Vaccine (#1) 2025 , 04/11/2022, 07/17/2021, Additional history exists Lung Cancer Screening 03/06/2025 03/06/2024, 023 Alcohol/Substance Use Screening 04/17/2025 04/17/2024 Depression Screening 04/17/2025 04/17/2024, 04/17/20 24 Disability Screening 04/17/2025 04/17/2024 SDOH Screening 10/08/2025 10/08/2024 Tobacco Screening 12/10/2025 12/10/2024 Dental X-Ray: Full Mouth 01/17/2026 01/16/2023 Mammogram 10/30/2026 10/30/2024, 10/03, 09/16/2021, Additional history exists Colonoscopy 09/29/2027 09/28/2017 Colorectal Cancer Screening 09/29/2027 DTaP/Tdap/Td Vaccines (2 - Td or Tdap) 06/04/2028 06/04/2018 Lipid Panel 04/21/2029 04/21/2024, 06/07/2023, 07/05/2022, Additional history exists RSV Patients and Patients Aged 60 years or older (1 - 1-dose 75+ series) 09/24/2038 HIV Screening Completed 04/18/2024, 07/05/2022 Hepatitis C Screening Completed 04/18/2024 , 12/22/2022, 07/05/2022 Hepatitis B Vaccines Completed 04/23/2024, 02/01/2023, 01/04/2023 HIB Vaccines Aged Out No longer eligi ble based on patient's age to complete this topic HPV Vaccines Aged Out No longer eligi ble based on patient's age to complete this topic Hepatitis A Vaccines Aged Out No long er eligible based on patient's age to complete this topic IPV Vaccines Aged Out No longer eligi ble based on patient's age to complete this topic Meningococcal B Vaccine Aged Out No l onger eligible based on patient's age to complete this topic Meningococcal Vaccine Aged Out No yifan christina eligible based on patient's age to complete this topic RSV under 20 months Aged Out No longe r eligible based on patient's age to complete this topic Rotavirus Vaccines Aged Out No longer eligible based on patient's age to complete this topic Procedures Procedure Name Priority Date/Time Associated Diagnosis Comments VASC US LOWER EXTREMITY VENOUS INSUFFICIENCY BILATERAL Routine 01/01/2025 8:47 AM EDT Lower extremity edema ECG 12-LEAD Routine 12/10/2024 9:12 AM EDT Resistant hypertension T4, FREE Routine 12/08/2024 8:10 AM EDT 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 TSH Routine 12/08/2024 8:10 AM EDT 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 COMPREHENSIVE METABOLIC PANEL Routine 12/08/2024 8:10 AM EDT Hypertension, unspecified type ALBUMIN, RANDOM URINE W/CREATININE Routine 12/08/2024 8:10 AM EDT Hypertension, unspecified type BI MAMMOGRAM SCREENING TOMOSYNTHESIS BILATERAL Routine 10/30/2024 7:50 AM EDT LIPID PANEL, STANDARD Routine 04/21/2024 8:02 AM EST Annual physical exam HEPATITIS C AB W/REFL TO HCV RNA, QN, PCR Routine 04/18/2024 8:07 AM EST Annual physical exam HIV 1/2 ANTIGEN/ANTIBODY, FOURTH GENERATION W/RFL Routine 04/18/2024 8:07 AM EST Annual physical exam LDCT LUNG SCREENING Routine 03/06/2024 8 :41 AM EDT INTRAORAL - COMPLETE SERIES OF RADIOGRAPHIC IMAGES Routine 01/16/2023 10:30 AM EDT COMPREHENSIVE ORAL EVALUATION - NEW OR ESTABLISHED PATIENT Routine 01/16/2023 10:30 AM EDT HM COLONOSCOPY Routine 09/28/2017 2:22 PM EDT from Last 3 Months or Most Recently Relevant to Health Maintenance Results * Vascular US lower extremity venous insufficiency bilateral (01/01/2025 8:47 AM EDT) 01/01/2025 8:47 AM EDT Narrative [facility] - 01/01/2025 9:35 AM EDT [address] [address] Ultrasound Report Signed Patient: Shawna Ch MR#: [id number] : 1965 Acct:[id number] Age/Sex: 59 / F ADM Date: 01/01/25 Loc: HO.US Attending Dr: Rylee Decker MD Ordering Physician: Rylee Dangelo MD Date of Service: 01/01/25 Procedure(s): US venous insuf bilat Accession Number(s): [id number] cc: Rylee Dangelo MD EXAMINATION: US LOWER EXTREMITY VENOUS (REFLUX EXAM), BILATERAL CLINICAL INFORMATION: Lower extremity edema, chronic. COMPARISON: None. TECHNIQUE: Color flow triplex imaging and compression Doppler was performed to evaluate both the deep and the superficial systems bilaterally. To evaluate the superficial system, the examination was performed in the upright position. Color-flow Doppler ultrasound and compression ultrasound were utilized. In addition, maneuvers were utilized to demonstrate reflux. FINDINGS: 1. DEEP VENOUS ULTRASOUND OF THE RIGHT LOWER EXTREMITY: Common Femoral Vein: Compressible, normal respiratory variation and augmented flow. Femoral Vein: Compressible, normal color flow and augmentation. Popliteal Vein: Compressible, normal augmentation. Deep Reflux: There is no evidence of reflux in the deep system in either the common femoral vein, superficial femoral or the popliteal vein. There is no evidence of a Waters's cyst. 2. SUPERFICIAL ULTRASOUND WITH DOPPLER OF RIGHT LOWER EXTREMITY: GREAT SAPHENOUS VEIN: Saphenofemoral Junction: 0.5 cm; Reflux: 0 ms Proximal Thigh: 0.3 cm; Reflux: 0 ms Mid Thigh: 0.3 cm; Reflux: 0 ms Distal Thigh: Not seen. At Knee: Not seen. Proximal Calf: Not seen. Mid Calf: 0.1 cm; Reflux: 0 ms Distal Calf: 0.2 cm; Reflux: 0 ms DUPLICATED MEDIAL GREAT SAPHENOUS VEIN: Diameter: 0.3 cm. Reflux: NA DUPLICATED LATERAL GREAT SAPHENOUS VEIN: Diameter: None imaged Reflux: NA SMALL SAPHENOUS VEIN: Saphenopopliteal Junction: 0.5 cm; Reflux: 0 ms Proximal: 0.1 cm; Reflux: 0 ms Distal: 0.1 cm; Reflux: 0 ms VEIN OF GIACOMINI: Size: NA Reflux: NA PERFORATORS: Location: Mid thigh and calf. Size: 0.2-0.3 cm. Reflux: NA VARICOSITIES: Location: None imaged. Size: NA Reflux: NA 3. DEEP VENOUS ULTRASOUND OF THE LEFT LOWER EXTREMITY: Common Femoral Vein: Compressible, normal respiratory variation and augmented flow. Femoral Vein: Compressible, normal color flow and augmentation. Popliteal Vein: Compressible, normal augmentation. Deep Reflux: There is no evidence of reflux in the deep system in either the common femoral vein, superficial femoral or the popliteal vein. There is no evidence of a Waters's cyst. 4. SUPERFICIAL ULTRASOUND WITH DOPPLER OF LEFT LOWER EXTREMITY: GREAT SAPHENOUS VEIN: Saphenofemoral Junction: 0.6 cm; Reflux: 0 ms Proximal Thigh: 0.4 cm; Reflux: 0 ms Mid Thigh: 0.2 cm; Reflux: 0 ms Distal Thigh: 0.2 cm; Reflux: 0 ms At Knee: Not seen. Proximal Calf: 0.2 cm; Reflux: 0 ms Mid Calf: 0.2 cm; Reflux: 0 ms Distal Calf: 0.2 cm; Reflux: 0 ms DUPLICATED MEDIAL GREAT SAPHENOUS VEIN: Diameter: None imaged Reflux: NA DUPLICATED LATERAL GREAT SAPHENOUS VEIN: Diameter: None imaged. Reflux: NA SMALL SAPHENOUS VEIN: Saphenopopliteal Junction: 0.4 cm; Reflux: 0 ms Proximal: 0.3 cm; Reflux: 0 ms Distal: 0.2 cm; Reflux: 0 ms VEIN OF GIACOMINI: Size: NA Reflux: NA PERFORATORS: Location: Small saphenous vein, mid segment. Mid thigh. Proximal and mid calf. Size: 0.1-0.2 cm. Reflux: NA VARICOSITIES: Location: None Imaged Size: NA Reflux: NA US/US venous insuf bilat IMPRESSION: Right: No venous insufficiency. Perforators without reflux, mid thigh and midcalf. Left: No venous insufficiency. Perforators without reflux, proximal to mid calf and mid thigh. Electronically signed by: Castro Whelan MD 01/01/2025 09:32 AM EDT Dictated By: Castro Lewis MD Signed By: <Electronically signed by Castro Ford MD in OV> 01/01/2532 DD/ TD/TT: 01/01/25915 Filter Tank Tender: Procedure Note Donotuseinterpreter, Image - 01/01/[address] [address] Ultrasound Report Signed Patient: Thelma ChnMR#: [id number] : 1965Acct:[id number] Age/Sex: 59 / FADM Date: 01/01/25 Loc: HO. Attending Dr: Rylee Decker MD Ordering Physician: Rylee Dangelo MD Date of Service: 01/01/25 Procedure(s): US venous insuf bilat Accession Number(s): [id number] cc: Rylee Dangelo MD EXAMINATION: US LOWER EXTREMITY VENOUS (REFLUX EXAM), BILATERAL CLINICAL INFORMATION: Lower extremity edema, chronic. COMPARISON: None. TECHNIQUE: Color flow triplex imaging and compression Doppler was performed to evaluate both the deep and the superficial systems bilaterally. To evaluate the superficial system, the examination was performed in the upright position. Color-flow Doppler ultrasound and compression ultrasound were utilized. In addition, maneuvers were utilized to demonstrate reflux. FINDINGS: 1. DEEP VENOUS ULTRASOUND OF THE RIGHT LOWER EXTREMITY: Common Femoral Vein: Compressible, normal respiratory variation and augmented flow. Femoral Vein: Compressible, normal color flow and augmentation. Popliteal Vein: Compressible, normal augmentation. Deep Reflux: There is no evidence of reflux in the deep system in either the common femoral vein, superficial femoral or the popliteal vein. There is no evidence of a Waters's cyst. 2. SUPERFICIAL ULTRASOUND WITH DOPPLER OF RIGHT LOWER EXTREMITY: GREAT SAPHENOUS VEIN: Saphenofemoral Junction: 0.5 cm; Reflux: 0 ms Proximal Thigh: 0.3 cm; Reflux: 0 ms Mid Thigh: 0.3 cm; Reflux: 0 ms Distal Thigh: Not seen. At Knee: Not seen. Proximal Calf: Not seen. Mid Calf: 0.1 cm; Reflux: 0 ms Distal Calf: 0.2 cm; Reflux: 0 ms DUPLICATED MEDIAL GREAT SAPHENOUS VEIN: Diameter: 0.3 cm. Reflux: NA DUPLICATED LATERAL GREAT SAPHENOUS VEIN: Diameter: None imaged Reflux: NA SMALL SAPHENOUS VEIN: Saphenopopliteal Junction: 0.5 cm; Reflux: 0 ms Proximal: 0.1 cm; Reflux: 0 ms Distal: 0.1 cm; Reflux: 0 ms VEIN OF GIACOMINI: Size: NA Reflux: NA PERFORATORS: Location: Mid thigh and calf. Size: 0.2-0.3 cm. Reflux: NA VARICOSITIES: Location: None imaged. Size: NA Reflux: NA 3. DEEP VENOUS ULTRASOUND OF THE LEFT LOWER EXTREMITY: Common Femoral Vein: Compressible, normal respiratory variation and augmented flow. Femoral Vein: Compressible, normal color flow and augmentation. Popliteal Vein: Compressible, normal augmentation. Deep Reflux: There is no evidence of reflux in the deep system in either the common femoral vein, superficial femoral or the popliteal vein. There is no evidence of a Waters's cyst. 4. SUPERFICIAL ULTRASOUND WITH DOPPLER OF LEFT LOWER EXTREMITY: GREAT SAPHENOUS VEIN: Saphenofemoral Junction: 0.6 cm; Reflux: 0 ms Proximal Thigh: 0.4 cm; Reflux: 0 ms Mid Thigh: 0.2 cm; Reflux: 0 ms Distal Thigh: 0.2 cm; Reflux: 0 ms At Knee: Not seen. Proximal Calf: 0.2 cm; Reflux: 0 ms Mid Calf: 0.2 cm; Reflux: 0 ms Distal Calf: 0.2 cm; Reflux: 0 ms DUPLICATED MEDIAL GREAT SAPHENOUS VEIN: Diameter: None imaged Reflux: NA DUPLICATED LATERAL GREAT SAPHENOUS VEIN: Diameter: None imaged. Reflux: NA SMALL SAPHENOUS VEIN: Saphenopopliteal Junction: 0.4 cm; Reflux: 0 ms Proximal: 0.3 cm; Reflux: 0 ms Distal: 0.2 cm; Reflux: 0 ms VEIN OF GIACOMINI: Size: NA Reflux: NA PERFORATORS: Location: Small saphenous vein, mid segment. Mid thigh. Proximal and mid calf. Size: 0.1-0.2 cm. Reflux: NA VARICOSITIES: Location: None Imaged Size: NA Reflux: NA US/US venous insuf bilat IMPRESSION: Right: No venous insufficiency. Perforators without reflux, mid thigh and midcalf. Left: No venous insufficiency. Perforators without reflux, proximal to mid calf and mid thigh. Electronically signed by: Castro Whelan MD 01/01/2025 09:32 AM EDT Dictated By: Castro Lewis MD Signed By: <Electronically signed by Castro Ford MDin OV> 01/01/25 0932 DD/ 0847 TD/TT: 01/01/2516 Filter Tank Tender: us Rylee Decker MD CV VASCULAR PROCE DURES Final Result Performing Organization Address City/[facility]/ZIP Co de Phone Number [facility] [address] [place] [address] * ECG 12 lead (12/10/2024 9:12 AM EDT) Narrative Rylee Dangelo MD - 12/10/2024 9:12 AM EDT -EKG today 12/2024 NSR, HR 67x',Qtc 404, noted high P voltage and TWI only in lead III Rylee Decker MD ECG ORDERABLES F inal Result * Albumin, Random Urine W/Creatinine (12/08/2024 8:10 AM EDT) Creatinine, Urine 81.31 mg/dL [facility] Microalbumin Urine <5.0 mg/L [facility] Microalbum Creatinine Ratio Ur TNP <30 ug/mg cr [facility] Comment:Unable to calculate albumin/creatinine ratio due to lowmicroalbumin or creatinine result. Urine (Urine, Random) 12/08/2024 8:10 AM EDT 12/08/2024 11:16 AM EDT Rylee Decker MD LAB URINE ORDERAB LES Final Result Performing Organization Address City/[facility]/ZIP Co de Phone Number [facility] [address] [place] [phone] * TSH (12/08/2024 8:10 AM EDT) Thyroid Stimulating Hormone 3.68 0.32 - 4.0 uIU/mL [facility] Comment:Note: A sustained TS H level above 2.5 uIU/mL may warrant further investigation. TSH 3rd Generation ([facility]) Blood Venous blood specimen / Unknown 12/08/2024 8:10 AM EDT 12/08/2024 11:17 AM EDT Rylee Decker MD LAB BLOOD ORDERAB LES Final Result Performing Organization Address City/[facility]/ZIP Co de Phone Number [facility] [address] [place] [phone] * T4, Free (12/08/2024 8:10 AM EDT) Free T4 (Free Thyroxine) 1.00 0.71 - 1.85 ng/dL [facility] Blood Venous blood specimen / Unknown 12/08/2024 8:10 AM EDT 12/08/2024 11:17 AM EDT us Rylee Decker MD LAB BLOOD ORDERAB LES Final Result Performing Organization Address City/[facility]/ZIP Co de Phone Number [facility] [address] [place] [phone] * (ABNORMAL) Comprehensive Metabolic Panel (12/08/2024 8:10 AM EDT) Pathologist [facility] Sodium 141 135 - 145 mmol/L [facility] Potassium 4.2 3.3 - 5.1 mmol/L [facility] Chloride 106 96 - 108 mmol/L [facility] Carbon Dioxide 28 22 - 29 mmol/L [facility] Anion Gap 11(L) 12 - 20 [facility] Urea Nitrogen (BUN) 10 9 - 16 mg/dL [facility] Creatinine, Serum 0.79 0.5 - 1.4 mg/dL [facility] Estimated Glomerular Filt Rate >60 [facility] Comment:Chronic Kidney Disea se: Estimated GFR < 60 mL/min/1.59q3Dnjicl Kidney Disease: Estimated GFR < 15 mL/min/1.73m2 Glucose 110 60 - 115 mg/dL [facility] Calcium 9.0 8.4 - 10.2 mg/dL [facility] Bilirubin, Total 0.7 0.0 - 1.0 mg/dL [facility] Aspartate Amino Transferase 23 5 - 31 U/L [facility] Alanine Aminotransferase 20 0 - 31 U/L [facility] Total Protein 6.9 6.5 - 8.0 g/dL [facility] Albumin Level 4.2 3.5 - 5.0 g/dL [facility] Alkaline Phosphatase 63 39 - 117 U/L [facility] Blood Venous blood specimen / Unknown 12/08/2024 8:10 AM EDT 12/08/2024 11:17 AM EDT us Rylee Decker MD LAB BLOOD ORDERAB LES Final Result [facility] [address] [place] [phone] * BI Mammogram Screening Tomosynthesis Bilateral (10/30/2024 7:50 AM EDT) Anatomical Region Laterality Modality Breast Bilateral Mammography 10/30/2024 7:50 AM EDT Narrative 11/04/2024 6:00 PM EDT [facility] [address] [place] [address] Mammography Report Signed Patient: Shawna Ch MR#: [id number] : 1965 Acct:[id number] Age/Sex: 59 / F ADM Date: 10/30/24 Loc: HO.MAMMO Attending Dr: Rylee Decker MD Ordering Physician: Rylee Dangelo MD Re sults: 1Negative Date of Service: 10/30/24 Follow Up: 1 [facility] From [facility] Mammogram Procedure(s): MM tomosynthesis screening BI Accession Number(s): [id number] cc: Rylee Dangelo MD EXAMINATION: MM SCREENING DIGITAL BREAST TOMOSYNTHESIS, BILATERAL CLINICAL INFORMATION: Screening. Asymptomatic. COMPARISON: Mammography: Comparison is made with available priors TECHNIQUE: Digital breast mammography with tomosynthesis is performed in both the craniocaudal and mediolateral oblique views along with computer-aided detection (CAD). FINDINGS: There are scattered areas of fibroglandular density (ACR BI-RADS breast composition Category b). There are no significant masses, abnormal calcifications, or other abnormalities. MM/MM tomosynthesis screening BI IMPRESSION: No mammographic evidence of malignancy. ASSESSMENT: BI-RADS BI-RADS 1 - Negative RECOMMENDATION: Routine annual mammography screening. 1 year F/U This examination should not preclude the clinical evaluation of a suspicious palpable abnormality. This patient's information was entered into a reminder system with a target due date for their next mammogram. Electronically signed by: Felipa Tejeda DO 11/04/2024 05:57 PM EDT RP Dictated By: Felipa Tejeda DO Signed By: <Electronically signed by Felipa Tejeda DO in OV> 11/04/24 1757 DD/ 0750 TD/TT: 10/30/24 0800 Filter Tank Tender: Procedure Note Donotuseinterpreter, Image - [facility]04/[facility] [address] [place] [address] Mammography Report Signed Patient: Thelma ChnMRamiro#: [id number] : 1965Acct:[id number] Age/Sex: 59 / FADM Date: 10/30/24 Loc: HO.MAMMO Attending Dr: Rylee Decker MD Ordering Physician: Rylee Dangelo sults: 1Negative Date of Service: 10/30/24Follow Up: 1 Year From Orig inal Mammogram Procedure(s): MM tomosynthesis screening BI Accession Number(s): [id number] cc: Rylee Dangelo MD EXAMINATION: MM SCREENING DIGITAL BREAST TOMOSYNTHESIS, BILATERAL CLINICAL INFORMATION: Screening. Asymptomatic. COMPARISON: Mammography: Comparison is made with available priors TECHNIQUE: Digital breast mammography with tomosynthesis is performed in both the craniocaudal and mediolateral oblique views along with computer-aided detection (CAD). FINDINGS: There are scattered areas of fibroglandular density (ACR BI-RADS breast composition Category b). There are no significant masses, abnormal calcifications, or other abnormalities. MM/MM tomosynthesis screening BI IMPRESSION: No mammographic evidence of malignancy. ASSESSMENT: BI-RADS BI-RADS 1 - Negative RECOMMENDATION: Routine annual mammography screening. 1 year F/U This examination should not preclude the clinical evaluation of a suspicious palpable abnormality. This patient's information was entered into a reminder system with a target due date for their next mammogram. Electronically signed by: Felipa Tejdea DO 11/04/2024 05:57 PM EDT Dictated By: Felipa Tejeda DO Signed By: <Electronically signed by Felipa Tejeda DO in OV> 11/04/24 1757 DD/ 0750 TD/TT: 10/30/24 0800 Filter Tank Tender: Rylee Decker MD IMG BI PROCEDURES Final Result * Lipid Panel, Standard (04/21/2024 8:02 AM EST) Triglycerides 70 <150 mg/dL [facility] Comment:Desirable Triglyceri de: less than 150 mg/dLBorderline High Triglyceride 150-199 mg/dLHigh Triglyceride: 200-499 mg/dLVery High Triglyceride: greater than or equal to 5OO mg/dL Cholesterol 166 <200 mg/dL [facility] Comment:Desirable Cholestero l: less than 200 mg/dLBorderline High Cholesterol: 200-239 mg/dLHigh Cholesterol: greater than 239 mg/dL LDL Cholesterol Calculated 85 <100 mg/dL [facility] Comment:Desirable LDL: less than 100 mg/dLNear Optimal/Above Optimal LDL: 110- 129 mg/dLBorderline High LDL: 130-159 mg/dLHigh LDL: 160-189 mg/dLVery High LDL: greater than or equal to 190 mg/dL HDL Cholesterol 67 >40 mg/dL [facility] Comment:Desirable HDL: great er than 40 mg/dL Note: This HDL assay may give artificially low results in patients with liver disease. Blood Venous blood specimen / Unknown 04/21/2024 8:02 AM EST 04/21/2024 11:36 AM EST us Rylee Decker MD LAB BLOOD ORDERAB LES Final Result Performing Organization Address [facility] Co de Phone Number [facility] [address] [place] [phone] * Hepatitis C Antibody with Reflex to HCV, RNA, Quantitative, Real-Time PCR (04/18/2024 8:07 AM EST) Hepatitis C Antibody Nonreactive Nonreactive [facility] Comment:Antibodies to HCV no t detected; does not exclude early acuteHCV infection. Blood Venous blood specimen / Unknown 04/18/2024 8:07 AM EST 04/18/2024 11:03 AM EST Rylee Decker MD LAB BLOOD ORDERAB LES Final Result Performing Organization Address [facility] Co de Phone Number [facility] [address] [place] [phone] * HIV-1/2 Antigen and Antibodies, Fourth Generation, with Reflexes (04/18/2024 8:07 AM EST) Pathologist [facility] HIV AB/AG Nonreactive Nonreactive [facility] Comment:HIV-1 p24 Ag and/or HIV-1/HIV-2 Ab not detected.A test result that is nonreactive does not exclude thepossibility of exposure to or infection with HIV-1 and/orHIV-2. Nonreactive results in this assay for individualswith prior exposure to HIV-1 and/or HIV-2 may be due toantigen and antibody levels that are below the limit ofdetection of this assay.The [employer]?REL HIV Ag/Ab Combo assay result andsupplemental assay results should be interpreted inconjunction with the patient's clinical presentation,history and other laboratory results. If the results areinconsistent with clinical evidence, additional testing issuggested to confirm the result. Blood Venous blood specimen / Unknown 04/18/2024 8:07 AM EST 04/18/2024 11:03 AM EST Rylee Decker MD LAB BLOOD ORDERAB LES Final Result [facility] [address] [place] [phone] * CT Lung Screening Low dose (03/06/2024 8:41 AM EDT) Anatomical Region Laterality Modality Lung Computed Tomogra phy 03/06/2024 8:41 AM EDT Narrative 04/21/2024 10:42 PM EST [address] [address] [address] Scan Report Signed Patient: Shawna Ch MR#: [id number] : 1965 Acct:[id number] Age/Sex: 58 / F ADM Date: 03/06/24 Loc: HO.CT Attending Dr: Regina Hernandez PA-C Ordering Physician: Regina Hernandez PA-C Date of Service: 03/06/24 Procedure(s): CT lung screening Accession Number(s): [id number] cc: Regina Hernandez PA-C; Rylee Dangelo MD EXAMINATION: CT LOW-DOSE SCREENING CHEST WITHOUT CONTRAST CLINICAL INFORMATION: Personal history of nicotine dependence. The patient has a 42 pack-year history of smoking, having quit 6 years ago. COMPARISON: CT chest 03/02/2023. TECHNIQUE: Multidetector volumetric CT imaging of the chest is performed on a Siemens SOMATOM Definition scanner without contrast using low dose technique. Additional 2D coronal and sagittal reformatted images and axial 3D maximum intensity projection (MIP) images are generated on the CT workstation. This CT examination was performed using dose optimization techniques as appropriate, variously including the following: *Automated exposure control. *Adjustment of mA and/or kV according to patient size (this includes techniques or standardized protocols for targeted exams where dose is matched to indication/reason for exam; i.e. extremities or head). *Use of iterative reconstruction technique. TOTAL EXAM DLP: 41 mGy-cm. CTDIvol: 1.37 mGy. FINDINGS: PULMONARY NODULES: No suspicious pulmonary nodules. Previously seen 4 mm left lower lobe pulmonary nodule now measures 3 mm (5:288 compare prior 6:305). LUNGS: Lungs bilaterally symmetrically expanded. There is minimal emphysematous change with some mild bronchial thickening without bronchiectasis. No effusion or pneumothorax. Central airways patent. MEDIASTINUM: No mediastinal, hilar or axillary adenopathy or free fluid collection. CORONARY ARTERY CALCIFICATION: None visualized on this study. THYROID GLAND: Unremarkable to the extent seen. CARDIOVASCULAR STRUCTURES: Aortic and heart size normal. No pericardial effusion. CHEST WALL/AXILLA: Unremarkable. UPPER ABDOMEN: Included portions of the solid organs in the upper abdomen unremarkable on noncontrast imaging. OSSEOUS STRUCTURES: No suspicious focal findings. CT/CT lung screening IMPRESSION: No findings seen suspicious for malignancy. ASSESSMENT: 1. Lung-RADS Category 2: Benign appearance or behavior of nodules. N/A. 2. Lung-RADS Category S: Negative. There are no clinically significant or potentially clinically significant findings not related to the lungs requiring urgent additional evaluation. RECOMMENDATION: Continued routine annual low-dose CT lung screening in 1 year is recommended. An order for CT CHEST LOW DOSE CANCER SCREENING ([id number]) can be placed. Electronically signed by: Ronny Nguyen MD 04/21/2024 10:39 PM [facility] Dictated By: Ronny Nguyen MD Signed By: <Electronically signed by Ronny Nguyen MD in OV> 04/21/24 2239 DD/ 0841 TD/TT: 03/06/24 0858 Filter Tank Tender: Procedure Note Donotuseinterpreter, Image - 04/21/[address] [address] [address] Scan Report Signed Patient: Armin Ch#: [id number] : 1965Acct:[id number] Age/Sex: 58 / FADM Date: 03/06/24 Loc: HO.CT Attending Dr: Regina Hernandez PA-C Ordering Physician: Regina Hernandez PA-C Date of Service: 03/06/24 Procedure(s): CT lung screening Accession Number(s): [id number] cc: Regina Hernandez PA-C; Rylee Dangelo MD EXAMINATION: CT LOW-DOSE SCREENING CHEST WITHOUT CONTRAST CLINICAL INFORMATION: Personal history of nicotine dependence. The patient has a 42 pack-year history of smoking, having quit 6 years ago. COMPARISON: CT chest 03/02/2023. TECHNIQUE: Multidetector volumetric CT imaging of the chest is performed on a Siemens SOMATOM Definition scanner without contrast using low dose technique. Additional 2D coronal and sagittal reformatted images and axial 3D maximum intensity projection (MIP) images are generated on the CT workstation. This CT examination was performed using dose optimization techniques as appropriate, variously including the following: *Automated exposure control. *Adjustment of mA and/or kV according to patient size (this includes techniques or standardized protocols for targeted exams where dose is matched to indication/reason for exam; i.e. extremities or head). *Use of iterative reconstruction technique. TOTAL EXAM DLP: 41 mGy-cm. CTDIvol: 1.37 mGy. FINDINGS: PULMONARY NODULES: No suspicious pulmonary nodules. Previously seen 4 mm left lower lobe pulmonary nodule now measures 3 mm (5:288 compare prior 6:305). LUNGS: Lungs bilaterally symmetrically expanded. There is minimal emphysematous change with some mild bronchial thickening without bronchiectasis. No effusion or pneumothorax. Central airways patent. MEDIASTINUM: No mediastinal, hilar or axillary adenopathy or free fluid collection. CORONARY ARTERY CALCIFICATION: None visualized on this study. THYROID GLAND: Unremarkable to the extent seen. CARDIOVASCULAR STRUCTURES: Aortic and heart size normal. No pericardial effusion. CHEST WALL/AXILLA: Unremarkable. UPPER ABDOMEN: Included portions of the solid organs in the upper abdomen unremarkable on noncontrast imaging. OSSEOUS STRUCTURES: No suspicious focal findings. CT/CT lung screening IMPRESSION: No findings seen suspicious for malignancy. ASSESSMENT: 1. Lung-RADS Category 2: Benign appearance or behavior of nodules. N/A. 2. Lung-RADS Category S: Negative. There are no clinically significant or potentially clinically significant findings not related to the lungs requiring urgent additional evaluation. RECOMMENDATION: Continued routine annual low-dose CT lung screening in 1 year is recommended. An order for CT CHEST LOW DOSE CANCER SCREENING ([id number]) can be placed. Electronically signed by: Ronny Nguyen MD 04/21/2024 10:39 PM [facility] Dictated By: Ronny Nguyen MD Signed By: <Electronically signed by Ronny Nguyen MD in OV> 04/21/24 2239 DD/ 0 TD/TT: 03/06/24 0858 Filter Tank Tender: DIANE [facility] External Provider IMG CT PROCEDURES Edited Result - Final * Hm Colonoscopy (09/28/2017 2:22 PM EDT) Historical Provider HEALTH MAINTENANCE Final Result from Last 3 Months or Most Recently Relevant to Health Maintenance Insurance [facility] STANDARD DENTAL-[facility] MEDICAID STAND ADULT Care Teams [employer] Thread Laster Relationship Specialty Start Date End Date Rylee Dangelo MD [address] [place] [phone] PCP - General Internal Medicine 03/13/23
--- OUTSIDE RECORDS SUMMARY | 2025-01-29 07:47 | XMS_ITS | Encounter Summary ---
Author Organization [employer] Address [address] [facility] [address] [place] [address] Care Team Providers Care Rn Rehabilitation Name Role Phone Rylee Dangelo MD Primary Care Pro vider Reason for Visit * Reason Comments Med Refill Encounter Details Date Type Department Care Team ([facility] st Contact Info) Description 01/26/2025 Refill [facility] MEDICINE [address] [place] [phone] Rylee Dangelo MD [address] [place] [address] Hypertension, unspecified type Social History Tobacco Use Types Packs/Day Years [...] Description 03/24/2025 1:45 PM EDT Office Visit [facility] OPTOMETRY [address] [place], [place] [phone] Ina Flores, OD [address] [place] [address] documented as of this encounter Visit Diagnoses Diagnosis Hypertension, unspecified type documented in this encounter Additional Health Concerns Assessment Noted Time PHQ-9 Depression Total Score: 0 04/17/20 24 10:04 AM EST documented as of this encounter Care Teams Rn Rehabilitation Relationship Specialty Start Date End Date Rylee Dangelo MD [address] [place] [address] [phone] PCP - General Internal Medicine 03/13/23 documented as of this encounter
== END 2025-01-29 07:43 | disposition home or self-care (01) ==
LOC: HO.US 07:42
PROVIDERS: PCP Student in an Organized Health Care Education/Training Program; Visit Provider Student in an Organized Health Care Education/Training Program
DX: F10.90 Alcohol use, unspecified, uncomplicated (principal)
CPT/HCPCS: 76700; 76981

== ENCOUNTER → 2025-01-29 07:45 | Outpatient (BNV) | payer MEDICAID, SELFPAY | PROVIDERS: PCP Student in an Organized Health Care Education/Training Program; Visit Provider Radiology Diagnostic Radiology | DX: K76.0 Fatty (change of) liver, not elsewhere classified (principal) | CPT/HCPCS: 76700 ==

== ENCOUNTER 2025-03-11 12:48 | Emergency (ER) | payer MEDICAID, SELFPAY ==
--- NOTE | ~2025-03-11 | XR_ITS ---
CLINICAL HISTORY: pain constipation 1 view abdomen Comparison: None provided Findings: Surgical clips project over the right pelvis. No pneumoperitoneum or pneumatosis. Small amount of colonic stool. No abnormal calcifications. No acute fractures. IMPRESSION: Normal bowel gas pattern This document has been electronically signed by: Chuy Patel MD on 03/11/2025 19:57:22
--- NOTE | 2025-03-11 12:50 | ECG_ITS ---
Test Reason : CHEST PAIN Blood Pressure : */* mmHG Vent. Rate : 65 BPM Atrial Rate : 65 BPM P-R Int : 176 ms QRS Dur : 84 ms QT Int : 406 ms P-R-T Axes : 51 20 20 degrees QTcB Int : 422 ms Normal sinus rhythm Possible Left atrial enlargement Borderline ECG When compared with ECG of 11-Jan-2024 10:24, No significant change was found Referred By: Norma Diallo Electronically Signed By: JUAN MANUEL GRIER MD
[2025-03-11 12:59] VITALS: BP 145/79; PULSE 95; RESP 14; TEMP 36.6; O2SAT 94; BMI 31.7
--- NOTE | 2025-03-11 12:59 | ED.GENADULT ---
HPI - General Adult General Chief complaint: Abdominal Pain Stated complaint: lower abd pain, chest pain Time Seen by Provider: 03/11/25 19:25 Source: patient Limitations: language barrier History of Present Illness ED Provider: Tyesha Duarte PA-C HPI narrative: 59-year-old female with a history of fatty liver disease, hypothyroidism, hyperlipidemia who presents with the abdominal pain times 1 month. Pain across lower abdomen, unable to describe the nature of her discomfort. Denies nausea vomiting diarrhea constipation. Denies dysuria, hematuria or fever. Denies abdominal distention or inability to pass flatus. Related Data Home Medications ?Medication ?Instructions ?Recorded ?Confirmed cholecalciferol (vitamin D3) 50 1 tab PO DAILY 07/17/21 05/20/24 mcg (2,000 unit) tablet levothyroxine 100 mcg tablet 100 mcg PO MOTUWETHFR@06 08/07/23 05/20/24 simvastatin 40 mg tablet 40 mg PO QPM 08/07/23 05/20/24 albuterol sulfate 90 mcg/actuation 2 puff inhalation Q6H PRN wheezing 05/05/24 05/20/24 aerosol inhaler (Ventolin HFA) levothyroxine 88 mcg tablet 88 mcg PO DAILY 05/20/24 05/20/24 Allergies Allergy/AdvReac Type Severity Reaction Status Date / Time No Known Allergies (No Known Allergy Verified 03/11/25 13:01 Allergies*) Review of Systems Review of Systems: Yes all other systems are reviewed and are negative Constitutional: Constitutional: Denies fatigue and Denies fever(s) Cardiovascular: Cardiovascular: Denies chest pain and Denies dyspnea Respiratory: Respiratory: Denies dyspnea Gastrointestinal: Gastrointestinal: Reports abdominal pain, Denies constipation, Denies diarrhea, Denies nausea and Denies vomiting Genitourinary: Genitourinary: Denies dysuria and Denies flank pain Endocrine: Endocrine: Denies fatigue PMFSH Past Medical History Attestation statement: The following information was validated with the patient. Medical History Colon cancer screening History of uterine cancer (~2003) History of OH (myocardial infarction) Hypothyroid High cholesterol History of small bowel obstruction GERD (gastroesophageal reflux disease) Tubular adenoma of colon (~2017) Personal history of nicotine dependence Depression Back pain Obesity Surgical History History of cardiac cath History of colonoscopy History of left knee surgery History of total abdominal hysterectomy and bilateral salpingo-oophorectomy History of reversal of tubal ligation Family History Family History Sister Uterine cancer Social History Social History Household Members: None Housing: Apartment Do you presently have visiting nurse or other home services: No Alcohol intake: current Alcohol intake frequency: a few times a month Comment: medicated, see MAR Patient Tobacco Use Status: Former Tobacco user Years Smoked: onset 10yo, 1ppd x 42yrs, 40pyh - quit 2017 Advance Directives: Yes Advance Directives on File: Yes Advance Directives Date on File: 07/26/21 Do you have a plan to hurt others: No Plan service: No Current occupational status: disabled 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 Sexual orientation: Straight/Heterosexual Gender identity: Female Physical Exam ED Vital Signs: Vital Signs - 24 hr 03/11/25 12:59 03/11/25 17:48 Temperature 97.9 F 98.3 F Pulse Rate 95 63 Respiratory Rate 14 16 Blood Pressure 145/79 H 141/64 H Pulse Oximetry 94 98 Oxygen Delivery Method Room Air Room Air BMI result Body Mass Index 31.7 Const Other: Alert well-appearing Orientation/consciousness: patient oriented x3 Resp Effort & Inspection: normal respiratory effort Cardio Other: Normal peripheral perfusion GI Other: Abdomen is soft, obese, nontender no guarding Skin Other: Warm dry no rash Neuro General: patient oriented x3, gait normal, no focal motor deficits and CN's II-XI intact bilaterally Psych Other: Cooperative Course Course Course Narrative: This is a rapid medical exam performed by Kolton Diallo NP: Additional HPI, ROS, PE not included below will be deferred to primary provider. Patient is a 59y/o F presenting with complaint of suprapubic pain x 1 mos. Denies any urinary sxs. Plan: labs, UA Medical Decision Making Medical Decision Making MDM Narrative: 59-year-old female with a history of fatty liver disease, hypothyroidism, hyperlipidemia who presents with the abdominal pain times 1 month. Pain across lower abdomen, unable to describe the nature of her discomfort. Denies nausea vomiting diarrhea constipation. Denies dysuria, hematuria or fever. Denies abdominal distention or inability to pass flatus. Problem: Age History: Per patient I have considered the following differential diagnoses: Constipation, bowel obstruction, urinary tract infection, diverticulitis, appendicitis Plan: Patient here with vague abdominal pain without any active GI or symptoms. Screening labs including a urinalysis were already obtained from triage everything is negative. Adding on a KUB to assess her stool burden I have independently reviewed the following tests: Labs: No leukocytosis, not anemic, no electrolyte abnormality, urine not infected KUB: Findings: Surgical clips project over the right pelvis. No pneumoperitoneum or pneumatosis. Small amount of colonic stool. No abnormal calcifications. No acute fractures. IMPRESSION: Normal bowel gas pattern Differential Diagnosis Differential Diagnoses: The differential diagnosis associated with the presentation includes See home care instructions Admission/Observation Consideration of admission/observation: Escalation of care including admission/observation considered Not applicable Lab Data MDM Lab Attestation statement: I reviewed the patient's lab results. 03/11/25 13:15 03/11/25 13:15 Labs: Lab Results 03/11/25 Range/Units 13:15 WBC 9.1 (4.8-10.8) X10*3/uL RBC 4.53 (4.20-5.50) X10*6/uL Hgb 12.7 (12.0-16.0) g/dl Hct 37.2 (37.0-47.0) % MCV 82.1 (80.0-98.0) fL MCH 28.0 (27.0-33.0) pg MCHC 34.1 (31.0-35.0) g/dl RDW 13.3 (11.0-16.0) % Plt Count 180 (160-400) X10*3/uL MPV 10.8 (9.4-12.3) fL Immature Gran % (Auto) 0.2 (0.0-0.4) % Neut % (Auto) 61.2 (45-73) % Lymph % (Auto) 31.8 (20-40) % [place] % (Auto) 5.3 (2-11) % Eos % (Auto) 1.1 (0-4) % Baso % (Auto) 0.4 (0-2) % Lymph # (Auto) 2.9 (1.2-4.9) X10*3/uL Stanley # (Auto) 0.5 (0.1-1.2) X10*3/uL Eos # (Auto) 0.1 (0.0-0.4) X10*3/uL Baso # (Auto) 0.0 (0.0-0.2) X10*3/uL Abs Immat Gran (auto) 0.02 (0.00-0.03) X10*3/uL Absolute Neuts (auto) 5.6 (2.0-8.3) x10*3/uL Absolute Nucleated RBC 0.000 (0.0-0.012) X10*3/uL Nucleated RBC % (auto) 0.0 (0.0-0.2) /100WBC Sodium 142 (135-145) mmol/L Potassium 3.9 (3.3-5.1) mmol/L Chloride 108 (96-108) mmol/L Carbon Dioxide 26 (22-29) mmol/L Anion Gap 12 (12-20) BUN 12 (9-16) mg/dL Creatinine 0.68 (0.5-1.4) mg/dL Estim Creat Clear Calc 81.1 Estimated GFR > 60 Random Glucose 98 (60-115) mg/dL Calcium 9.4 (8.4-10.2) mg/dL Total Bilirubin 0.3 (0.0-1.0) mg/dL AST 19 (5-31) U/L ALT 13 (0-31) U/L Alkaline Phosphatase 68 (39-117) U/L Total Protein 7.0 (6.5-8.0) g/dL Albumin 4.3 (3.5-5.0) g/dL Urine Color Yellow Urine Appearance Clear Urine pH 5.0 (5.0-9.0) Ur Specific [place] 1.020 (1.005-1.025) Urine Protein Negative (Neg-Trace) mg/dL Urine Glucose (UA) Negative (Negative) mg/dL Urine Ketones Trace (Negative) mg/dL Urine Blood Negative (Negative) Urine Nitrite Negative (Negative) Ur Leukocyte Esterase Negative (Negative) Radiology Impression Discussion of test interpretation with radiology: I have reviewed the radiologist's reading. Discharge Plan Discharge Clinical Impression: Constipation Patient Disposition: Home, Self-Care Instructions: Constipation (ED) Additional Instructions: You were found to be constipated. See home care instructions. You need to begin to take [id number] Colace, twice a day. You need to use [id number] MiraLax twice a day, until you begin to have larger bowel movements on a regular basis. All of your screening labs were completely normal including your liver function tests and your urine is not infected. Follow up with your primary care provider as needed. Prescriptions: No Action cholecalciferol (vitamin D3) 50 mcg (2,000 unit) tablet 1 tab PO DAILY levothyroxine 100 mcg tablet 100 mcg PO MOTUWETHFR@06 simvastatin 40 mg tablet 40 mg PO QPM levothyroxine 88 mcg tablet 88 mcg PO DAILY albuterol sulfate [Ventolin HFA] 90 mcg/actuation HFA aerosol inhaler 2 puff inhalation Q6H PRN (Reason: wheezing) Print Language: Lao
[2025-03-11 13:27] LABS: MANUAL DIFF FLAG NO
[2025-03-11 13:28] LABS: Hematocrit 37.2 % (37.0-47.0); Hemoglobin 12.7 g/dl (12.0-16.0); Imm Gran Abs Auto 0.02 X10*3/uL (0.00-0.03); Imm Gran Pct Auto 0.2 % (0.0-0.4); Lymphocytes Absolute Auto 2.9 X10*3/uL (1.2-4.9); Mean Corpuscular HGB Conc 34.1 g/dl (31.0-35.0); Mean Corpuscular Hemoglobin 28.0 pg (27.0-33.0); Mean Corpuscular Volume 82.1 fL (80.0-98.0); NRBC Abs Auto 0.000 X10*3/uL (0.0-0.012); NRBC Pct Auto 0.0 /100WBC (0.0-0.2); Platelet Count 180 X10*3/uL (160-400); Red Blood Count 4.53 X10*6/uL (4.20-5.50); White Blood Count 9.1 X10*3/uL (4.8-10.8)
[2025-03-11 13:29] LABS: Appearance Urine Clear; Glucose Urine UA Negative (Negative); PH 5.0 (5.0-9.0); Specific Gravity - Urine 1.020 (1.005-1.025)
[2025-03-11 13:42] LABS: Alanine Aminotransferase 13 U/L (0-31); Albumin Level 4.3 g/dL (3.5-5.0); Alkaline Phosphatase 68 U/L (39-117); Anion Gap 12 (12-20); Aspartate Amino Transferase 19 U/L (5-31); Blood Urea Nitrogen 12 mg/dL (9-16); Calcium 9.4 mg/dL (8.4-10.2); Carbon Dioxide 26 mmol/L (22-29); Chloride 108 mmol/L (96-108); Creatinine Clr Calc Pharmacy 81.1; Estimated Glomerular Filt Rate > 60; Potassium 3.9 mmol/L (3.3-5.1); Sodium 142 mmol/L (135-145); Total Protein 7.0 g/dL (6.5-8.0)
[2025-03-11 17:48] VITALS: BP 141/64; PULSE 63; RESP 16; TEMP 36.8; O2SAT 98
[2025-03-11 20:22] VITALS: BP 139/72; PULSE 56; RESP 16; TEMP 36.8; O2SAT 97
[2025-03-11 20:31] VITALS: BP 139/72; PULSE 56; RESP 16; TEMP 36.8; O2SAT 97
== END 2025-03-11 20:31 | disposition home or self-care (01) ==
PROVIDERS: Registered Nurse Emergency; Emergency Provider Emergency Medicine Emergency Medical Services; PCP Student in an Organized Health Care Education/Training Program
DX: K59.00 Constipation, unspecified (principal); K76.0 Fatty (change of) liver, not elsewhere classified
CPT/HCPCS: 36415; 74018; 80053; 81003; 85025; 93005; 99283; 99284

== ENCOUNTER → 2025-03-11 12:50 | Outpatient (BNV) | payer MEDICAID, SELFPAY | PROVIDERS: PCP Student in an Organized Health Care Education/Training Program; Visit Provider Internal Medicine Cardiovascular Disease | DX: R07.9 Chest pain, unspecified (principal) | CPT/HCPCS: 93010 ==

== ENCOUNTER → 2025-03-11 19:28 | Outpatient (BNV) | payer MEDICAID, SELFPAY | PROVIDERS: PCP Student in an Organized Health Care Education/Training Program; Visit Provider Radiology Diagnostic Radiology | DX: K59.00 Constipation, unspecified (principal); R10.30 Lower abdominal pain, unspecified | CPT/HCPCS: 74018 ==

== ENCOUNTER 2025-05-15 10:24 | Outpatient (REF) | payer MEDICAID, SELFPAY ==
--- NOTE | ~2025-05-15 | XR_ITS ---
EXAMINATION: XR FOOT, LEFT CLINICAL INFORMATION: left foot pain x 2 days COMPARISON: 06/20/2022. TECHNIQUE: AP, lateral, and oblique views of the left foot. FINDINGS: No fracture, dislocation, or suspicious bone lesion. Normal bone mineralization. Normal alignment. 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 Joint spaces are otherwise preserved. Normal plantar arch. The midfoot and hindfoot appear normal. Soft tissues appear normal. XR/XR foot LT min 3V IMPRESSION: 1. No acute bony or soft tissue abnormalities. 2. Mild osteoarthrosis first MTP joint. Electronically signed by: Ryan Santana MD 05/15/2025 10:43 AM TYRONE HUNTER
== END 2025-05-15 10:25 | disposition home or self-care (01) ==
LOC: HO.XRAY 10:24
PROVIDERS: PCP General Practice; Visit Provider General Practice
DX: M79.672 Pain in left foot (principal)
CPT/HCPCS: 73630

== ENCOUNTER → 2025-05-15 10:27 | Outpatient (BNV) | payer MEDICAID, SELFPAY | PROVIDERS: PCP General Practice; Visit Provider Radiology Diagnostic Radiology | DX: M19.072 Primary osteoarthritis, left ankle and foot (principal) | CPT/HCPCS: 73630 ==